=== PATIENT | male | born 1955 | race Two or more races ===

== ENCOUNTER 2021-12-26 14:09 | Outpatient (REF) | payer OTHER, SELFPAY ==
--- NOTE | ~2021-12-26 | MM_ITS ---
EXAMINATION: MM DIAGNOSTIC DIGITAL BREAST TOMOSYNTHESIS, BILATERAL US DIAGNOSTIC ULTRASOUND BREAST, RIGHT CLINICAL INFORMATION: 66-year-old male with fullness right breast. No pain, erythema, or nipple discharge. Prior history outside mammography March 2021. No known family history breast cancer. Patient notes symptoms improved from past. COMPARISON: None. Radiology department will attempt to retrieve prior outside breast imaging to allow for comparison in an addendum report. TECHNIQUE: Digital breast tomosynthesis is performed in both the craniocaudal and mediolateral oblique views along with computer-aided detection (CAD). Synthesized 2D images are generated from the tomosynthesis. Additional spot and rolled CC x2 views of the right breast are obtained. Ultrasound right breast is targeted to the retroareolar, periareolar, and outer breast. Grayscale imaging and color Doppler are performed without and with harmonics. FINDINGS: There are scattered areas of fibroglandular density (ACR BI-RADS breast composition Category b). There is an asymmetric gynecomastia type parenchymal pattern, slightly greater on the right. There is no mass or architectural abnormality. No skin thickening or coarsening of the stromal markings. There are some scattered benign round and dermal calcifications. The axilla are unremarkable. Ultrasound demonstrates no cystic or solid mass, focal duct ectasia, or architectural abnormality. No skin thickening or edema tracking in soft tissue planes. Results are discussed with the patient and son at time of visit. Patient notes reduced symptoms from past. No discharge. Patient should be managed based on the clinical impression. If clinically indicated, further evaluation may be considered with surgical consult. Decision to proceed with biopsy should be based on clinical grounds and degree of clinical concern. MM/MM tomosynthesis diagnostic BI IMPRESSION: -Moderate gynecomastia, slightly greater on right. -Unremarkable right breast ultrasound. ASSESSMENT: BI-RADS 2: Benign RECOMMENDATION: 1. Patient should be managed based on the clinical impression. If clinically indicated, further evaluation may be considered with surgical consult. Decision to proceed with biopsy should be based on clinical grounds and degree of clinical concern. 2. Radiology department staff will attempt to retrieve prior outside breast imaging to allow for comparison in an addendum report. This patient's information was entered into a reminder system with a target due date for their next mammogram.
== END 2021-12-26 14:10 | disposition home or self-care (01) ==
LOC: HO.MAMMO 14:09
PROVIDERS: PCP Internal Medicine; Visit Provider Internal Medicine
DX: N62 Hypertrophy of breast (principal)
CPT/HCPCS: 76642; 77062; 77066

== ENCOUNTER 2023-08-15 08:13 | Outpatient (REF) | payer MEDICAID, SELFPAY ==
[2023-08-15 14:06] LABS: Hematocrit 33.8 % (42.0-52.0); Hemoglobin 10.7 g/dl (14.0-18.0); Mean Corpuscular HGB Conc 31.7 g/dl (31.0-36.0); Mean Corpuscular Hemoglobin 29.2 pg (27.0-33.0); Mean Corpuscular Volume 92.1 fL (80.0-98.0); Mean Platelet Volume 10.5 fL (9.4-12.4); Platelet Count 212 X10*3/uL (160-400); Red Blood Count 3.67 X10*6/uL (4.60-5.80); Red Cell Distribution Width 14.8 % (11.0-16.0); White Blood Count 7.3 X10*3/uL (4.8-10.8)
[2023-08-15 14:26] LABS: Alanine Aminotransferase 16 U/L (0-40); Albumin Level 3.9 g/dL (3.5-5.0); Alkaline Phosphatase 57 U/L (39-117); Anion Gap 12 (12-20); Aspartate Amino Transferase 17 U/L (5-37); Bilirubin Total 0.2 mg/dL (0.0-1.0); Blood Urea Nitrogen 31 mg/dL (9-16); Calcium 9.1 mg/dL (8.4-10.2); Carbon Dioxide 25 mmol/L (22-29); Chloride 110 mmol/L (96-108); Cholesterol 129 mg/dL (<200); Estimated Glomerular Filt Rate 33; Glucose Fasting 119 mg/dL (60-99); HDL Cholesterol 49 mg/dL (>40); LDL Cholesterol Calculated 67 mg/dL (<100); Sodium 142 mmol/L (135-145); Total Protein 6.7 g/dL (6.5-8.0); Triglycerides 65 mg/dL (<150)
[2023-08-15 14:45] LABS: TSH reflex Free T4 1.51 uIU/mL (0.32-4.0)
== END 2023-08-15 08:14 | disposition home or self-care (01) ==
LOC: HO.CHCLDS 08:13
PROVIDERS: Visit Provider Internal Medicine
DX: E11.22 Type 2 diabetes mellitus with diabetic chronic kidney disease (principal); N18.31 Chronic kidney disease, stage 3a
CPT/HCPCS: 36415; 80053; 80061; 84443; 85027

== ENCOUNTER 2023-09-07 17:59 | Outpatient (REF) | payer MEDICAID, SELFPAY ==
[2023-09-08 03:52] LABS: CT PCR NOT DETECTED (Not Detect.); NG PCR NOT DETECTED (Not Detect.)
== END 2023-09-07 18:00 | disposition home or self-care (01) ==
LOC: HO.HHCLNP 17:59
PROVIDERS: Visit Provider Student in an Organized Health Care Education/Training Program
DX: R30.9 Painful micturition, unspecified (principal)
CPT/HCPCS: 0353U; 87086

== ENCOUNTER 2023-10-16 09:54 | Outpatient (REF) | payer MEDICARE, MEDICAID, SELFPAY ==
[2023-10-16 15:12] LABS: Appearance Urine Clear; Color Urine Yellow; Glucose Urine UA Negative (Negative); Leukocyte Esterase Urine Negative (Negative); Nitrite Urine Negative (Negative); Specific Gravity - Urine 1.015 (1.005-1.025); UMIC TRIGGER UA YES; Urine Blood Negative (Negative); Urine Ketones Negative (Negative); Urine Protein 100 (2+) mg/dL (Neg-Trace)
[2023-10-16 15:17] LABS: Bacteria Urine None Seen (None Seen); Hyaline Casts Urine 0-2 /LPF (0-2); RBC Urine 0-2 /HPF (0-2); Squamous Epithelial Cell Urine 0-2 /HPF (0-2); WBC Urine 0-5 /HPF (0-5)
[2023-10-16 15:38] LABS: Creatinine Urine 117.31 mg/dL; Total Protein Urine Random 82 mg/dL (<12)
== END 2023-10-16 09:55 | disposition home or self-care (01) ==
LOC: HO.CHCLDS 09:54
PROVIDERS: Visit Provider Internal Medicine Nephrology
DX: N18.32 Chronic kidney disease, stage 3b (principal); R80.1 Persistent proteinuria, unspecified; I10 Essential (primary) hypertension; E11.22 Type 2 diabetes mellitus with diabetic chronic kidney disease
CPT/HCPCS: 81001; 82570; 84156

== ENCOUNTER 2024-03-25 09:54 | Outpatient (REF) | payer OTHER, SELFPAY ==
[2024-03-25 16:04] LABS: Appearance Urine Clear; Color Urine Yellow; Glucose Urine UA Negative (Negative); Leukocyte Esterase Urine Negative (Negative); Nitrite Urine Negative (Negative); PH 6.5 (5.0-9.0); Specific Gravity - Urine 1.015 (1.005-1.025); UMIC TRIGGER UA YES; Urine Blood Negative (Negative); Urine Ketones Negative (Negative); Urine Protein 100 (2+) mg/dL (Neg-Trace)
[2024-03-25 16:10] LABS: Bacteria Urine None Seen (None Seen); Hyaline Casts Urine 0-2 /LPF (0-2); RBC Urine 0-2 /HPF (0-2); Squamous Epithelial Cell Urine 0-2 /HPF (0-2); WBC Urine 0-5 /HPF (0-5)
[2024-03-25 16:31] LABS: Hematocrit 34.3 % (42.0-52.0); Mean Corpuscular HGB Conc 32.1 g/dl (31.0-36.0); Mean Corpuscular Volume 93.5 fL (80.0-98.0); Mean Platelet Volume 10.5 fL (9.4-12.4); Platelet Count 221 X10*3/uL (160-400); Red Blood Count 3.67 X10*6/uL (4.60-5.80); Red Cell Distribution Width 14.7 % (11.0-16.0); White Blood Count 8.1 X10*3/uL (4.8-10.8)
[2024-03-25 17:00] LABS: Alanine Aminotransferase 16 U/L (0-40); Alkaline Phosphatase 62 U/L (39-117); Anion Gap 12 (12-20); Aspartate Amino Transferase 18 U/L (5-37); Bilirubin Total 0.2 mg/dL (0.0-1.0); Blood Urea Nitrogen 32 mg/dL (9-16); Calcium 9.1 mg/dL (8.4-10.2); Carbon Dioxide 25 mmol/L (22-29); Chloride 108 mmol/L (96-108); Cholesterol 145 mg/dL (<200); Estimated Glomerular Filt Rate 34; Glucose Random 127 mg/dL (60-115); HDL Cholesterol 43 mg/dL (>40); LDL Cholesterol Calculated 78 mg/dL (<100); Potassium 5.3 mmol/L (3.3-5.1); Sodium 140 mmol/L (135-145); Total Protein 6.9 g/dL (6.5-8.0); Triglycerides 120 mg/dL (<150)
[2024-03-26 04:33] LABS: ~HepC Num1 0.11 S/CO (0.00-0.79); ~Hepatitis C Antibody Nonreactive (Nonreactive)
== END 2024-03-25 09:55 | disposition home or self-care (01) ==
LOC: HO.CHCLDS 09:54
PROVIDERS: Visit Provider Internal Medicine
DX: E11.22 Type 2 diabetes mellitus with diabetic chronic kidney disease (principal); N18.31 Chronic kidney disease, stage 3a; N40.1 Benign prostatic hyperplasia with lower urinary tract symptoms; R35.1 Nocturia
CPT/HCPCS: 36415; 80053; 80061; 81001; 84443; 85027; 86803

== ENCOUNTER 2024-04-07 09:36 | Outpatient (REF) | payer OTHER, SELFPAY ==
[2024-04-07 14:13] LABS: Anion Gap 13 (12-20); Blood Urea Nitrogen 40 mg/dL (9-16); Calcium 9.3 mg/dL (8.4-10.2); Carbon Dioxide 25 mmol/L (22-29); Chloride 106 mmol/L (96-108); Estimated Glomerular Filt Rate 31; Glucose Random 170 mg/dL (60-115); Potassium 4.8 mmol/L (3.3-5.1); Sodium 139 mmol/L (135-145)
== END 2024-04-07 09:37 | disposition home or self-care (01) ==
LOC: HO.CHCLDS 09:36
PROVIDERS: Visit Provider Internal Medicine
DX: E87.5 Hyperkalemia (principal)
CPT/HCPCS: 36415; 80048

== ENCOUNTER 2024-09-22 14:15 | Outpatient (REF) | payer OTHER, SELFPAY ==
[2024-09-22 18:07] LABS: Anion Gap 11 (12-20); Blood Urea Nitrogen 36 mg/dL (9-16); Calcium 8.9 mg/dL (8.4-10.2); Carbon Dioxide 24 mmol/L (22-29); Chloride 103 mmol/L (96-108); Estimated Glomerular Filt Rate 32; Glucose Random 100 mg/dL (60-115); Potassium 4.4 mmol/L (3.3-5.1); Sodium 134 mmol/L (135-145)
--- OUTSIDE RECORDS SUMMARY | 2024-09-22 18:45 | XMS_ITS | Encounter Summary ---
Author Organization [employer] Address [address] [place] [address] [address] [place] [address] Care Team Providers Care Staffing Program Manager Name Role Phone Ezequiel Curtis MD Primary Care Provider [phone] Encounter Details Date Type Department Care Team ([facility] st Contact Info) Description 03/26/2024 Orders Only [facility] [address], [place] [phone] Ezequiel Curtis MD [address] [place] [address] Hyperkalemia (Primary Dx) Social History Tobacco Use Types Packs/Day Years Used Date Smoking Tobacco: Former Cigarettes Q uit: 08/27/1991 Passive Smoke Exposure: Never Smokeless Tobacco: Never Alcohol Use Standard Drinks/Week Comments Yes 1 (1 standard drink = 0.6 oz pur e alcohol) Depression Answer Date Recorded Patient Health Questionnaire-9 Score 5 09/18/2022 Housing Stability Answer Date Recorded What is your housing situation today? I have melanie mary 12/18/[address] you li ve. Do you have problems with any of the following? Oven or stove not working 12/18/2023 Food Insecurity Answer Date Recorded Within the past 12 months, y ou worried that your food would run out before you got money to buy more: Never True 12/18/2023 Within the past 12 months,th e food you bought just didn't last and you didn't have enough money to get more: Never True Transportation Answer Date Recorded In the past 12 months, has l ack of transportation kept you from medical appts, meetings, work or from getting things needed for daily living? No 12/18/2023 Utilities Answer Date Recorded In the past 12 months, has t he electric, gas, oil or water company threatened to shut off services in your home? No 12/18/2023 Depression Answer Date Recorded Patient Health Questionnaire-2 Score 2 09/18/2022 Sex and Gender Information Value Date Recorded Sex Assigned at Male 06/26/2022 10:39 AM EDT Legal Sex Male 10:39 AM EDT Gender Identity Male 06/26/2022 10:39 AM EDT Sexual Orientation Choose not to disclose 2021 10:39 AM EDT documented as of this encounter Plan of Treatment Upcoming Encounters Date Type Department Care Team (Late st Contact Info) Description 10/09/2024 9:00 AM EST Office Visit [facility] [address] [place] [address] Dayne Hernandez [address] [place] [address] 10/29/2024 9:00 AM EST Office Visit [facility] MED & PEDS [address] [place] [address] Ezequiel Curtis MD [address] [place], [place] [phone] documented as of this encounter Procedures Procedure Name Priority Date/Time Associated Diagnosis Comments BASIC METABOLIC PANEL Routine 04/07/2024 9:40 AM EDT Hyperkalemia documented in this encounter Results * (ABNORMAL) Basic Metabolic Panel (04/07/2024 9:40 AM EDT) Sodium 139 135 - 145 mmol/L [facility] Potassium 4.8 3.3 - 5.1 mmol/L [facility] Chloride 106 96 - 108 mmol/L [facility] Carbon Dioxide 25 22 - 29 mmol/L [facility] Anion Gap 13 12 - 20 [facility] Urea Nitrogen (BUN) 40(H) 9 - 16 mg/dL [facility] Creatinine, Serum 2.13(H) 0.5 - 1.4 mg/dL [facility] Estimated Glomerular Filt Rate 31 [facility] Comment:NOTE: For -Am erican individuals, multiply the result by 1.210.Chronic Kidney Disease: Estimated GFR < 60 mL/min/[id number] Kidney Disease: Estimated GFR < 15 mL/min/1.73m2 Glucose 170(H) 60 - 115 mg/dL [facility] Calcium 9.3 8.4 - 10.2 mg/dL [facility] Blood Venous blood specimen / Unknown 04/07/2024 9:40 AM EDT 04/07/2024 1:54 PM EDT Ezequiel Curtis MD LAB BLOOD ORDERABLES Final Result [facility] [address] [place] [address] [phone] documented in this encounter Visit Diagnoses Diagnosis Hyperkalemia- Primary Hyperpotassemia documented in this encounter Additional Health Concerns Assessment Noted Time PHQ-9 Depression Total Score: 5 09/18/19 23 2:31 PM EST documented as of this encounter Care Teams Staffing Program Manager Relationship Specialty Start Date End Date Ezequiel Curtis MD [address] [place] [id number] PCP - General Internal Medicine 09/05/21 documented as of this encounter
--- OUTSIDE RECORDS SUMMARY | 2024-09-22 18:45 | XMS_ITS | Clinical Summary ---
Author Organization [facility] Address [address] [place] [address] Care Team Providers Care De Icer Element Winder Name Role Phone Shalom Lobato MD Primary Care Provider [phone] Allergies No known active allergies Medications losartan (COZAAR) 50 mg tablet Take 50 mg by mouth daily. Active OMEGA 3,6,9 COMBINATION NO.7 (OMEGA DHA ORAL) Act erin multivitamin (MULTIPLE VITAMINS) tablet Adult; Act erin atorvastatin (LIPITOR) 40 mg tablet TAKE ONE (1) TABLET(S) BY MOUTH ONE (1) TIME PER DAY EVERY EVENING 5 08/23/20 17 Active Freestyle Lite test strips USE TO CHECK BLOOD SUGAR THREE (3) TIMES PER DAY 11 08/21/20 17 Active FREESTYLE FREEDOM LITE meter USE DIRECTED TO TEST BLOOD GLUCOSE 0 08/23/20 17 Active blood glucose diagnostic (FREESTYLE FREEDOM LITE) meter FreeStyle Pacolet Lite w/Device Kit USE DAILY NEEDED TO CHECK BLOOD SUGAR Quantity: 1; Refills: 0 Started 03-Jan-2016 Active 01/03/20 16 Active glipiZIDE (GLUCOTROL) 10 mg tablet Take 5 mg by mouth every morning. 5 08/02/20 17 Active TRUEPLUS LANCETS USE TO CHECK BLOOD SUGAR THREE (3) TIMES PER DAY 11 08/21/20 17 Active loratadine (CLARITIN) 10 mg tablet TAKE ONE (1) TABLET(S) BY MOUTH ONE (1) TIME PER DAY (FOR ITCHY FEET AND HANDS) 5 08/21/20 17 Active CEROVITE SENIOR tablet TAKE ONE (1) TABLET(S) BY MOUTH ONE (1) TIME PER DAY 11 08/23/20 17 Active lancets (TRUEPLUS LANCETS) TRUEplus Lancets 30G Miscellaneous USE TO CHECK BLOOD SUGAR THREE (3) TIMES DAILY Quantity: 100; Refills: 0 Started 12-Apr-2015 Active 04/12/20 15 Active pioglitazone (ACTOS) 45 mg tablet Take 1 tablet by mouth daily. 4 03/27/20 18 Active NATURAL BALANCE TEARS 0.1-0.3 % ophthalmic drops INSTILL ONE (1) DROP INTO AFFECTED EYES FOUR (4) TIMES EVERY DAY 11 02/19/20 19 Active acyclovir (ZOVIRAX) 200 mg capsule Take 2 capsules (400 mg total) by mouth 5 times a day. 25 capsule 10/02/19 20 Active amLODIPine (NORVASC) 5 mg tablet Take 5 mg by mouth daily. 12/27/19 20 Active cimetidine (TAGAMET) 400 mg tablet TAKE 1 TABLET BY ORAL ROUTE 2 TIMES EVERY DAY IN THE MORNING AND AT BEDTIME NEEDED FOR HEARTBURN 10/22/19 20 Active TRADJENTA 5 mg tablet Take 5 mg by mouth daily. 12/29/19 20 Active clotrimazole-bet amethasone (LOTRISONE) cream Apply topically to the affected area 2 times a day. 45 g 1 03/08/20 20 Active cholecalciferol 25 mcg (1,000 unit) tablet Take 1,000 Units by mouth daily. 05/24/20 20 Active ASCORBIC ACID, VITAMIN C, ORAL Take by mouth. Active omega 2-yfl-whn-fish oil (Fish Oil) 100-160-1,000 mg capsule Fish Oil Active lidocaine (LIDODERM) 5% patch APPLY 1 PATCH EVERY DAY MAY WEAR UP TO 12 HOURS 10/13/19 21 Active glucosamine-marcial droitin 500-400 mg capsule Take 1 capsule by mouth 3 times daily. Active albuterol (ProAir HFA) 90 mcg inhaler ProAir HFA 90 mcg/actuation aerosol inhaler Active amoxicillin (MOXATAG ORAL) amoxicillin PRN dental Active ofloxacin (OCUFLOX) 0.3 % ophthalmic solution ofloxacin 0.3 % eye drops Active aspirin 81 mg EC tablet 10/30/19 21 Active clotrimazole (LOTRIMIN) 1% cream APPLY TO AFFECTED AREA TWICE A DAY IN THE MORNING AND IN THE EVENING 05/20/20 20 Active ergocalciferol (VITAMIN D2) 1,250 mcg (50,000 unit) capsule Take 50,000 Units by mouth once a week. 05/20/20 Active therapeutic multivitamin liquid Take 5 mL by mouth daily. Active Artificial Tears,pg-hypm-gl yc, 1-0.2-0.2 % drops INSTILL 1 DROP BY OPHTHALMIC ROUTE 4 TIMES EVERY DAY 11/04/19 Active betamethasone, augmented, (DIPROLENE) 0.05% creamIndications :Psoriasis APPLY TO AFFECTED AREA OF KNEE TWICE DAILY FOR UP TO 2 WEEKS TAKE 1 WEEK OFF & MAY REPEAT NEEDED 50 g 01/05/20 Active finasteride (PROSCAR) 5 mg tablet Take 1 tablet (5 mg total) by mouth daily. 90 tablet 3 03/14/20 Active terazosin (HYTRIN) 10 mg capsule Take 1 capsule (10 mg total) by mouth nightly. 90 capsule 3 03/14/20 Active Active Problems Problem Noted Date Diagnosed Date Anemia 01/15/2020 Assessment & Plan (12/31/2020 2:50 PM EDT): Hemoglobin level is sufficiently high to not warrant EVELIA treatment, though it has trended down over the past several years. I will continue to monitor this with iron studies at his next visit. Assessment & Plan (07/02/2020 2:42 PM EST): Hemoglobin is sufficiently high to not warrant EVELIA treatment. Assessment & Plan (01/23/2020 11:18 AM EDT): I will repeat his CBC with his upcoming lab draw. Bilateral leg edema 04/02/2019 Assessment & Plan (04/02/2019 10:53 AM EDT): Will defer diuretic therapy at this time. Advised patient to decrease his intake of dietary sodium. If he continues to rent retain fluid, consideration may need to be given to use of a thiazide diuretic and/or cardiac testing. Incomplete emptying of bladder 03/20/2016 CKD stage G3a/A3, GFR 45-59 and albumin creatinine ratio >300 mg/g 01/12/2016 Overview (06/18/2020): Reaplcing Diagnoses that were inactivated after 05/27/2020 regulatory diagnosis import. Assessment & Plan (12/31/2020 2:49 PM EDT): Renal function remains consistent with stage IIIb chronic kidney disease. Based on his urine albumin excretion he is at a higher risk of progression to ESRD. Ongoing efforts to optimize his blood pressure and glycemic control are crucial for preserving his GFR going forward. He is on evidence-based treatment with losartan. I will speak to him about starting an SGLT2 inhibitor, which may confer additional kidney protection as well as cardiac protection and blood sugar lowering. This may need to be coordinated with a down titration of one of his other antihyperglycemic medications such as glipizide, to avoid precipitating hypoglycemic episode. Assessment & Plan (07/02/2020 2:42 PM EST): Renal function is stable based on most recent labs obtained through his primary care clinic. Ongoing optimization of glycemic and blood pressure control are crucial preserving his GFR. He is on evidence-based therapy with an ARB. Consideration could be given to SGLT2 inhibitor therapy, which are being increasingly recognized to preserve kidney function in patients with proteinuric kidney disease and type 2 diabetes. Assessment & Plan (01/23/2020 11:14 AM EDT): Renal function was stable at most recent lab check. He gets his lab tests done at the [facility]. I will submit an order for labs and have them sent to the [facility] in [place]. Once those results return, I will call him to discuss whether or not his renal function has remained stable. In the meantime, optimal glycemic and blood pressure control are critical for preserving his current GFR. He has not had any indications for renal replacement therapy thus far. Assessment & Plan (04/02/2019 10:53 AM EDT): Renal function appears to be stable based on the most recent labs obtained through [facility]. Unfortunately do not have access to these labs. If additional blood work is obtained through the [facility] system, I would request that the results be faxed to my office at [phone]. Ongoing optimization of glycemic and blood pressure control are critical for preserving Mr. Galindo's GFR. Avoidance of nephrotoxic exposures such as iodinated contrast, volume depletion, and NSAID therapy are also critical. The patient preferred not to have blood work obtained today due to cost concerns, following a change in his insurance coverage. I provided him a lab slip and a handwritten list of labs that I would like to have completed at his next PCP visit, and faxed to my attention, to screen for other complications of chronic kidney disease including elevated parathyroid hormone, anemia, or other letter light disturbances. Assessment & Plan (10/09/2018 9:19 AM EST): Mr. Galindo's renal function remains very stable over the past several years. Ongoing optimization of glycemic and blood pressure control, as well as avoidance of nephrotoxic exposures such as iodinated contrast and NSAID therapy, are critical for preserving his GFR. There is no indication for additional diagnostic testing at this time. Assessment & Plan (04/03/2018 8:50 AM EDT): His renal function remains generally stable within the range of stage III CKD. Ongoing optimization of his glycemic and blood pressure control are critical for preserving his GFR. There is no indication for renal placement therapy at this time, however he is at high risk for progression ESRD by virtue of his persistent proteinuria. Assessment & Plan (09/19/2017 10:42 AM EST): Mr. Galindo has stable stage III chronic kidney disease with elevated protein excretion. His GFR was remained fairly stable over the past several years. Ongoing optimization of his glycemic and blood pressure control are critical for preserving his GFR. He does have a relatively increased risk of progression to ESRD given his elevated protein excretion, however his stable GFR over the past several years provides a favorable prognosis. Nadege 07/12/2015 Type 2 diabetes mellitus 07/22/2014 Assessment & Plan (12/31/2020 2:50 PM EDT): By his report, hemoglobin A1c is under good control. He is on pioglitazone, glipizide, and Tradjenta. Given the emerging evidence of kidney protective effect of SGLT2 inhibitors, would suggest that he start 1 of these, possibly in place of one of his alternate oral diabetes medications. Assessment & Plan (01/23/2020 11:18 AM EDT): He is taking glipizide and pioglitazone under the care of his PCP. Depending on his lab tests and eGFR, consideration could be given to SGLT2 inhibitor therapy. I will discuss this further with him when his labs return. Proteinuria 07/22/2014 Assessment & Plan (04/02/2019 10:51 AM EDT): He is on a maximally tolerated dose of an angiotensin receptor renate, based on his blood pressure and prior episodes of hyperkalemia. If he has recurrent episodes of hyperkalemia, consideration could be given to use of Veltassa. He will continue taking losartan, and minimize his dietary sodium intake. Assessment & Plan (10/09/2018 9:21 AM EST): As with his reduced GFR, his increased urinary protein excretion is likely due to diabetic and hypertensive changes in the kidney. Maximizing his dose of losartan, as well as continuing efforts to optimize glycemic control, are recommended for minimizing his protein excretion. Dietary sodium restriction should also be employed. He does not have hypoalbuminemia or significant lower extremity swelling as a result of the proteinuria. Assessment & Plan (04/03/2018 8:51 AM EDT): Urinary protein excretion has decreased considerably since July 2017. Ongoing use of ARB at maximally tolerated doses as well as ischemic control and minimizing dietary sodium intake are recommended to reduce his urine protein levels. Assessment & Plan (09/19/2017 10:44 AM EST): Protein excretion remains elevated, though sub-nephrotic range. Given his intermittent microscopic hematuria, a inflammatory glomerular process is possible, though-given his stable GFR and sub-nephrotic proteinuria-it is unlikely that biopsy would yield any findings that would change his current management. His overall picture is not likely to be benefited significantly by immunosuppressive treatment, were a biopsy to demonstrate glomerulonephritis. Essential hypertension 07/22/2014 Assessment & Plan (12/31/2020 2:49 PM EDT): Blood pressures controlled on his current doses of amlodipine and losartan. He also takes Terazosin at night. I did not make any changes. As above, I may initiate SGLT2 inhibitor therapy after speak with him further. Assessment & Plan (07/02/2020 2:42 PM EST): Blood pressures controlled on his current regimen consisting of losartan, amlodipine, and Terazosin. I did not make any changes today. Assessment & Plan (01/23/2020 11:17 AM EDT): He will continue his current dose of losartan for now. Ongoing dietary sodium reduction and healthy living habits are recommended. Assessment & Plan (04/02/2019 10:51 AM EDT): Blood pressure is controlled on today's measurement. I did not make any changes to his current doses of losartan or terazosin. He states that his potassium level was normal on most recent labs. Assessment & Plan (10/09/2018 9:20 AM EST): Blood pressure per my measurement is target. Under adequate control. He will continue with losartan 50 mg daily. He may also be receiving some antihypertensive benefit from his terazosin as well. I did not make any changes today. Assessment & Plan (04/03/2018 8:50 AM EDT): Blood pressure is controlled on his current regimen of losartan and terazosin. I did not make any changes today. Assessment & Plan (09/19/2017 10:42 AM EST): His blood pressures under control on the manual reading today. He will continue with his current doses of losartan and terazosin. Further increases in his ARB does have been limited by intermittent hyperkalemia. 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 I will await his repeat chemistry panel which he is likely to have obtained through his primary care physician's office. As above, use of Veltassa can be considered if recurrent hyperkalemia limits the use of angiotensin receptor blockade. Assessment & Plan (10/09/2018 9:21 AM EST): Potassium level is acceptable at this time, on his current dose of losartan. Avoidance of excessive dietary potassium intake is prudent. Assessment & Plan (04/03/2018 8:51 AM EDT): He has modest ongoing hyperkalemia likely due to his CKD, use of an ARB. Judicious reduction of dietary potassium intake is reasonable. He will remain on the same dose of losartan for now. Assessment & Plan (09/19/2017 10:43 AM EST): His potassium level is acceptable based on his most recent labs. Ongoing avoidance of potassium rich foods is recommended. He will continue on the same dose of losartan at this time. Urinary tract infection 02/26/201702/24 Post-void dribbling 03/13/2016 03/08/20 20 Urinary stream slowing 09/06/201503/08 Urinary urgency 02/25/2014 03/08/2020 Social History Tobacco Use Types Packs/Day Years Used Date Smoking Tobacco: Former Smokeless Tobacco: Never Comments:: Sex and Gender Information Value Date Recorded Sex Assigned at Not on file Legal Sex Male 6:18 PM EDT Gender Identity Not on file Sexual Orientation Not on file Last Filed Vital Signs Vital Sign Reading Time Taken Comments Blood Pressure 130/71 03/14/2021 8:01 AM EDT Pulse 93 03/14/2021 8:01 AM EDT Temperature 36.1 ??C (97 ??F) 09/03/2017 8:42 AM EST Respiratory Rate - - Oxygen Saturation - - Inhaled Oxygen Concentration - - Weight 96.2 kg (212 lb) 12/31/2020 10:59 AM EDT Height 163 cm (5' 4.17 ) 12/31/2020 10:59 AM EDT Body Mass Index 36.2 12/31/2020 10:59 AM EDT Plan of Treatment Health Maintenance Due Date Last Done Comments Ziyad 1955 Colon Cancer Screening 1955 Colonoscopy 1955 FOBT / Fit Test 1954 Hepatitis C Screening 1954 Sigmoidoscopy 1954 DTaP,Tdap,and Td Vaccines (1 - Tdap) 1976 CT Lung Cancer Screening (Baseline) 2004 Pneumococcal Vaccine: 65+ Years (2 of 2 - PCV) 05/20/2021 05/20/2020 Basic Metabolic Panel 12/31/2021 12/31/2020 , 03/08/2020, 03/21/2017, Additional history exists Urine Microalbumin 12/31/2021 12/31/2020, 0 03/21/2017, 01/21/2016, Additional history exists Ophthalmology Exam 01/31/2022 01/31/2021, 02/23/2020 Hemoglobin A1C 03/18/2023 09/18/2022, 02/08/2021 COVID-19 Vaccine ( season) 2024 11/11/2020, 10/14/2020 Influenza Vaccine (#1) 2024 09/02/2019 Alcohol/Substance Use Screening 08/27/2024 Depression Screening and Follow-Up 08/27/2024 Health Care Proxy Review 08/27/2024 Social Drivers of Health Annual Screening 08/27/2024 RSV Vaccine (60+ years old and patients) (1 - 1-dose 75+ series) 2029 Zoster Vaccines Completed 02/12/2020, 09/02/2019 Hepatitis B Vaccines Aged Out No long er eligible based on patient's age to complete this topic Procedures * Due to [place] law, this organization might not be sharing negative HIV tests. Procedure Name Priority Date/Time Associated Diagnosis Comments MICROALBUMIN, RANDOM URINE WITH CREATININE Routine 12/31/2020 11:40 AM EDT Stage 3b chronic kidney disease RENAL FUNCTION PANEL Routine 12/31/2020 11:40 AM EDT Stage 3b chronic kidney disease from Last 3 Months or Most Recently Relevant to Health Maintenance Results * Due to [place] law, this organization might not be sharing negative HIV tests. * (ABNORMAL) Microalbumin, Random Urine with Creatinine (12/31/2020 11:40 AM EDT) Microalbumin, Urine 68.5 mg/dL 12/31/2020 12:34 PM EDT [facility] Creatinine, Urine 64 22 - 328 mg/dL 12/31/2020 12:34 PM EDT [facility] Microalb/Creat Ratio, Random Urine 1,070.3(H ) <30.0 mcg/mgCr 12/31/2020 12:34 PM EDT [facility] Comment: Microalbumin Reference Range: Normal ? <30 mcg/mg Creatinine Microalbuminuria ? 30-300 mcg/mg Creatinine Clinical Albuminuria >300 mcg/mg Creatinine Reference: ADA Guideline. Diabetes Care. 2004;27 (suppl 1) Urine Voided urine specimen / Unknown Non-Blood Collection / Unknown 12/31/2020 11:40 AM EDT 12/31/2020 11:52 AM EDT us Karsten Moe MD LAB URINE ORDERABLES Final R [facility]ult [facility] [address] [place] [id number], * (ABNORMAL) Renal Function Panel (12/31/2020 11:40 AM EDT) NA 141 135 - 145 mmol/L 12/31/2020 12:27 PM EDT [facility] K 4.9 3.5 - 5.3 mmol/L 12/31/2020 12:27 PM EDT [facility] Cl 108 97 - 110 mmol/L 12/31/2020 12:27 PM EDT [facility] CO2 27 24 - 32 mmol/L 12/31/2020 12:27 PM EDT [facility] Anion Gap 6 5 - 15 12/31/2020 12:27 PM EDT [facility] Glucose 182(H) 70 - 99 mg/dL 12/31/2020 12:27 PM EDT [facility] BUN 35(H) 7 - 23 mg/dL 12/31/2020 12:27 PM [employer] [facility] Creatinine 2.01(H) 0.60 - 1.30 mg/dL 12/31/2020 12:27 PM [employer] eGFR Non- 34(L) >=90 mL/min/BS A 12/31/2020 12:27 PM [employer] eGFR 39(L) >=90 mL/min/BS A 12/31/2020 12:27 PM [employer] Comment: Units = mL/min/1.73 m2 Glomerular Filtration Rate (GFR) is estimated based on the CKD-EPI Creatinine Equation (2009). Stage ?Description ? GFR 1 ? Normal ? >=90 mL/min/BSA 2 ? Mildly decreased GFR ? 60-89 mL/min/BSA 3 ? Moderately decreased GFR ? 30-59 mL/min/BSA 4 ? Severely decreased GFR ? 15-29 mL/min/BSA 5 ? Kidney Failure ? <15 mL/min/BSA Calcium 8.9 8.7 - 10.7 mg/dL 12/31/2020 12:27 PM [employer] [facility] Phosphorus 2.9 2.5 - 4.5 mg/dL 12/31/2020 12:27 PM [employer] Albumin 3.9 3.5 - 4.8 g/dL 12/31/2020 12:27 PM EDT [facility] Blood Structure of peripheral vein / Unknown Venipuncture / Unknown 12/31/2020 11:40 AM EDT 12/31/2020 11:58 AM EDT us Karsten Moe MD LAB BLOOD ORDERABLES Final R esult [facility] [address] [place] [address], from Last 3 Months or Most Recently Relevant to Health Maintenance Insurance Care Teams De Icer Element Winder Relationship Specialty Start Date End Date Shalom Lobato MD [address] [place] [address] PCP - General Family Medicine 03/01/20
--- OUTSIDE RECORDS SUMMARY | 2024-09-22 18:45 | XMS_ITS | Encounter Summary ---
Author Organization [employer] Address [address] [facility] [address] [place] [address] Care Team Providers Care Zig Zag Stitcher Name Role Phone Ezequiel Curtis MD Primary Care Provider [phone] Reason for Visit * Reason Comments Med Refill Encounter Details Date Type Department Care Team (Late st Contact Info) Description 09/25/2023 Refill [facility] [address] [place] [address] Errol Reich, BRUCE [address] [place] [address] Social History Tobacco Use Types Packs/Day Years [...] housing situation today? I have melanie mary 06/16/[address] you li ve. Do you have problems with any of the following? None of the above 06/16/2023 Food Insecurity Answer Date Recorded Within the past 12 months, y ou worried that your food would run out before you got money to buy more: Never True 06/16/2023 Within the past 12 months,th e food you bought just didn't last and you didn't have enough money to get more: Never True Transportation Answer Date Recorded In the past 12 months, has l ack of transportation kept you from medical appts, meetings, work or from getting things needed for daily living? No 06/16/2023 Utilities Answer Date Recorded In the past 12 months, has t he electric, gas, oil or water company threatened to shut off services in your home? No 06/16/2023 Depression Answer Date Recorded Patient Health Questionnaire-2 Score 2 09/18/2022 Sex and Gender Information Value Date Recorded Sex Assigned at Male 06/26/2022 10:39 AM EDT Legal Sex Male 10:39 AM EDT Gender Identity Male 06/26/2022 10:39 AM EDT Sexual Orientation Choose not to disclose 2021 10:39 AM EDT documented as of this encounter Miscellaneous Notes * Telephone Encounter - Errol Reich DDS - 09/26/2023 4:16 PM EST Approving, but needs appt for additional refills. documented in this encounter Plan of Treatment Upcoming Encounters Date Type Department Care Team (Late st Contact Info) Description 10/09/2024 9:00 AM EST Office Visit [facility] AD[facility] [address] [place] [address] Dayne Hernandez [address] [place] [address] 10/29/2024 9:00 AM EST Office Visit [facility] PED[facility] [address] [place] [address] Ezeuqiel Curtis MD [address] [place] [address] documented as of this encounter Visit Diagnoses Not on filedocumented in this encounter Additional Health Concerns Assessment Noted Time PHQ-9 Depression Total Score: 5 09/18/19 23 2:31 PM EST documented as of this encounter Care Teams Zig Zag Stitcher Relationship Specialty Start Date End Date Ezequiel Curtis MD [address] [place] [address] PCP - General Internal Medicine 09/05/21 documented as of this encounter
--- OUTSIDE RECORDS SUMMARY | 2024-09-22 18:45 | XMS_ITS | Referral Summary ---
Author Organization [facility] Address [address] [place] [address] Care Team Providers Care Alteration Specialist Name Role Phone Shalom Lobato MD Primary Care Provider [phone] Allergies No known active allergies Medications losartan [...] glucose diagnostic (FREESTYLE FREEDOM LITE) meter FreeStyle [place] Lite w/Device Kit USE DAILY NEEDED TO [...] C, ORAL Take by mouth. Active omega 8-sew-oxj-fish oil (Fish Oil) 100-160-1,000 mg capsule Fish [...] gets his lab tests done at the [facility]. I will submit an order for labs and have them sent to the [facility] in [place]. Once those results return, I will call [...] on the most recent labs obtained through [facility]. Unfortunately do not have access to these labs. If additional blood work is obtained through the [facility] system, I would request that the results be faxed to my office at [phone]. Ongoing optimization of glycemic and blood pressure [...] 12/31/2020 10:59 AM EDT Plan of Treatment Not on file Procedures * Due to [place] state law, this organization might not be sharing negative HIV tests. Procedure Name Priority Date/Time Associated Diagnosis Comments MICROALBUMIN, RANDOM URINE WITH CREATININE Routine 12/31/2020 11:40 AM EDT Stage 3b chronic kidney disease RENAL FUNCTION PANEL Routine 12/31/2020 11:40 AM EDT Stage 3b chronic kidney disease from Last 3 Months or Most Recently Relevant to Health Maintenance Results * Due to [place] state law, this organization might not be sharing negative HIV tests. * (ABNORMAL) Microalbumin, Random Urine with Creatinine (12/31/2020 11:40 AM EDT) Microalbumin, Urine 68.5 mg/dL 12/31/2020 12:34 PM EDT [facility] Creatinine, Urine 64 22 - 328 mg/dL 12/31/2020 12:34 PM EDT [facility] Microalb/Creat Ratio, Random Urine 1,070.3(H ) <30.0 mcg/mgCr 12/31/2020 12:34 PM EDT [facility] Comment: Microalbumin Reference Range: Normal ? <30 mcg/mg Creatinine Microalbuminuria ? 30-300 mcg/mg Creatinine Clinical Albuminuria >300 mcg/mg Creatinine Reference: ADA Guideline. Diabetes Care. 2004;27 (suppl 1) Urine Voided urine specimen / Unknown Non-Blood Collection / Unknown 12/31/2020 11:40 AM EDT 12/31/2020 11:52 AM EDT us Karsten Moe MD LAB URINE ORDERABLES Final R esult [facility] [address] [place] [address], * (ABNORMAL) Renal Function Panel (12/31/2020 11:40 AM EDT) NA 141 135 - 145 mmol/L 12/31/2020 12:27 PM EDT [facility] K 4.9 3.5 - 5.3 mmol/L 12/31/2020 12:27 PM EDT [facility] Cl 108 97 - 110 mmol/L 12/31/2020 12:27 PM EDT [facility] CO2 27 24 - 32 mmol/L 12/31/2020 12:27 PM EDT [facility] Anion Gap 6 5 - 15 12/31/2020 12:27 PM EDT [facility] Glucose 182(H) 70 - 99 mg/dL 12/31/2020 12:27 PM EDT [facility] BUN 35(H) 7 - 23 mg/dL 12/31/2020 12:27 PM EDT [facility] Creatinine 2.01(H) 0.60 - 1.30 mg/dL 12/31/2020 12:27 PM EDT [facility] eGFR Non- 34(L) >=90 mL/min/BS A 12/31/2020 12:27 PM EDT [facility] eGFR 39(L) >=90 mL/min/BS A 12/31/2020 12:27 PM EDT [facility] Comment: Units = mL/min/1.73 [...] 8.7 - 10.7 mg/dL 12/31/2020 12:27 PM EDT [facility] Phosphorus 2.9 2.5 - 4.5 mg/dL 12/31/2020 12:27 PM EDT [facility] Albumin 3.9 3.5 - 4.8 g/dL 12/31/2020 12:27 PM EDT [facility] Blood Structure of peripheral vein / Unknown Venipuncture / Unknown 12/31/2020 11:40 AM EDT 12/31/2020 11:58 AM EDT us Karsten Moe MD LAB BLOOD ORDERABLES Final R esult [facility] [address] [id number], from Last 3 Months or Most Recently Relevant to Health Maintenance Insurance Care Teams Alteration Specialist Relationship Specialty Start Date End Date Shalom Lobato MD [address] [place] [address] PCP - General Family Medicine 03/01/20
--- OUTSIDE RECORDS SUMMARY | 2024-09-22 18:46 | XMS_ITS | Encounter Summary ---
Author Organization [facility] Address [address] [address] Phone Care Team Providers Care Hedge Fund Trader Name Role Phone Ezequiel Curtis MD Primary Care Provider [phone] Encounter Details Date Type Department Care Team (Late st Contact Info) Description 10/18/2023 Documentation Only [facility] [address] [place] [phone] [place], [place] [address] [place] [address] Social History Tobacco Use Types Packs/Day Years Used Date Smoking Tobacco: Never Assessed Sex and Gender Information Value Date Recorded Sex Assigned at Not on file Legal Sex Male 1:29 PM EST Gender Identity Not on file Sexual Orientation Not on file documented as of this encounter Plan of Treatment Upcoming Encounters Date Type Department Care Team (Late st Contact Info) Description 11/24/2024 1:30 PM EDT Office Visit [facility] [address] [place] [phone] David Barclay MD [address] [place] [address] [place] [address] documented as of this encounter Visit Diagnoses Not on filedocumented in this encounter Care Teams Hedge Fund Trader Relationship Specialty Start Date End Date Ezequiel Curtis MD PCP - General Internal Medicine 09/29/21 documented as of this encounter
--- OUTSIDE RECORDS SUMMARY | 2024-09-22 18:46 | XMS_ITS | Encounter Summary ---
Author Organization [facility] Address [address] [place] [address] Care Team Providers Care Account Specialist Name Role Phone Ezequiel Curtis MD Primary Care Provider [phone] Reason for Visit * Reason Comments Med Refill Encounter Details Date Type Department Care Team ([facility] Contact Info) Description 03/25/2023 Refill [facility] [address] [place] [address] Ezequiel Curtis MD [address] [place] [address] Essential (primary) hypertension Social History Tobacco Use Types Packs/Day Years Used Date Smoking Tobacco: Former Cigarettes Q uit: 08/27/1991 Passive Smoke Exposure: Never Smokeless Tobacco: Never Alcohol Use Standard Drinks/Week Comments Yes 1 (1 standard drink = 0.6 oz pur e alcohol) Depression Answer Date Recorded Patient Health Questionnaire-9 Score 5 09/18/2022 Depression Answer Date Recorded Patient Health Questionnaire-2 Score 2 09/18/2022 Sex and Gender Information Value Date Recorded Sex Assigned at Male 06/26/2022 10:39 AM EDT Legal Sex Male 10:39 AM EDT Gender Identity Male 06/26/2022 10:39 AM EDT Sexual Orientation Choose not to disclose 2021 10:39 AM EDT documented as of this encounter Plan of Treatment Upcoming Encounters Date Type Department Care Team ([facility] Contact Info) Description 10/09/2024 9:00 AM EST Office Visit [facility] [address] [place] [address] Dayne Hernandez [address] [place] [address] 10/29/2024 9:00 AM EST Office Visit [facility] [address] [place] [address] Ezequiel Curtis MD [address] [place] [address] documented as of this encounter Visit Diagnoses Diagnosis Essential (primary) hypertension Unspecified essential hypertension documented in this encounter Additional Health Concerns Assessment Noted Time PHQ-9 Depression Total Score: 5 09/18/19 23 2:31 PM EST documented as of this encounter Care Teams Account Specialist Relationship Specialty Start Date End Date Ezequiel Curtis MD [address] [place] [address] PCP - General Internal Medicine 09/05/21 documented as of this encounter
--- OUTSIDE RECORDS SUMMARY | 2024-09-22 18:46 | XMS_ITS | Clinical Summary ---
Author Organization [facility] Address [address] [place] [address] [place] [address] Phone Care Team Providers Care Director Of Family Service Center Name Role Phone Ezequiel Curtis MD Primary Care Provider [phone] Allergies No known active allergies Medications amLODIPine (NORVASC) 5 MG tablet Take 5 mg by mouth 1 (one) time each day Active acyclovir (ZOVIRAX) 200 MG capsule Take 200 mg by mouth Active glipiZIDE (GLUCOTROL) 5 MG tablet Take 5 mg by mouth in the morning and 5 mg in the evening. Take before meals. Active pioglitazone (ACTOS) 45 MG tablet Take 45 mg by mouth 1 (one) time each day Active terazosin (HYTRIN) 10 MG capsule Take 10 mg by mouth every night Active albuterol HFA (PROVENTIL HFA;VENTOLIN HFA) 108 (90 Base) MCG/ACT inhaler Inhale every 6 (six) hours if needed for wheezing Active aspirin (ST IBIS) 81 MG EC tablet Take 81 mg by mouth 1 (one) time each day Active glucose blood test strip 1 each by Other route if needed Use as instructed Active sodium polystyrene (KAYEXALATE) 15 GM/60ML suspension Take 15 g by mouth 1 (one) time Active atorvastatin (LIPITOR) 40 MG tablet Take 40 mg by mouth 1 (one) time each day 2 Active cholecalciferol (VITAMIN D-3) 25 MCG (1000 UT) tablet Take 1,000 Units by mouth 1 (one) time each day 2 Active losartan (COZAAR) 50 MG tablet Take 50 mg by mouth 1 (one) time each day 2 Active metoprolol succinate XL (TOPROL XL) 25 MG 24 hr tablet Take 25 mg by mouth 1 (one) time each day 2 Active finasteride (PROSCAR) 5 MG tablet Take 5 mg by mouth 1 (one) time each day Do not crush, chew, or split. Active loratadine (CLARITIN) 10 MG tablet Take 10 mg by mouth 1 (one) time each day Active cimetidine (TAGAMET) 400 MG tablet Take 400 mg by mouth in the morning and 400 mg in the evening. Active linaGLIPtin (Tradjenta) 5 MG tablet Take 5 mg by mouth 1 (one) time each day 0 Active benzonatate (TESSALON) 100 MG capsule TAKE 1 CAPSULE BY MOUTH THREE TIMES DAILY NEEDED FOR COUGH FOR UP TO 7 DAYS. DO NOT BREAK, CRUSH, DISSOLVE OR CHEW 4 Active DULCOLAX 5 MG EC tablet TAKE ONE TABLET DAILY NEEDED Active Diclofenac Sodium 1 % gel APPLY 2 GRAM'S TO AFFECTED AREA(s) THREE TIMES DAILY NEEDED Active famotidine (PEPCID) 20 MG tablet 20 mg every night Active fluconazole (DIFLUCAN) 150 MG tablet TAKE ONE TABLET ONCE 3 Active Sodium Fluoride 5000 PPM 1.1 % cream Apply a smear to the brush and brush thoroughly twice daily. Spit, do not rinse. 4 Active Januvia 100 MG tablet Take 100 mg by mouth every morning 4 Active Easy Touch Lancets 33G/Twist misc TEST BLOOD SUGAR TWICE DAILY 4 Active Active Problems Problem Noted Date Diagnosed Date Type 2 diabetes mellitus without complication Stage 3b chronic kidney disease 11/22/2021 Proteinuria 11/22/2021 Hypertriglyceridemia 11/22/2021 Hyperkalemia 11/22/2021 Hypertension 11/22/2021 Anemia 11/22/2021 Immunizations Name Administration Dates Next Due Hep B, Unspecified 05/20/2019,01/07/2019 Hepatitis A 05/20/2019 Hepatitis B 09/02/2019 Influenza Vaccine, Quadrivalent, Adjuvanted 05/28 Influenza, Unspecified 06/12/2022 Moderna SARS-COV-2 11/11/2020,10/14/2020 Pneumococcal Conjugate 02/05/2013 Pneumococcal Conjugate 13-Valent 05/20/2019 Pneumococcal Polysaccharide 05/20/2020 Tdap 02/05/2013 Zoster 02/12/2020,09/02/2019,10/20/2016 Social History Tobacco Use Types Packs/Day Years Used Date Smoking Tobacco: Never Assessed Sex and Gender Information Value Date Recorded Sex Assigned at Not on file Legal Sex Male 1:29 PM EST Gender Identity Not on file Sexual Orientation Not on file Last Filed Vital Signs Vital Sign Reading Time Taken Comments Blood Pressure 110/60 05/07/2024 2:00 PM EDT Pulse - - Temperature - - Respiratory Rate - - Oxygen Saturation - - Inhaled Oxygen Concentration - - Weight - - Height - - Body Mass Index - - Plan of Treatment Upcoming Encounters Date Type Department Care Team (Late st Contact Info) Description 11/24/2024 1:30 PM EDT Office Visit [facility] [address] [place] [phone] David Barclay MD [address] [place] [address] [place] [phone] Health Maintenance Due Date Last Done Comments Colorectal Cancer Screening: Annual FOBT 2003 Colorectal Cancer Screening: Colonoscopy 2003 Colorectal Cancer Screening: Sigmoidoscopy 2003 Diabetes: Pedal Pulse Checked 11/23/2021 Diabetes: Sensory Foot Exam 11/23/2021 Diabetes: Visual Foot Exam 11/23/2021 Influenza Vaccine (#1) 2024 06/12/2022, 2020 Diabetes: Hemoglobin A1C 06/25/2024 03/25/2024 Diabetes: Ophthalmology Exam 08/06/202406/2023, 08/04/2022, 01/31/2021, Additional history exists Hepatitis B Vaccine Aged Out 09/02/2019, 05/20/2019, 01/07/2019 No longer eligible based on patient's age to complete this topic Pneumococcal Vaccine: 65+ Years Completed 05/20/2020, 05/20/2019, 02/05/2013 Insurance [place]ID [place] [facility] DUAL SNP ([id number]) Care Teams Director Of Family Service Center Relationship Specialty Start Date End Date Ezequiel Curtis MD PCP - General Internal Medicine 09/29/21
--- OUTSIDE RECORDS SUMMARY | 2024-09-22 18:46 | XMS_ITS | Encounter Summary ---
Author Organization [facility] Address [address] [place] [address] [place] [address] Care Team Providers Care Vault Keeper Name Role Phone Ezequiel Curtis MD Primary Care Provider [phone] Reason for Visit * Reason Comments Med Refill Encounter Details Date Type Department Care Team ([facility] st Contact Info) Description 12/25/2023 Refill [facility] [address] [place], [place] [phone] Ezequiel Curtis MD [address] [place] [address] Type 2 diabetes mellitus with stage 3a chronic kidney disease, without long-term current use of insulin ([facility]) Social History Tobacco Use Types Packs/Day Years Used Date Smoking Tobacco: Former Cigarettes Q uit: 08/27/1991 Passive Smoke Exposure: Never Smokeless Tobacco: Never Alcohol Use Standard Drinks/Week Comments Yes 1 (1 standard drink = 0.6 oz pur e alcohol) Depression Answer Date Recorded Patient Health Questionnaire-9 Score 5 09/18/2022 Housing Stability Answer Date Recorded What is your housing situation today? I have melanie sing 12/18/[address] you li [...] AM EST Office Visit [facility] [address] [place] [address] Dayne Hernandez [address] [place] [address] 10/29/2024 9:00 AM EST Office Visit [facility] [address] [place] [address] Ezequiel Curtis MD [address] [place] [address] documented as of this encounter Visit Diagnoses Diagnosis Type 2 diabetes mellitus with stage 3a chronic kidney disease, without long-term current use of insulin ([facility]) documented in this encounter Additional Health Concerns Assessment Noted Time PHQ-9 Depression Total Score: 5 09/18/19 23 2:31 PM EST documented as of this encounter Care Teams Vault Keeper Relationship Specialty Start Date End Date Ezequiel Curtis MD [address] [place] [address] PCP - General Internal Medicine 09/05/21 documented as of this encounter
--- OUTSIDE RECORDS SUMMARY | 2024-09-22 18:46 | XMS_ITS | Encounter Summary ---
Author Organization [employer] Address [address] [facility] [address] [place] [address] Care Team Providers Care Commissary Steward Name Role Phone Ezequiel Curtis MD Primary Care Provider [phone] Encounter Details Date Type Department Care Team ([facility] st Contact Info) Description 12/25/2023 Orders Only [facility] P[facility]S [address] [place], [place] [phone] ProviderPamela MD Social History Tobacco Use Types Packs/Day Years [...] Description 10/09/2024 9:00 AM EST Office Visit [facility] [address] [place] [address] Dayne Hernandez [address] [place] [address] 10/29/2024 9:00 AM EST Office Visit [facility] PED[facility] [address] [place], [place] [phone] Ezequiel Curtis MD [address] [place] [address] documented as of this encounter Procedures Procedure Name Priority Date/Time Associated Diagnosis Comments PSA, TOTAL Routine 11/20/2023 4:15 PM EDT documented in this encounter Results * PSA,Total (11/20/2023 4:15 PM EDT) Blood Venous blood specimen / Unknown us Historical Provider LAB BLOOD ORDERABLES Clari l Result documented in this encounter Visit Diagnoses Not on filedocumented in this encounter Additional Health Concerns Assessment Noted Time PHQ-9 Depression Total Score: 5 09/18/19 23 2:31 PM EST documented as of this encounter Care Teams Commissary Steward Relationship Specialty Start Date End Date Ezequiel Curtis MD [address] [place] [address] PCP - General Internal Medicine 09/05/21 documented as of this encounter
--- OUTSIDE RECORDS SUMMARY | 2024-09-22 18:46 | XMS_ITS | Encounter Summary ---
Author Organization [facility] Address [address] [place] [address] [address] [place] [address] Care Team Providers Care Film Developing Machine Operator Name Role Phone Ezequiel Curtis MD Primary Care Provider [phone] Reason for Visit * Reason Comments Med Refill Encounter Details Date Type Department Care Team ([facility] st Contact Info) Description 02/14/2023 Refill [facility] PED[facility] [address] [place] [address] Natalie Urena MD [address] [place] [address] Social History Tobacco Use Types Packs/Day Years [...] not to disclose 2021 10:39 AM EDT COVID-19 Exposure Response Date Recorded In the last 10 days, have yo u been in contact with someone who was confirmed or suspected to have Coronavirus/COVID-19? No / Unsure 02/13/2023 1:38 PM EDT documented as of this encounter Plan of Treatment Upcoming Encounters Date Type Department Care Team (Late st Contact Info) Description 10/09/2024 9:00 AM EST Office Visit [facility] [address] [place] [address] Dayne Hernandez [address] [place] [address] 10/29/2024 9:00 AM EST Office Visit [facility] [address] [place] [address] Ezequiel Curtis MD [address] [place] [address] documented as of this encounter Visit Diagnoses Not on filedocumented in this encounter Additional Health Concerns Assessment Noted Time PHQ-9 Depression Total Score: 5 09/18/19 23 2:31 PM EST documented as of this encounter Care Teams Film Developing Machine Operator Relationship Specialty Start Date End Date Ezequiel Curtis MD [address] [place] [address] PCP - General Internal Medicine 09/05/21 documented as of this encounter
--- OUTSIDE RECORDS SUMMARY | 2024-09-22 18:46 | XMS_ITS | Encounter Summary ---
Author Organization [employer] Address [address] [place] [address] Care Team Providers Care Assembler Cards And Announcements Name Role Phone Ezequiel Curtis MD Primary Care Provider [phone]- [phone] Reason for Visit * Reason Comments Med Refill Encounter Details Date Type Department Care Team ([facility] st Contact Info) Description 11/15/2022 Refill [facility] PEDS [address] [place], [place] [phone] Ezequiel Curtis MD [address] [place] [address] Social History Tobacco Use Types Packs/Day Years [...] suspected to have Coronavirus/COVID-19? No / Unsure 10/23/2022 7:55 AM EST documented as of this encounter Plan of Treatment Upcoming Encounters Date Type Department Care Team (Late st Contact Info) Description 10/09/2024 9:00 AM EST Office Visit [facility] [address] [place] [address] Dayne Hernandez [address] [place] [address] 10/29/2024 9:00 AM EST Office Visit [facility] [address] [place] [address] Ezequiel Curtis MD [address] [place] [address] documented as of this encounter Visit Diagnoses Not on filedocumented in this encounter Additional Health Concerns Assessment Noted Time PHQ-9 Depression Total Score: 5 09/18/19 23 2:31 PM EST documented as of this encounter Care Teams Assembler Cards And Announcements Relationship Specialty Start Date End Date Ezequiel Curtis MD [address] [place] [address] PCP - General Internal Medicine 09/05/21 documented as of this encounter
--- OUTSIDE RECORDS SUMMARY | 2024-09-22 18:46 | XMS_ITS | Continuity of Care Document ---
Author Organization Dylan Pan [facility] Address [address] [place] [address] Phone Care Team Providers Care Extension Service Specialist In Charge Name Role Phone Yana Mukherjee MD Unavailable Unavailable Allergies, Adverse Reactions, Alerts Substance Reaction Status Criticality No Known Allergies Active No Inform ation No Known Allergies Active No Inform ation Medications Medication Instructions Dosage Effective Dates (start - stop) Status Comments Proventil HFA 90 mcg/actuation aerosol inhaler inhale 2 puff by inhalation route every 4 - 6 hours as needed - Active may substitute f or any other brand of albuterol MDI aspirin 81 mg tablet,delayed release take 1 tablet by oral route every day 81 MG - Active pt says Cardiolo gy asked him to restart baby ASA atorvastatin 40 mg tablet take 1 tablet by oral route every day at night, high intensity statin to optimize ASCVD risk - Active cimetidine 400 mg tablet take 1 tablet by oral route 2 times every day in the morning and at bedtime as needed for heartburn - Active to replace Famotidine and Ranitidine which were recalled clotrimazole 1 % topical cream apply by topical route 2 times every day to the affected and surrounding areas of skin in the morning and evening 0.00 - Active to the feet loratadine 10 mg tablet take 1 tablet by oral route every day 10 MG - Active for itchy feet a nd hands pioglitazone 45 mg tablet take 1 tablet by oral route every day 45 MG - Active Tradjenta 5 mg tablet TAKE 1 TABLET BY MOUTH EVERY DAY - Active Multivitamin 50 Plus tablet 1 MV daily - Active losartan 50 mg tablet take 1 tablet by oral route every day 50 MG - Active glipizide 5 mg tablet Take 1 tablet by oral route 1 time every day before breakfast - Active finasteride 5 mg tablet take 1 tablet by oral route every day 5 MG - Active acyclovir 200 mg capsule take 2 capsules by oral route every 8 hrs for 5 days as needed for recurrent herpes - Active as RX by Urolog y at [facility] for recurrent herpes amlodipine 5 mg tablet take 1 tablet by oral route every day 5 MG - Active Artificial Tears (dextran 70-hypromellose) 0.1 %-0.3 % eye drops instill 1 drop by ophthalmic route 4 times every day 1 drop - Active Natural Tears (PF) 0.1 %-0.3 % drops in a dropperette instill 1 drop by ophthalmic route 4 times every day 1 drop - Active recommended by Ophthalmology for dry eyes Vitamin D3 25 mcg (1,000 unit) tablet take 1 Tablet by Oral route every day 1 Tablet - Active for vit D maintenance OneTouch Delica Lancets 30 gauge to check BG per insurance coverage once/day - Active OneTouch Ultra Test strips Use to check blood sugar twice daily as needed - Active One Touch covere d by pt's insurance OneTouch Ultra2 Meter Use two times daily as needed to check blood sugar - Active per insurance coverage Aerochamber Plus Flow-Vu use as directed with inhaler - Active terazosin 10 mg capsule take 1 capsule by oral route every day at bedtime 10 MG - Active from Urology Procedures Procedure Date Clinical Pharmacy OFFICE/OUTPATIENT VISIT, EST CLINICAL INFORMATICS STRATEGIST Clinical Pharmacy GLYCATED HEMOGLOBIN TEST OFFICE/OUTPATIENT VISIT, EST Clinical Pharmacy Moderna Covid-19 Vaccine Admin Second Do se Moderna Covid-19 Vaccine 100MCG/0.5ML IM Immunization Only No E/M Required OFFICE/OUTPATIENT VISIT, EST Moderna Covid-19 Vaccine 100MCG/0.5ML IM Immunization Only No E/M Required Moderna Covid-19 Vaccine Admin First Dos e COVID-19 Swab Procedure Only No E/M AUDIT/DAST, 15-30 MIN OFFICE/OUTPATIENT VISIT, EST Clinical Pharmacy PULSE OX COVID-19 Swab Procedure Only No E/M OFFICE/OUTPATIENT VISIT, EST PULSE OX Antigen Detect By Immunoassay Tech COVID -19 COVID-19 Swab Procedure Only No E/M Clinical Pharmacy OFFICE/OUTPATIENT VISIT, EST IMMUNIZATION ADMIN, EACH ADD Influenza Vac Quad Presr Free 3 Yrs Or > IMMUNIZATION ADMIN PNEUMOCOCCAL VACCINE OFFICE/OUTPATIENT VISIT, EST Clinical Pharmacy OFFICE/OUTPATIENT VISIT, EST IMMUNIZATION ADMIN OFFICE/OUTPATIENT VISIT, EST Clinical Pharmacy Clinical Pharmacy Clinical Pharmacy OFFICE/OUTPATIENT VISIT, EST Paper Documentation Missing OFFICE/OUTPATIENT VISIT, EST OFFICE/OUTPATIENT VISIT, EST GLYCATED HEMOGLOBIN TEST IMMUNIZATION ADMIN HEP B VACCINE, ADULT, IM FluLaval Quad MDV 19 Yrs > Shingrix vaccine PREV VISIT, EST, 65 & OVER OFFICE/OUTPATIENT VISIT, EST IMMUNIZATION ADMIN, EACH ADD CLINICAL INFORMATICS STRATEGIST IMMUNIZATION ADMIN, EACH ADD HEP B VACCINE, ADULT, IM IMMUNIZATION ADMIN PNEUMOCOCCAL VACC, 13 REBECCA IM IMMUNIZATION ADMIN, EACH ADD HEP A VACCINE, ADULT IM OFFICE/OUTPATIENT VISIT, EST IMMUNIZATION ADMIN, EACH ADD Non Billabe Error Clinical Pharmacy IMMUNIZATION ADMIN HEP B VACCINE, ADULT, IM OFFICE/OUTPATIENT VISIT, EST Clinical Pharmacy IMMUNIZATION ADMIN HEP A VACCINE, ADULT IM BLOOD OCCULT PEROXIDASE OFFICE/OUTPATIENT VISIT, EST Optometry OFFICE/OUTPATIENT VISIT, EST J an--2018 Optometry OFFICE/OUTPATIENT VISIT, EST J Clinical Pharmacy STREP A ASSAY W/OPTIC OFFICE/OUTPATIENT VISIT, EST IMMUNIZATION ADMIN FluLaval Quad MDV 19 Yrs > OFFICE/OUTPATIENT VISIT, EST Vision sv frames purchases Lens spher bifoc plano 4.00d Lens sphcyl bifocal 4.00d/.1 FITTING OF SPECTACLES REFRACTION EYE EXAM & TREATMENT Clinical Pharmacy OFFICE/OUTPATIENT VISIT, EST Clinical Pharmacy OFFICE/OUTPATIENT VISIT, EST Clinical Pharmacy OFFICE/OUTPATIENT VISIT, EST Clinical Pharmacy IMMUNIZATION ADMIN Influenza Vaccine, Quad, 3 Yrs Or > OFFICE/OUTPATIENT VISIT, EST Clinical Pharmacy Vision svcs frames purchases Lens spher bifoc plano 4.00d Lens sphcyl bifocal 4.00d/.1 FITTING OF SPECTACLES REFRACTION EYE EXAM & TREATMENT GLYCATED HEMOGLOBIN TEST OFFICE/OUTPATIENT VISIT, EST OFFICE/OUTPATIENT VISIT, EST IMMUNIZATION ADMIN ZOSTER VACC, SC Immunization Only No E/M Required OFFICE/OUTPATIENT VISIT, EST GLYCATED HEMOGLOBIN TEST IMMUNIZATION ADMIN Influenza Vaccine, Quad, 3 Yrs Or > OFFICE/OUTPATIENT VISIT, EST REFRACTION EYE EXAM & TREATMENT OFFICE/OUTPATIENT VISIT, EST OFFICE/OUTPATIENT VISIT, EST Clinical Pharmacy OFFICE/OUTPATIENT VISIT, EST CLINICAL INFORMATICS STRATEGIST OFFICE/OUTPATIENT VISIT, EST ELECTROCARDIOGRAM, COMPLETE OFFICE/OUTPATIENT VISIT, EST Clinical Pharmacy IMMUNIZATION ADMIN Influenza Vaccine, Quad, 3 Yrs Or > OFFICE/OUTPATIENT VISIT, EST Clinical Pharmacy Clinical Pharmacy OFFICE/OUTPATIENT VISIT, EST Vision svcs frames purchases FITTING OF SPECTACLES Lens spher single plano 4.00 SPECIAL EYE EVALUATION REFRACTION EYE EXAM, NEW PATIENT OFFICE/OUTPATIENT VISIT, EST OFFICE/OUTPATIENT VISIT, EST BLOOD OCCULT PEROXIDASE OFFICE/OUTPATIENT VISIT, EST GLUCOSE BLOOD TEST OFFICE/OUTPATIENT VISIT, EST OFFICE/OUTPATIENT VISIT, EST OFFICE/OUTPATIENT VISIT, EST IMMUNIZATION ADMIN FLU VACCINE NO PRESERV 3 & > OFFICE/OUTPATIENT VISIT, EST OFFICE/OUTPATIENT VISIT, EST OFFICE/OUTPATIENT VISIT, EST OFFICE/OUTPATIENT VISIT, EST OFFICE/OUTPATIENT VISIT, NEW Advance Directives Directive Yes / No Effective Date File Name No Information Encounters Encounter Description Practice Location Reason(s) For Visit Diagnoses Date Provider Providers Copied on Encounter [facility], [address], [place], [place], [id number], [place] tel:[phone] [facility] No Information 2 Lonny Millan. [address] [place] [address], [id number], [place]. tel:[phone] [facility], [address], [place], [place], [id number], tel:[phone] [facility] No Information 1 Raisa Urrutia. [address] [place] [address], [id number], [place]. tel:[phone] [facility], [address], [place], [place], [id number], [place] tel:[phone] [facility] No Information 1 No Information [facility], [address], [place], [place], [id number], [place] tel:[phone] [facility] No Information 1 No Information [facility], [address], [place], [place], [id number], [place] tel:[phone] [facility] diabetes (follow up) (chief complaint) Type 2 diabetes mellitus without complication , without long-term current use of insulin May- 1 Pharmacy Clinical. . Consulting Provider: Ericka Guido, [address] [place] [address], [address]. tel:[phone] OFFICE/OUTPA TIENT VISIT, EST [facility], [address], [place], [place], [id number], [place] tel:[phone] [facility] MEDS REFILL (chief complaint)NI PPLE SHARP SENSATION (chief complaint) Medication refillBreast pain, right Apr- 1 No Information kayla [facility], [address] [facility] [address], [place], [place], [id number], [place] tel:[phone] [facility] No Information 1 Ems Director. . [facility], [address] [address], [place], [place], [address], [place] tel:[phone] [facility] Breast pain in male 1 No Information [facility], [address] [address], [place], [place], [id number], [place] tel:[phone] [facility] diabetes (follow up) (chief complaint)ch ronic conditions (chief complaint) Type 2 diabetes mellitus without complication , without long-term current use of insulin 1 Pharmacy Clinical. . Consulting Provider: Ericka Guido, [address] [place] [address], [address]. tel:[phone] OFFICE/OUTPA TIENT VISIT, EST kayla [facility], [address] [facility] [address], [place], [place], [address], [place] tel:[phone] [facility] diabetes (chief complaint)R breast pain: (chief complaint) Type 2 diabetes mellitus without complication , without long-term current use of insulinDecre ased hearing of both earsBreast pain, rightH/O edemaObesity , unspecifiedB kathleen mass index (BMI) 35.0-35.9, adultElevate d uric acid in blood 1 No Information kayla [facility], [address] [address], [place], [place], [address], [place] tel:[phone] [facility] diabetes (follow up) (chief complaint)di abetes (follow up) (chief complaint) Type 2 diabetes mellitus without complication s 1 Pharmacy Clinical. . Consulting Provider: Ericka Guido, [address] [facility], [place], [address]. tel:[phone] [facility], [address], [place], [place], [address], [place] tel:[phone] [facility] COVID VACCINE 2 (chief complaint) Encounter for immunization 1 No Information OFFICE/OUTPA TIENT VISIT, EST [facility], [address], [place], [place], [id number], [place] tel:[phone] [facility] Labs f/u (chief complaint) Type 2 diabetes mellitus without complication , without long-term current use of insulinANA positiveMild chronic anemiaHypert riglyceridem iaMicroalbum inuria 1 No Information [facility], [address], [place], [place], [address], [place] tel:[phone] [facility] COVID vaccine (chief complaint) Encounter for immunization 1 No Information [facility], [address], [place], [place], [id number], [place] tel:[phone] [facility] COVID Testing (chief complaint) Encounter for laboratory testing for COVID-19 virus 1 No Information OFFICE/OUTPA TIENT VISIT, EST [facility], [address], [place], [place], [id number], [place] tel:[phone] [facility] Follow Up of Cold symptoms (chief complaint) Body aches 1 Allen Quinteros. [address], [place], [place], [id number], [place]. tel:[phone] [facility], [address], [place], [place], [id number], [place] tel:[phone] [facility] diabetes (follow up) (chief complaint)ch ronic conditions (chief complaint) Type 2 diabetes mellitus without complication s 1 Pharmacy Clinical. . Consulting Provider: Ericka Guido, [address] [place] [address], [address]. tel:[phone] [facility], [address], [place], [place], [id number], [place] tel:[phone] [facility] COVID test (chief complaint) Contact w and exposure to oth viral communicable diseases 1 No Information OFFICE/OUTPA TIENT VISIT, [facility], [address], [place], [place], [address], [place] tel:[phone] [facility] body aches (chief complaint) Viral illness 1 No Information [facility], [address], [place], [place], [address], [place] tel:[phone] [facility] COVID testing (chief complaint) Contact w and exposure to oth bact communicable diseases 1 No Information [facility], [address], [place], [place], [address], [place] tel:[phone] [facility] diabetes (follow up) (chief complaint)di abetes (follow up) (chief complaint) Type 2 diabetes mellitus without complication s 0 Pharmacy Clinical. . OFFICE/OUTPA TIENT VISIT, [facility], [address], [place], [place], [address], [place] tel:[phone] [facility] Follow Up of XRAY: (chief complaint) Osteoarthrit is of both hips, unspecified osteoarthrit is typeObesity (BMI 30-39.9)Obes ity, unspecifiedB kathleen mass index (BMI) 35.0-35.9, adult 0 No Information OFFICE/OUTPA TIENT VISIT, EST [facility], [address], [place], [place], [address], [place] tel:[phone] [facility] 3 Month Follow Up (chief complaint) Left hip painType 2 diabetes mellitus without complication sEssential (primary) hypertension Microalbumin uriaMild chronic anemiaChroni c kidney disease, unspecifiedO besity (BMI 30-39.9)Phys ical deconditioni ngDry mouthDyshidr otic eczemaHyperp igmentationV iral warts, unspecified typeNeck muscle spasmObesity , unspecifiedB kathleen mass index (BMI) 35.0-35.9, adult Apr-2 4-202 0 No Information [facility], [address], [place], [place], [address], [place] tel:[phone] [facility] diabetes (follow up) (chief complaint) Type 2 diabetes mellitus without complication s 0 Pharmacy Clinical. . Consulting Provider: Ericka Guido, [address] [place] [address], [address]. tel:[phone] OFFICE/OUTPA TIENT VISIT, [facility], [address], [place], [place], [id number], [place] tel:[phone] [facility] Follow up (chief complaint) Type 2 diabetes mellitus without complication sEssential (primary) hypertension Chronic kidney disease, unspecifiedM icroalbuminu riaMild chronic anemiaObesit y (BMI 30-39.9)Inso mnia, unspecified typeStressAn xietyObesity , unspecifiedB kathleen mass index (BMI) 36.0-36.9, adult Feb-3 0-202 0 No Information OFFICE/OUTPA TIENT VISIT, [facility], [address], [place], [place], [address], [place] tel:[phone] [facility] FORMS (chief complaint)F/ U LABS (chief complaint) Encounter for immunization Type 2 diabetes mellitus without complication sLow vitamin D levelEssenti al (primary) hypertension Chronic kidney disease, unspecifiedM ild chronic anemiaMicroa lbuminuria 0 No Information [facility], [address], [place], [place], [address], [place] tel:[phone] [facility] diabetes (follow up) (chief complaint) Type 2 diabetes mellitus without complication s 0 Pharmacy Clinical. . Consulting Provider: Ericka Guido, [address] [place] [address], [address]. tel:[phone] [facility], [address], [place], [place], [address], [place] tel:[phone] [facility] diabetes (follow up) (chief complaint) Type 2 diabetes mellitus without complication s 0 Pharmacy Clinical. . OFFICE/OUTPA TIENT VISIT, [facility], [address], [place], [place], [address], [place] tel:[phone] [facility] letter request and meds refills: (chief complaint) Type 2 diabetes mellitus without complication sEssential (primary) hypertension Chronic kidney disease, unspecifiedG enital herpes in men 0 No Information OFFICE/OUTPA TIENT VISIT, [facility], [address], [place], [place], [address], [place] tel:[phone] [facility] COUGH (chief complaint) Cough 0 No Information OFFICE/OUTPA TIENT VISIT, [facility], [address], [place], [place], [address], [place] tel:[phone] [facility] cold symptoms (chief complaint) Cough 0 No Information PREV VISIT, EST, 65 & OVER [facility], [address], [place], [place], [address], [place] tel:[phone] [facility] preventive exam (chief complaint)AP E: (chief complaint) Encntr for general adult medical exam w/o abnormal findingsScre ening for colon cancerScreen ing for abdominal aortic aneurysmIndi gestionEssen tial hypertension Microalbumin uriaElevated serum creatinineMi ld chronic anemiaEosino philiaObesit y (BMI 30-39.9)Type 2 diabetes mellitus without complication , without long-term current use of insulin 0 No Information [facility], [address], [place], [place], [address], [place] tel:[phone] [facility] No Information 9 Ems Director. . Consulting Provider: Yenni Lam, [address] [place] [address], [address]. tel:[phone] OFFICE/OUTPA TIENT VISIT, [facility], [address], [place], [place], [address], [place] tel:[phone] [facility] Follow up on lab test(s) (chief complaint)Fo llow Up of diabetes (chief complaint) Essential hypertension Microalbumin uriaElevated serum creatinineSe rum potassium elevatedMild chronic anemiaEosino philiaMixed hyperlipidem iaObesity (BMI 30-39.9)Type 2 diabetes mellitus without complication , without long-term current use of insulinBody mass index (BMI) 35.0-35.9, adult Apr- 9 No Information [facility], [address], [place], [place], [address], [place] tel:[phone] [facility] diabetes (follow up) (chief complaint)di abetes (follow up) (chief complaint) Type 2 diabetes mellitus without complication , without long-term current use of insulin Pharmacy Clinical. . OFFICE/OUTPA TIENT VISIT, [facility], [address], [place], [place], [address], [place] tel:[phone] [facility] Diabetes (follow up) (chief complaint)Fo llow up on lab test(s) (chief complaint)Co ld symptoms (chief complaint) Type 2 diabetes mellitus without complication , without long-term current use of insulinEssen tial hypertension Microalbumin uriaElevated serum creatinineSe rum potassium elevatedMild chronic anemiaEosino philiaMixed hyperlipidem iaViral URIObesity (BMI 30-39.9)Body mass index (BMI) 34.0-34.9, adult 9 No Information [facility], [address] [facility] [facility] [address], [place], [place], [address], [place] tel:[phone] [facility] diabetes (follow up) (chief complaint)ch ronic conditions (chief complaint)di abetes (follow up) (chief complaint) Type 2 diabetes mellitus without complication , without long-term current use of insulin Pharmacy Clinical. . OFFICE/OUTPA TIENT VISIT, [facility], [address] [facility] [address], [place], [place], [address], [place] tel:[phone] [facility] Diabetes (follow up) (chief complaint)Fo llow up on lab test(s) (chief complaint)Hy pertension (follow up) (chief complaint) Anal itchingType 2 diabetes mellitus without complication , without long-term current use of insulinObesi ty (BMI 30-39.9)Esse ntial hypertension Microalbumin uriaMixed hyperlipidem iaElevated serum creatinineSe rum potassium elevatedEosi nophiliaMild chronic anemiaUrinar y frequencyBod y mass index (BMI) 34.0-34.9, adult 9 No Information Optometry OFFICE/OUTPA TIENT VISIT, [facility], [address], [place], [place], [address], [place] tel:[phone] [facility] corneal abrasion (chief complaint) Abrasion of right cornea, subsequent encounterMei bomian gland dysfunction (MGD) of both eyesMeibomia n gland dysfunction of left eye, unspecified eyelid 9 No Information Optometry OFFICE/OUTPA TIENT VISIT, [facility], [address] [facility] [address], [place], [place], [address], [place] tel:[phone] [facility] injury (chief complaint) Abrasion of right cornea, initial encounter 9 No Information [facility], [address], [place], [place], [id number], [place] tel:[phone] [facility] diabetes (follow up) (chief complaint) Type 2 diabetes mellitus without complication , without long-term current use of insulin Dec-0 8 Pharmacy Clinical. . OFFICE/OUTPA TIENT VISIT, EST [facility], [address], [place], [place], [address], [place] tel:[phone] [facility] Sore throat (chief complaint) Viral URI 8 No Information OFFICE/OUTPA TIENT VISIT, EST [facility], [address], [place], [place], [address], [place] tel:[phone] [facility] Diabetes (follow up) (chief complaint)Hy pertension (follow up) (chief complaint) Type 2 diabetes mellitus without complication , without long-term current use of insulinEssen tial hypertension Mixed hyperlipidem iaObesity (BMI 30-39.9)Eosi nophiliaMild chronic anemiaHyperk alemiaElevat ed serum creatinineMi croalbuminur iaBody mass index (BMI) 34.0-34.9, adult Jun- 8 No Information [facility], [address], [place], [place], [address], [place] tel:[phone] [facility] No Information Oct-2 8 No Information [facility], [address], [place], [place], [address], [place] tel:[phone] [facility] blurry vision (chief complaint) Presbyopia of both eyesDiabetes type 2, no ocular involvement Oct-0 8 Orlando Joseph. [address] [place], [place], [id number]. tel:[phone] [facility], [address], [place], [place], [address], [place] tel:[phone] [facility] diabetes (follow up) (chief complaint)ch ronic conditions (chief complaint) Type 2 diabetes mellitus without complication , without long-term current use of insulin 8 Pharmacy Clinical. . OFFICE/OUTPA TIENT VISIT, EST [facility], [address] [address], [place], [place], [address], [place] tel:[phone] [facility] Diabetes (follow up) (chief complaint)Hy pertension (follow up) (chief complaint)Fo llow up on lab test(s) (chief complaint)Co nstipation (chief complaint)f/ u labs: (chief complaint)pa in R foot (chief complaint) Chronic anemiaConsti pation in maleType 2 diabetes mellitus without complication , without long-term current use of insulinMixed hyperlipidem iaEssential hypertension Microalbumin uriaPlantar fasciitis of right footEosinoph iliaStage 3 chronic kidney diseaseObesi ty (BMI 30-39.9) 8 No Information [facility], [address] [address], [place], [place], [address], [place] tel:[phone] [facility] diabetes (follow up) (chief complaint) Type 2 diabetes mellitus without complication , without long-term current use of insulin 8 Pharmacy Clinical. . Consulting Provider: Ericka Guido, [address] [place] [address], [place], [address]. tel:[phone] [facility], [address] [facility], [place], [place], [id number], [place] tel:[phone] [facility] Hyperkalemia 8 No Information OFFICE/OUTPA TIENT VISIT, EST [facility], [address] [facility] [address], [place], [place], [id number], [place] tel:[phone] [facility] Follow Up of diabetes (chief complaint)Fo llow up on lab test(s) (chief complaint) Essential hypertension Mixed hyperlipidem iaSerum potassium elevatedEosi nophiliaChro alexandria anemiaMicroa lbuminuriaOb esity (BMI 30-39.9)Type 2 diabetes mellitus without complication , without long-term current use of insulin 8 No Information kayla [facility], [address] [facility], [place], [place], [address], [place] tel:[phone] [facility] diabetes (follow up) (chief complaint)di abetes (follow up) (chief complaint) Type 2 diabetes mellitus without complication , without long-term current use of insulin 8 Pharmacy Clinical. . [facility], [address] [facility],[address], [place], [place], [id number], [place] tel:[phone] [facility] Type 2 diabetes mellitus without complication sType 2 diabetes mellitus without complication s 7 Ems Director. . OFFICE/OUTPA TIENT VISIT, EST [facility], [address] [facility], [place], [place], [address], [place] tel:[phone] [facility] Diabetes (follow up) (chief complaint)Hy pertension (follow up) (chief complaint)Fo llow up on lab test(s) (chief complaint) Type 2 diabetes mellitus without complication , without long-term current use of insulinObesi ty (BMI 30-39.9)Esse ntial hypertension Mild chronic anemiaEosino philiaMixed hyperlipidem iaHyperkalem iaMicroalbum inuria 7 No Information [facility], [address] [facility] [address] [facility],[address], [place], [place], [address], [place] tel:[phone] [facility] diabetes (chief complaint)di abetes (follow up) (chief complaint) Type 2 diabetes mellitus without complication , without long-term current use of insulin 7 Pharmacy Clinical. . OFFICE/OUTPA TIENT VISIT, EST [facility], [address] [facility] [address], [place], [place], [id number], [place] tel:[phone] [facility] Diabetes (follow up) (chief complaint)Fo llow up on lab test(s) (chief complaint) Type 2 diabetes mellitus without complication , without long-term current use of insulinEssen tial hypertension Mixed hyperlipidem iaObesity (BMI 30-39.9)Micr oalbuminuria Mild chronic anemiaEosino philiaRenal function impairment Sep- 7 No Information [facility], [address] [facility] [address], [place], [place], [address], [place] tel:[phone] [facility] diabetes (follow up) (chief complaint) Diabetes type 2, no ocular involvement Pharmacy Clinical. . Consulting Provider: Ericka Guido, [address] [place] [address], [address]. tel:[phone] [facility], [address] [facility] [address], [place], [place], [id number], [place] tel:[phone] [facility] No Information No Information [facility], [address] [facility] [address], [place], [place], [address], [place] tel:[phone] [facility] routine exam (chief complaint) Diabetes type 2, no ocular involvementH yperopia of both eyes with astigmatism and presbyopiaUn specified astigmatism, bilateralPre sbyopia No Information OFFICE/OUTPA TIENT VISIT, EST [facility], [address] [facility] [address], [place], [place], [address], [place] tel:[phone] [facility] Diabetes (follow up) (chief complaint)DM : (chief complaint) Type 2 diabetes mellitus with hyperglycemi a, without long-term current use of insulinObesi ty (BMI 30-39.9)Blur ry visionChroni c kidney disease, unspecifiedH eartburnHype rlipidemia, unspecifiedE ssential (primary) hypertension 7 No Information OFFICE/OUTPA TIENT VISIT, EST [facility], [address] [facility] [address], [place], [place], [address], [place] tel:[phone] [facility] Diabetes (follow up) (chief complaint)BP check (chief complaint)Fo llow up on lab test(s) (chief complaint) HeartburnUri nary frequencySor e throatObesit y (BMI 30-39.9)Mixe d hyperlipidem iaMild chronic anemiaEosino philiaChroni c kidney disease, unspecifiedT ype 2 diabetes mellitus without complication , without long-term current use of insulin No Information [facility], [address] [facility] [address], [place], [place], [address], [place] tel:[phone] [facility] Zoster vaccine (chief complaint) Encounter for immunization No Information [facility], [address] [facility] [address], [place], [place], [address], [place] tel:[phone] [facility] Essential (primary) hypertension Essential (primary) hypertension Ems Director. . OFFICE/OUTPA TIENT VISIT, EST [facility], [address] [facility] [address], [place], [place], [address], [place] tel:[phone] [facility] Follow up on lab test(s) (chief complaint) Urinary problemType 2 diabetes mellitus without complication , without long-term current use of insulinMixed hyperlipidem iaHeartburnL ow hemoglobinEs sential hypertension Chronic kidney disease, unspecifiedO besity (BMI 30-39.9)Eosi nophilia 7 No Information OFFICE/OUTPA TIENT VISIT, EST [facility], [address] [facility] [address], [place], [place], [address], [place] tel:[phone] [facility] NPP (chief complaint)Di abetes (follow up) (chief complaint) Type 2 diabetes mellitus without complication , without long-term current use of insulinMixed hyperlipidem iaEssential hypertension Hyperkalemia HeartburnItc hy skinObesity (BMI 30-39.9) 6 No Information [facility], [address] [address],[address], [place], [place], [address], [place] tel:[phone] [facility] blurry vision (chief complaint) Hyperopia of both eyes with astigmatismD iabetes type 2, no ocular involvementD ry eyesPresbyop iaAnatomical narrow angle 6 [facility]. [address] [place], [place], [address]. tel:[phone] OFFICE/OUTPA TIENT VISIT, EST [facility], [address] [address],[address], [place], [place], [address], [place] tel:[phone] [facility] Follow up on lab test(s) (chief complaint) ProteinuriaE ssential hypertension Gastroesopha geal reflux disease, esophagitis presence not specified No Information OFFICE/OUTPA TIENT VISIT, EST [facility], [address] [address],[address], [place], [place], [address], [place] tel:[phone] [facility] Follow Up of diabetes (chief complaint)ch lelo on need for refills (chief complaint)jt pain (chief complaint) Hyperlipidem ia, unspecifiedT ype 2 diabetes mellitus with stage 3 chronic kidney diseaseRight elbow painChronic left shoulder painOther chronic painChronic pain of both kneesPain in left knee 6 No Information [facility], [address] [facility] [address], [place], [place], [address], [place] tel:[phone] [facility] diabetes (follow up) (chief complaint) Type 2 diabetes mellitus without complication s Pharmacy Clinical. . Consulting Provider: Ericka Guido, [address] [place], [address]. tel:[phone] OFFICE/OUTPA TIENT VISIT, [facility], [address] [facility] [address], [place], [place], [address], [place] tel:[phone] [facility] Follow Up of diabetes (chief complaint)te raozsin refill (chief complaint) Type 2 diabetes mellitus with stage 3 chronic kidney disease 6 No Information [facility], [address] [facility],[address], [place], [place], [address], [place] tel:[phone] [facility] No Information Ems Director. . OFFICE/OUTPA TIENT VISIT, [facility], [address] [facility],[address], [place], [place], [address], [place] tel:[phone] [facility] Follow Up of diabetes (chief complaint)Fo llow up on lab test(s) (chief complaint)ch ronic conditions (chief complaint) Type 2 diabetes mellitus without complication sChronic kidney disease, unspecifiedH yperlipidemi a, unspecifiedE nlarged prostate with lower urinary tract symptomsEsse ntial (primary) hypertension 6 No Information OFFICE/OUTPA TIENT VISIT, [facility], [address] [facility] [address], [place], [place], [address], [place] tel:[phone] [facility] BP check (chief complaint) Palpitations Premature ventricular complexType 2 diabetes mellitus with stage 3 chronic kidney diseaseChron ic kidney disease, stage 3 (moderate)Es sential hypertension Malaise 5 No Information [facility], [address] [facility] [address], [place], [place], [address], [place] tel:[phone] [facility] diabetes (follow up) (chief complaint) Type 2 diabetes mellitus without complication s 5 Pharmacy Clinical. . OFFICE/OUTPA TIENT VISIT, [facility], [address] [facility] [address], [place], [place], [address], [place] tel:[phone] [facility] Diabetes (follow up) (chief complaint) Type 2 diabetes mellitus with diabetic chronic kidney diseaseChron ic kidney disease, unspecifiedI nsomnia, unspecified insomnia 5 No Information [facility], [address] [facility] [address], [place], [place], [address], [place] tel:[phone] [facility] diabetes (follow up) (chief complaint) Type 2 diabetes mellitus without complication s 5 Pharmacy Clinical. . [facility], [address] [facility] [address], [place], [place], [address], [place] tel:[phone] [facility] diabetes (follow up) (chief complaint)di abetes (follow up) (chief complaint) Diabetes mellitus without mention of complication , type II or unspecified type, not stated as uncontrolled 5 Pharmacy Clinical. . OFFICE/OUTPA TIENT VISIT, EST [facility], [address] [facility] [address], [place], [place], [address], [place] tel:[phone] [facility] Follow Up of diabetes (chief complaint)Fo llow Up of hypertension (chief complaint) Diabetes mellitus without mention of complication , type II or unspecified type, not stated as uncontrolled Chronic kidney disease, unspecifiedH ypertension, Unspecified 5 No Information [facility], [address] [facility] [address], [place], [place], [address], [place] tel:[phone] [facility] No Information 5 No Information [facility], [address] [facility] [address], [place], [place], [address], [place] tel:[phone] [facility] Type II DM (chief complaint)bl urry vision (chief complaint) Diabetes mellitus without mention of complication , type II or unspecified type, not stated as uncontrolled Hyperopia with presbyopiaAn atomical narrow angle 5 No Information OFFICE/OUTPA TIENT VISIT, EST [facility], [address] [facility] [address], [place], [place], [address], [place] tel:[phone] [facility] Follow up on lab test(s) (chief complaint) Diabetes mellitus without mention of complication , type II or unspecified type, not stated as uncontrolled Other and unspecified hyperlipidem iaCKD (chronic kidney disease)Diab etic nephropathyH ypertension, Unspecified 5 No Information OFFICE/OUTPA TIENT VISIT, [facility], [address] [facility] [address], [place], [place], [address], [place] tel:[phone] [facility] Follow up on lab test(s) (chief complaint) Diabetes mellitus without mention of complication , type II or unspecified type, not stated as uncontrolled CKD (chronic kidney disease)Posi tive ALKA (antinuclear antibody)Hyp erlipidemia 5 No Information OFFICE/OUTPA TIENT VISIT, [facility], [address] [facility] [address], [place], [place], [address], tel:[phone] [facility] Diabetes (follow up) (chief complaint)Hy pertension (chief complaint)po sitive fecal antigen test (chief complaint)jermaine int stiffness (chief complaint) Diabetes mellitus without mention of complication , type II or unspecified type, not stated as uncontrolled CKD (chronic kidney disease)Bloo d in stoolStiff joint 4 No Information OFFICE/OUTPA TIENT VISIT, [facility], [address] [facility] [address], [place], [place], [address], [place] tel:[phone] [facility] F/U DM (chief complaint) Diabetes mellitus without mention of complication , type II or unspecified type, not stated as uncontrolled 4 No Information OFFICE/OUTPA TIENT VISIT, [facility], [address] [facility] [address], [place], [place], [address], [place] tel:[phone] [facility] Diabetes (follow up) (chief complaint) Diabetes Mellitus Type 2, Uncomplicate d 4 Julian Pickett. [address] [place] [address], [id number]. tel:[phone] OFFICE/OUTPA TIENT VISIT, [facility], [address] [facility] [address], [place], [place], [address], [place] tel:[phone] [facility] F/U Labs (chief complaint)c/ o being too sleepy (chief complaint) Diabetes Mellitus Type 2, Uncomplicate dCKD (chronic kidney disease)Hype rtension, UnspecifiedB PH (benign prostatic hyperplasia) 4 No Information OFFICE/OUTPA TIENT VISIT, [facility], [address] [facility] [address], [place], [place], [address], [place] tel:[phone] [facility] high sugar (chief complaint) Diabetes Mellitus Type 2, Uncomplicate dBPH (benign prostatic hyperplasia) CKD (chronic kidney disease) 4 No Information OFFICE/OUTPA TIENT VISIT, [facility], [address] [facility] [address], [place], [place], [address], [place] tel:[phone] [facility] hypertension (chief complaint) Hypertension , UnspecifiedC ontact dermatitis 4 No Information OFFICE/OUTPA TIENT VISIT, [facility], [address], [place], [place], [address], [place] tel:[phone] [facility] Medication F/U (chief complaint) Diabetes Mellitus Type 2, Uncomplicate d 4 No Information OFFICE/OUTPA TIENT VISIT, [facility], [address] [facility] [address], [place], [place], [address], [place] tel:[phone] [facility] follow up on lab/diagnost ic test (chief complaint) Diabetes mellitusBPH (benign prostatic hyperplasia) CKD (chronic kidney disease) 4 No Information OFFICE/OUTPA TIENT VISIT, [facility], [address] [facility], [place], [place], [address], [place] tel:[phone] [facility] Herpes (chief complaint) Herpes genitalis in menObesity 4 No Information Family History Family Member Type Diagnosis Age At Onset Maternal aunt Problem (finding) unknown type Problem (finding) No family history of Re tinal disease Father Problem (finding) Diabetes mellitus Problem (finding) No family history of Gl aucoma Mother Problem (finding) back and urinary proble ms? Immunizations Vaccine Date Status Comments Flu-aIIV4 administered Source: Other R egistry Moderna COVID-19 Vaccine (18 yrs +) administered Source: New Immuniza tion Record Moderna COVID-19 Vaccine (18 yrs +) administered Source: New Immuniza tion Record Flu Quad PF [id number] administered Source : New Immunization Record Pneumococcal polysaccharide PPV23 administered Source: New Immuniza tion Record Zoster recombinant subunit, preservative free administered Source: New Immuniza tion Record Zoster recombinant subunit, preservative free administered Source: New Immuniza tion Record Flu Quad MDV (>/= 6 mo) [id number] 0.5ml administered Source: New Immuniza tion Record Hep B, adult, 3 dose administered Source: New Immunization Record Hep A (adult) administered Source: New Im munization Record Hep B, adult, 3 dose administered Source: New Immunization Record Pneumococcal conjugate PCV 13 administere d Source: New Immunization Record Hep B, adult, 3 dose administered Source: New Immunization Record Hep A (adult) administered Source: New Im munization Record Influenza Quad MDV 0.5ml administered Source: New Immuniza tion Record Influenza, injectable, quadrivalent, split virus, 3 years or older Flulaval Quad administered Source: New Immuniza tion Record Zoster administered Source: New Imm unization Record Influenza, injectable, quadrivalent, split virus, 3 years or older Flulaval Quad administered Source: New Immuniza tion Record Influenza, injectable, quadrivalent, 3 years or older Fluzone Quad administered Source: New Immun ization Record Influenza, seasonal, injectable, preservative free, 3 yrs or older administered Source: New Immuniza tion Record pneumo (under 5) (PCV7) administered Sour ce: Parents Recall Tdap administered Source: Parents Recall Payers Payer name Insurance type Covered democrat ID Authoriza tion(s) [facility] [id number] [employer] Partial [id number] [facility] [id number] [facility] [id number] [employer] Partial [id number] [facility] [id number] [employer] Partial [id number] [facility] [id number] [facility] [id number] [facility] [id number] [facility] [id number] [facility] [id number] [facility] [id number] [facility] [id number] [facility] [id number] 8301 [facility] [id number] [facility] [id number] 8301 [facility] [id number] 8301 [facility] [id number] 8301 [facility] [id number] 8301 [facility] [phone] Social History Type Description Quantity Date Captured Comments Alcohol Use Details Unknown Caffeine Use Details Unknown Tobacco Use Status No Information Smoking Status No Information Sex Male Chief Complaint And Reason For Visit No Information Reason For Referral Reason For Referral No Information Plan Of Treatment Date Type Action Status Goal Abdominal ultras ound. Due on due Goal Zoster vaccine (2nd) due Goal Foot exam. Due on due Goal FIT-DNA. Due on due Goal Document SOGI In formation. Due on due Goal Urine microalbumin. Due on O due Goal CT-Colonography. Due on due Goal Influenza vaccine. Due on Se due Goal Hemoglobin A1C. Due on due Goal Monofilament Exam. Due on Se due Goal Diabetes Screening. Due on O due Goal Urinalysis. Due on due Goal Dental exam. Due on 022 due Goal ASCVD 10 year risk. Due on S due Goal Colonoscopy. Due on 020 due Goal Zoster vaccine (1st) due Goal Dilated eye exam. Due on Apr due Goal Hepatitis C Scre ening. Due on due Goal Unhealthy drug u se screening. Due on due Goal Monofilament Exam. Due on No due Goal Hemoglobin A1C. Due on due Goal Diabetes Screening. Due on O due Goal Lipid panel. Due on due Goal Urine microalbumin. Due on O due Goal LDL Cholesterol (Direct). Due on due Goal Hepatitis C Scre ening. Due on due Goal Urinalysis. Due on 21 due Goal GFR. Due on due Goal Document SOGI In formation. Due on due Goal Dilated eye exam. Due on Jun due Goal Influenza vaccine. Due on due Goal Abdominal ultras ound. Due on due Goal Dental exam. Due on due Goal Colonoscopy. Due on due Goal Foot exam. Due on due Goal Influenza vaccine. Due on Se due Goal Monofilament Exam. Due on due Goal Urine microalbumin. Due on O due Goal Colonoscopy. Due on due Goal LDL Cholesterol (Direct). Due on due Goal GFR. Due on due Goal Document SOGI In formation. Due on due Goal Hemoglobin A1C. Due on due Goal Dental exam. Due on due Goal Lipid panel. Due on due Goal Dilated eye exam. Due on Jun due Goal Urinalysis. Due on due Goal Abdominal ultras ound. Due on due Goal Hepatitis C Scre ening. Due on due Goal Foot exam. Due on due Goal Diabetes Screening. Due on O due Goal Monofilament Exam. Due on Oc due Goal Dental exam. Due on due Goal Foot exam. Due on due Goal Dilated eye exam. Due on May due Goal Colonoscopy. Due on due Goal Abdominal ultras ound. Due on due Goal Diabetes Screening. Due on due Goal Urinalysis. Due on due Goal Influenza vaccine. Due on due Goal Hepatitis C Scre ening. Due on due Goal Document SOGI In formation. Due on due Goal Urine microalbumin. Due on due Goal Influenza vaccine. Due on due Goal Dental exam. Due on due Goal Monofilament Exam. Due on due Goal Foot exam. Due on due Goal Document SOGI In formation. Due on due Goal Dilated eye exam. Due on Apr due Goal Abdominal ultras ound. Due on due Goal Hepatitis C Scre ening. Due on due Goal Urine microalbumin. Due on due Goal Urinalysis. Due on due Goal Diabetes Screening. Due on due Goal Colonoscopy. Due on due Goal Urinalysis. Due on due Goal Monofilament Exam. Due on due Goal Pneumococcal vaccine due Goal Diabetes Screening. Due on due Goal Influenza vaccine. Due on due Goal Zoster vaccine due Goal Document SOGI In formation. Due on due Goal Foot exam. Due on due Goal Dental exam. Due on due Goal Hepatitis C Scre ening. Due on due Goal ECG due Goal Abdominal ultras ound. Due on due Goal Hemoglobin A1C. Due on due Goal Dilated eye exam. Due on Feb due Goal Lipid panel. Due on due Goal Colonoscopy. Due on due Goal Monofilament Exam. Due on due Goal Dental exam. Due on due Goal Abdominal ultras ound. Due on due Goal Diabetes Screening. Due on due Goal Zoster vaccine due Goal Pneumococcal vaccine due Goal Hepatitis C Scre ening. Due on due Goal Urinalysis. Due on due Goal Dilated eye exam. Due on Feb due Goal Lipid panel. Due on due Goal ECG due Goal Colonoscopy. Due on due Goal Hemoglobin A1C. Due on due Goal Foot exam. Due on due Goal Influenza vaccine. Due on due Goal Document SOGI In formation. Due on due Goal Urinalysis. Due on due Goal Zoster vaccine due Goal Hemoglobin A1C. Due on due Goal Dental exam. Due on due Goal Hepatitis C Scre ening. Due on due Goal ECG due Goal Pneumococcal vaccine due Goal Monofilament Exam. Due on due Goal Diabetes Screening. Due on due Goal Document SOGI In formation. Due on due Goal Lipid panel. Due on due Goal Abdominal ultras ound. Due on due Goal Dilated eye exam. Due on Jan due Goal Foot exam. Due on due Goal Influenza vaccine. Due on due Goal Colonoscopy. Due on due Goal Dietary manageme nt education, guidance, and counseling completed Goal Foot exam. Due on due Goal Document SOGI In formation. Due on due Goal Abdominal ultras ound. Due on due Goal Hepatitis C Scre ening. Due on due Goal Lipid panel. Due on due Goal Monofilament Exam. Due on due Goal ECG due Goal Dental exam. Due on due Goal Diabetes Screening. Due on due Goal Influenza vaccine. Due on due Goal Hemoglobin A1C. Due on due Goal Colonoscopy. Due on due Goal Pneumococcal vaccine due Goal Zoster vaccine due Goal Urinalysis. Due on due Goal Dilated eye exam. Due on Nov due Goal Urinalysis. Due on due Goal Influenza vaccine. Due on due Goal Diabetes Screening. Due on due Goal Dilated eye exam. Due on Oct due Goal Abdominal ultras ound. Due on due Goal Zoster vaccine due Goal Dental exam. Due on due Goal Lipid panel. Due on due Goal Hepatitis C Scre ening. Due on due Goal Pneumococcal vaccine due Goal Colonoscopy. Due on due Goal Foot exam. Due on due Goal Hemoglobin A1C. Due on due Goal Document SOGI In formation. Due on due Goal ECG due Goal Monofilament Exam. Due on Or due Goal Influenza vaccine. Due on due Goal Zoster vaccine due Goal Document SOGI In formation. Due on due Goal Hemoglobin A1C. Due on due Goal Abdominal ultras ound. Due on due Goal Lipid panel. Due on due Goal Hepatitis C Scre ening. Due on due Goal Colonoscopy. Due on due Goal Dental exam. Due on due Goal Monofilament Exam. Due on Or due Goal Pneumococcal vaccine due Goal Diabetes Screening. Due on due Goal Foot exam. Due on due Goal ECG due Goal Dilated eye exam. Due on Oct due Goal Urinalysis. Due on due Goal Lipid panel. Due on due Goal Urinalysis. Due on due Goal Pneumococcal vaccine due Goal Monofilament Exam. Due on due Goal Influenza vaccine. Due on due Goal Document SOGI In formation. Due on due Goal ECG due Goal Colonoscopy. Due on due Goal Hepatitis C Scre ening. Due on due Goal Dilated eye exam. Due on Sep due Goal Abdominal ultras ound. Due on due Goal Diabetes Screening. Due on due Goal Dental exam. Due on due Goal Foot exam. Due on due Goal Zoster vaccine due Goal Hemoglobin A1C. Due on due Goal Hepatitis C Scre ening. Due on due Goal Diabetes Screening. Due on due Goal Influenza vaccine. Due on due Goal Zoster vaccine. Due on due Goal Lipid panel. Due on due Goal Pneumococcal vac cine. Due on due Goal Colonoscopy. Due on due Goal Document SOGI In formation. Due on due Goal Td vaccine. Due on due Goal FOBT. Due on due Goal Diabetes Screening. Due on due Goal Dental exam. Due on due Goal Zoster vaccine due Goal Dilated eye exam. Due on Sep due Goal Lipid panel. Due on due Goal Colonoscopy. Due on due Goal Influenza vaccine. Due on due Goal ECG due Goal Abdominal ultras ound. Due on due Goal Pneumococcal vaccine due Goal Foot exam. Due on due Goal Document SOGI In formation. Due on due Goal Urinalysis. Due on due Goal Hepatitis C Scre ening. Due on due Goal Monofilament Exam. Due on due Goal Diabetes Screening. Due on due Goal Abdominal ultras ound. Due on due Goal Foot exam. Due on due Goal Urinalysis. Due on due Goal Hepatitis C Scre ening. Due on due Goal Colonoscopy. Due on due Goal Monofilament Exam. Due on due Goal Dental exam. Due on due Goal Document SOGI In formation. Due on due Goal Influenza vaccine. Due on due Goal Dilated eye exam. Due on Aug due Goal Document SOGI In formation. Due on due Goal Dilated eye exam. Due on Aug due Goal Foot exam. Due on due Goal Monofilament Exam. Due on due Goal Hepatitis C Scre ening. Due on due Goal Urinalysis. Due on due Goal Abdominal ultras ound. Due on due Goal Influenza vaccine. Due on due Goal Diabetes Screening. Due on due Goal Colonoscopy. Due on due Goal Dental exam. Due on due Goal Hepatitis C Scre ening. Due on due Goal Abdominal ultras ound. Due on due Goal Diabetes Screening. Due on due Goal Colonoscopy. Due on due Goal Influenza vaccine. Due on due Goal Monofilament Exam. Due on due Goal Urinalysis. Due on due Goal Document SOGI In formation. Due on due Goal Dilated eye exam. Due on Aug due Goal Foot exam. Due on due Goal Dental exam. Due on due Goal Hepatitis C Scre ening. Due on due Goal Colonoscopy. Due on due Goal Urinalysis. Due on 20 due Goal Dilated eye exam. Due on Jun due Goal Monofilament Exam. Due on due Goal Diabetes Screening. Due on due Goal Influenza vaccine. Due on due Goal Lipid panel. Due on due Goal Document SOGI In formation. Due on due Goal Hemoglobin A1C. Due on due Goal Foot exam. Due on due Goal Abdominal ultras ound. Due on due Goal ECG due Goal Pneumococcal vaccine due Goal Zoster vaccine due Goal Dental exam. Due on due Goal ECG due Goal Hepatitis C Scre ening. Due on due Goal Diabetes Screening. Due on due Goal Foot exam. Due on 1 due Goal Hemoglobin A1C. Due on due Goal Document SOGI In formation. Due on due Goal Urinalysis. Due on 20 due Goal Influenza vaccine. Due on due Goal Colonoscopy. Due on due Goal Dental exam. Due on due Goal Lipid panel. Due on 025 due Goal Monofilament Exam. Due on due Goal Pneumococcal vaccine due Goal Zoster vaccine due Goal Dilated eye exam. Due on Jun due Goal Abdominal ultras ound. Due on due Goal Dietary manageme nt education, guidance, and counseling completed Goal Colonoscopy. Due on due Goal Dental exam. Due on due Goal Pneumococcal vaccine due Goal Diabetes Screening. Due on due Goal Urinalysis. Due on 20 due Goal Foot exam. Due on 1 due Goal Abdominal ultras ound. Due on due Goal Zoster vaccine due Goal Document SOGI In formation. Due on due Goal Dilated eye exam. Due on Apr due Goal Hepatitis C Scre ening. Due on due Goal Hemoglobin A1C. Due on due Goal ECG due Goal Lipid panel. Due on 025 due Goal Monofilament Exam. Due on due Goal Influenza vaccine. Due on due Goal Dietary manageme nt education, guidance, and counseling completed Goal Dental exam. Due on due Goal Dilated eye exam. Due on Mar due Goal Lipid panel. Due on due Goal Colonoscopy. Due on due Goal Abdominal ultras ound. Due on due Goal Hepatitis C Scre ening. Due on due Goal Diabetes Screening. Due on due Goal Urinalysis. Due on due Goal Pneumococcal vaccine due Goal Hemoglobin A1C. Due on due Goal Monofilament Exam. Due on due Goal Document SOGI In formation. Due on due Goal ECG due Goal Zoster vaccine due Goal Influenza vaccine. Due on due Goal Foot exam. Due on 0 due Goal Foot exam. Due on 0 due Goal Dilated eye exam. Due on Feb due Goal Monofilament Exam. Due on due Goal Colonoscopy. Due on due Goal Pneumococcal vaccine due Goal Hemoglobin A1C. Due on due Goal Influenza vaccine. Due on due Goal Document SOGI In formation. Due on due Goal Hepatitis C Scre ening. Due on due Goal ECG due Goal Urinalysis. Due on due Goal Lipid panel. Due on due Goal Diabetes Screening. Due on due Goal Abdominal ultras ound. Due on due Goal Dental exam. Due on due Goal Zoster vaccine due Goal Dietary manageme nt education, guidance, and counseling completed Goal Influenza vaccine. Due on due Goal Dental exam. Due on due Goal Colonoscopy. Due on due Goal Hemoglobin A1C. Due on due Goal Diabetes Screening. Due on due Goal Monofilament Exam. Due on due Goal Hepatitis C Scre ening. Due on due Goal Document SOGI In formation. Due on due Goal Abdominal ultras ound. Due on due Goal Pneumococcal vaccine due Goal Foot exam. Due on 0 due Goal ECG due Goal Dilated eye exam. Due on Jan due Goal Zoster vaccine due Goal Lipid panel. Due on due Goal Urinalysis. Due on due Goal Urinalysis. Due on due Goal Dilated eye exam. Due on Jan due Goal Zoster vaccine due Goal ECG due Goal Influenza vaccine. Due on due Goal Lipid panel. Due on due Goal Pneumococcal vaccine due Goal Dental exam. Due on due Goal Monofilament Exam. Due on due Goal Abdominal ultras ound. Due on due Goal Diabetes Screening. Due on due Goal Document SOGI In formation. Due on due Goal Colonoscopy. Due on due Goal Foot exam. Due on 0 due Goal Hepatitis C Scre ening. Due on due Goal Urinalysis. Due on 20 due Goal Document SOGI In formation. Due on due Goal Abdominal ultras ound. Due on due Goal Foot exam. Due on 0 due Goal Dental exam. Due on due Goal Lipid panel. Due on due Goal Influenza vaccine. Due on due Goal Diabetes Screening. Due on due Goal Zoster vaccine due Goal Colonoscopy. Due on due Goal Hepatitis C Scre ening. Due on due Goal Pneumococcal vaccine due Goal Dilated eye exam. Due on December due Goal ECG due Goal Monofilament Exam. Due on due Goal Document SOGI In formation. Due on due Goal Hepatitis C Scre ening. Due on due Goal Monofilament Exam. Due on due Goal Diabetes Screening. Due on due Goal Abdominal ultras ound. Due on due Goal Colonoscopy. Due on due Goal Dental exam. Due on due Goal ECG due Goal Dilated eye exam. Due on Nov due Goal Foot exam. Due on 0 due Goal Urinalysis. Due on due Goal Zoster vaccine due Goal Lipid panel. Due on due Goal Pneumococcal vaccine due Goal Influenza vaccine. Due on due Goal ECG due Goal Document SOGI In formation. Due on due Goal Foot exam. Due on 0 due Goal Influenza vaccine. Due on due Goal Pneumococcal vaccine due Goal Dental exam. Due on due Goal Urinalysis. Due on due Goal Abdominal ultras ound. Due on due Goal Diabetes Screening. Due on due Goal Zoster vaccine due Goal FOBT. Due on due Goal Hemoglobin A1C. Due on due Goal Monofilament Exam. Due on due Goal Hepatitis C Scre ening. Due on due Goal Lipid panel. Due on due Goal Dilated eye exam. Due on Sep due Goal Monofilament Exam. Due on due Goal Document SOGI In formation. Due on due Goal Abdominal ultras ound. Due on due Goal Hemoglobin A1C. Due on due Goal Hepatitis C Scre ening. Due on due Goal Influenza vaccine. Due on due Goal FOBT. Due on due Goal Lipid panel. Due on due Goal Foot exam. Due on 0 due Goal Dilated eye exam. Due on Sep due Goal Dental exam. Due on due Goal Zoster vaccine due Goal Urinalysis. Due on due Goal Pneumococcal vaccine due Goal ECG due Goal Diabetes Screening. Due on due Goal Lipid panel. Due on due Goal ECG due Goal Influenza vaccine. Due on due Goal Zoster vaccine due Goal Urinalysis. Due on due Goal Document SOGI In formation. Due on due Goal Diabetes Screening. Due on due Goal Foot exam. Due on 0 due Goal Hepatitis C Scre ening. Due on due Goal Abdominal ultras ound. Due on due Goal Dental exam. Due on due Goal FOBT. Due on due Goal Monofilament Exam. Due on due Goal Pneumococcal vaccine due Goal Hemoglobin A1C. Due on due Goal Dilated eye exam. Due on Aug due Goal FOBT. Due on due Goal Foot exam. Due on 9 due Goal Dental exam. Due on due Goal Zoster vaccine due Goal Abdominal ultras ound. Due on due Goal Hepatitis C Scre ening. Due on due Goal Diabetes Screening. Due on A due Goal Pneumococcal vaccine due Goal Lipid panel. Due on due Goal Document SOGI In formation. Due on due Goal Urinalysis. Due on due Goal Monofilament Exam. Due on due Goal Dilated eye exam. Due on Apr due Goal Influenza vaccine. Due on due Goal ECG due Goal Dietary manageme nt education, guidance, and counseling completed Goal Diabetes Screening. Due on A due Goal Monofilament Exam. Due on due Goal Dilated eye exam. Due on Mar due Goal Zoster vaccine due Goal Lipid panel. Due on due Goal Document SOGI In formation. Due on due Goal Foot exam. Due on 9 due Goal Influenza vaccine. Due on due Goal Pneumococcal vaccine due Goal Tdap due Goal APE. Due on due Goal Dental exam. Due on due Goal Colonoscopy. Due on due Goal Urinalysis. Due on due Goal ECG due Goal Hepatitis C Scre ening. Due on due Goal Pneumococcal vaccine due Goal ECG due Goal Influenza vaccine. Due on due Goal Pneumococcal vaccine due Goal Zoster vaccine due Goal Dental exam. Due on due Goal Lipid panel. Due on due Goal Hepatitis C Scre ening. Due on due Goal Dilated eye exam. Due on December due Goal Diabetes Screening. Due on A due Goal Document SOGI In formation. Due on due Goal GFR. Due on due Goal Monofilament Exam. Due on due Goal Tdap. Due on due Goal APE. Due on due Goal Foot exam. Due on due Goal Urinalysis. Due on due Goal Dietary manageme nt education, guidance, and counseling completed Goal Hepatitis C Scre ening. Due on due Goal Diabetes Screening. Due on A due Goal Monofilament Exam. Due on due Goal FOBT. Due on due Goal Document SOGI In formation. Due on due Goal Lipid panel. Due on due Goal GFR. Due on due Goal Urinalysis. Due on due Goal Dental exam. Due on due Goal Tdap. Due on due Goal Dilated eye exam. Due on Nov due Goal APE. Due on due Goal Foot exam. Due on 9 due Goal LDL Cholesterol (Direct). Due on due Goal Hemoglobin A1C. Due on due Goal Dental exam. Due on due Goal Lipid panel. Due on 021 due Goal Dilated eye exam. Due on Sep due Goal Foot exam. Due on 9 due Goal Diabetes Screening. Due on due Goal Monofilament Exam. Due on due Goal GFR. Due on due Goal Urinalysis. Due on 19 due Goal FOBT. Due on due Goal Tdap. Due on due Goal APE. Due on due Goal Dietary manageme nt education, guidance, and counseling completed Goal Urine microalbumin. Due on due Goal GFR. Due on due Goal Foot exam. Due on 9 due Goal APE. Due on due Goal LDL Cholesterol (Direct). Due on due Goal Dental exam. Due on 019 due Goal Colonoscopy. Due on 015 due Goal FOBT. Due on due Goal Lipid panel. Due on 017 due Goal Tdap. Due on due Goal Urinalysis. Due on 19 due Goal Hemoglobin A1C. Due on due Goal Diabetes Screening. Due on A due Goal Monofilament Exam. Due on due Goal Dilated eye exam. Due on Aug due Goal FOBT. Due on due Goal APE. Due on due Goal Tdap. Due on due Goal Hemoglobin A1C. Due on due Goal Dilated eye exam. Due on Aug due Goal Foot exam. Due on 9 due Goal GFR. Due on due Goal Diabetes Screening. Due on due Goal Colonoscopy. Due on 015 due Goal LDL Cholesterol (Direct). Due on due Goal Lipid panel. Due on 017 due Goal Dental exam. Due on 019 due Goal Monofilament Exam. Due on due Goal Urine microalbumin. Due on due Goal Urinalysis. Due on 19 due Goal Lipid panel. Due on 018 due Goal Diabetes Screening. Due on due Goal Tdap. Due on due Goal Dilated eye exam. Due on Jul due Goal APE. Due on due Goal Urinalysis. Due on 18 due Goal Foot exam. Due on 9 due Goal FOBT. Due on due Goal Monofilament Exam. Due on due Goal LDL Cholesterol (Direct). Due on due Goal GFR. Due on due Goal Dental exam. Due on due Goal Hemoglobin A1C. Due on due Goal Colonoscopy. Due on due Goal Urine microalbumin. Due on due Goal Monofilament Exam. Due on due Goal Tdap. Due on due Goal Colonoscopy. Due on due Goal FOBT. Due on due Goal APE. Due on due Goal Dilated eye exam. Due on Jun due Goal Diabetes Screening. Due on A due Goal Lipid panel. Due on due Goal GFR. Due on due Goal Foot exam. Due on 9 due Goal ECG due Goal Urine microalbumin. Due on due Goal Dental exam. Due on due Goal Hemoglobin A1C. Due on due Goal LDL Cholesterol (Direct). Due on due Goal Urinalysis. Due on 18 due Goal Zoster vaccine due Goal Urine microalbumin. Due on due Goal GFR. Due on due Goal Tdap. Due on due Goal Dilated eye exam. Due on Jun due Goal Zoster vaccine due Goal Dental exam. Due on due Goal APE. Due on due Goal Lipid panel. Due on due Goal ECG due Goal Urinalysis. Due on due Goal Colonoscopy. Due on due Goal Monofilament Exam. Due on due Goal FOBT. Due on due Goal Foot exam. Due on due Goal LDL Cholesterol (Direct). Due on due Goal Hemoglobin A1C. Due on due Goal Diabetes Screening. Due on A due Goal Dietary manageme nt education, guidance, and counseling completed Goal Tdap. Due on due Goal Lipid panel. Due on due Goal LDL Cholesterol (Direct). Due on due Goal Urine microalbumin. Due on O due Goal Zoster vaccine due Goal APE. Due on due Goal FOBT. Due on due Goal Dilated eye exam. Due on May due Goal GFR. Due on due Goal Colonoscopy. Due on due Goal Foot exam. Due on due Goal ECG due Goal Urinalysis. Due on 18 due Goal Monofilament Exam. Due on due Goal Dental exam. Due on due Goal Diabetes Screening. Due on A due Goal Hemoglobin A1C. Due on due Goal FOBT. Due on due Goal GFR. Due on due Goal Foot exam. Due on 9 due Goal Zoster vaccine due Goal Diabetes Screening. Due on A due Goal Urine microalbumin. Due on S due Goal Hemoglobin A1C. Due on due Goal Dental exam. Due on 018 due Goal Tdap. Due on due Goal APE. Due on due Goal Lipid panel. Due on 017 due Goal Dilated eye exam. Due on Apr due Goal LDL Cholesterol (Direct). Due on due Goal Urinalysis. Due on 18 due Goal Monofilament Exam. Due on due Goal ECG due Goal Colonoscopy. Due on 015 due Goal Dilated eye exam. Due on Mar due Goal Urine microalbumin. Due on A due Goal Tdap. Due on due Goal Monofilament Exam. Due on due Goal GFR. Due on due Goal Foot exam. Due on 9 due Goal Urinalysis. Due on 18 due Goal Lipid panel. Due on 017 due Goal Zoster vaccine due Goal Diabetes Screening. Due on A due Goal APE. Due on due Goal FOBT. Due on due Goal LDL Cholesterol (Direct). Due on due Goal Hemoglobin A1C. Due on due Goal Colonoscopy. Due on due Goal Dental exam. Due on due Goal ECG due Goal Dilated eye exam. Due on Jan due Goal FOBT. Due on due Goal APE. Due on due Goal Hemoglobin A1C. Due on due Goal Urinalysis. Due on 18 due Goal Dental exam. Due on due Goal Diabetes Screening. Due on due Goal Tdap. Due on due Goal Lipid panel. Due on due Goal Foot exam. Due on 8 due Goal Colonoscopy. Due on due Goal LDL Cholesterol (Direct). Due on due Goal Zoster vaccine due Goal GFR. Due on due Goal ECG due Goal Urine microalbumin. Due on due Goal Monofilament Exam. Due on due Goal Monofilament Exam. Due on due Goal LDL Cholesterol (Direct). Due on due Goal APE. Due on due Goal Hemoglobin A1C. Due on due Goal FOBT. Due on due Goal Foot exam. Due on 8 due Goal Tdap. Due on due Goal Zoster vaccine due Goal Dental exam. Due on due Goal Urine microalbumin. Due on due Goal ECG due Goal Colonoscopy. Due on due Goal GFR. Due on due Goal Urinalysis. Due on 18 due Goal Lipid panel. Due on due Goal Diabetes Screening. Due on A due Goal Dilated eye exam. Due on December due Goal FOBT. Due on due Goal Tdap. Due on due Goal Dilated eye exam. Due on December due Goal Monofilament Exam. Due on due Goal Hemoglobin A1C. Due on due Goal LDL Cholesterol (Direct). Due on due Goal Foot exam. Due on due Goal Colonoscopy. Due on due Goal Urinalysis. Due on due Goal GFR. Due on due Goal Zoster vaccine due Goal Lipid panel. Due on due Goal ECG due Goal Urine microalbumin. Due on due Goal APE. Due on due Goal Dental exam. Due on due Goal Diabetes Screening. Due on A due Goal Monofilament Exam. Due on due Goal APE. Due on due Goal Dilated eye exam. Due on Sep due Goal Hemoglobin A1C. Due on due Goal Colonoscopy. Due on due Goal Lipid panel. Due on due Goal Hemoglobin A1C. Due on due Goal Monofilament Exam. Due on due Goal APE. Due on due Goal Colonoscopy. Due on due Goal Dilated eye exam. Due on Jul due Goal Colonoscopy. Due on due Goal Hemoglobin A1C. Due on due Goal Monofilament Exam. Due on due Goal APE. Due on due Goal Dilated eye exam. Due on Jun due Goal Dilated eye exam. Due on Apr due Goal Colonoscopy. Due on due Goal APE. Due on due Goal Monofilament Exam. Due on due Goal Foot exam. Due on due Goal Monofilament Exam. Due on due Goal Colonoscopy. Due on due Goal APE. Due on due Goal Dilated eye exam. Due on Apr due Goal Colonoscopy. Due on due Goal Monofilament Exam. Due on due Goal Dilated eye exam. Due on Mar due Goal Foot exam. Due on due Goal APE. Due on due Goal Foot exam. Due on due Goal Dilated eye exam. Due on Mar due Goal Colonoscopy. Due on due Goal APE. Due on due Goal Monofilament Exam. Due on due Goal APE. Due on due Goal Hemoglobin A1C. Due on due Goal Foot exam. Due on due Goal Colonoscopy. Due on 017 due Goal Monofilament Exam. Due on due Goal Dilated eye exam. Due on Nov due Goal Monofilament Exam. Due on due Goal Hemoglobin A1C. Due on due Goal Foot exam. Due on due Goal Colonoscopy. Due on due Goal APE. Due on due Goal Dilated eye exam. Due on Sep due Goal Pneumococcal vaccine due Goal Colonoscopy. Due on due Goal APE. Due on due Goal Foot exam. Due on due Goal Dilated eye exam. Due on Aug due Goal Monofilament Exam. Due on due Referral Ordered: MAMMOGRAM DIAGNOSTIC, BILATERAL Appointment date/timeframe: Urgent <3 Weeks ordered Referral Ordered: Referrals: Audiology. Evaluate and treat Appointment date/timeframe: 06/01/2021 ordered Referral Ordered: US EXAM, BREAST, UNILATERAL OR BILATERAL Appointment date/timeframe: 03/18/2021 ordered Referral Ordered: X-RAY EXAM OF PELVIS, 1 OR 2 VIEWS Appointment date/timeframe: Routine <3 Months ordered Referral Ordered: Referrals: Dermatology. Evaluate and treat Appointment date/timeframe: 11/16/2020 ordered Referral Ordered: Referrals: Podiatry. Evaluate and treat Appointment date/timeframe: 07/15/2018 ordered Referral Ordered: Referrals: Endocrinology. Location: [place]. Evaluate and treat Appointment date/timeframe: 08/30/2018 ordered Referral Ordered: Optometry (related to Blurry vision) ordered Referral Ordered: Referrals: Optometry. Location: [place]. Evaluate and treat ordered Referral Ordered: Referrals: Public Health and General Preventive Medicine. Location: [facility] ordered Referral Ordered: Referrals: Cardiology. Evaluate and treat Appointment date/timeframe: 09/10/2015 ordered Referral Ordered: Referral: Urology. Appointment date/timeframe: 02/25/2014 ordered Patient Education Plantar Fasciitis: Exer cises completed Patient Education Constipation: After You r Visit completed Patient Education Heel Pain: After Your V isit completed Patient Education Potassium-Restricted Di et: After Your completed Future Order: Lab Order FIT ([id number]), Sen t on: Sent Future Order: Lab Order CHOLESTE ROL, TOTAL ([id number]), Sent on: Sent Future Order: Lab Order DIRECT LDL ([id number]) , Sent on: Sent Future Order: Lab Order HDL CHOL ESTEROL ([id number]), Sent on: Sent Future Order: Lab Order COMPREHE NSIVE METABOLIC PANEL ([id number]), Sent on: Sent Future Order: Lab Order GLYCOHEM OGLOBIN A1C ([id number]), Sent on: Sent Future Order: Lab Order MICROALB UMIN, URINE ([id number]), Sent on: Sent Future Order: Lab Order C-REACTI VE PROTEIN INFLAMATION ([id number]), Sent on: Sent Future Order: Lab Order GLYCOHEM OGLOBIN A1C ([id number]), Sent on: Sent Future Order: Lab Order LIPID PA ELOY/CFR ([id number]), Sent on: Sent Future Order: Lab Order MICROALB UMIN, URINE ([id number]), Sent on: Sent Future Order: Lab Order MICROALB UMIN, 24 HOUR URINE (W/CREATININE) ([id number]), Sent on: Sent Future Order: Lab Order HERPES S IMPLEX VIRUS 1&2 IGG ([id number]), Sent on: Sent Future Order: Lab Order HIV GIL A SCREENING (), Sent on: Sent Future Order: Lab Order HEPATITI S PANEL, ACUTE W/REFLEX ([id number]), Sent on: Sent History Of Present Illness Encounter Date Complaint History Of Prese nt Illness diabetes (follow up) 1) Type 2 d iabetes mellitus without complication, without long-term current use of insulin (onset 03/17/2014.DM regimen: linagliptin 5 mg daily, glipizide 5 mg daily, pioglitazone 45 mg daily. Pt states that he has moved to [facility] and is seeking care closer to home. He has an appointment with a new primary care provider and has enough medication to last him until this new appointment.) Home blood pressure range is 119 systolic and 72 diastolic. MEDS REFILL Pt presents for refill meds only as his PCP is no longer here and he could not get refills without an OV. NIPPLE SHARP SENSATION Pt report s this happened after COVID vaccine in right arm, he had 2 months of severe pain in nipple, he has man immaging and no cause found, pain has resolved and he is just alerting us that it is gone now. chronic conditions Inflammation of nipple on right breast. It has improved a bit, but he is still worried about cancer. Mammogram has not been scheduled yet per patient. Order entered 03/02/21 per chart. Also order for audiology evaluation. Sometimes can't hear all of what individuals are saying when at work. diabetes (follow up) 1) Type 2 d iabetes mellitus without complication, without long-term current use of insulin (onset 03/17/2014.[facility]. DM regimen: glipizide 5 mg daily, linagliptin 5 mg daily, pioglitazone 45 mg daily. Pt's last A1c 02/14 7.3%. Pt reports FBS 110-140. FBS higher when he has some juice or sugar instead of Splenda. On atorva 40 mg daily, aspirin 81 mg daily (aspirin per Cardiology despite pt's diminished renal fxn). Exercising through work still and walking once a week outside of work.) Home blood pressure range is 119 systolic and 72 diastolic. R breast pain: Went to [facility] less than1 month ago and saw MD, was told not too bad , tired due to low Hgb. Had fluid retention in the legs just after the flight and uric acid was elevated, was RX Allopurinol 300 mg to take 1/2 tab and Torasemida 5 mg to take 1/day. Lost the paper with the labs done there. 12/31 saw [facility] before the trip. Cardio saw in November, stress test was done, told fine? and he needs to remain on baby ASA.Has decreased hearing n/l. In November he felt some inflammation around the R nipple along with slight pain, no discharge, no bleeding. No FH of breast cancer. Wants some testing done.No more leg swelling. A1c 7.3 today. diabetes diabetes (follow up) Walks a lot for work - 1.5 to 4 miles daily.Per patient, saw tie man Dr. Mccauley - 11/11/20 had a catheterization which showed good cardiac artery blood flowFor BP is taking amlodipine 5 mg daily, losartan 50 mg daily (also on terazosin 10 mg daily for BPH)home bps = 115-123/56-67 diabetes (follow up) 1) Type 2 d iabetes mellitus without complications (onset 03/17/2014.Telehealth. DM regimen: glipzide 5 mg q am, linagliptin 5 mg daily, pioglitazone 45 mg daily. FBS 100-155 in last 5 days. 10/29 144-155. Had sweet bread and juice days before the FBS was higher. Has being eating special bars instead of sweet bread that have 90 calories and his sugar doesn't go as high. Has also been trying to avoid juice; likes water. Really likes apple juice so it is tempting. Sometimes will have cranberry juice. It is a treat for him sometimes in the evening.) Home blood pressure range is 119 systolic and 72 diastolic. COVID VACCINE 2 Patient presents in NAD for COVID vaccine. Patient meets criteria of cohort currently sanctioned by [facility]. Contraindications and risk factors assessed. Patient's questions answered. Labs f/u Visit conducted in Azeri using Kennedy /Ashlyn Dykes telephonic gas engine operator generators ID# The patient consented to participate in telehealth visit. This patient was identified as meeting criteria for a primary care televisit rather than an in person visit due to public health concerns around COVID-19. A complete assessment and plan is detailed in the note, all of which were conducted remotely using virtual visit technology. Patient identity was verbally confirmed with 2 identifiers at the start of the visit. Patient was located at home during the visit. Provider was located in an ambulatory exam room/outside the office at a secure location during the visit.COVID19 precautions discussed also COVID vaccine Patient presents in NAD for COVID vaccine. Patient meets criteria of cohort currently sanctioned by [facility]. Contraindications and risk factors assessed. Patient's questions answered. COVID Testing Pt presents for COVID testing via mid-turbinate nasal swab collection per provider POC.Pt reports exposure to person(s) with possible/confirmed COVID-19. Denies symptoms consistent with COVID-19. Two identifiers verified w/pt. Follow Up of Cold symptoms Onset : 10 days ago. The problem has improved. Associated symptoms include chills, fatigue, post-nasal drainage and body pain. Pertinent negatives include cough, dyspnea and fever. Additional information: taking tylenol with good effect. Follow Up of Cold sy mptoms (comments) COVID test on 09/20/20was NEG, this was his 2nd test. 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 diabetes (follow up) 1) Type 2 d iabetes mellitus without complications (onset 03/17/2014.Telehealth. DM regimen: glipizide 5 mg q am, linagliptin 5 mg daily, pioglitazone 45 mg daily.) Home blood pressure range is 119 systolic and 72 diastolic. chronic conditions URI: About 15 days ago he came to the health center b/c of symptoms - chills & muscle aches. Was negative for COVID-19 infection. However, feels that swab may not have been deep enough. Went back to work. Was taking Tylenol bid (b/c of low eGFR). A few days later, was told she was COVID 19 positive. Now isolating x 10 days. Today he was tested again with deeper nasal swab; results not back yet. He was in transit during the phone call back to his home in [place] from the clinic. has mild symptoms.BS 100-140 max throughout. Now taking Tylenol qid. He has mild cough. COVID test Pt presents to [facility] testing tent for Mid-Turbinate Nasal Swab Collection per POC. body aches (comments) 65 yo male c/o chills, body aches - started 09/04. very little cough, little rhinorrheano sore throatno headache no nausea, vomiting, diarrheano chest pain, sobno change in taste or smellno sick contactsno known COVID contactsPMH, medications, allergies reviewedROS as aboveThis patient consented to participate in a telehealth visit. This patient was identified as meeting criteria for a televisit rather than an in person visit due to public health concerns around COVID-19. A complete assessment and plan is detailed in the note, all of which were conducted remotely using virtual visit technology. Patient identity was verbally confirmed with 2 identifiers at the start of the visit. Patient was located at home during the visit. Provider was located in an ambulatory exam room/outside the office at a secure location during the visit. body aches COVID testing Patient presents to COVID testing trailer for mid-turbinate nasal swab collection per provider POC.Patient reports exposure to person(s) with possible/confirmed COVID-19. Patient reports possible symptoms consistent with COVID-19. diabetes (follow up) 1) Type 2 d iabetes mellitus without complications (onset 03/17/2014.Telehealth. DM regimen: glipizide 10 mg qam (prescribed bid), linagliptin 5 mg daily, pioglitazone 45 mg daily. BP regimen: amlodipine 5 mg says he is taking bid (in chart and per nephrology note 07/16 daily - pt had renal appt about a week ago, bp was checked), losartan 50 mg daily, terazosin 10 mg daily (for BPH as well). FBS per pt: 96 - 147, avg 120s. Reports home BPs 108-117/58-63) Home blood pressure range is 119 systolic and 72 diastolic. diabetes (follow up) Had low BS in the middle of the night. Did not check BS but felt off (vision changes & tremor). Had 1 tbsp of honey and felt better. Did not check BS in morning those days after eating honey. This happened 6 times over the past 2 weeks. Happens also sometimes if he eats meal late. No change in diet. Current wt - 202 lbs (so lost some wt). His job has more walking than in the past. Walks between 1 and 3 miles per day. Mondays are his days off. Goes to work at 6 am. Breakfast at 8 - 8:30 am. 1-2 hrs later, he feels low BS. Is taking vitamin D3 50,000 units once a week, plus vitamin D daily. Worried about interaction with vitamin D and DM meds causing low BS. Follow Up of XRAY: See prior ov for details.Pt says his hips are feeling better, less painful, also his stamina, overall energy is much better. Feels that vit D is helping him. Pain is now 3-4/10 and not daily, lumbar pain is maybe 1/10 and not daily either. Overall he does not have discomfort as before. Prefers to wait on PT and Orthopedics referrals for now until the pandemic settles. Occasionally he gets cramps in the legs at night, also when he feels that BG is maybe low (but did not check during these episodes) he sees like a white cloud but takes 1 teaspoon of honey in water and improves. Stopped taking baby ASA. On 07/02 has appt with Nephrology. Has seen Urology in February. Wants to come for next fasting labs in 4 months.Pelvis x-ray done on 05/24/20 was read with : Mild narrowing and degenerative changes both hips, left greater than right. No fracture is detected. Degenerative changes are present in the visualized lower lumbar spine. 3 Month Follow Up Patient has mu ltiple questions, concerns today. Says he was 5 months at home amid the pandemic and has returned to work, but feels easily tired there, has no energy to work and he agrees that his physical conditioning is decreased compared to the pre-pandemic time. Not sleeping well, has pain in the neck for 3 days, used Lidoderm patch from and he asks me to RX this for him as it was helpful.Noticed different color of the legs, no tingling and no numbness. He constantly walks at work, using insoles and good shoes per pt. Has 2 bumps on left knee present for long time. Feet are swollen sometimes. Brings BP readings 105-115-120/80. Denies any HEBERT, dizziness, CP, palpitations, SOB, legs swelling. Has upcoming appt with Nephrology in June, August he sees Cardiology. Eye appt is in July. FBG are [id number]. Says he is eating less rice, less tortillas, lesser portions. He is walking at work, did 5 Km yesterday. Sometimes he feels pain in tongue, on and off, dry mouth, has not seen dentist recently.Takes meds as RX, other supplements glucosamine/chondroitin 1/day (max 2/day written on the bottle), triple omega 3-6-9 he takes 2/day. Has left lower back and some left hip pain when walking for 3-4 months, no weakness, no tingling or numbness, no trauma. Wants to have x-ray but declines referral to PT or Orthopedics yet. Feet get dry and skin gets some water bubbles there. Recent labs reviewed: persistent microalbuminuria, mild chronic anemia at baseline, elevated creatinine and FBG, A1c decreased to 7, improved lipids, corrected vit D. Copy given to pt per his request. diabetes (follow up) 1) Type 2 d iabetes mellitus without complications (onset 03/17/2014.Telehealth. DM regimen: pioglitazone 45 daily, glipizide 10 mg bid, linagliptin 5 mg daily. FBS per patient: 112-142. Pt denies hypoglycemia. Reports home bps - sys < 120, < 68. Per nephrology: consider SGLT 2 inhibitor for CKD. He saw them in December. Next appt in Jun.) Home blood pressure range is 119 systolic and 72 diastolic. Follow up See prior ov+ ad d for details. Pt is seen here today with ALICIA Vargas who helps with Macedonian interpretation and clarification. He is unaccompanied. Pt reports being anxious about his health and return to work, is afraid of getting the coronavirus. He makes contradictory statements all throughout the encounter, says he wants to return to work, is a a responsible person, likes his job, but he is also afraid of manuel the virus, then he says he does not care if he gets his job back, will go and find something else to do. Is afraid that he will be asked to return the payments he received amid the pandemic as his FMLA was denied and he does not have a disability, just chronic stable conditions. He says I did not complete all the sections in the papers, Alicia is explaining that I completed only what was pertaining to his case. He is thinking to work part-time. Wants to return to work on 03/31, says he needs to mentally prepare for this , then he says he would want to stay home longer, then he says that he needs to return to some sort of normality including resuming working? Says he was under a lot of pressure from his , daughter and whole family as to not return to work, but at the same time they can not help him financially so he has no choice but to work. Says he misses 20 credits to retire and get social security. He asked Alicia earlier for yet another letter for his job, this listing his medical conditions but to me he says he does not need any letter?- again contradictory statements and requests! Pt is vague and rather guarded in the conversation today. Vehemently refuses counselling. Denies any SI or HI. Says he has been taking on and off 1/2 tab of Benadryl 25 mg to be able to sleep at night as he was stressed, denies being groggy with this. Brings a log of his most recent FBG readings starting from 03/15, 03/16, 03/18- 03/25: 119, 139, 160, 141, 168, 151, 155, 134, 121, 108. FORMS F/U LABS diabetes (follow up) 1) Type 2 d iabetes mellitus without complications (onset 03/17/2014.Telehealth. DM regimen: pioglitazone 45 mg daily, glipzide 10 mg bid, linagliptin 5 mg daily. Pt reports BS range from 91- 159, with most BS < 130. He is not eating rice and has decreased the number of corn tortillas he eats. He has been exercising 1 to 2 hrs 5 days per week. He is even eating some vegetables - radishes, green beans and cucumbers. Denies SE from linagliptin.) Home blood pressure range is 119 systolic and 72 diastolic. diabetes (follow up) 1) Type 2 d iabetes mellitus without complications (onset 03/17/2014.Telehealth. DM regimen: pioglitazone 45 mg daily, glipizide 10 mg bid. Pt states he is currently receiving unemployment and is at home. Not eating well - more sweet bread and potatoes b/c he is bored. He does not feel anxious. Walking 4 to 5 times per week, but not every day like he used to. FBS range from 101 - 183. He is willing to buy healthier snacks.) Home blood pressure range is 119 systolic and 72 diastolic. letter request and meds refills: The patient consented to participate in telehealth visit. This patient was identified as meeting criteria for a primary care televisit rather than an in person visit due to public health concerns around COVID-19. A complete assessment and plan is detailed in the note, all of which were conducted remotely using virtual visit technology. Patient identity was verbally confirmed with 2 identifiers at the start of the visit. Patient was located at home during the visit. Provider was located in an ambulatory exam room/outside the office at a secure location during the visit.Pt called in end of October and spoke with CHW requesting a letter for his employer about his comorbidities amid the COVID-19 pandemic and potential risks for his health, he wanted unemployment. I asked my supportive employment case manager's guidance to draft such a letter. 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 His employer told him to return when he is able to, and he does want to return there when the level of risk for getting the virus decreases. I explained that the letter requested was drafted many times and ultimately completed as per my supportive employment case manager's guidance, reviewed content with pt. He wants 2 copies sent to his house. He tells me that he had bronchitis back in September, was seen at the ER and twice at [facility], it took a long time to recover from it. He was SOB when taking the stairs, had muscle aches, now he has recovered completely, for 10 days he feels 100% better, and wondering if he maybe had the COVID-19? Says he can walk where he lives, plans to gradually increase up to 2 hrs. Discussed COVID-19 precautions when going outside also, says he wears a cloth mask.He wants refills on all his meds for 3 months at a time as insurance covers this, has not updated labs. He did not check BP and BG when he was sick, will resume monitoring. Denies any HEBERT, dizziness, cough, wheezing, CP, palpitations, SOB, legs swelling. At the end of the appt he asks for refill on oral Acyclovir to have in hand, this as RX by his Urologist for occasional genital herpes outbreak, however there is some confusion about the RX dosing and amount dispensed (2 caps of 200 mg to take 5 times/day for 5 days but was given just # 25? ). Reviewed Urology consult note. COUGH Additional infor mation: 10/05 [facility] treated w/ azithromax for bronchitis10/13 [facility] visit, no improvememnt, treated with doxycycline x 5 days. continues to take this BID symptoms improving, would like to return to work without restriction. cold symptoms cold symptoms (comments) 64 yo m gay presents c/o cough and phlegm.At night and lying down has a lot of phlegm - can't sleep. feels can't work tomorrowStates symptoms started about 10 days ago. Few days later went to ED - given work note until 10/08. Saw PCP and she gave him another note for work - to be excused until today. Seen at [facility] on 10/05/19. Dx acute bronchitis Patient states had clear chest x-ray. no report available to meTreated with toradol and IV fluids. Prescribed zithromax. Saw pcp 10/08/19 in follow up - no note available yet.States after the antibiotic felt much better - but only took zithromax for 3 daysC/o cough, phlegm. occasional shortness of breathinhaler helps temporarilydenies chest painno feverno hemoptysisno rhinorrheano sore throatno vomiting or diarrheano leg swellingno rash, itchingPMH: htn, hyperlipidemia, dmMeds: ran out of proair. has been using up to 3 times per day. all: nkdaSH: quit smoking 29 years ago Vital signs, PMH, current medications, allergies reviewedROS as above APE: APE. Feeling wel l overall. H/o tonsillectomy at age 34 and prostate hypertrophy surgery, takes Terazosin. H/o left LE surgery after fracture and right LE surgery after he broke it, has metal in place.F- DM at 54, M- back problem and urine problem pain, M-aunt - cancer ? of unknown typeShingrix was not covered, as he had some insurance problem. can not work due to illness and he will have lesser copay, feels happy about this. Wants a note for work to excuse him for 3 days, feels tired and he needs to rest, stomach hurts since yesterday, because he ate buttery seafood yesterday at a restaurant. 2 months ago he had 2 glasses of Coke, FBG was 290 thereafter and avoiding this now. Has not returned to Endocrinology Dr. Bobby, will come with Ericka next, had high bills. Next Sun he is seeing Urology and at end of the month Cardiology appt, wants copy of the labs, 2 copies to show to the specialists. Also seeing Nephrology in September. Needs to update eye exam due to insurance not accepted before. Colonoscopy he never had it, he does not like it, but will do FIT. No smoking now, no alcohol and no drugs. H/o smoking and stopped 27 years ago, smoked for 25 years, 15 cig/day. Never had drugs, alcohol once/month 3 beers maybe. Maintenance job. Mood has improved, his boss does not stress him out now. with of 42 years, have 5 sons and 5 grandchildren. Normal sexual appetite.Recent labs reviewed: persistent decreasing microalbuminuria, mild eosinophilia, mild chronic anemia, elevated but decreasing creatinine, A1c increased to 7.8, other labs wnl. preventive exam Follow up on lab test(s) 64 yo s ays he has seen Endocrinology, Urology and Nephrology, has appt with Urology in 1 year, Nephrology in 6 months. He also has appt with Endocrinology next month, but he does not want to go back there anymore given recent high medical bills which he is very stressed about. He would rather just come here for PCP only and not return to any specialists. I strongly recommended to continue visits with the specialists for health monitoring and discuss with them ways to minimize the cost of services provided there. Nephrology asked for renal function, CBC, intact PTH, 25 HO vit D, random urine alb/creat which were ordered with the recent labs. Consult note reviewed.Testosterone level result was found to be normal in . [facility] system, this was ordered by Urology. Consult note reviewed, he has BPH controlled on meds. Says he is more worried about his bills than his health at this point. He took some occasional Ibuprofen once at night, as he has been having occasional shoulders pain due to his work in maintenance at [employer], also using Bengay topically. Says he walks 4000- 5000 miles/day in his work. Recent labs reviewed: decreasing but still elevated eosinophils, mildly worsening anemia, stable elevated creatinine and BUN, mildly elevated potassium, decreasing A1c to 7.2, mildly elevated LDL and decreased TG, ASCVD risk is 24.8%, decreasing microalbuminuria, normal PTH. Follow Up of diabetes diabetes (follow up) Pt's h as just started working and due to the increase in income, he has been paying higher copays for labs and doctor's visits. He is trying to get all of his labs checked through primary care (instead of at specialty clinics) so it will be one bill instead of many. His accounts payable technician requested a PTH and vitamin D 25-OH be drawn in addition to the other labs already ordered by PCP prior to next primary care appt. diabetes (follow up) 1) Type 2 d iabetes mellitus without complication, without long-term current use of insulin (onset 03/17/2014.DM regimen: pioglitazone 45 mg daily, glipizide 10 mg q am, 5 mg q pm (addition of 5 mg q pm 1 month ago per [facility] MD). Pt reports FBS 122-152. Pt denies hypoglycemia. He remarked that he is feeling fine and does not understand why he has to see so many specialists. Is also resistant to adding more meds. Feels like he is taking enough.) Home blood pressure range is 119 systolic and 72 diastolic. Follow up on lab test(s) 63 yo s ays he feels sick since Sunday with throat congestion, no pain, at night nose is congested and stuffy, little watery discharge, no fever and no chills, no sick contacts, sx started after he went outside in the rain, drank water and otc pill from [employer],. Today he called in sick at work, needs letter for excuse from work. He took severe Tussin CH APAP-DM- Guaifenesin- Phenylephrine, Brings the logs, FBG was less than 140s, and this month less than 130. privacy specialist found his K elevated at 5.8 and hence advised to stop Losartan and changed to Amlodipine. He had some side effects with this new medication, felt breathing shallow, short at night and he got afraid and he stopped it and went back on Losartan. He was informed that repeat K level was down to 5.2. Says that his K went up because he was out of control with his diet. Has upcoming Nephrology visit in March, is seen there every 6 months. BP is less than 120/70s. No NSAIDS use. Has overall less foods for dinner, works in maintenance at [employer], walking [phone] miles/day, has a podometer. He takes Slimfast with 1 tortilla with cheese at night.Is seeing in February Urology and also Endocrinology. Not having any anal itching anymore, he figured out that if stool was more dry and if some was remaining there was causing irritation, if he wipes well this does not happen.Recent labs reviewed: eosinophilia at baseline, improving Hgb/Hct, mildly elevated BUN, creatinine and potassium at baseline, increased A1c to 7.8, mild increase in LDL and TG, ASCVD risk is 20.2%, increasing microalbuminuria, stool testing all negative. Diabetes (follow up) Cold symptoms diabetes (follow up) 1) Type 2 d iabetes mellitus without complication, without long-term current use of insulin (onset 03/17/2014.DM regimen: glipizide 10 mg once daily, pioglitazone 45 mg daily. Pt's metformin DC'd due to elevated Cr of 1.61 although eGFR 46. Pt has proteinuria (ACR > 300). Pt states that he was told by [facility] Super[employer] at [facility] that metformin was harming his kidneys. Last A1c = 7.6% per labse from [facility]. Additionally, pt had a elevated potassium level of 5.8. Initially the [employer] prescribed amlodipine 5 or 10 mg daily instead of losartan 50 mg daily, but the pt took it x 3 days and he did not feel well - experienced SOB (pt has no h/o HF - last ECHO 2015 LVEF was 55%). He switched back to taking losartan 50 mg daily and reduced his banana and potato laden soup intake. Potassium decreased to 5.2 4 days later and then was 4.8 one week later (from his [facility] chart).) Home blood pressure range is 119 systolic and 72 diastolic. chronic conditions Pt followed b y urology for BPH. Now taking finasteride and terazosin. No SE from either. Finasteride has not helped but it has only been 6 weeks. diabetes (follow up) No low BS i n the last month. FBS in November 96-135. Follow up on lab test(s) Hypertension (follow up) 63 yo s ays he has seen Endocrinology, told to continue Glipizide and Pioglitazone and stopped Metformin since beginning of August, was asked to have labs and specialist may change to different DM medication in November when he goes for f/u. He will have more tests on 12/04- A1c, CMP and thyroid testing, has appt on 11/[address] Bobby. FBG had been less than 140s, just 2 readings in the 160-173, tries to avoid some things, doing some walking. Has seen Cardiology and will f/u in 1 year, with Dr. Jaime, had EKG. Has also seen Urology this year, has a new medication- Finasteride 5 mg once/day, RX by Regina Escalante. Every 2 hrs he goes to bathroom to urinate.Has appt tomorrow with Nephrology and wants a copy of the labs to discuss with specialist.No blood in urine, drinking liquids, eating same amount of red meats- beef, fish, seafood.Awaiting consult notes from specialists. BP has been 128-130/? Denies any HEBERT, dizziness, CP, palpitations, SOB, legs swelling. Today he feels tired, maybe he did not sleep well. Has itching in the anus , he is washing well and felt some stool leakage, discomfort, better with cleaning the area, this is going on for 3 months, noticed also some blood in stool and itching, Never had colonoscopy. In March last year he went to [facility], had the same anal itching at some point. He has some skin tag in the anus. Did not want to do colonoscopy so far. Has seen some blood on and off on the toilet paper, little only, no fecal incontinence.No FH or personal h/o intestinal parasites.Recent labs reviewed: chronic elevated eosinophils, mild chronic anemia, mildly elevated creatinine and potassium, mild increase in A1c up to 7.5, low HDL, mild increase in lipids, ASCVD risk is 23.5%, worsening microalbuminuria, other labs wnl. Diabetes (follow up) corneal abrasion 63 yo M here fo r two day follow up on corneal abrasion OD. Patient has been using Ofloxacin and artificial tears as prescribed. He has no symptoms other than feeling that the vision in the right eye is a little blurrier than the left. injury 63 y/o male presents today with injury OD. States he was hit in the right eye with the corner of a cardboard box at work 2 days ago. Describes pain today as 6/10, however this is significantly less than at the time of the injury (pt states it is 40% better today). Began using PFAT's for relief. BCVA cc 20/20 OD and OS. Pt also complains of injection, photophobia and headache. Pt denies diplopia, itching or burning.No other visual or ocular complaints OU. diabetes (follow up) 1) Type 2 d iabetes mellitus without complication, without long-term current use of insulin (onset 03/17/2014.DM regimen: glipizide 10 mg daily (prescribed bid), metformin 850 mg bid (pt stated that he has only been taking this bid x 3 months, pioglitazone 45 mg daily. Last A1c 7.1%) Home blood pressure range is 119 systolic and 72 diastolic. Sore throat Sore throat (comments) 63 yo mal e presents c/o cough, sore throat, body aches, little headache - started yesterdaycan't sleep at night secondary to cough. no feverno ear painno chest painno shortness of breathno vomiting or diarrheano sick contactsno recent travelPMH: HTN, dmMeds: in past used inhaler - this helps some. did not take bp meds today. took yesterday morningAll: nkda Vital signs, PMH, current medications, allergies reviewedROS as above Diabetes (follow up) Hypertension (follow up) 63 yo h ere for f/u. R plantar foot pain resolved after changing some new shoes he was wearing. Has appt with Endocrinology in Aug, got a letter that DM supply coverage will change from Aug. Reports Daily BM and sometimes 2-3 times/day, does not want to do colonoscopy. FBG 132- 140-148 has been increased lately, but says he feels fine. Daily steps 4,000 -10,000. Denies any dizziness, HEBERT, CP, palpitations, SOB, legs swelling.Ate some $ 1 soup cups with high K and Na lately.Sleeping better overall. Goes to urinate at night every 2-3 hrs , has appt with Urology, also appt with Cardiology and Nephrology. Eats spicy, no soda, no citrus, drinks water, drinks 2-4 coffee cups/morning as he loves the smell and taste of it.Has seen eye doctor and little change in the RX glasses. Sometimes he feels tired and wants to take some time off from work to recharge, but he loves to work, on and off he would like to take off for just 3 days. Works in maintenance at [employer]. Does not feel that he needs to be off right now.Recent labs reviewed: chronic eosinophilia, mild chronic anemia, elevated BUN and creatinine, elevated potassium at 5.5, decreased A1c to 7.1, mildly elevated TG, ASCVD risk is 21.6%, decreased microalbuminuria, FOBT negative. blurry vision 63 y/o male here for diabetic eye exam. Pt states he sees blurry at near cc OU that started a few months ago. Pts blood sugar this morning was 111. Pts last A1c was 7.6 on 03/27/18. Pt states his sugar is controlled with metformin. No allergies to be noted. Pt denies flashes, floaters, and HEBERT's. chronic conditions Constipation: Usually has BM in the morning, but BMs have been irregular. No diarrhea. Burning sensation in anus due to hard stool 3 to 4 times in the last 3 months. Most recent 20 days ago. Tried a trial of senna/docusate but it did not help. Has not tried Miralax, but is concerned that when he returns to work in 2 days that he will have diarrhea. Is afraid to walk b/c he is afraid that he will need to have a BM and there will be no bathroom nearby. B/c he feels backed up, he does not feel that he can wait when he needs to go - increased urgency. Also has felt the need to go, but then only releases gas. Acute URI: Likely viral. Pt had body aches . Lost voice Sunday. Has not been sleeping well due to shortness of breath and cough. Has some yellow phlegm. Has used albuterol MDI in the past for similar symptoms which was helpful. diabetes (follow up) 1) Type 2 d iabetes mellitus without complication, without long-term current use of insulin (onset 03/17/2014.DM regimen: pioglitazone 45 mg daily, metformin 850 mg bid, glipizide 10 mg bid. Pt reports not checking bs x 1 month b/c he was on vacation. Recent BS 126, 142. Last A1c 7.6%. Gained 2 lbs.) Home blood pressure range is 119 systolic and 72 diastolic. f/u labs: 62 yo here with several complaints, will travel to [facility] from 04/22 to 05/10 to visit son and changed appt with Ericka, clinical pharmacist. Feels better with his DM control, has more energy overall now. Needs to have eye exam in April. No more blurry vision. Needs refills on meds. Has meds for 2 months to go on trip. No tingling and no numbness in the feet. Had acid reflux yesterday while walking, had a larger lunch and just little dinner and at 2 AM, saw white clouds and took some honey with water and little sweet bread, hence this AM the BG is 170 due to this. Little cramp in the legs for few days. Brings in the FBG log and less than 160s. Watched the diet and exercised. Has 2 problems, for 12 days he is constipated, does a little stool and hard, and feels the sensation of need to go again as the day passes, is not able to go for walks. Drinks a lot of water. Passes flatus, but feels abdomen is swollen, gained weight as bowel movement is not normal. Never had colonoscopy, wants to do FIT. Denies seeing any blood in stool. Has seen Cardiology and told he had possible plantar fasciitis when he mentioned the right plantar foot pain, was advised to use ice by specialist . Never has been to Podiatry. Right foot pain behind the plantar arch on the heel area is present for 2 months and 3/10, feels a pulsating pain after walking. Walking 4-5 miles/week. Has new shoes for 1-2 months. Used ice but not a lot. For 1 month he is not walking as much.Cardiology said he was fine with his heart. Tomorrow will consult with Nephrology Dr. Moe.Recent labs reviewed: mild chronic anemia, eosinophilia, mild increase in creatinine and mildly elevated potassium at baseline, improved A1c to 7.6, improved lipids, ASCVD risk is 16.8%, improved microalbuminuria. Diabetes (follow up) Hypertension (follow up) Follow up on lab test(s) Constipation pain R foot diabetes (follow up) 1) Type 2 d iabetes mellitus without complication, without long-term current use of insulin (onset 03/17/2014.DM regimen: glipizide 10 mg bid, metformin 850 mg bid (eGFR 49), pioglitazone 30 mg daily. Pt has dramatically changed his diet and has been walking 2 to 3 hrs 2x per week. FBS 98-135. He is not longer eating rice, eating very little sweet bread. He is not drinking juice nor soda. He is eating more vegetables and vegetable soup. If he wants a snack, instead of reaching for dozier goldy, he has a green apple w/ lemon. He is drinking more water. He is feeling better - has more energy.) Home blood pressure range is 119 systolic and 72 diastolic. Follow Up of diabetes Follow up on lab test(s) 62 yo d id not buy any tests to check glucose as these are expensive, and this prevents him from monitoring BGs. Working and studying Russian. Eating sweet bread, using sugar, on and off drinking soda. Not eating fruits and many vegetables since he was little, is cooking, says he does not like to eat many things. Knows he is his own enemy when it comes to food choices and DM control. Eats bananas, potatoes. Working in [employer] and no exercise.Says he takes his meds as advised and seeing the specialists and Ericka, clinical pharmacist. Denies any blurry vision, any tingling or numbness in extremities. Recent labs reviewed: mild chronic anemia, worsening, eosinophilia, mildly elevated creatinine and potassium, increasing A1c to 9.2, elevated TG, ASCVD risk is 23.7%, mild decrease in microalbuminuria. diabetes (follow up) 1) Type 2 d iabetes mellitus without complication, without long-term current use of insulin (onset 03/17/2014.DM regimen: glipizide 10 mg bid, pioglitazone 30 mg daily, metformin 850 mg bid. Pt recently initiated on atorva 40 mg daily. No SE from new meds. Has been taking pioglitazone 30 mg daily x 1 month. BS from meter: 94-160, avg 142. Denies hypoglycemia. States that his test strips are now costing $40 a fill, which is expensive. BS goes up when he has sweet bread or soda. Doesn't feel that he can adjust his diet. Difficult b/c of his long work hours. 1/2 makes food at home, 1/2 buys food. Taking ESL classes Sundays.) Home blood pressure range is 119 systolic and 72 diastolic. diabetes (follow up) Diet yester day: 9 am 1 tamale, 1 cup coffee w/ Splenda, small piece of sweet bread2 pm: meat, 1 c rice, 1 beer8:30 pm 2 cups grape juiceUsually drinks water, but sometimes gets tired of it and drinks juice. States that he is already over 60 and DM is too much to manage. Takes medications regularly. Understands that medications are being adjusted to protect his kidneys. Hypertension (follow up) 62 yo h ere for f/u labs and chronic conditions. Will have appt with Urology on 09/03 and Nephrology in December 2017 Dr. 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 Has new boss and work is better, more pay and a more calm work environment. Denies any current depression. Feels fine, has met with Ericka and a DM medicine was increased but insurance is not covering the higher dose per pt as the pharmacy did not give it to him? Needs a new glucometer as the current one broke. Brings in the log with FBG with wide ranges between low 100s and up to 190-202. Trying to control diet, does not like a lot of things and is not a good cook. Ericka is teaching him what kind of foods to avoid in general . Says high BGs are due to lack of control and will power on his part. Has urine with foam at baseline. No visual changes. His hands itch sometimes, but has no tingling and no numbness in the legs or arms. Recently he has been eating more fried foods- beans, potatoes, plantains, hamburgers and cheeseburgers.Labs reviewed: persistent baseline eosinophilia (has occasional itching of his palms), also mild chronic anemia, mildly elevated but stable BUN, creatinine, potassium, decrease in A1c now at 8.2, increased TG, TC, LDL, but also HDL has increased slightly, ASCVD risk is 22.9%, increase in microalbuminuria, iron studies are wnl. Diabetes (follow up) Follow up on lab test(s) diabetes diabetes (follow up) 1) Type 2 d iabetes mellitus without complication, without long-term current use of insulin (onset 03/17/2014.Visit conducted with telephonic gas engine operator generators [id number] in [place]. DM regimen: glipizide 10 mg bid, metformin 850 mg bid, pioglitazone 15 mg daily. Pt reports BS have been improving. BS per log 88-183 over the last 2 weeks. Avg 140. Pt exercises ~ 1 to 2 hrs 2 times per week. His day off is Sunday and then he exercises another random day. His job is active, so he generally doesn't exercise daily. He may have missed a few doses of his simvastatin prior to his last lipid profile, b/c it is a pain to poultry picker refills continuously at the pharmacy since they are filled on different days and he can't pick them up too early. wrote rx for 90 day fill, which will help. He has been eating less dozier goldy, icecream and sweets. Feeling well. DC'd gingko.) Home blood pressure range is 119 systolic and 72 diastolic. Follow up on lab test(s) 62 yo h ere for f/u, will meet with Cardiology in July, Urology in August and Nephrology- has seen recently and goes there every 6 months and he understood that his kidney function is stable for now, no records here. Says his mood is better now, his new boss is more understanding and job is overall less stressful. Has been taking new medicine-Pioglitazone- started by Clinical Pharmacist Ericka, brings in FBG log and recently with improved readings in the low 100s. Feels more energy and sometimes sleepy. Walking 1.5 hrs once/week and sometimes 3 hrs/week. Labs reviewed: eosinophilia (has occasional itching of his palms), mild chronic anemia, mildly elevated BUN, creatinine, potassium, decrease in A1c now at 9.4, improved TG, LDL has increased slightly, ASCVD risk is 18.2%, decrease in microalbuminuria. Diabetes (follow up) diabetes (follow up) 1) Diabetes type 2, no ocular involvement (onset 03/17/2014.DM regimen: metformin 850 mg bid (dose modified from 1000 mg in the past due to elevated Cr. However CrCl 60 ml/min now (cr - 1.5)). Pt believes that dose was adjusted b/c metformin hurts the kidneys (tried to correct this misunderstanding, he has stated similar things in the past re: metformin) Pt also believes that A1c 04/12 of 9.8% is not accurate. Pt has made some changes in diet since Mar (less jacoby winslow). Pt's vision has improved since making the changes. FBS 120-242 per patient, avg 160. He is exercising 3 times a week - walking 1.5 hrs x 3 days per week. Wakes up 3 times per night to urinate (has BPH, on terazosin.)Pt taking mvi, omega 3 and gingko biloba.) Home blood pressure range is 119 systolic and 72 diastolic. routine exam diabetes control led with metformin, blurred vision at distance and near without glasses Diabetes (follow up) DM: 61 yo says he we nt to Nephrology and told kidney function is stable, just that the potassium was little high and that he will always have proteinuria. Also has seen Urology in [place] and had cystoscopy and told wnl prostate. Has seen Cardiology who ordered renal artery u/s and wnl, no stenosis found. Needs eye exam, for 1 year the vision for the distance has been decreased and eyes are painful. No tingling and no numbness in arms, legs, feet. FIT test was negative and also the HNormpy, Has some heartburn and taking Ranitidine daily BID. Works and studies Russian in the morning, says can not find much time to come for appt with our Clinical Pharmacist. Never has been to Endocrinology and says he does not have time to consult the specialist, he is asking me for 3 more months of trial to decreased his sugars. Does not check BG in the morning nor during the day. Eats white rice and white pasta and white bread 4-5 times/day, also beans. Cymro food. 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 Buys foods from store and not cooking much at home. Takes Metformin 850 mg BID and other meds as RX. He does not want to start injecting insulin. Pt says he just had labs done at [facility] but no results are found with the lab? Diabetes (follow up) BP check Follow up on lab test(s) 61 yo h ere for f/u repeat labs. Once/week he has pain in the head and sometimes eye and sometimes spasm of the eyelids and cheeks. Has hard time getting out of the bed and feeling fresh. These symptoms are going on for 4-5 months. Snoring at night a lot and is not sleeping well, has to go to bathroom a lot at night. 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 Does not feel depressed. Often he feels sleepy. Has consulted eye doctor for lenses, insurance is not covering.Last seen Nephrology Dr. Abhi Salmeron few months ago and has f/u appt on 01/04. Cardiology on 03/[address] Mccauley, Urology on 02/[address] Strong.Has been taking Ranitidine for 1 month, here to check H.py test. Stopped Omeprazole and has been taking Ranitidine and Maalox for 1 month, but continued to have heartburn. Mailed the FIT test, awaiting result. He never had colonoscopy. He eats fried plantain, beans, some fatty meats, sweet bread. Thinks he should try harder to control his diet. Sometimes feels as if the ground is shaking. 3 months with no exercise, needs to start studying Russian and working.Urine makes bubbles, has some frequency and pt is asking if he may still have UTI. Denies any urinary burning, any pains, any fever or chills. Has sore throat since yesterday, scratchy, no sick contacts. No fever and no chills. Labs reviewed, pt wants a copy of these: eosinophilia (pt says he gets recurrent itching of the palms), mildly low Hgb-improving and iron studies are wnl, worsening BUN and creatinine is up to 1.5, mildly elevated K, decreasing A1c to 8, improving but still elevated TG, ASCVD risk is 21.4%, worsening proteinuria. Zoster vaccine Patient to [facility] in [facility] for Zoster vaccine. Patient denies current illness and denies ill effects from previous vaccines. Follow up on lab test(s) 61 yo h ere for f/u labs. Was seen at the ED 2 wks ago, had sensation of not being able to urinate and then burning at the tip of the penis, went to the ED and also had fever, had labs and urine test and u/s at the ED. Was d/c home on antibiotic, for 5 days and thereafter he was passing small blood clots and has seen urology at [facility] and told urine cleared up. 09/18 has another appt with urology. 12/2016 will meet again with Nephrology. Feels fine now with the urine, no more burning. He occasionally has genital herpes outbreaks, rarely and mostly when he is stressed. Ate bad during Holidays, ate a lot of bread, sweets. Tried Losartan 100 mg but he did not feel well with it, felt dizzy and decreased it to 50 mg daily. Has consulted with his eye doctor. Also had a cold recently and did not check BG much.Labs reviewed- eosinophilia, pt says he occasionally has itchy feet and hands and takes Loratadine. Noted mild anemia, pt says he declined colonoscopy. He has occasionaly heartburn and taking Omeprazole, has never been checked for H.pylori. Creatinine and K are mildly elevated at baseline. Worsening A1c increased to 8.7!, also worsening proteinuria. ASCVD risk is high at 18.9%. Diabetes (follow up) NPP First visit with provider. 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 Pt brought in the imaging and labs in [place]. 05/23 U/s showed cortical hypertrophy vs medular tumor for R kidney, cortical hypertrophy L kidney and also moderate fatty liver. Labs on 05/24: A1c 7.3, CRP mildly elevated at 7.4, TG 239, TC 174, HDL 36, LDL 90. Has seen cardiology 06/19 and told to increase Losartan to 100 mg. Pt's K was high due to drinking a lot of cranberry and tomatoe juices . K was improved with recent labs. Started exercising. Eating less sugars, less bread and less pasta. Did not check BG for 1 month, FBG 100-140. 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 Yesterday he did something that he was not supposed to do and got in trouble at work, feels very stressed out and had a meeting with his boss who was very understanding and told him not to repeat that mistake again. Denies any SI or HI. BP at home is wnl, less than 140. Losartan was dropped to 50 mg by PCP when the K increased, but pt feels that maybe the juices he was drinking elevated the number. Was on Losartan 100 mg as recommended by nephrology and cardiology also suggested this same dosage.Occasionally he has heartburn and wants RX for Lansoprazole. Also has occasional itchy feet and nose and wants RX for Loratadine. blurry vision 60 yo m gay here with c/o blurry vision x 6 months. C/O pain in the eyes when waking up in the morning. Pt has DM Type 2 and his avg BS runs between 120-140. Denies flashes, floaters, redness or Diplopia Follow up on lab test(s) Pt aske d to see me to discuss his recent rise in potassium levelPt used to be on 100mg LosartanThis was decreased to 50mg by someone at [facility]?Pt recently saw accounts payable technician at [facility] who felt he needs higher dose of losartan to control his proteinuriaOn 01/09 when he was on 50mg losartan K+ was 5.0Losartan increased to 75mg and K+ repeated 01/20 was 4.9 ( per pt he directly increased losartan to 100mg)Schedule Checker asked him to increase losartan to 100mg and return for labs 1 week later ( no results for January 2016 labs noted in [facility] )K+ done by me 03/13 was 5.8 and pt was taking losartan 100mg at the timeI was not aware of all the dose changes made by neprhology as I never rcvd the consult noteI then asked pt to decrease his losartan dose and he decreased to 50mg and repeated the K+ and it came back at 5.5Of note pt took Etoricoxib 90mg ( from [place]) for jt pain; he took the medicine in january 2016 for 14 days which helped his jt painhe also mentioned that he has been buying PTC lansoprazole for 1.5 years; recently he read on facebook that this medicine can affect/damage kidneysHe takes medicine for heartburn; no h/o blood in stool nor GI ulcershe takes medicine dailyHe has also been drinking a juice for good health daily; he cannot remember brand of juice; desn't think it has orange juice in ithe would like to know where he can get eye check upHe is feeling sad that eventually he may need dialysis check on need for refills Follow Up of diabetes (comments) unsure why he has appt today; Ericka reviewed labs with him at 01/03/16 appthe has nephro appt later today and would like copy of results jt pain jt pain (comments) 1. B/l Knee p ain; he has some pain when kneels at [facility]; bothersome for 7-10 yrs2. rt elbow pain: x 2.5 yrs [facility]. left shoulder pain: duration same as elbow Follow Up of diabetes diabetes (follow up) 1) Type 2 d iabetes mellitus without complications (onset 03/17/2014.DM regimen: glipizide 10 mg bid, metformin 850 mg bid. Last A1c 7.6%, eGFR 50. 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 Hates most vegetables (makes him vomit) Only likes limited fruit - pineapple, tangerines. Did not try sertraline for mood. States that his mood improved without it. No SE from meds.) Home blood pressure range is 119 systolic and 72 diastolic. diabetes (comments) FBS at home 80-130, occ 149,159,143, 164, 142,153,189he is tolerating increased dose of glipizide, denies hypoglycemiaHe has not been taking the Januvia( please see clin.pharmacist phone call from 11/08/15)He has been taking metformin 1000mg BID teraozsin refill he is due for r efill on 12.11 and misplaced rx bottle; he needs rx to bridge gap until Rx is due Follow Up of diabetes Follow up on lab test(s) The fol lowing test includeCreatinine 1.4, LDL at deggY1T 8.1%Microalbuminuria + chronic conditions 1) Type 2 joy betes mellitus without complications (onset 03/17/2014; Uncontrolled. He is on Januvia, Glipizide. He used to be on metformin but was stopped due to elevated creatinine. Last 8 days he stopped Januvia as his BS were running high ( FBS 163,156,96,220,182,179,195). he then started metformin 1000mg BID and noted improvementin FBS ( 130s, occ 162,145,151). He wants to know whether he can continue with metformin? He agrees he has not been following diet nor exercising.) 2) Chronic kidney disease, unspecified (onset 03/09/2015; Stable. Under care of Schedule Checker. He has microalbuminuria and is on Losartan ( he states he was never on an BRYON I).) 3) Hyperlipidemia, unspecified (onset 12/15/2014; Well Controlled. on statin) 4) Enlarged prostate with lower urinary tract symptoms (onset 03/17/2014; Well Controlled. Under care of Urologist. Is on Terazosin. Urologist suggested oxybutynin but he is not taking and feels urinary sx adequately controlled on terazosin) 5) Essential (primary) hypertension (onset 03/09/2015; Well Controlled. On losartan 50 mg once daily ( he takes half tab)) Home blood pressure range is 119 systolic and 72 diastolic. Follow Up of diabetes chronic conditions (comments) 6. premature atrial beats: saw tie man recently and no signif.problem identified7/ h/o anxiety: was on sertraline for only 8 days and then stopped; has not been feeling anxious BP check Pt came here wit h concern of BP fluctuations, he thinks BP is lower side. takes losartan 100 mg. today BP is 104/69 systolic. GA 91. states he feels palpitations , fast beats, happens any time. not related to exertion. denies chest pain, SOB. but feels fatigue, depressed. he was started on sertraline recently, awaiting psychotherapy consult soon. pt diabetic on glipizide , metformin, due to chronic kidney disease , tried to swtich to januvia. there was confusion re: approval from insurance. still taking metformin 1000 mg BID. Brought recent lab results dated 06/28 at renal office creatinine 1.57 . went up from 1.30 in may. he takes losartan 100 mg { increased from 50 mg in february}. HB is 13.0 . diabetes (follow up) 1) Type 2 d iabetes mellitus without complications (onset 03/17/2014.DM regimen: metformin 1000 mg bid, glipizide 10 mg bid. Pt's last A1c 7.2%, cr - 1.3 - much improved. 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 Pt has not started Januvia yet. Given the improvement in his A1c and Cr, it seems reasonable to continue metformin for now. Pt states that he has been feeling low energy and sad for several months. Not sleeping well. Does not feel comfortable talking to his family b/c he does not want to worry them. Is interested in trying a medication.) Home blood pressure range is 119 systolic and 72 diastolic. Diabetes (follow up) Diabetes (follow up) (comments) pt labs reviewed hba1c improved from last time,. creatinine improved. LDL at goal. takes all his meds as directed except that he did not start januvia yet, it was submitted for prior authorization, he still taking metformin. asking for refill as he ran out of it. has appoint with renal soon. c/o insomnia, goes to sleep at 11am, wakes up at 1 or 2 am, then he would not go to sleep again. diabetes (follow up) 1) Type 2 d iabetes mellitus without complications (onset 03/17/2014.DM regimen: metformin 1000 mg bid, glipizide 5 mg bid. Pt states that he was unable to p/u sitagliptin despite a letter from his insurance that states that the sitaglipitin was approved. FBS 78-137, avg 102. Diet: B: 8am- eggs, beans, or bread with cheese, L:12- 2 pm - depends on when he gets break at work- chicken, salad or frozen meal Dinner: same as lunch but a liitle more, sometimes tortillas and cheese, tamales. No bedtime snack. Sometimes has 4 calorie diet cranberry juice. Only drinks coffee with a little milk + Splenda or water. Never drinks coffee after 2:30 pm. If he introduces new foods or drinks into his diet, he always evaluates his FBS the next am to check the effects.) Home blood pressure range is 119 systolic and 72 diastolic. diabetes (follow up) States that due to this education he is able to avoid BS that are too high and too low unlike other people w/ DM. Is concerned about his difficulty maintaining sleep. Is able to fall asleep, but wakes up 2xs a night to urinate and is having difficulty falling back asleep. When he finally falls back asleep it is time for him to wake up and go to work. Then he feels tired at work. Has been taking Zzzquil (diphenhydramine 50 mg) at bedtime intermittantly and feels more rested when he does. Also, his LBP affects his sleep from time to time. States that the back pain comes and goes. Seems OK at this time. diabetes (follow up) 1) Diabetes mellitus without mention of complication, type II or unspecified type, not stated as uncontrolled (onset 03/17/2014; Fair Control. 1st visit for DM ed. DM x 15-20 yrs. Dad had DM. Not checking BS regularly. Checked this am and it was 84. BP this am was 111/72. 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 Estimates he is moving ~5 hrs/day. Lives w/ and 2 kids (ages 27 & 30). makes meals. Does not feel like he can ask her to modify meal plans b/c she is busy and works also. Did not bring glucose meter. Believes his primary problem is his diet. States he did not grow up eating fruits and vegetables and doesn't like them. Nor does he feel well eating them. He states he should avoid sweets and sugar, but has coffee with sweet bread for snacks. Wakes up early - 4:30 am. Was followed closely by a child therapist in [place] x 8 yrs and feels well educated on DM.) Home blood pressure range is 119 systolic and 72 diastolic. Follow Up of diabetes Follow Up of hypertension Follow Up of hyperte nsion (comments) seeing renal recently early march 2015, requested for labs from clinic. BP stable, his losartan was increased to 100 mg and he is tolerating well. Follow Up of diabetes (comments) sees [facility] clinical pharmacy, has appoint soon. request new glucometer, he lost it. asking for refills for lancets and strips. takes metformin and glipizide. his hba1c in february is 8.5, may be we need to go up on glipiizde 10 mg BID, blurry vision Patient complain s of tired eyes that get blurry and dry while watching TV at night. Pt also has blurred vision at near, but uses OTC readers and has no complaints with them. Pt denies burning, itching, tearing, pain, diplopia, flashing lights, or floaters OU. Type II DM DMII x 15 years controlled with metformin and glipizide and monitored by PCP. Last BS 192 mg/dL yesterday, last A1C 8.5% 02/24/15. Follow up on lab test(s) Reviewe d fasting labs done on february 24. hba1c 8.5 went up from 7.3 last jul 2014. Last time creatinine was 1.49 , positive ALKA, but low titre. seen once renal doctor at [facility]. for DM , takes metformin 1000 mg BID, he did not start simvastatin 20 mg , [place], [place] he saw some specialist ? diabetic, he was given ciprofibrate 100 mg daily. he was told to take lifelong. but he did not bring any refills. Follow up on lab test(s) Pt stat es he cancelled his last appoint as his insurance was inactive, [place] and did blood work, brought lab copy. Reviewed hba1c 7.8, cholesterol LDL 102, TG 447. creatinine 1.35, normal ALTAST. Reviewed labs done last month in clinic here creatinine 1.49. pt was given 2 new meds by [place] one for DM, glybenclamide, not sure of doses, also takes metformin 1000 mg BID. another one for TG cipofibrate. Diabetes (follow up) Home blood pressure range is 119 systolic and 72 diastolic. Hypertension positive fecal antigen test joint stiffness Hypertension (comments) BP mild elevation, at home BP 110/80. Renal increased losartan to 50 mg , advised him to check potassium in 1 week of time. fax results to renal office. positive fecal antig en test (comments) never had colonoscopy , stool test positive for blood, today guaiac test negative. pt not ready for colonoscopy. joint stiffness (comments) c/o s tiff joint left middle finger, not able to flex. worse in mornings. Diabetes (follow up) (comments) brought BS log fasting 120 to 140, 2 hrs post BF 160 to 200, but overall hba1c improved to 7.3 from 8.7 . also started taking metformin 1000 mg BID without problems. worsened microalbumin , seen renal at [facility], increased losartan to 50 mg. F/U DM Brought BS log , fasting 73 to 110, 2 hours after breakfast elevated to 160 to 230. seen CDRN last month. That time he told he had low bs in 50 and pt felt shakiness, he cut down metformin to 500 mg bedtime. usually he should take 1000 mg BID. BP at goal Diabetes (follow up) 59 y/o male pt in NAD, here to f/u with CDRN as requested by PCP Dr PACKER on worsening A1C level 8.7% on 06/01/14 from 7.4% on 01/2014. Pt checked FSBS here at 8:03am, per pt 2 hours postprandial, result was 293 (pt had breakfast at [facility] this AM). Pt reports taking metformin 1000mg in AM and 500mg in the evening because he thinks is causing him to have hypoglycemic episodes, pt had one results of 57 and 1 of 70 within the past 10 days, average is 105. Pt does not exercise and does not follow any diet, but eats with moderation. Pt needs refills on strips and lancets. Home blood pressure range is 119 systolic and 72 diastolic. c/o being too sleepy sleeps usua lly 6 hours, lately for last 15 days, feels sleepy during day time, snores sometimes. asking if any lab result correlate to his sleep issues. F/U Labs Reviewed fasting labs hba1c went up to 8.7 from 7.4 from january , now takes metformin 500 mg ER BID. also lipids improved, LDL at goal. takes simvastatin 20 mg. BP at goal, takes losartan 25mg.terazocin helped him, has urology appoint on 06/24.creatinine 1.55 improved from 1.67 in january at urology office, he has lab copy with him. high sugar Brought BS log f asting elevated 140 to 150, post prandial 200, one time 350, noticed if ate more , BS high, lately eating good food, takes metformin 500 mg BID. also requesting terazocin refill for BPH. seen urology at [facility] and has appoint end of this month, but he was given flomax and oxybutynin. Functional Status Date Functional Assessmen t No Information Instructions Date Instruction Additional Infor jyoti Follow low sugar and low carbohydrate diet Related to Type 2 diabetes mellitus without complication, without long-term current use of insulin Check blood sugars as directed R elated to Type 2 diabetes mellitus without complication, without long-term current use of insulin Increase physical ac tivity and lose weight Related to Type 2 diabetes mellitus without complication, without long-term current use of insulin Follow prescribed diet plan. Rel ated to Type 2 diabetes mellitus without complication, without long-term current use of insulin Perform monthly breast self exam s. Related to Breast pain, right Increase physical activity. Rela yesica to Breast pain, right Dietary management e ducation, guidance, and counseling Related to Body mass index (BMI) 35.0-35.9, adult Dietary management e ducation, guidance, and counseling Related to Body mass index (BMI) 35.0-35.9, adult Follow prescribed diet plan. Rel ated to Type 2 diabetes mellitus without complications Follow a low sodium diet Related to Essential (primary) hypertension Take medications gary ry day as prescribed Related to Essential (primary) hypertension Increase exercise and lose weigh t Related to Essential (primary) hypertension Increase fluid intake Related to Microalbuminuria Avoid bladder irrita nts such as caffeine and alcohol Related to Microalbuminuria proper sleep hygeine reviewed, importance of regular routine Related to Physical deconditioning no excercise less th an 4 hours before bed, q sleep routine Related to Physical deconditioning reviewed sleep norms , and effect of stressors Related to Physical deconditioning Dietary management e ducation, guidance, and counseling Related to Body mass index (BMI) 35.0-35.9, adult Follow low sugar and low carbohydrate diet Related to Type 2 diabetes mellitus without complications Check blood sugars as directed R elated to Type 2 diabetes mellitus without complications Increase physical ac tivity and lose weight Related to Type 2 diabetes mellitus without complications Check blood sugars as directed R elated to Type 2 diabetes mellitus without complications Increase physical ac tivity and lose weight Related to Type 2 diabetes mellitus without complications Follow prescribed diet plan. Rel ated to Type 2 diabetes mellitus without complications Follow a low sodium diet Related to Essential (primary) hypertension Take medications gary ry day as prescribed Related to Essential (primary) hypertension Increase exercise and lose weigh t Related to Essential (primary) hypertension Increase fluid intake Related to Microalbuminuria Avoid bladder irrita nts such as caffeine and alcohol Related to Microalbuminuria Dietary management e ducation, guidance, and counseling Related to Body mass index (BMI) 36.0-36.9, adult proper sleep hygeine reviewed, importance of regular routine Related to Insomnia, unspecified type no excercise less th an 4 hours before bed, qhs sleep routine Related to Insomnia, unspecified type reviewed sleep norms , and effect of stressors Related to Insomnia, unspecified type Follow low sugar and low carbohydrate diet Related to Type 2 diabetes mellitus without complications Follow low sugar and low carbohydrate diet Related to Type 2 diabetes mellitus without complications Check blood sugars as directed R elated to Type 2 diabetes mellitus without complications Increase physical ac tivity and lose weight Related to Type 2 diabetes mellitus without complications Follow prescribed diet plan. Rel ated to Type 2 diabetes mellitus without complications Follow a low sodium diet Related to Essential (primary) hypertension Take medications gary ry day as prescribed Related to Essential (primary) hypertension Increase exercise and lose weigh t Related to Essential (primary) hypertension The USPSTF recommend s one-time screening for abdominal aortic aneurysm (AAA) with ultrasonography in men ages 65 to 75 years who have ever smoked. Related to Screening for abdominal aortic aneurysm Increase activity. Related to En cntr for general adult medical exam w/o abnormal findings Check blood sugars as directed R elated to Type 2 diabetes mellitus without complication, without long-term current use of insulin Increase physical ac tivity and lose weight Related to Type 2 diabetes mellitus without complication, without long-term current use of insulin Avoid provocative fo ods: citrus, alcohol, coffee, chocolate, mints. Related to Indigestion Eat smaller meals, n o eating three hours prior to bedtime. Related to Indigestion Elevate head of bed prior to sle ep. Related to Indigestion Follow low sugar and low carbohydrate diet Related to Type 2 diabetes mellitus without complication, without long-term current use of insulin Follow prescribed diet plan. Rel ated to Type 2 diabetes mellitus without complication, without long-term current use of insulin Follow a low sodium diet Related to Essential hypertension Take medications gary ry day as prescribed Related to Essential hypertension Increase exercise and lose weigh t Related to Essential hypertension Avoid bladder irrita nts such as caffeine and alcohol Related to Microalbuminuria On the basis of your age, your calculated risk for heart disease or stroke over 7.5%, and diabetes, the ACC/AHA guidelines suggest you should be on a high intensity statin.On the basis of your age and calculated risk for heart disease or stroke over 10%, the USPSTF guidelines suggest you discuss starting aspirin with your doctor. Related to Mixed hyperlipidemia Follow low sugar and low carbohydrate diet Related to Type 2 diabetes mellitus without complication, without long-term current use of insulin Check blood sugars as directed R elated to Type 2 diabetes mellitus without complication, without long-term current use of insulin Increase physical ac tivity and lose weight Related to Type 2 diabetes mellitus without complication, without long-term current use of insulin Follow prescribed diet plan. Rel ated to Type 2 diabetes mellitus without complication, without long-term current use of insulin Follow a low saturated fat diet Related to Mixed hyperlipidemia Increase physical ac tivity and lose weight Related to Mixed hyperlipidemia Continue using medic ation every day as prescribed Related to Mixed hyperlipidemia Follow a low sodium diet Related to Essential hypertension Take medications gary ry day as prescribed Related to Essential hypertension Increase exercise and lose weigh t Related to Essential hypertension Increase fluid intake Related to Microalbuminuria Avoid bladder irrita nts such as caffeine and alcohol Related to Microalbuminuria Dietary management e ducation, guidance, and counseling Related to Body mass index (BMI) 35.0-35.9, adult On the basis of your age, your calculated risk for heart disease or stroke over 7.5%, and diabetes, the ACC/AHA guidelines suggest you should be on a high intensity statin.On the basis of your age and calculated risk for heart disease or stroke over 10%, the USPSTF guidelines suggest you discuss starting aspirin with your doctor. Related to Mixed hyperlipidemia Follow low sugar and low carbohydrate diet Related to Type 2 diabetes mellitus without complication, without long-term current use of insulin Check blood sugars as directed R elated to Type 2 diabetes mellitus without complication, without long-term current use of insulin Increase physical ac tivity and lose weight Related to Type 2 diabetes mellitus without complication, without long-term current use of insulin Follow prescribed diet plan. Rel ated to Type 2 diabetes mellitus without complication, without long-term current use of insulin Follow a low sodium diet Related to Essential hypertension Take medications gary ry day as prescribed Related to Essential hypertension Increase exercise and lose weigh t Related to Essential hypertension Increase fluid intake Related to Microalbuminuria Avoid bladder irrita nts such as caffeine and alcohol Related to Microalbuminuria Follow a low saturated fat diet Related to Mixed hyperlipidemia Increase physical ac tivity and lose weight Related to Mixed hyperlipidemia Continue using medic ation every day as prescribed Related to Mixed hyperlipidemia Educated that antibi otics are not prescribed for viral infections. Related to Viral URI Dietary management e ducation, guidance, and counseling Related to Body mass index (BMI) 34.0-34.9, adult Follow prescribed diet plan. Rel ated to Type 2 diabetes mellitus without complication, without long-term current use of insulin Follow a low sodium diet Related to Essential hypertension Take medications gary ry day as prescribed Related to Essential hypertension Increase exercise and lose weigh t Related to Essential hypertension Increase fluid intake Related to Microalbuminuria Avoid bladder irrita nts such as caffeine and alcohol Related to Microalbuminuria Avoid bladder irrita nts such as caffeine and alcohol Related to Urinary frequency Follow a low saturated fat diet Related to Mixed hyperlipidemia Increase physical ac tivity and lose weight Related to Mixed hyperlipidemia Continue using medic ation every day as prescribed Related to Mixed hyperlipidemia Dietary management e ducation, guidance, and counseling Related to Body mass index (BMI) 34.0-34.9, adult Follow low sugar and low carbohydrate diet Related to Type 2 diabetes mellitus without complication, without long-term current use of insulin Check blood sugars as directed R elated to Type 2 diabetes mellitus without complication, without long-term current use of insulin Increase physical ac tivity and lose weight Related to Type 2 diabetes mellitus without complication, without long-term current use of insulin Impression/Plan Related to Abras ion of right cornea, subsequent encounter Impression/Plan Related to 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 Rel ated to Type 2 diabetes mellitus without complication, without long-term current use of insulin Follow a low sodium diet Related to Essential hypertension Take medications gary ry day as prescribed Related to Essential hypertension Increase exercise and lose weigh t Related to Essential hypertension Follow a low saturated fat diet Related to Mixed hyperlipidemia Increase physical ac tivity and lose weight Related to Mixed hyperlipidemia Continue using medic ation every day as prescribed Related to Mixed hyperlipidemia Increase fluid intake Related to Microalbuminuria Avoid bladder irrita nts such as caffeine and alcohol Related to Microalbuminuria Dietary management e ducation, guidance, and counseling Related to Body mass index (BMI) 34.0-34.9, adult Impression/Plan Related to Diabe kashif type 2, no ocular involvement Impression/Plan Related to Presb yopia of both eyes Take medications gary ry day as prescribed Related to Essential hypertension Increase exercise and lose weigh t Related to Essential hypertension Follow low sugar and low carbohydrate diet Related to Type 2 diabetes mellitus without complication, without long-term current use of insulin Check blood sugars as directed R elated to Type 2 diabetes mellitus without complication, without long-term current use of insulin Increase physical ac tivity and lose weight Related to Type 2 diabetes mellitus without complication, without long-term current use of insulin Follow prescribed diet plan. Rel ated to Type 2 diabetes mellitus without complication, without long-term current use of insulin Follow a low sodium diet Related to Essential hypertension Follow a low saturated fat diet Related to Mixed hyperlipidemia Increase physical ac tivity and lose weight Related to Mixed hyperlipidemia Continue using medic ation every day as prescribed Related to Mixed hyperlipidemia Increase fluid intake Related to Microalbuminuria Avoid bladder irrita nts such as caffeine and alcohol Related to Microalbuminuria Complete entire cour se of antibiotics Related to Microalbuminuria Follow low sugar and low carbohydrate diet Related to Type 2 diabetes mellitus without complication, with long-term current use of insulin Check blood sugars as directed R elated to Type 2 diabetes mellitus without complication, with long-term current use of insulin Increase physical ac tivity and lose weight Related to Type 2 diabetes mellitus without complication, with long-term current use of insulin Follow prescribed diet plan. Rel ated to Type 2 diabetes mellitus without complication, with long-term current use of insulin Follow a low sodium diet Related to Essential hypertension Take medications gary ry day as prescribed Related to Essential hypertension Increase exercise and lose weigh t Related to Essential hypertension Increase fluid intake Related to Microalbuminuria Avoid bladder irrita nts such as caffeine and alcohol Related to Microalbuminuria Follow a low saturated fat diet Related to Mixed hyperlipidemia Increase physical ac tivity and lose weight Related to Mixed hyperlipidemia Continue using medic ation every day as prescribed Related to Mixed hyperlipidemia Follow low sugar and low carbohydrate diet Related to Type 2 diabetes mellitus without complication, without long-term current use of insulin Check blood sugars as directed R elated to Type 2 diabetes mellitus without complication, without long-term current use of insulin Increase physical ac tivity and lose weight Related to Type 2 diabetes mellitus without complication, without long-term current use of insulin Follow prescribed diet plan. Rel ated to Type 2 diabetes mellitus without complication, without long-term current use of insulin Follow low sugar and low carbohydrate diet Related to Type 2 diabetes mellitus without complication, without long-term current use of insulin Check blood sugars as directed R elated to Type 2 diabetes mellitus without complication, without long-term current use of insulin Increase physical ac tivity and lose weight Related to Type 2 diabetes mellitus without complication, without long-term current use of insulin Follow prescribed diet plan. Rel ated to Type 2 diabetes mellitus without complication, without long-term current use of insulin Follow a low sodium diet Related to Essential hypertension Take medications gary ry day as prescribed Related to Essential hypertension Increase exercise and lose weigh t Related to Essential hypertension Follow a low saturated fat diet Related to Mixed hyperlipidemia Increase physical ac tivity and lose weight Related to Mixed hyperlipidemia Continue using medic ation every day as prescribed Related to Mixed hyperlipidemia Increase fluid intake Related to Microalbuminuria Avoid bladder irrita nts such as caffeine and alcohol Related to Microalbuminuria Follow low sugar and low carbohydrate diet Related to Type 2 diabetes mellitus without complication, without long-term current use of insulin Check blood sugars as directed R elated to Type 2 diabetes mellitus without complication, without long-term current use of insulin Increase physical ac tivity and lose weight Related to Type 2 diabetes mellitus without complication, without long-term current use of insulin Follow prescribed diet plan. Rel ated to Type 2 diabetes mellitus without complication, without long-term current use of insulin Follow a low sodium diet Related to Essential hypertension Take medications gary ry day as prescribed Related to Essential hypertension Increase exercise and lose weigh t Related to Essential hypertension Increase fluid intake Related to Microalbuminuria Avoid bladder irrita nts such as caffeine and alcohol Related to Microalbuminuria Complete entire cour se of antibiotics Related to Microalbuminuria Follow a low saturated fat diet Related to Mixed hyperlipidemia Increase physical ac tivity and lose weight Related to Mixed hyperlipidemia Continue using medic ation every day as prescribed Related to Mixed hyperlipidemia Return in 1 year Related to Hype ropia of both eyes with astigmatism and presbyopia Impression/Plan - Co ntrol blood sugar, pt. educated that changes in blood sugar can change vision acutely Related to Diabetes type 2, no ocular involvement Impression/Plan - Rx bifocals Re lated to Hyperopia of both eyes with astigmatism and presbyopia Follow up - Return in 1 year Rel ated to Hyperopia of both eyes with astigmatism and presbyopia Follow low sugar and low carbohydrate diet Related to Type 2 diabetes mellitus with hyperglycemia, without long-term current use of insulin Check blood sugars as directed R elated to Type 2 diabetes mellitus with hyperglycemia, without long-term current use of insulin Increase physical ac tivity and lose weight Related to Type 2 diabetes mellitus with hyperglycemia, without long-term current use of insulin Follow prescribed diet plan. Rel ated to Type 2 diabetes mellitus with hyperglycemia, without long-term current use of insulin Follow a low saturated fat diet Related to Hyperlipidemia, unspecified Increase physical ac tivity and lose weight Related to Hyperlipidemia, unspecified Continue using medic ation every day as prescribed Related to Hyperlipidemia, unspecified Follow a low sodium diet Related to Essential (primary) hypertension Take medications gary ry day as prescribed Related to Essential (primary) hypertension Increase exercise and lose weigh t Related to Essential (primary) hypertension Warm salt water gargles as neede d Related to Sore throat Increase fluids Related to Sore throat Increase fluid intake Related to Urinary frequency Avoid bladder irrita nts such as caffeine and alcohol Related to Urinary frequency Follow low sugar and low carbohydrate diet Related to Type 2 diabetes mellitus without complication, with long-term current use of insulin Check blood sugars as directed R elated to Type 2 diabetes mellitus without complication, with long-term current use of insulin Increase physical ac tivity and lose weight Related to Type 2 diabetes mellitus without complication, with long-term current use of insulin Follow prescribed diet plan. Rel ated to Type 2 diabetes mellitus without complication, with long-term current use of insulin Follow a low saturated fat diet Related to Mixed hyperlipidemia Increase physical ac tivity and lose weight Related to Mixed hyperlipidemia Continue using medic ation every day as prescribed Related to Mixed hyperlipidemia Follow low sugar and low carbohydrate diet Related to Type 2 diabetes mellitus without complication, without long-term current use of insulin Check blood sugars as directed R elated to Type 2 diabetes mellitus without complication, without long-term current use of insulin Increase physical ac tivity and lose weight Related to Type 2 diabetes mellitus without complication, without long-term current use of insulin Follow prescribed diet plan. Rel ated to Type 2 diabetes mellitus without complication, without long-term current use of insulin Increase exercise and lose weigh t Related to Essential hypertension Follow low sugar and low carbohydrate diet Related to Type 2 diabetes mellitus without complication, without long-term current use of insulin Check blood sugars as directed R elated to Type 2 diabetes mellitus without complication, without long-term current use of insulin Increase physical ac tivity and lose weight Related to Type 2 diabetes mellitus without complication, without long-term current use of insulin Follow prescribed diet plan. Rel ated to Type 2 diabetes mellitus without complication, without long-term current use of insulin Follow a low saturated fat diet Related to Mixed hyperlipidemia Increase physical ac tivity and lose weight Related to Mixed hyperlipidemia Continue using medic ation every day as prescribed Related to Mixed hyperlipidemia Follow a low sodium diet Related to Essential hypertension Take medications gary ry day as prescribed Related to Essential hypertension Follow low sugar and low carbohydrate diet Related to Type 2 diabetes mellitus without complication, without long-term current use of insulin Check blood sugars as directed R elated to Type 2 diabetes mellitus without complication, without long-term current use of insulin Increase physical ac tivity and lose weight Related to Type 2 diabetes mellitus without complication, without long-term current use of insulin Follow a low saturated fat diet Related to Mixed hyperlipidemia Increase physical ac tivity and lose weight Related to Mixed hyperlipidemia Continue using medic ation every day as prescribed Related to Mixed hyperlipidemia Follow a low sodium diet Related to Essential hypertension Take medications gary ry day as prescribed Related to Essential hypertension Increase exercise and lose weigh t Related to Essential hypertension Impression/Plan - Pt ed, RTC if has si/sx of angle closure 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 RTC if worsens Related to Dry eyes Impression/Plan - See 1 Related to Presbyopia Follow low sugar and low carbohydrate diet Related to Diabetes mellitus without mention of complication, type II or unspecified type, not stated as uncontrolled Check blood sugars as directed R elated to Diabetes mellitus without mention of complication, type II or unspecified type, not stated as uncontrolled Increase physical ac tivity and lose weight Related to Diabetes mellitus without mention of complication, type II or unspecified type, not stated as uncontrolled - pt ed on importanc e of healthy BSL and yearly EE. Related to Diabetes mellitus without mention of complication, type II or unspecified type, not stated as uncontrolled - Monitor. 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 Follow low sugar and low carbohydrate diet Related to Diabetes mellitus without mention of complication, type II or unspecified type, not stated as uncontrolled Check blood sugars as directed R elated to Diabetes mellitus without mention of complication, type II or unspecified type, not stated as uncontrolled Increase physical ac tivity and lose weight Related to Diabetes mellitus without mention of complication, type II or unspecified type, not stated as uncontrolled Follow low sugar and low carbohydrate diet Related to Diabetes mellitus without mention of complication, type II or unspecified type, not stated as uncontrolled Check blood sugars as directed R elated to Diabetes mellitus without mention of complication, type II or unspecified type, not stated as uncontrolled Increase physical ac tivity and lose weight Related to Diabetes mellitus without mention of complication, type II or unspecified type, not stated as uncontrolled Pt will follow low c arb, low fat, balanced diet;Pt will start exercising for half an hour at least five days a week;Pt will f/u with PCP on 07/08/14;Pt to call clinic with any questions or concerns. Related to Diabetes Mellitus Type 2, Uncomplicated Check blood sugar twice a day. R elated to Diabetes Mellitus Type 2, Uncomplicated Increase physical activity. Rela yseica to Diabetes Mellitus Type 2, Uncomplicated Check blood sugar twice a day. R elated to Diabetes Mellitus Type 2, Uncomplicated Increase physical activity. Rela yesica to Diabetes Mellitus Type 2, Uncomplicated Assessments Type Assessment Date No Information Patient Care Teams Name Effective Dates (start - stop) Status Members No Information
--- OUTSIDE RECORDS SUMMARY | 2024-09-22 18:46 | XMS_ITS | Encounter Summary ---
Author Organization [employer] Address [address] [place] [address] Care Team Providers Care Reimbursement Manager Name Role Phone Ezequiel Curtis MD Primary Care Provider [phone]- [phone] Reason for Visit * Reason Onset Date Comments Appointment Request 03/05/2023 Encounter Details Date Type Department Care Team ([facility] st Contact Info) Description 03/05/2023 Telephone [facility] CH[facility] MED & PEDS [address] [place], [place] [phone] Ezequiel Curtis MD [address] [place] [address] Appointment Request Social History Tobacco Use Types Packs/Day Years [...] PM EDT documented as of this encounter Miscellaneous Notes * Telephone Encounter - Bertha Calvin - 03/05/2023 10:32 AM EDT Tc from pt requesting a follow-up appointment for diabetes check up. Please contact pt at [phone] (Kazakh speaker) documented in this encounter Plan of Treatment Upcoming Encounters Date Type Department Care Team (Late st Contact Info) Description 10/09/2024 9:00 AM EST Office Visit [facility] ADULT DENTAL [address] [place] [address] Dayne Hernandez [address] [place] [address] 10/29/2024 9:00 AM EST Office Visit [facility] MED & PEDS [address] [place] [address] Ezequiel Curtis MD [address] [place] [address] documented as of this encounter Visit Diagnoses Not on filedocumented in this encounter Additional Health Concerns Assessment Noted Time PHQ-9 Depression Total Score: 5 09/18/19 23 2:31 PM EST documented as of this encounter Care Teams Reimbursement Manager Relationship Specialty Start Date End Date Ezequiel Curtis MD [address] [place] [address] PCP - General Internal Medicine 09/05/21 documented as of this encounter
--- OUTSIDE RECORDS SUMMARY | 2024-09-22 18:46 | XMS_ITS | Encounter Summary ---
Author Organization [facility] Address [address] [address] Phone Care Team Providers Care Flume Tender Name Role Phone Ezequiel Curtis MD Primary Care Provider [phone]- [phone] Encounter Details Date Type Department Care Team (Late st Contact Info) Description 09/29/2021 Documentation Only [facility] [address] [place] [phone] Ezequiel Curtis MD [address] [place] [address] [phone] Social History Tobacco Use Types Packs/Day Years [...] Visit [facility] [address] [place] [phone] David Barclay MD [address] [place] [address] [place] [phone] documented as of this encounter Visit Diagnoses Not on filedocumented in this encounter Care Teams Flume Tender Relationship Specialty Start Date End Date Ezequiel Curtis MD PCP - General Internal Medicine 09/29/21 documented as of this encounter
--- OUTSIDE RECORDS SUMMARY | 2024-09-22 18:46 | XMS_ITS | Encounter Summary ---
Author Organization [employer] Address [address] [place] [address] Care Team Providers Care Market Analyst Name Role Phone Ezequiel Curtis MD Primary Care Provider [phone]- [phone] Reason for Visit * Reason Comments Med Refill Encounter Details Date Type Department Care Team ([facility] Contact Info) Description 05/10/2023 Refill [facility] MED & PEDS [address] [place] [address] Natalie Urena MD [address] [place] [address] Social History Tobacco Use Types Packs/Day Years [...] Upcoming Encounters Date Type Department Care Team ([facility] Contact Info) Description 10/09/2024 9:00 AM EST Office Visit [facility] ADULT DENTAL [address] [place] [address] Dayne Hernandez [address] [place] [address] 10/29/2024 9:00 AM EST Office Visit [facility] CH[facility] MED & PEDS [address] [place] [address] Ezequiel Curtis MD [address] [place] [address] documented as of this encounter Visit Diagnoses Not on filedocumented in this encounter Additional Health Concerns Assessment Noted Time PHQ-9 Depression Total Score: 5 09/18/19 23 2:31 PM EST documented as of this encounter Care Teams Market Analyst Relationship Specialty Start Date End Date Ezequiel Curtis MD [address] [place] [address] PCP - General Internal Medicine 09/05/21 documented as of this encounter
--- OUTSIDE RECORDS SUMMARY | 2024-09-22 18:46 | XMS_ITS | Encounter Summary ---
Author Organization [employer] Address [address] [place] [address] [address] [place] [address] Care Team Providers Care Acid Filler Name Role Phone Ezequiel Curtis MD Primary Care Provider +1- [phone] Reason for Visit * Reason Onset Date Comments Prior Authorization 11/21/2022 Encounter Details Date Type Department Care Team ([facility] st Contact Info) Description 11/21/2022 Telephone [facility] ADULT DENTAL [address] [place] [address] Errol Reich, DDS [address] [place] [address] Prior Authorization Social History Tobacco Use Types Packs/Day Years [...] AM EST documented as of this encounter Miscellaneous Notes * Telephone Encounter - Mireille Negro - 11/21/2022 10:07 AM EDT Patient calling in to check in on status of PA for RCT. I do not see RCT treatment documented unless I'm missing something so unsure if PA has been submitted DR documented in this encounter Plan of Treatment Upcoming Encounters Date Type Department Care Team (Late st Contact Info) Description 10/09/2024 9:00 AM EST Office Visit [facility] ADULT DENTAL [address] [place] [address] Dayne Hernandez [address] [place] [address] 10/29/2024 9:00 AM EST Office Visit [facility] MED & PEDS [address] [place] [address] Ezequiel Curtis MD [address] [place] [address] documented as of this encounter Visit Diagnoses Not on filedocumented in this encounter Additional Health Concerns Assessment Noted Time PHQ-9 Depression Total Score: 5 09/18/19 23 2:31 PM EST documented as of this encounter Care Teams Acid Filler Relationship Specialty Start Date End Date Ezequiel Curtis MD [address] [place] [address] PCP - General Internal Medicine 09/05/21 documented as of this encounter
--- OUTSIDE RECORDS SUMMARY | 2024-09-22 18:46 | XMS_ITS | Encounter Summary ---
Author Organization [employer] Address [address] [place] [address] [facility] [place] [address] Care Team Providers Care Dry Talc Racker Name Role Phone Ezequiel Curtis MD Primary Care Provider [phone]- [phone] Reason for Visit * Reason Comments Med Refill Encounter Details Date Type Department Care Team ([facility] st Contact Info) Description 06/16/2023 Refill [facility] CHC MED & PEDS [address] [place], [place] [phone] Ezequiel Curtis MD [address] [place] [address] Essential (primary) hypertension Social History Tobacco Use [...] Description 10/09/2024 9:00 AM EST Office Visit [facility] ADULT DENTAL [address] [place] [address] Dayne Hernandez [address] [place] [address] 10/29/2024 9:00 AM EST Office Visit [facility] MED & PEDS [address] [place] [address] Ezequiel Curtis MD [address] [place] [address] documented as of this encounter Visit Diagnoses Diagnosis Essential (primary) hypertension Unspecified essential hypertension documented in this encounter Additional Health Concerns Assessment Noted Time PHQ-9 Depression Total Score: 5 09/18/19 23 2:31 PM EST documented as of this encounter Care Teams Dry Talc Racker Relationship Specialty Start Date End Date Ezequiel Curtis MD [address] [place] [address] PCP - General Internal Medicine 09/05/21 documented as of this encounter
--- OUTSIDE RECORDS SUMMARY | 2024-09-22 18:46 | XMS_ITS | Encounter Summary ---
Author Organization [employer] [facility] Address [address] [place] [address] Care Team Providers Care Trust Administrator Name Role Phone Ezequiel Curtis MD Primary Care Provider +1- [phone] Reason for Visit * Reason Comments Med Refill Encounter Details Date Type Department Care Team (Late Contact Info) Description 09/14/2022 Refill [facility] MEDICINE [address] [place] [address] Ezequiel Curtis MD [address] [place] [address] Benign prostatic hyperplasia with weak urinary stream Social History Tobacco Use Types Packs/Day Years Used Date Smoking Tobacco: Never Assessed Depression Answer Date Recorded Patient Health Questionnaire-9 [...] Description 10/09/2024 9:00 AM EST Office Visit [facility] CHC ADULT DENTAL [address] [place], [place] [phone] Dayne Hernandez [address] [place] [address] 10/29/2024 9:00 AM EST Office Visit [facility] CHC MED & PEDS [address] [place] [address] Ezequiel Curtis MD [address] [place] [address] documented as of this encounter Visit Diagnoses Diagnosis Benign prostatic hyperplasia with weak urinary stream documented in this encounter Care Teams Trust Administrator Relationship Specialty Start Date End Date Ezequiel Curtis MD [address] [place] [address] PCP - General Internal Medicine 09/05/21 documented as of this encounter
--- OUTSIDE RECORDS SUMMARY | 2024-09-22 18:46 | XMS_ITS | Encounter Summary ---
Author Organization [employer] [facility] Address [address] [place] [address] Care Team Providers Care Operating Manager Name Role Phone Ezequiel Curtis MD Primary Care Provider +1- [phone] Reason for Visit * Reason Comments Med Refill Encounter Details Date Type Department Care Team ([facility] Contact Info) Description 02/04/2023 Refill [facility] MED & PEDS [address] [place] [address] Ezequiel Curtis MD [address] [place] [address] H/O skin pruritus Social History Tobacco Use Types Packs/Day Years [...] Upcoming Encounters Date Type Department Care Team ([facility] Contact Info) Description 10/09/2024 9:00 AM EST Office Visit [facility] ADULT DENTAL [address] [place] [address] Dayne Hernandez [address] [place] [address] 10/29/2024 9:00 AM EST Office Visit [facility] MED & PEDS [address] [place] [address] Ezequiel Curtis MD [address] [place] [address] documented as of this encounter Visit Diagnoses Diagnosis H/O skin pruritus documented in this encounter Additional Health Concerns Assessment Noted Time PHQ-9 Depression Total Score: 5 09/18/19 23 2:31 PM EST documented as of this encounter Care Teams Operating Manager Relationship Specialty Start Date End Date Ezequiel Curtis MD [address] [place] [address] PCP - General Internal Medicine 09/05/21 documented as of this encounter
--- OUTSIDE RECORDS SUMMARY | 2024-09-22 18:46 | XMS_ITS | Encounter Summary ---
Author Organization [employer] [facility] Address [address] [place] [address] [address] [address] Care Team Providers Care Admissions Representative Name Role Phone Ezequiel Curtis MD Primary Care Provider +1- [phone] Encounter Details Date Type Department Care Team (Late st Contact Info) Description 08/24/2022 Telephone [facility] MED & PEDS [address] [place] [address] Ezequiel Curtis MD [address] [place] [address] Social History Tobacco Use Types Packs/Day Years [...] Description 10/09/2024 9:00 AM EST Office Visit [facility] ADULT DENTAL [address] [place] [address] Dayne Hernandez [address] [place] [address] 10/29/2024 9:00 AM EST Office Visit [facility] MED & PEDS [address] [place] [address] Ezequiel Curtis MD [address] [place] [address] documented as of this encounter Visit Diagnoses Not on filedocumented in this encounter Care Teams Admissions Representative Relationship Specialty Start Date End Date Ezequiel Curtis MD 505 [facility] [place] [address] PCP - General Internal Medicine 09/05/21 documented as of this encounter
--- OUTSIDE RECORDS SUMMARY | 2024-09-22 18:47 | XMS_ITS | Encounter Summary ---
Author Organization [employer] Address [address] [place] [address] [place] [address] Care Team Providers Care Welder Fitter Apprentice Name Role Phone Ezequiel Curtis MD Primary Care Provider +1- [phone] Reason for Visit * Reason Comments Med Refill Encounter Details Date Type Department Care Team ([facility] st Contact Info) Description 08/29/2024 Refill [facility] CHC MED & PEDS [address] [place], [place] [phone] Ezequiel Curtis MD [address] [place] [address] Essential hypertension; Benign prostatic hyperplasia with weak urinary stream [...] is your housing situation today? I have melanieshakeel mary 12/18/[address] you [...] 9:00 AM EST Office Visit [facility] ADULT DENTAL [address] [place] [address] Dayne Hernandez [address] [place] [address] 10/29/2024 9:00 AM EST Office Visit [facility] MED & PEDS [address] [place] [address] Ezequiel Curtis MD [address] [place] [address] documented as of this encounter Visit Diagnoses Diagnosis Essential hypertension Unspecified essential hypertension Benign prostatic hyperplasia with weak urinary stream documented in this encounter Additional Health Concerns Assessment Noted Time PHQ-9 Depression Total Score: 5 09/18/19 23 2:31 PM EST documented as of this encounter Care Teams Welder Fitter Apprentice Relationship Specialty Start Date End Date Ezequiel Curtis MD [address] [place] [address] PCP - General Internal Medicine 09/05/21 documented as of this encounter
--- OUTSIDE RECORDS SUMMARY | 2024-09-22 18:47 | XMS_ITS | Encounter Summary ---
Author Organization [employer] Address [address] [place] [id number] Care Team Providers Care Vegetable Tier Name Role Phone Ezequiel Curtis MD Primary Care Provider [phone] Reason for Visit * Reason Onset Date Comments Nurse Triage 09/22/2024 Encounter Details Date Type Department Care Team ([facility] st Contact Info) Description 09/22/[address] [facility] MED & PEDS [address] [place] [address] Ezequiel Curtis MD [address] [place] [address] Nurse Triage Social History Tobacco Use Types Packs/Day Years [...] encounter Miscellaneous Notes * Telephone Encounter - Yadi Merida RN - 09/22/2024 9:38 AM EST Call returned to Stoney Alston to triage below. No aerial photograph interpreter needed as this brief writer speaks Divehi. Reports having cough, body aches and subjective fever x 5 days. Pt has been using OTC robitussin. No homekit for COVID-19 done. Pt having mild ST. Pt having wheezing. No SOB. Pt advised of disposition, agrees to [facility] appt today. Insurance verified as active per [employer] [facility]. Protocol Used: COVID-19 - Diagnosed or Suspected (Adult) Protocol-Based Disposition: Discuss with PCP and Callback by Nurse within 1 Hour Future Appointments Date Time Provider Department Center 09/22/2024 1:[address] [facility] 10/09/2024 9:00 AM Dayne Hernandez [facility] 10/29/2024 9:00 AM Ezequiel Curtis MD [facility] Video visit offer not recorded Positive Triage Question: * HIGH RISK patient (e.g., weak immune system, age > 64 years, obesity with BMI of 30 or higher,, chronic lung disease) and COVID symptoms (e.g., cough, fever) (Exceptions: Already seen by doctor or [employer] and no new or worsening symptoms.) * All higher-acuity triage questions were negative Care Advice Discussed: * Reassurance and Education - Suspected COVID-19 and Testing Needed * Cough Medicines * Humidifier * Coughing Spells * Pain and Fever Medicines * Reasons To Call Back - Fever over 103 F (39.4 C) - Fever lasts over 3 days - Chest pain or difficulty breathing occurs - You become worse * Telephone Encounter - Nora Vo - 09/22/2024 9:34 AM EST Symptom: Cough, body ache, fever Outcome: Schedule an appointment to be seen within 24 hours Reason: Caller denied all higher acuity questions The caller accepted this outcome. documented in this encounter Plan of Treatment Upcoming Encounters Date Type Department Care Team (Late st Contact Info) Description 10/09/2024 9:00 AM EST Office Visit [facility] ADULT DENTAL [address] [place] [address] Dayne Hernandez [address] [place] [address] 10/29/2024 9:00 AM EST Office Visit [facility] MED & PEDS [address] [place] [address] Ezequiel Curtis MD [address] [place] [address] documented as of this encounter Visit Diagnoses Not on filedocumented in this encounter Additional Health Concerns Assessment Noted Time PHQ-9 Depression Total Score: 5 09/18/19 23 2:31 PM EST documented as of this encounter Care Teams Vegetable Tier Relationship Specialty Start Date End Date Ezequiel Curtis MD [address] [place] [address] PCP - General Internal Medicine 09/05/21 documented as of this encounter
--- OUTSIDE RECORDS SUMMARY | 2024-09-22 18:47 | XMS_ITS | Encounter Summary ---
Author Organization [employer] Address [address] [place] [address] [address] [place] [address] Care Team Providers Care Television Installer Name Role Phone Ezequiel Curtis MD Primary Care Provider [phone] Reason for Visit * Reason Comments Dental Pain Encounter Details Date Type Department Care Team ([facility] st Contact Info) Description 09/18/2024 9:30 AM EST Office Visit [facility] ADULT DENTAL [address] [place], [place] [phone] Morgan Rush [address] [place] [address] Social History Tobacco Use Types Packs/Day Years [...] AM EDT documented as of this encounter Progress Notes * Morgan Rush - 09/18/2024 9:30 AM EST Images from the original note were not included. Dental procedures in this visit D9110 - ADJUNCTIVE GENERAL SERVICES - UNCLASSIFIED TREATMENT - PALLIATIVE TREATMENT OF DENTAL PAIN - PER VISIT (Completed) Service provider: Morgan Rush Billing provider: Morgan Rush [id number] - BITEWING - SINGLE RADIOGRAPHIC IMAGE (Completed) Service provider: Morgan Rush Billing provider: Morgan Rush [id number] - BITEWING - SINGLE RADIOGRAPHIC IMAGE (Completed) Service provider: Morgan Rush Billing provider: Morgan Rush [id number] - ADJUNCTIVE GENERAL SERVICES - PROFESSIONAL VISITS - CASE PRESENTATION, SUBSEQUENT TO DETAILED AND EXTENSIVE TREATMENT PLANNING (Completed) Service provider: Morgan Rush Billraf provider: Morgan Rush Patient ID: Stoney Alston is a 69 y.o. male. Time Out: Timeout Date: 09/18/24, Timeout Time: 919 Location: [facility] Tooth: #5 and #20 Procedure: Exam and X-rays Verified the above with patient, state tested nursing assistant, and provider. Confirmed via patient's chart, intraorally and by radiographs. Tar Heater: Yes. Language: Turkmen. Tar Heater's Name: Bette Chief Complaint Patient presents with Dental Pain Medical Hx: Vitals: There were no vitals taken for this visit. Past Medical History: Diagnosis Date Diabetes mellitus ([facility]) History of kidney problems Hypertension Medications: Outpatient Encounter Medications as of 09/18/2024 Medication Sig Dispense Refill Acetaminophen Extra Strength 500 MG tablet TAKE ONE TABLET EVERY 6 HOURS NEEDED FOR PAIN 90 tablet 3 albuterol 108 (90 Base) MCG/ACT inhaler Inhale 2 puffs every 4 (four) hours if needed for wheezing.18 g 0 amLODIPine (Norvasc) 5 MG tablet TAKE ONE TABLET EVERY MORNING 90 tablet 1 aspirin (Aspirin Adult Low Strength) 81 MG EC tablet TAKE ONE TABLET DAILY 90 tablet 3 atorvastatin (Lipitor) 40 MG tablet TAKE ONE TABLET EVERY MORNING 90 tablet 1 betamethasone, augmented, (Diprolene AF) 0.05 % cream APPLY TO AFFECTED AREA OF KNEE TWICE DAILY FOR UP TO 2 WEEKS TAKE 1 WEEK OFF & MAY REPEAT NEEDED Bisacodyl EC 5 MG EC tablet TAKE ONE TABLET EVERY DAY NEEDED 30 tablet 3 Blood Glucose Monitoring Suppl (Addus HealthCareStyle glucose monitoring) kit To use 2 times daily 1 each 0 cholecalciferol (Vitamin D-3) 25 MCG tablet TAKE ONE TABLET DAILY 30 tablet 11 dextran 70-hypromellose (artificial tears) 0.1-0.3 % ophthalmic solution Administer 1 drop into affected eye(s) every 6 (six) hours. 15 mL 3 Diclofenac Sodium 1 % gel APPLY TWO GRAM TO THE AFFECTED AREA(s) THREE TIMES DAILY NEEDED 100 g 3 econazole nitrate 1 % cream Apply topically 2 times daily. 30 g 0 finasteride (Proscar) 5 MG tablet TAKE 1 TABLET (5 MG) BY MOUTH IN THE MORNING . DO NOT CRUSH, CHEW, OR SPLIT 90 tablet 3 glipiZIDE (Glucotrol) 5 MG tablet TAKE ONE TABLET EVERY DAY BEFORE A MEAL 90 tablet 1 glucose blood (FreeStyle InsuLinx Test) test strip 1 each by Other route 1 (one) time per week. 100each 11 glucose blood (FREESTYLE LITE) test strip 100 each by Other route 2 times daily. 100 each 11 loratadine (Claritin) 10 MG tablet TAKE ONE TABLET EVERY MORNING 90 tablet 0 losartan (Cozaar) 50 MG tablet TOME LUIS CARLOS TABLETA TODOS LOS FORD 90 tablet 3 metoprolol succinate XL (Toprol-XL) 25 MG 24 hr tablet TAKE ONE TABLET DAILY 90 tablet 3 mupirocin (Bactroban) 2 % ointment APPLY TO THE AFFECTED AREA(S) THREE TIMES DAILY FOR 10 DAYS 22 g3 pantoprazole (ProtoNix) 40 MG EC tablet PLEASE SEE ATTACHED FOR DETAILED DIRECTIONS pioglitazone (Actos) 45 MG tablet TAKE ONE TABLET EVERY DAY 90 tablet 1 polyvinyl alcohol (Liquifilm Tears) 1.4 % ophthalmic solution PLACE ONE DROP IN EACH EYE EVERY 6 HOURS 15 mL 3 SITagliptin (Januvia) 100 MG tablet TAKE ONE TABLET EVERY MORNING 90 tablet 3 Sodium Fluoride (Sodium Fluoride 5000 PPM) 1.1 % cream Apply a smear to the brush and brush thoroughly twice daily. Spit, do not rinse. 102 g 0 terazosin (Hytrin) 10 MG capsule Take 2 capsules (20 mg) by mouth at bedtime. 60 capsule 11 TRUEplus Lancets [facility]G [facility] BLOOD SUGAR TWICE DAILY 100 each 11 No facility-administered encounter medications on file as of 09/18/2024. Chief complaint: A small piece of my tooth chipped off while eating but I'm not sure which tooth exactly in the mouth . Discussion: -Pt stated that he has no pain. -Upon exam, #20 temporary crown was missing - pt was not aware, so pt was informed about it. [place] prep completed on 09/10/[address] Hernandez. Also, core build - up of #5 was fractured distally that was causing discomfort to patient. Pt made aware. -#5 is RCT treated with post and asymptomatic as evident clinically and radiographically. Pt was advised to get a crown on #5 along with core build-up. -Cavit was placed in #5 since it was causing discomfort to pt and pt was informed that it was temporary latter day. -New temporary crown #20 was made today as well and cemented using TempBond. -POI given to patient with instructions for homecare, to avoid sticky or crunchy foods, and to callif temp crown becomes dislodged. Patient tolerated procedure well, and was discharged alert, oriented, and in stable condition. -OHI reviewed. -Pt understood, was satisfied with our conversation and agreed with tx plan. -All questions answered. OCS- negative Head and neck exam: Lymph Nodes, Lips, Palate, Buccal Mucosa, Floor of Mouth, Tongue, Tonsils, Alveolar Ridges, Oropharynx, Salivary Ducts, Vestibules - no abnormal findings. TMJ/Occlusal - TMJ is within normal limits. Oral Cancer Risk - low Perio Risk - high Oral Hygiene- poor Oral Hygiene Instruction Provided - Yes Oral Hygiene Instructions: Troy two times daily, modified buckner technique, Floss daily, Electric toothbrush, Soft bristle toothbrush, Troy Tongue. Referrals - None All questions answered and expressed understanding. Dismissed in good condition. NV: crown delivery #20 - Dr. Hernandez Crisis Therapist: Bette Hoffmann Dentist: Dr. Morgan Rush, DMD documented in this encounter Plan of Treatment Upcoming Encounters Date Type Department Care Team (Late st Contact Info) Description 10/09/2024 9:00 AM EST Office Visit [facility] ADULT DENTAL [address] [place] [address] Dayne Hernandez [address] [place] [address] 10/29/2024 9:00 AM EST Office Visit [facility] MED & PEDS [address] [place] [address] Ezequiel Curtis MD [address] [place] [address] Scheduled Orders Name Type Priority Associated Diagnoses Orde r Schedule 5 5 CROWN - PORCELAIN/CERAMIC Dental Routine 1 Occurrences starting 09/18/2024 5 5 CROWN PREP Dental Routine 1 Occurren cindy starting 09/18/2024 5 5 RESTORATIVE - OTHER RESTORATIVE SERVICES - CORE BUILDUP, INCLUDING ANY PINS WHEN REQUIRED Dental Routine 1 Occurr ences starting 09/18/2024 documented as of this encounter Procedures Procedure Name Priority Date/Time Associated Diagnosis Comments ADJUNCTIVE GENERAL SERVICES - UNCLASSIFIED TREATMENT - PALLIATIVE TREATMENT OF DENTAL PAIN - PER VISIT Routine 09/18/2024 9:30 AM EST ADJUNCTIVE GENERAL SERVICES - PROFESSIONAL VISITS - CASE PRESENTATION, SUBSEQUENT TO DETAILED AND EXTENSIVE TREATMENT PLANNING Routine 09/18/2024 9:30 AM EST BITEWING - SINGLE RADIOGRAPHIC IMAGE Routine 09/18/2024 9:30 AM EST BITEWING - SINGLE RADIOGRAPHIC IMAGE Routine 09/18/2024 9:30 AM EST 5 PREFABRICATED POST AND CORE IN ADDITION TO CROWN Routine 09/18/2024 12:00 AM EST documented in this encounter Visit Diagnoses Not on filedocumented in this encounter Additional Health Concerns Assessment Noted Time PHQ-9 Depression Total Score: 5 01/23/20 23 2:31 PM EST documented as of this encounter Care Teams Television Installer Relationship Specialty Start Date End Date Ezequiel Curtis MD [address] [place] [id number] PCP - General Internal Medicine 09/05/21 documented as of this encounter
--- OUTSIDE RECORDS SUMMARY | 2024-09-22 18:47 | XMS_ITS | Clinical Summary ---
Author Organization [employer] Address [address] [place] [address] [address] [place] [address] Care Team Providers Care Aircraft Communicator Name Role Phone Ezequiel Curtis MD Primary Care Provider [phone] Allergies No known active allergies Medications betamethasone, augmented, (Diprolene AF) 0.05 % cream APPLY TO AFFECTED AREA OF KNEE TWICE DAILY FOR UP TO 2 WEEKS TAKE 1 WEEK OFF & MAY REPEAT NEEDED 021 Active Blood Glucose Monitoring Suppl (FreeStyle glucose monitoring) kitIndications:Ty pe 2 diabetes mellitus with stage 3a chronic kidney disease, without long-term current use of insulin ([facility]) To use 2 times daily 1 each 023 Active dextran 70-hypromellose (artificial tears) 0.1-0.3 % ophthalmic solution Administer 1 drop into affected eye(s) every 6 (six) hours. 15 mL 3 023 Active glucose blood (FreeStyle InsuLinx Test) test strip 1 each by Other route 1 (one) time per week. 100 each 023 Active glucose blood (FREESTYLE LITE) test stripIndications: Type 2 diabetes mellitus with stage 3a chronic kidney disease, without long-term current use of insulin ([facility]) 100 each by Other route 2 times daily. 100 each 023 Active TRUEplus Lancets 33G misc TEST BLOOD SUGAR TWICE DAILY 100 each 11 023 Active pantoprazole (ProtoNix) 40 MG EC tablet PLEASE SEE ATTACHED FOR DETAILED DIRECTIONS 023 Active Bisacodyl EC 5 MG EC tablet TAKE ONE TABLET EVERY DAY NEEDED 30 tablet 3 024 Active Sodium Fluoride (Sodium Fluoride 5000 PPM) 1.1 % cream Apply a smear to the brush and brush thoroughly twice daily. Spit, do not rinse. 102 g 024 Active econazole nitrate 1 % creamIndications: Perianal candidiasis Apply topically 2 times daily. 30 g 024 Active SITagliptin (Januvia) 100 MG tabletIndications :Type 2 diabetes mellitus with other diabetic kidney complication, without long-term current use of insulin ([facility]) TAKE ONE TABLET EVERY MORNING 90 tablet 3 024 Active cholecalciferol (Vitamin D-3) 25 MCG tablet TAKE ONE TABLET DAILY 30 tablet 11 024 Active metoprolol succinate XL (Toprol-XL) 25 MG 24 hr tabletIndications :Essential hypertension TAKE ONE TABLET DAILY 90 tablet 3 024 Active aspirin (Aspirin Adult Low Strength) 81 MG EC tablet TAKE ONE TABLET DAILY 90 tablet 3 024 Active mupirocin (Bactroban) 2 % ointmentIndicatio ns:Wound of left foot APPLY TO THE AFFECTED AREA(S) THREE TIMES DAILY FOR 10 DAYS 22 g 3 024 Active amLODIPine (Norvasc) 5 MG tabletIndications :Essential (primary) hypertension TAKE ONE TABLET EVERY MORNING 90 tablet 1 024 Active atorvastatin (Lipitor) 40 MG tabletIndications :Mixed hyperlipidemia TAKE ONE TABLET EVERY MORNING 90 tablet 1 024 Active pioglitazone (Actos) 45 MG tablet TAKE ONE TABLET EVERY DAY 90 tablet 1 024 Active glipiZIDE (Glucotrol) 5 MG tabletIndications :Type 2 diabetes mellitus with stage 3a chronic kidney disease, without long-term current use of insulin ([facility]) TAKE ONE TABLET EVERY DAY BEFORE A MEAL 90 tablet 1 024 Active terazosin (Hytrin) 10 MG capsuleIndication s:Nocturia Take 2 capsules (20 mg) by mouth at bedtime. 60 capsule 11 024 2024 Active Diclofenac Sodium 1 % gelIndications:Ch ronic left shoulder pain APPLY TWO GRAM TO THE AFFECTED AREA(s) THREE TIMES DAILY NEEDED 100 g 3 024 Active loratadine (Claritin) 10 MG tabletIndications :H/O skin pruritus TAKE ONE TABLET EVERY MORNING 90 tablet Active Acetaminophen Extra Strength 500 MG tabletIndications :Chronic low back pain without sciatica, unspecified back pain laterality,Chroni c left shoulder pain TAKE ONE TABLET EVERY 6 HOURS NEEDED FOR PAIN 90 tablet 3 024 Active polyvinyl alcohol (Liquifilm Tears) 1.4 % ophthalmic solution PLACE ONE DROP IN EACH EYE EVERY 6 HOURS 15 mL 3 024 Active losartan (Cozaar) 50 MG tabletIndications :Essential hypertension TOME LUIS CARLOS TABLETA TODOS LOS FORD 90 tablet 3 025 Active finasteride (Proscar) 5 MG tabletIndications :Benign prostatic hyperplasia with weak urinary stream TAKE 1 TABLET (5 MG) BY MOUTH IN THE MORNING . DO NOT CRUSH, CHEW, OR SPLIT 90 tablet 3 025 Active albuterol (Ventolin HFA) 108 (90 Base) MCG/ACT inhaler Inhale 2 puffs every 6 (six) hours if needed for wheezing. 54 g 025 2025 Active oseltamivir (Tamiflu) 75 MG capsuleIndication s:Influenza B Take 1 capsule (75 mg) by mouth 1 (one) time for 1 dose. 1 capsule 025 2024 Active oseltamivir (Tamiflu) 30 MG capsuleIndication s:Influenza B Take 1 capsule (30 mg) by mouth 2 times daily for 4 days. Start this medication on 09/23/24. 8 capsule 025 2024 Active albuterol 108 (90 Base) MCG/ACT inhalerIndication s:Acute cough,COVID Inhale 2 puffs every 4 (four) hours if needed for wheezing. 18 g 023 2024 Discontinued(R eorder (will not trigger notification to Pharmacy)) losartan (Cozaar) 50 MG tabletIndications :Essential hypertension Take 1 tablet (50 mg) by mouth Once per day. 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 He does have a Hx of genital herpes and even though low suspicion at this time for herpes, will treat for 3 d w Valacyclovir. --Last Cr 2.04, GFR 33 -cr cl 47 -Valacyclovir 500 mg twice daily for 3 days -sent UA w reflex cx and gn/Gn will call pt w results -alarm signs and symptoms Acute cough 08/22/2022 Assessment & Plan (08/22/2022 11:21 AM EST): Patient started with cough, sore throat, body aches and post nasal drip since 4 days ago, he tested positive for covid yesterday, denied shortness of breath. Will start on paxlovid, risk vs benefits were discussed, in case of worsening symptoms told to visit er. COVID 08/22/2022 Hyperkalemia 09/21/2021 Anxiety 09/07/2021 Chronic kidney disease 09/07/2021 Anemia 01/15/2020 Overview (08/30/2022): Last Assessment & Plan: Hemoglobin level is sufficiently high to not warrant EVELIA treatment, though it has trended down over the past several years. I will continue to monitor this with iron studies at his next visit. Bilateral leg edema 04/02/2019 Overview (08/30/2022): Last Assessment & Plan: Will defer diuretic therapy at this time. Advised patient to decrease his intake of dietary sodium. If he continues to rent retain fluid, consideration may need to be given to use of a thiazide diuretic and/or cardiac testing. Incomplete emptying of bladder 03/20/2016 Hyperlipidemia 12/15/2014 Essential hypertension 07/22/2014 Overview (08/30/2022): Last Assessment & Plan: Blood pressures controlled on his current doses of amlodipine and losartan. He also takes Terazosin at night. I did not make any changes. As above, I may initiate SGLT2 inhibitor therapy after speak with him further. Proteinuria 07/22/2014 Overview (08/30/2022): Last Assessment & Plan: He is on a maximally tolerated dose of an angiotensin receptor renate, based on his blood pressure and prior episodes of hyperkalemia. If he has recurrent episodes of hyperkalemia, consideration could be given to use of Veltassa. He will continue taking losartan, and minimize his dietary sodium intake. Herpes simplex type 2 infection 06/25/2014 Hypogonadism male 05/18/2014 Benign prostatic hyperplasia 03/17/2014 Diabetes mellitus 03/17/2014 Obesity 03/17/2014 Nocturia 02/25/2014 Encounters Date Type Department Care Team Description 09/22/2024 1:20 PM EST Office Visit [facility] [address] [place] [address] Barbara Robertson MD Influenza B (Primary Dx); Acute cough 09/22/2024 Travel 09/22/2024 Telephone [facility] [address] [place] [address] Ezequiel Curtis MD Nurse Triage 09/18/2024 9:30 AM EST Office Visit [facility] [address] [place] [address] Morgan Rush 09/10/2024 8:00 AM EST Office Visit [facility] [address] [place] [address] Dayne Hernandez 08/29/2024 Refill [facility] [address] [place] [address] Ezequiel Curtis MD Essential hypertension; Benign prostatic hyperplasia with weak urinary stream 08/06/2024 Refill [facility] [address] [place] [address] Ezequiel Curtis MD Benign prostatic hyperplasia with weak urinary stream 08/04/2024 Refill [facility] [address] [place] [address] Ezequiel Curtis MD 07/21/2024 Refill [facility] [address] [place] [address] Ezequiel Curtis MD Chronic low back pain without sciatica, unspecified back pain laterality; Chronic left shoulder pain 07/15/2024 8:00 AM EST Office Visit [facility] [address] [place] [address] Dayne Hernandez 07/14/2024 Travel 07/08/2024 Refill [facility] [address] [place] [address] Ezequiel Curtis MD Wound of left foot 07/03/2024 9:00 AM EST Office Visit [facility] [address] [place] [address] Bea Hernandezricio 07/03/2024 Refill [facility] [address] [place] [address] Ezequiel Curtis MD Chronic left shoulder pain; H/O skin pruritus 06/25/2024 9:00 AM EDT Office Visit [facility] [address] [place] [address] Ezequiel Curtis MD Type 2 diabetes mellitus with stage 3a chronic kidney disease, without long-term current use of insulin ([facility]) (Primary Dx); Essential hypertension; Mixed hyperlipidemia; Nocturia 06/25/2024 Travel from Last 3 Months Immunizations Name Administration Dates Next Due Hep A, Adult 05/20/2019 Hep B, Unspecified 05/20/2019,01/07/2019 Hep B, adult 09/02/2019 Influenza High-dose Quadriva lent Preservative Free 06/12/2022 Influenza Quadrivalent Adjuvanted 06/16/2021 Influenza, IIV3, injectable 05/22/2024, Moderna Covid-19 Vaccine 12+ 11/11/2020,10/14/19 21 Pfizer Covid-19 Vaccine 12+ 06/25/2024 Pneumococcal Conjugate PCV 13 05/20/2019 Pneumococcal Conjugate PCV 7 02/05/2013 Pneumococcal Polysaccharide PPSV23 05/20/2020 RSV-MAb 06/25/2024 Tdap 12/25/2023,02/05/2013 Zoster, live 02/12/2020,09/02/2019,10/20/2016 Social History Tobacco Use Types Packs/Day Years Used Date Smoking Tobacco: Former Cigarettes Q uit: 08/27/1991 Passive Smoke Exposure: Never Smokeless Tobacco: Never Tobacco Cessation:Counseling Given: Not Answered Alcohol Use Standard Drinks/Week Comments Yes 1 [...] not to disclose 2021 10:39 AM EDT Last Filed Vital Signs Vital Sign Reading Time Taken Comments Blood Pressure 119/68 09/22/2024 1:19 PM EST Pulse 82 09/22/2024 1:19 PM EST Temperature 36.6 ??C (97.8 ??F) 09/22/2024 1:19 PM ES T Respiratory Rate 18 09/22/2024 1:19 PM EST Oxygen Saturation 98% 09/22/2024 1:19 PM EST Inhaled Oxygen Concentration - - Weight 97.7 kg (215 lb 6.4 oz) 09/22/2024 1:19 P M EST Height 166 cm (5' 5.35 ) 09/22/2024 1:19 PM EST Body Mass Index 35.46 09/22/2024 1:19 PM EST Plan of Treatment Upcoming Encounters Date Type Department Care Team (Late st Contact Info) Description 10/09/2024 9:00 AM EST Office Visit [facility] [address] [place] [address] Mary, Dayne [address] [place] [address] 10/29/2024 9:00 AM EST Office Visit [facility] [address] [place] [address] Ezequiel Curtis MD [address] [place] [address] Health Maintenance Due Date Last Done Comments CT Colonography 1954 FIT DNA/Cologuard 1954 FIT 1954 FOBT 1954 Sigmoidoscopy 1954 Eye Exam 1964 Alcohol/Substance Use Screening 1966 RSV Patients and Patients Aged 60 years or older (1 - Risk 60-74 years 1-dose series) 2014 Zoster Vaccines (2 of 3) 04/08/2020 020, 09/02/2019, 10/20/2016 Depression Screening 09/18/2023 09/18/2022, 09/18/19 Dental Oral Exam 04/23/2024 10/23/2023, 12/2022, 09/18/2022 COVID-19 Vaccine ( season) 2024 06/25/2024, 11/11/2020, 10/14/2020 Diabetes: Hemoglobin A1C 09/25/2024 024, 12/25/2023, 09/18/2022, Additional history exists Dental Prophylaxis 11/18/2024 05/20/2024, 10/23/2023 SDOH Screening 12/17/2024 12/18/2023 Diabetes: Foot Exam 03/25/2025 03/25/2024, 03/25/2024, 03/25/2024, Additional history exists Lipid Panel 03/25/2025 03/25/2024, 07/28, 09/12/2022, Additional history exists Dental X-Ray: Bitewings 09/19/2025 09/18/19, 09/18/2024, 12/04/2023, Additional history exists Dental X-Ray: Full Mouth 09/19/2025 09/18/2022, 08/28 Tobacco Screening 09/22/2025 09/22/2024 Colonoscopy 09/27/2032 09/27/2022 Colorectal Cancer Screening 09/27/2032 DTaP/Tdap/Td Vaccines (3 - Td or Tdap) 12/24/2033 12/25/2023, 02/05/2013 Hepatitis A Vaccines Aged Out 05/20/2019 No long er eligible based on patient's age to complete this topic Hepatitis B Vaccines Completed 09/02/2019, 05/20/2019, 01/07/2019 Pneumococcal Vaccine: 65+ Years Completed 05/20/2020, 05/20/2019, 02/05/2013 Hepatitis C Screening Completed 03/25/2024 Influenza Vaccine Completed 05/22/2024, , 06/12/2022, Additional history exists HIB Vaccines Aged Out No longer eligi ble based on patient's age to complete this topic HPV Vaccines Aged Out No longer eligi ble based on patient's age to complete this topic IPV Vaccines Aged Out No longer eligi ble based on patient's age to complete this topic Meningococcal Vaccine Aged Out No diana aron eligible based on patient's age to complete this topic RSV under 20 months Aged Out No longe r eligible based on patient's age to complete this topic Rotavirus Vaccines Aged Out No longer eligible based on patient's age to complete this topic Procedures Procedure Name Priority Date/Time Associated Diagnosis Comments BASIC METABOLIC PANEL Routine 09/22/2024 2:18 PM EST Acute cough POCT RAPID STREP A Routine 09/22/2024 1: 54 PM EST Acute cough POCT INFLUENZA B Routine 09/22/2024 1:54 PM EST Acute cough POCT INFLUENZA A Routine 09/22/2024 1:52 PM EST Acute cough POCT RAPID COVID ANTIGEN Routine 09/22/2024 1:52 PM EST Acute cough ADJUNCTIVE GENERAL SERVICES - UNCLASSIFIED TREATMENT - [...] TO CROWN Routine 09/18/2024 12:00 AM EST 20 PERIODONTICS - SURGICAL SERVICES (INCLUDING USUAL POSTOPERATIVE CARE) - GINGIVECTOMY OR GINGIVOPLASTY TO ALLOW ACCESS FOR RESTORATIVE PROCEDURE, PER TOOTH Routine 09/10/2024 8:00 AM EST CROWN PREP Routine 09/10/2024 8:00 AM EST ORAL HYGIENE INSTRUCTIONS Routine 07/15/2024 8:00 AM EST 4,12,14,15 MAXILLARY PARTIAL DENTURE - RESIN BASE (INCLUDING, RETENTIVE/CLASPING MATERIALS, RESTS, AND TEETH) Routine 07/15/2024 8:00 AM EST WAX TRY IN Routine 07/03/2024 9:00 AM EST PROPHYLAXIS - ADULT Routine 05/20/2024 1 0:45 AM EDT HEPATITIS C AB W/REFL TO HCV RNA, QN, PCR Routine 03/25/2024 10:01 AM EDT Type 2 diabetes mellitus with stage 3a chronic kidney disease, without long-term current use of insulin (CMS/HCC) LIPID PANEL, STANDARD Routine 03/25/2024 10:01 AM EDT POCT GLYCATED HEMOGLOBIN, TOTAL Routine 03/25/2024 9:42 AM EDT Type 2 diabetes mellitus with stage 3a chronic kidney disease, without long-term current use of insulin ([facility]) PERIODIC ORAL EVALUATION - ESTABLISHED PATIENT Routine 10/23/2023 9:00 AM EST HP LINK DIABETIC FOOT EXAM Routine 04/05/2023 COLONOSCOPY Routine 09/27/2022 DIAGNOSTIC - DIAGNOSTIC IMAGING - INTRAORAL - COMPREHENSIVE SERIES OF RADIOGRAPHIC IMAGES Routine 09/18/2022 10:00 AM EST from Last 3 Months or Most Recently Relevant to Health Maintenance Results * (ABNORMAL) Basic Metabolic Panel (09/22/2024 2:18 PM EST) Sodium 134(L) 135 - 145 mmol/L [facility] Potassium 4.4 3.3 - 5.1 mmol/L [facility] Chloride 103 96 - 108 mmol/L [facility] Carbon Dioxide 24 22 - 29 mmol/L [facility] Anion Gap 11(L) 12 - 20 [facility] Urea Nitrogen (BUN) 36(H) 9 - 16 mg/dL [facility] Creatinine, Serum 2.08(H) 0.5 - 1.4 mg/dL [facility] Estimated Glomerular Filt Rate 32 [facility] Comment:Chronic Kidney Disea se: Estimated GFR < 60 mL/min/1.73t5Ubsrex Kidney Disease: Estimated GFR < 15 mL/min/1.73m2 Glucose 100 60 - 115 mg/dL [facility] Calcium 8.9 8.4 - 10.2 mg/dL [facility] Blood Venous blood specimen / Unknown 09/22/2024 2:18 PM EST 09/22/2024 5:46 PM EST Barbara Robertson MD LAB BLOOD ORDERABLES Final Re sult [facility] [address] [place] [address] [phone] * (ABNORMAL) POCT Rapid Influenza B OSOM (09/22/2024 1:54 PM EST) [facility] Rapid Influenza B Ag Positive( A) Negative, Indeterminate Comment:internal controls pa ssed QC Media Lot # [id number] Lot# Expiration Date ,925 Swab 09/22/2024 1:54 PM EST Barbara Robertson MD POINT OF CARE TEST ENTER/EDIT ORDERABLES Final Result * POCT Rapid Strep A OSOM (09/22/2024 1:54 PM EST) [facility] Rapid Strep A Screen Negative Negative, None Detected Comment:internal controls pa ssed QC Media Lot # [id number] Lot# Expiration Date 22,825 Swab 09/22/2024 1:54 PM EST Barbara Robertson MD POINT OF CARE TEST ENTER/EDIT ORDERABLES Final Result * POCT Rapid Covid-19 BinaxNOW (09/22/2024 1:52 PM EST) [facility] Rapid COVID Ag Negative Comment:internal controls pa ssed QC Media Lot # [id number] Lot# Expiration Date 51,126 Swab 09/22/2024 1:52 PM EST Result [facility] Barbara Robertson MD POINT OF CARE TEST ENTER/EDIT ORDERABLES Edited Result - Final * POCT Rapid Influenza A OSOM (09/22/2024 1:52 PM EST) [facility] Rapid Influenza A Ag Negative Negative, Indeterminate Comment:internal controls pa ssed QC Media Lot # [id number] Lot# Expiration Date Swab Nasopharyngeal structure / Unknown 09/22/2024 1:52 PM EST Barbara Robertson MD POINT OF CARE TEST ENTER/EDIT ORDERABLES Final Result * Hepatitis C Antibody with Reflex to HCV, RNA, Quantitative, Real-Time PCR (03/25/2024 10:01 AM EDT) Hepatitis C Antibody Nonreactive Nonreactive [facility] Comment:Antibodies to HCV no t detected; does not exclude early acuteHCV infection. Blood Venous blood specimen / Unknown 03/25/2024 10:01 AM EDT 03/25/2024 4:15 PM EDT Ezequiel Curtis MD LAB BLOOD ORDERABLES Final Result [facility] [address] [place] [phone] * Lipid Panel, Standard (03/25/2024 10:01 AM EDT) Triglycerides 120 <150 mg/dL [facility] Comment:Desirable Triglyceri de: less than 150 mg/dLBorderline High Triglyceride 150-199 mg/dLHigh Triglyceride: 200-499 mg/dLVery High Triglyceride: greater than or equal to 5OO mg/dL Cholesterol 145 <200 mg/dL [facility] Comment:Desirable Cholestero l: less than 200 mg/dLBorderline High Cholesterol: 200-239 mg/dLHigh Cholesterol: greater than 239 mg/dL LDL Cholesterol Calculated 78 <100 mg/dL [facility] Comment:Desirable LDL: less than 100 mg/dLNear Optimal/Above Optimal LDL: 110- 129 mg/dLBorderline High LDL: 130-159 mg/dLHigh LDL: 160-189 mg/dLVery High LDL: greater than or equal to 190 mg/dL HDL Cholesterol 43 >40 mg/dL [facility] Comment:Desirable HDL: great er than 40 mg/dL Note: This HDL assay may give artificially low results in patients with liver disease. 03/25/2024 10:0 1 AM EDT 03/25/2024 4:15 PM EDT us Ezequiel Curtis MD LAB BLOOD ORDERABLES Final Result [facility] [address] [place] [address] [phone] * (ABNORMAL) POCT HGB A1C (03/25/2024 9:42 AM EDT) Hemoglobin A1C 6.5(A) 4.0 - 6.0 % QC Media Lot # [id number] Lot# Expiration Date [id number] Blood 03/25/2024 9:42 AM EDT us Ezequiel Curtis MD POINT OF CARE TEST ENTER/ED IT ORDERABLES Final Result * HP Diabetic Foot Exam (04/05/2023) us Ezequiel Curtis MD HEALTH MAINTENANCE Final Re sult * (ABNORMAL) Colonoscopy (09/27/2022) Anatomical Region Laterality Modality Endoscopy Narrative 09/27/2022 Internal hemorrhoids. No specimen collected. Repeat colonoscopy in 10 years for screening purposes. Recommended to use fiber, for example Citrucel, Fibercon, Konsyl or metamucil. Colonoscopy done at [facility] by Dr Scooter Hood Historical Provider ENDOSCOPY PROCEDURE ORDER ELY Final Result from Last 3 Months or Most Recently Relevant to Health Maintenance Insurance [facility] Care Teams Aircraft Communicator Relationship Specialty Start Date End Date Ezequiel Curtis MD [address] [place] [phone] PCP - General Internal Medicine 09/05/21
--- OUTSIDE RECORDS SUMMARY | 2024-09-22 18:47 | XMS_ITS | Encounter Summary ---
Author Organization [employer] Address [address] [place] [address] 7t [place] [address] Care Team Providers Care Labor Conciliator Name Role Phone Ezequiel Curtis MD Primary Care Provider [phone] Encounter Details Date Type Department Care Team ([facility] st Contact Info) Description 09/22/2024 1:20 PM EST Office Visit [facility] CH[facility] MED & PEDS [address], [place] [phone] Barbara Robertson MD [address] [place], [place] [phone] Influenza B (Primary Dx); Acute cough Social History Tobacco Use Types Packs/Day Years [...] AM EDT documented as of this encounter Last Filed Vital Signs Vital Sign Reading [...] Mass Index 35.46 09/22/2024 1:19 PM EST documented in this encounter Progress Notes * Barbara Robertson MD - 09/22/2024 1:20 PM EST Subjective Patient ID: Stoney Alston is a 69 y.o. male who presents for cough and fever. BRINA Lua is a 69 yo man with hypertension, hyperlipidemia, type 2 diabetes, and CKD. He was well until about 5 days ago when he started having a runny nose, sore throat, and body aches. He developed a bad headache and felt very fatigued. The next day he started coughing. The cough is mostly dry but sometimes productive of clear sputum. The cough is not worse at night. No associated PND or orthopnea, denies lower extremity edema, no palpitation, nausea or vomiting or chest pain. Review of Systems Constitutional: Positive for chills, fatigue and fever. Negative for appetite change. HENT: Positive for congestion, rhinorrhea and sore throat. Respiratory: Positive for cough and wheezing. Negative for chest tightness and shortness of breath. Cardiovascular: Negative for chest pain, palpitations and leg swelling. Gastrointestinal: Positive for nausea. Negative for vomiting. Musculoskeletal: Positive for myalgias. Neurological: Positive for headaches. Objective BP 119/68 (BP Location: Right arm, Patient Position: Sitting, BP Cuff Size: Large adult) Pulse 82 Temp 97.8 ??F (36.6 ??C) (Oral) Resp 18 Ht 5' 5.35 (1.66 m) Wt 215 lb 6.4 oz (97.7 kg) SpO2 98% BMI 35.46 kg/m?? Physical Exam Constitutional: Appearance: He is not toxic-appearing. HENT: Head: Normocephalic and atraumatic. Right Ear: Tympanic membrane, ear canal and external ear normal. Left Ear: Tympanic membrane, ear canal and external ear normal. Nose: Congestion present. Mouth/Throat: Mouth: Mucous membranes are moist. Pharynx: Posterior oropharyngeal erythema present. No oropharyngeal exudate. Eyes: General: Right eye: No discharge. Left eye: No discharge. Extraocular Movements: Extraocular movements intact. Conjunctiva/sclera: Conjunctivae normal. Pupils: Pupils are equal, round, and reactive to light. Cardiovascular: Rate and Rhythm: Normal rate. Pulses: Normal pulses. Heart sounds: Normal heart sounds. Pulmonary: Effort: Pulmonary effort is normal. No respiratory distress. Breath sounds: No stridor. Wheezing and rhonchi present. No rales. Chest: Chest wall: No tenderness. Musculoskeletal: Right lower leg: Edema (1+) present. Left lower leg: Left lower leg edema: 1+. Lymphadenopathy: Cervical: No cervical adenopathy. Skin: General: Skin is warm. Capillary Refill: Capillary refill takes less than 2 seconds. Neurological: General: No focal deficit present. Mental Status: He is alert. Psychiatric: Mood and Affect: Mood normal. Behavior: Behavior normal. Assessment/Plan Diagnoses and all orders for this visit: Influenza B: Associated with wheezing which is likely reactive to viral infection but possibly due to acute renal insult. Gave him albuterol treatment and will Rx albuterol, Tamiflu renally dosed, and will check BMP today. Told him to RTC or go to ED if he develops SOB or lightheadedness. He agreed. - albuterol (2.5 MG/3ML) 0.083% nebulizer solution 2.5 mg - oseltamivir (Tamiflu) 75 MG capsule; Take 1 capsule (75 mg) by mouth 1 (one) time for 1 dose. - oseltamivir (Tamiflu) 30 MG capsule; Take 1 capsule (30 mg) by mouth 2 times daily for 4 days. Start this medication on 09/23/24. - albuterol (Ventolin HFA) 108 (90 Base) MCG/ACT inhaler; Inhale 2 puffs every 6 (six) hours if needed for wheezing. - POCT Rapid Covid-19 BinaxNOW - POCT Rapid Influenza A OSOM - POCT Rapid Influenza B OSOM - POCT Rapid Strep A OSOM - Basic Metabolic Panel; Future documented in this encounter Plan of Treatment Upcoming Encounters Date Type Department Care Team (Late st Contact Info) Description 10/09/2024 9:00 AM EST Office Visit [facility] ADULT DENTAL [address] [place] [address] Dayne Hernandez [address] [place] [address] 10/29/2024 9:00 AM EST Office Visit [facility] MED & PEDS [address] [place] [address] Ezequiel Curtis MD [address] [place] [address] documented as of this encounter Procedures Procedure Name Priority Date/Time Associated Diagnosis Comments BASIC METABOLIC PANEL Routine 09/22/2024 2:18 PM EST Acute cough POCT INFLUENZA B Routine 09/22/2024 1:54 PM EST Acute cough POCT RAPID STREP A Routine 09/22/2024 1: 54 PM EST Acute cough POCT RAPID COVID ANTIGEN Routine 09/22/2024 1:52 PM EST Acute cough POCT INFLUENZA A Routine 09/22/2024 1:52 PM EST Acute cough documented in this encounter Results * (ABNORMAL) Basic Metabolic Panel (09/22/2024 2:18 PM EST) Pathologist [facility] Sodium 134(L) 135 - 145 mmol/L [facility] Potassium 4.4 3.3 - 5.1 mmol/L [facility] Chloride 103 96 - 108 mmol/L [facility] Carbon Dioxide 24 22 - 29 mmol/L [facility] Anion Gap 11(L) 12 - 20 [facility] Urea Nitrogen (BUN) 36(H) 9 - 16 mg/dL [facility] Creatinine, Serum 2.08(H) 0.5 - 1.4 mg/dL [facility] Estimated Glomerular Filt Rate 32 [facility] Comment:Chronic Kidney Disea se: Estimated GFR < 60 mL/min/1.25k2Glraoj Kidney Disease: Estimated GFR < 15 mL/min/1.73m2 Glucose 100 60 - 115 mg/dL [facility] Calcium 8.9 8.4 - 10.2 mg/dL [facility] Blood Venous blood specimen / Unknown 09/22/2024 2:18 PM EST 09/22/2024 5:46 PM EST Barbara Robertson MD LAB BLOOD ORDERABLES Final Re sult [facility] [address] [place] [address] [phone] * POCT Rapid Strep A OSOM (09/22/2024 1:54 PM EST) Pathologist [facility] Rapid Strep A Screen Negative Negative, None Detected Comment:internal controls pa ssed QC Media Lot # [id number] Lot# Expiration Date Swab 09/22/2024 1:54 PM EST Barbara Robertson MD POINT OF CARE TEST ENTER/EDIT ORDERABLES Final Result * (ABNORMAL) POCT Rapid Influenza B OSOM (09/22/2024 1:54 PM EST) [facility] Rapid Influenza B Ag Positive( A) Negative, Indeterminate Comment:internal controls pa ssed QC Media Lot # [id number] Lot# Expiration Date Swab 09/22/2024 1:54 PM EST Barbara Robertson MD POINT OF CARE TEST ENTER/EDIT ORDERABLES Final Result * POCT Rapid Influenza A OSOM (09/22/2024 1:52 PM EST) [facility] Rapid Influenza A Ag Negative Negative, Indeterminate Comment:internal controls pa ssed QC Media Lot # [id number] Lot# Expiration Date Swab Nasopharyngeal structure / Unknown 09/22/2024 1:52 PM EST Barbara Robertson MD POINT OF CARE TEST ENTER/EDIT ORDERABLES Final Result * POCT Rapid Covid-19 BinaxNOW (09/22/2024 1:52 PM EST) [facility] Rapid COVID Ag Negative Comment:internal controls pa ssed QC Media Lot # [id number] Lot# Expiration Date [id number] Swab 09/22/2024 1:52 PM EST Barbara Robertson MD POINT OF CARE TEST ENTER/EDIT ORDERABLES Edited Result - Final documented in this encounter Visit Diagnoses Diagnosis Influenza B- Primary Influenza with other respiratory manifestations Acute cough documented in this encounter Administered Medications Inactive Administered Medications - up to 3 most recent administrations Medication Order MAR Action Action Date Dose Rate Site albuterol (2.5 MG/3ML) 0.083% nebulizer solution 2.5 mg 2.5 mg, Nebulization, Once, On 09/22/24 at 1345, For 1 doseIndications:Influenza B Given 09/22/2024 1:45 PM EST 2.5 mg documented in this encounter Additional Health Concerns Assessment Noted Time PHQ-9 Depression Total Score: 5 09/18/19 23 2:31 PM EST documented as of this encounter Care Teams Labor Conciliator Relationship Specialty Start Date End Date Ezequiel Curtis MD [address] [place] [address] PCP - General Internal Medicine 09/05/21 documented as of this encounter
--- OUTSIDE RECORDS SUMMARY | 2024-09-22 18:47 | XMS_ITS | Encounter Summary ---
Author Organization [employer] Address [address] [place] [address] 7 [place] [address] Care Team Providers Care Orthopaedic General Name Role Phone Ezequiel Curtis MD Primary Care Provider [phone] Reason for Visit * Reason Comments Med Refill Encounter Details Date Type Department Care Team ([facility] st Contact Info) Description 07/08/2024 Refill [facility] CHC MED & PEDS [address] [place], [place] [phone] Ezequiel Curtis MD [address] [place] [address] Wound of left foot Social History Tobacco Use Types Packs/Day Years [...] EST Office Visit [facility] ADULT DENTAL [address] [place] [address] Dayne Hernandez [address] [place] [address] 10/29/2024 9:00 AM EST Office Visit [facility] MED & PEDS [address] [place] [address] Ezequiel Curtis MD [address] [place] [address] documented as of this encounter Visit Diagnoses Diagnosis Wound of left foot documented in this encounter Additional Health Concerns Assessment Noted Time PHQ-9 Depression Total Score: 5 09/18/19 23 2:31 PM EST documented as of this encounter Care Teams Orthopaedic General Relationship Specialty Start Date End Date Ezequiel Curtis MD [address] [place] [address] PCP - General Internal Medicine 09/05/21 documented as of this encounter
--- OUTSIDE RECORDS SUMMARY | 2024-09-22 18:47 | XMS_ITS | Encounter Summary ---
Author Organization [employer] Address [address] [place] [address] Care Team Providers Care Cad Technician Name Role Phone Ezequiel Curtis MD Primary Care Provider [phone] Reason for Visit * Reason Comments Spr[place] Spr[place] prep Encounter Details Date Type Department Care Team ([facility] st Contact Info) Description 09/10/2024 8:00 AM EST Office Visit [facility] ADULT DENTAL [address] [place] [address] Dayne Hernandez [address] [place] [address] Social History Tobacco Use Types Packs/Day Years [...] as of this encounter Progress Notes * Dayne Hernandez - 09/10/2024 8:00 AM EST Dental procedures in this visit D2700.1 - CROWN PREP (Completed) Service provider: Dayne Hernandez Billing provider: Phyllis Brown DDS [id number] - PERIODONTICS - SURGICAL SERVICES (INCLUDING USUAL POSTOPERATIVE CARE) - GINGIVECTOMY OR GINGIVOPLASTY TO ALLOW ACCESS FOR RESTORATIVE PROCEDURE, PER TOOTH 20 (Completed) Service provider: Dayne Hernandez Billing provider: Phyllis Brown DDS Patient ID: Stoney Alston is a 69 y.o. male. Time Out: Date: 09/10/2024 Location: [facility] Tooth: #20 Procedure: [place] Verified the above with patient, email marketing assistant, and provider. Confirmed via patient's chart, intraorally and by radiographs. Buyer Intern: not applicable PFM crown preparation on # [address] Dayne Hernandez Risk, benefits, and alternatives discussed with the patient. CONSENT FORM INITIALED & SIGNED BY THE PATIENT AND COUNTERSIGNED BY Dr. Dayne Hernandez Medical history: Reviewed in EHR Vitals: There were no vitals taken for this visit. Allergies: Reviewed in EHR Medications: Reviewed in EHR - LA used: 20% topical benzocaine; Local infiltration with 1 carpule 4% septocaine/articaine 1:100,000 epinephrine - Pre-op PVS impression recorded for fabrication of provisional crown - [place] prep completed on # 20 - Electrosurgery performed on #20 - Area of gingivectomy rinsed with Chlorhexidine - Impression of crown prep recorded with light and heavy body PVS - Integrity placed in PVS impression and placed in mouth for fabrication of provisional - Impression and provisional removed from mouth - Provisional margins adjusted and checked on # 20 - Flowable composite used to approximate margins - Occlusion checked and adjusted as needed using articulating paper - [place] seated with Temp-Reece cement - Margin adaptation confirmed by clinical examination. - Proximal contact confirmed and cleaned with floss - Shade A3 selected Patient given post-op instructions Patient satisfied, left in stable condition NV: Seating of # 20 [place] Provider: Dr. Dayne Hernandez Stereo Plotter Operator: Kaci Martinez Supervising Dentist: Dr. Brown * Phyllis Brown DDS - 09/10/2024 8:00 AM EST I have reviewed the documentation and dental procedures completed by the rendering provider, Dayne Hernandez DDS, and approve their chart entries for this visit. BRUCE Houser DDS documented in this encounter Plan of Treatment Upcoming Encounters Date Type Department Care Team (Late st Contact Info) Description 10/09/2024 9:00 AM EST Office Visit [facility] ADULT D[facility] [address] [place] [address] Dayne Hernandez [address] [place] [address] 10/29/2024 9:00 AM EST Office Visit [facility] MED & PEDS [address] [place] [address] Ezequiel Curtis MD [address] [place] [address] Scheduled Orders Name Type Priority Associated Diagnoses Orde r Schedule DENTAL LAB FIXED Dental Routine Ordered: 09/10/2024 documented as of this encounter Procedures Procedure Name Priority Date/Time Associated Diagnosis Comments CROWN PREP Routine 09/10/2024 8:00 AM EST 20 PERIODONTICS - SURGICAL SERVICES (INCLUDING USUAL POSTOPERATIVE CARE) - GINGIVECTOMY OR GINGIVOPLASTY TO ALLOW ACCESS FOR RESTORATIVE PROCEDURE, PER TOOTH Routine 09/10/2024 8:00 AM EST documented in this encounter Visit Diagnoses Not on filedocumented in this encounter Additional Health Concerns Assessment Noted Time PHQ-9 Depression Total Score: 5 09/18/19 23 2:31 PM EST documented as of this encounter Care Teams Cad Technician Relationship Specialty Start Date End Date Ezequiel Curtis MD [address] [place] [address] PCP - General Internal Medicine 09/05/21 documented as of this encounter
--- OUTSIDE RECORDS SUMMARY | 2024-09-22 18:47 | XMS_ITS | Encounter Summary ---
Author Organization [employer] Address [address] [facility] 7t [place] [address] Care Team Providers Care Optometry Assistant Name Role Phone Ezequiel Curtis MD Primary Care Provider [phone] Encounter Details Date Type Department Care Team (Latest Contact Info) Description 09/22/2024 Travel Social History Tobacco Use Types Packs/Day Years [...] Description 10/09/2024 9:00 AM EST Office Visit [facility] ADULT DENTAL [address] [place] [address] Bea Hernandezricio [address] [place] [address] 10/29/2024 9:00 AM EST Office Visit [facility] MED & PEDS [address] [place] [address] Ezequiel Curtis MD [address] [place] [address] documented as of this encounter Visit Diagnoses Not on filedocumented in this encounter Additional Health Concerns Assessment Noted Time PHQ-9 Depression Total Score: 5 09/18/19 23 2:31 PM EST documented as of this encounter Care Teams Optometry Assistant Relationship Specialty Start Date End Date Ezequiel Curtis MD [address] [place] [address] PCP - General Internal Medicine 09/05/21 documented as of this encounter
== END 2024-09-22 14:16 | disposition home or self-care (01) ==
LOC: HO.CHCLDS 14:15
PROVIDERS: Visit Provider Internal Medicine
DX: R05.1 Acute cough (principal)
CPT/HCPCS: 36415; 80048

== ENCOUNTER 2024-12-01 10:57 | Outpatient (REF) | payer OTHER, SELFPAY ==
--- OUTSIDE RECORDS SUMMARY | 2024-12-01 13:07 | XMS_ITS | Referral Summary ---
Author Organization [facility] Address [address] [place] [address] Care Team Providers Care General Superintendent Name Role Phone Shalom Lobato MD Primary Care Provider [phone] Allergies No known active allergies Medications losartan [...] glucose diagnostic (FREESTYLE FREEDOM LITE) meter FreeStyle Godfrey Lite w/Device Kit USE DAILY NEEDED TO [...] C, ORAL Take by mouth. Active omega 4-udx-whl-fish oil (Fish Oil) 100-160-1,000 mg capsule Fish [...] gets his lab tests done at the [facility]. I will submit an order for labs and have them sent to the [facility] in [place]. Once those results return, I will call [...] on the most recent labs obtained through [facility]. Unfortunately do not have access to these labs. If additional blood work is obtained through the [facility] system, I would request that the results be faxed to my office at [phone]. Ongoing optimization of glycemic and blood pressure [...] Not on file Procedures * Due to [place] state law, this organization might not be sharing negative HIV tests. Procedure Name Priority Date/Time Associated Diagnosis Comments MICROALBUMIN, RANDOM URINE WITH CREATININE Routine 12/31/2020 11:40 AM EDT Stage 3b chronic kidney disease RENAL FUNCTION PANEL Routine 12/31/2020 11:40 AM EDT Stage 3b chronic kidney disease from Last 3 Months or Most Recently Relevant to Health Maintenance Results * Due to [place] state law, this organization might not be sharing negative HIV tests. * (ABNORMAL) Microalbumin, Random Urine with Creatinine (12/31/2020 11:40 AM EDT) Microalbumin, Urine 68.5 mg/dL 12/31/2020 12:34 PM EDT [facility] Creatinine, Urine 64 22 - 328 mg/dL 12/31/2020 12:34 PM EDT [facility] Microalb/Creat Ratio, Random Urine 1,070.3(H ) <30.0 mcg/mgCr 12/31/2020 12:34 PM EDT [facility] Comment: Microalbumin Reference Range: Normal ? <30 mcg/mg Creatinine Microalbuminuria ? 30-300 mcg/mg Creatinine Clinical Albuminuria >300 mcg/mg Creatinine Reference: ADA Guideline. Diabetes Care. 2004;27 (suppl 1) Urine Voided urine specimen / Unknown Non-Blood Collection / Unknown 12/31/2020 11:40 AM EDT 12/31/2020 11:52 AM EDT us Karsten Moe MD LAB URINE ORDERABLES Final R esult [facility] [address] [place] [address], * (ABNORMAL) Renal Function Panel (12/31/2020 11:40 AM EDT) NA 141 135 - 145 mmol/L 12/31/2020 12:27 PM EDT [facility] K 4.9 3.5 - 5.3 mmol/L 12/31/2020 12:27 PM EDT [facility] Cl 108 97 - 110 mmol/L 12/31/2020 12:27 PM EDT [facility] CO2 27 24 - 32 mmol/L 12/31/2020 12:27 PM EDT [facility] Anion Gap 6 5 - 15 12/31/2020 12:27 PM EDT [facility] Glucose 182(H) 70 - 99 mg/dL 12/31/2020 12:27 PM EDT [facility] BUN 35(H) 7 - 23 mg/dL 12/31/2020 12:27 PM EDT [facility] Creatinine 2.01(H) 0.60 - 1.30 mg/dL 12/31/2020 12:27 PM EDT [facility] eGFR Non- 34(L) >=90 mL/min/BS A 12/31/2020 12:27 PM EDT [facility] eGFR 39(L) >=90 mL/min/BS A 12/31/2020 12:27 PM EDT [facility] Comment: Units = mL/min/1.73 [...] - 10.7 mg/dL 12/31/2020 12:27 PM EDT [facility] Phosphorus 2.9 2.5 - 4.5 mg/dL 12/31/2020 12:27 PM EDT [facility] Albumin 3.9 3.5 - 4.8 g/dL 12/31/2020 12:27 PM EDT [facility] Blood Structure of peripheral vein / Unknown Venipuncture / Unknown 12/31/2020 11:40 AM EDT 12/31/2020 11:58 AM EDT us Karsten Moe MD LAB BLOOD ORDERABLES Final R esult [facility] [address] [place] [phone], from Last 3 Months or Most Recently Relevant to Health Maintenance Insurance Care Teams General Superintendent Relationship Specialty Start Date End Date Shalom Lobato MD [address] [place] [phone] PCP - General Family Medicine 03/01/20
--- OUTSIDE RECORDS SUMMARY | 2024-12-01 13:07 | XMS_ITS | Encounter Summary ---
Author Organization [employer] Address [address] [place] [address] 7 [place] [address] Care Team Providers Care Fruit Sorter Name Role Phone Ezequiel Curtis MD Primary Care Provider [phone] Encounter Details Date Type Department Care Team ([facility] st Contact Info) Description 03/26/2024 Orders Only [facility] MED & PEDS [address] [place], [place] [phone] Ezequiel Curtis MD [address] [place] [address] Hyperkalemia (Primary Dx) Social History Tobacco Use [...] Care Team (Late st Contact Info) Description 12/08/2024 8:15 AM EDT Office Visit [facility] AD[facility] D[facility] [address] [place] [address] documented as of this encounter Procedures Procedure Name Priority Date/Time Associated Diagnosis Comments BASIC METABOLIC PANEL Routine 04/07/2024 9:40 AM EDT Hyperkalemia documented in this encounter Results * (ABNORMAL) Basic Metabolic Panel (04/07/2024 9:40 AM EDT) Sodium 139 135 - 145 mmol/L [facility] Potassium 4.8 3.3 - 5.1 mmol/L [facility] Chloride 106 96 - 108 mmol/L [facility] Carbon Dioxide 25 22 - 29 mmol/L [facility] Anion Gap 13 12 - 20 [facility] Urea Nitrogen (BUN) 40(H) 9 - 16 mg/dL [facility] Creatinine, Serum 2.13(H) 0.5 - 1.4 mg/dL [facility] Estimated Glomerular Filt Rate 31 [facility] Comment:NOTE: For -Am erican individuals, multiply the result by 1.210.Chronic Kidney Disease: Estimated GFR < 60 mL/min/1.03z9Vvlacz Kidney Disease: Estimated GFR < 15 mL/min/1.73m2 Glucose 170(H) 60 - 115 mg/dL [facility] Calcium 9.3 8.4 - 10.2 mg/dL [facility] Blood Venous blood specimen / Unknown 04/07/2024 9:40 AM EDT 04/07/2024 1:54 PM EDT Ezequiel Curtis MD LAB BLOOD ORDERABLES Final Result [facility] [address] [place] [address] [phone] documented in this encounter Visit Diagnoses Diagnosis Hyperkalemia- Primary Hyperpotassemia documented in this encounter Additional Health Concerns Assessment Noted Time PHQ-9 Depression Total Score: 5 09/18/19 23 2:31 PM EST documented as of this encounter Care Teams Fruit Sorter Relationship Specialty Start Date End Date Ezequiel Curtis MD [address] [place] [address] PCP - General Internal Medicine 09/05/21 documented as of this encounter
--- OUTSIDE RECORDS SUMMARY | 2024-12-01 13:07 | XMS_ITS | Encounter Summary ---
Author Organization [facility], Address [address] [address] Phone Care Team Providers Care Technology Applications Teacher Name Role Phone Ezequiel Curtis MD Primary Care Provider [phone] Encounter Details Date Type Department Care Team (Late st Contact Info) Description 11/28/2024 1:45 PM EDT Office Visit [facility], [address] [place] [phone] David Barclay MD [address] [place] [address] [place]. [place] [phone] Stage 3b chronic kidney disease (HCC) (Primary Dx); Persistent proteinuria; Hypertension; Type 2 diabetes mellitus with diabetic chronic kidney disease (HCC); Other iron deficiency anemia; Hyperkalemia Social History Tobacco Use Types Packs/Day Years Used Date Smoking Tobacco: Never Assessed Sex and Gender Information Value Date Recorded Sex Assigned at Not on file Legal Sex Male 1:29 PM EST Gender Identity Not on file Sexual Orientation Not on file documented as of this encounter Last Filed Vital Signs Vital Sign Reading Time Taken Comments Blood Pressure 106/60 11/28/2024 1:46 PM EDT Pulse - - Temperature - - Respiratory Rate - - Oxygen Saturation - - Inhaled Oxygen Concentration - - Weight - - Height - - Body Mass Index - - documented in this encounter H&P Notes * David Barclay MD - 11/28/2024 1:45 PM EDT PATIENT: Stoney Alston : 1955 ENCOUNTER: 11/28/2024 PCP: Ezequiel Curtis MD Carlos Rorbertwaleska Alston is a 69 y.o. year old patient who I have followed for a history of: Longstanding ischemic nephropathy and stage IIIb chronic kidney disease In the interval since our last visit I have had the opportunity to review the following when available: -laboratory data, imaging studies, and cardiovascular data -current med list from the patient, the patient's pharmacy, [facility], and Care Everywhere During this visit I had the opportunity for a full review of systems and limited physical exam as outlined below, with the pertinent findings noted and others found to be negative or noncontributory to the current assessment of this patient. HPI: We first evaluated this patient back in October of 2021. Please refer to the initial consultation andmost recent follow up from February 2023 for details. In summary he has a history of longstanding hypertension and diabetes along with benign prostatic hypertrophy and is status post prostate removal. Ladonna has a history of coronary artery disease. His creatinine and proteinuria have been stable at around 2.0 mg/dl and less than 1 gm/d. His creatinine over the past couple of months has been between1.9 and 2.1 mg/dL. He was seen by urology and started on Sanctura. He was having significant nocturia. He is otherwise feeling well. He continues on the ARB. He is not on SGLT2 inhibitor. PAST MEDICAL HISTORY: Patient Active Problem List Diagnosis Date Noted ??? Type 2 diabetes mellitus without complication (HCC) 11/23/2021 ??? Stage 3b chronic kidney disease (HCC) 11/22/2021 ??? Proteinuria 11/22/2021 ??? Hypertriglyceridemia 11/22/2021 ??? Hyperkalemia 11/22/2021 ??? Hypertension 11/22/2021 ??? Anemia 11/22/2021 ROS: Constitutional: No fever. Respiratory: No shortness of breath. Cardiovascular: No chest pain. Gastrointestinal: No abdominal pain, nausea or vomiting, diarrhea, loss of appetite. Genitourinary: Nocturia. Started Sanctura. MEDICATIONS: Outpatient Encounter Medications as of 11/28/2024 Medication Sig Dispense Refill ??? acyclovir (ZOVIRAX) 200 MG capsule Take 200 mg by mouth ??? albuterol HFA (PROVENTIL HFA;VENTOLIN HFA) 108 (90 Base) MCG/ACT inhaler Inhale every 6 (six) hours if needed for wheezing ??? amLODIPine (NORVASC) 5 MG tablet Take 5 mg by mouth 1 (one) time each day ??? aspirin (ST IBIS) 81 MG EC tablet Take 81 mg by mouth 1 (one) time each day ??? atorvastatin (LIPITOR) 40 MG tablet Take 40 mg by mouth 1 (one) time each day ??? benzonatate (TESSALON) 100 MG capsule TAKE 1 CAPSULE BY MOUTH THREE TIMES DAILY NEEDED FOR COUGH FOR UP TO 7 DAYS. DO NOT BREAK, CRUSH, DISSOLVE OR CHEW ??? cholecalciferol (VITAMIN D-3) 25 MCG (1000 UT) tablet Take 1,000 Units by mouth 1 (one) time each day ??? cimetidine (TAGAMET) 400 MG tablet Take 400 mg by mouth in the morning and 400 mg in the evening. ??? Diclofenac Sodium 1 % gel APPLY 2 GRAM'S TO AFFECTED AREA(s) THREE TIMES DAILY NEEDED ??? DULCOLAX 5 MG EC tablet TAKE ONE TABLET DAILY NEEDED ??? Easy Touch Lancets 33G/Twist misc TEST BLOOD SUGAR TWICE DAILY ??? famotidine (PEPCID) 20 MG tablet 20 mg every night ??? finasteride (PROSCAR) 5 MG tablet Take 5 mg by mouth 1 (one) time each day Do not crush, chew, or split. ??? fluconazole (DIFLUCAN) 150 MG tablet TAKE ONE TABLET ONCE ??? glipiZIDE (GLUCOTROL) 5 MG tablet Take 5 mg by mouth in the morning and 5 mg in the evening. Take before meals. ??? glucose blood test strip 1 each by Other route if needed Use as instructed ??? Januvia 100 MG tablet Take 100 mg by mouth every morning ??? linaGLIPtin (Tradjenta) 5 MG tablet Take 5 mg by mouth 1 (one) time each day ??? loratadine (CLARITIN) 10 MG tablet Take 10 mg by mouth 1 (one) time each day ??? losartan (COZAAR) 50 MG tablet Take 50 mg by mouth 1 (one) time each day ??? metoprolol succinate XL (TOPROL XL) 25 MG 24 hr tablet Take 25 mg by mouth 1 (one) time each day ??? pioglitazone (ACTOS) 45 MG tablet Take 45 mg by mouth 1 (one) time each day ??? Sodium Fluoride 5000 PPM 1.1 % cream Apply a smear to the brush and brush thoroughly twice daily. Spit, do not rinse. ??? sodium polystyrene (KAYEXALATE) 15 GM/60ML suspension Take 15 g by mouth 1 (one) time ??? terazosin (HYTRIN) 10 MG capsule Take 10 mg by mouth every night ??? trospium (SANCTURA) 20 MG tablet Take 20 mg by mouth in the morning and 20 mg in the evening. No facility-administered encounter medications on file as of 11/28/2024. PHYSICAL EXAM: BP 106/60 Constitutional: No apparent distress Cardiovascular: No JVD elevation; no rub; regular Pulmonary/Chest: No rales; no wheeze Abdominal: Soft and non-tender. Extremities: Edema 1+ SUMMARY: Based on the above findings, my interpretation of the available data, and my best efforts to reconcile the active medications, the following problems/diagnoses with recommendations for any further testing, treatment options, and follow-up are provided for your review: Chronic and Active Issues: 1. Stage 3b chronic kidney disease (HCC) 2. Persistent proteinuria 3. Hypertension 4. Type 2 diabetes mellitus with diabetic chronic kidney disease (HCC) 5. Other iron deficiency anemia 6. Hyperkalemia CKD stage 3b - Baseline creatinine of 2.0-2.2 mg/dL with subnephrotic range proteinuria. He has a longstanding history of both HTN and DM type 2. Likely CKD is related to HTN and DM. He is on an ARB. This could be further optimized if his proteinuria goes up or his blood pressure can tolerate the increase. He would benefit from an SGLT2i, but has not been able to afford it. Hypertension: - BP stable. He is complaint on amlodipine 5 mg daily, losartan 50 mg daily, metoprolol 25 mg daily, and hytrin 10mg. No medication changes today. Again, given his lower extremity edema and excellentcontrol of his blood pressure, you could consider decreasing or discontinuing the amlodipine. Therewould be room to go up on the ARB. Diabetes mellitus type 2: - I will be checking his urine albumin to creatinine ratio and repeating his creatinine. We will calculate his renal failure risk score. Clearly, he is an excellent candidate for an SGLT2 inhibitor. His nocturia has been a significant problem for him. He will try the Sanctura. He will follow-up with urology. I will see him back in 3 months. Orders Placed This Encounter ??? Renal function panel ??? Urine Albumin / Creatinine Ratio documented in this encounter Plan of Treatment Upcoming Encounters Date Type Department Care Team (Late st Contact Info) Description 02/25/2025 2:30 PM EDT Office Visit [facility], [address] [place] [phone] David Barclay MD [address] [facility] [place] [phone] Scheduled Orders Name Type Priority Associated Diagnoses Orde r Schedule Renal function panel Lab Routine Stage 3b chronic kidney disease (HCC) Persistent proteinuria Hypertension Type 2 diabetes mellitus with diabetic chronic kidney disease (HCC) Other iron deficiency anemia Hyperkalemia Expected: 11/28/2024, Expires: 12/28/2025 Urine Albumin / Creatinine Ratio Lab Routine Stage 3b chronic kidney disease (HCC) Persistent proteinuria Hypertension Type 2 diabetes mellitus with diabetic chronic kidney disease (HCC) Other iron deficiency anemia Hyperkalemia Expected: 11/28/2024, Expires: 12/28/2025 documented as of this encounter Visit Diagnoses Diagnosis Stage 3b chronic kidney disease (HCC)- Primary Persistent proteinuria Hypertension Type 2 diabetes mellitus with diabetic chronic kidney disease (HCC) Other iron deficiency anemia Hyperkalemia documented in this encounter Care Teams Technology Applications Teacher Relationship Specialty Start Date End Date Ezequiel Curtis MD PCP - General Internal Medicine 09/29/21 documented as of this encounter
--- OUTSIDE RECORDS SUMMARY | 2024-12-01 13:08 | XMS_ITS | Encounter Summary ---
Author Organization [employer] Address [address] [place] [address] 7 [place] [address] Care Team Providers Care Room Server Name Role Phone Ezequiel Curtis MD Primary Care Provider [phone] Reason for Visit * Reason Comments Med Refill Encounter Details Date Type Department Care Team ([facility] st Contact Info) Description 06/16/2023 Refill [facility] CH[facility] MED & PEDS [address] [place], [place] [phone] Ezequiel Curtis MD [address] [place] [address] Essential (primary) hypertension Social History Tobacco Use [...] Description 12/08/2024 8:15 AM EDT Office Visit [facility] ADULT [facility] [address] [place] [address] documented as of this encounter Visit Diagnoses Diagnosis Essential (primary) hypertension Unspecified essential hypertension documented in this encounter Additional Health Concerns Assessment Noted Time PHQ-9 Depression Total Score: 5 09/18/19 23 2:31 PM EST documented as of this encounter Care Teams Room Server Relationship Specialty Start Date End Date Ezequiel Curtis MD [address] [place] [address] PCP - General Internal Medicine 09/05/21 documented as of this encounter
--- OUTSIDE RECORDS SUMMARY | 2024-12-01 13:08 | XMS_ITS | Encounter Summary ---
Author Organization [employer] Address [address] [place] [address] Care Team Providers Care Reception Clerk Name Role Phone Ezequiel Curtis MD Primary Care Provider [phone] Reason for Visit * Reason Onset Date Comments rs 11/24 appt 11/05/2024 Encounter Details Date Type Department Care Team ([facility] st Contact Info) Description 11/05/2024 Telephone [facility] ADULT DENTAL [address] [place] [address] Dayne Hernandez [address] [place] [address] rs 11/24 appt Social History Tobacco Use Types Packs/Day Years Used Date Smoking Tobacco: Former Cigarettes Q uit: 08/27/1991 Passive Smoke Exposure: Never Smokeless Tobacco: Never Alcohol Use Standard Drinks/Week Comments Yes 1 (1 standard drink = 0.6 oz pur e alcohol) Alcohol Answer Date Recorded How often do you have a drink containing alcohol ? 1 10/29/2024 How many drinks containing a lcohol do you have on a typical day when you are drinking? 1 10/29/2024 How often do you have six or more drinks on one occasion? 1 10/29/2024 Depression Answer Date Recorded Patient Health Questionnaire-9 Score 3 10/29/2024 Patient Health Questionnaire-9 Score 3 10/29/2024 Last PHQ-9: Questionnaire Data Not on file 0 10/29/2024 Housing Stability Answer Date Recorded What is your housing situation today? I do not have housing (Staying with others, in a hotel, in a intermediate, living outside on the street, on a beach, in a car, or in a park 10/22/[address] you li ve. Do you have problems with any of the following? None of the above 10/22/2024 Food Insecurity Answer Date Recorded Within the [...] Answer Date Recorded Patient Health Questionnaire-2 Score 1 10/29/2024 Internet Access Answer Date Recorded Internet Access Q1 Yes 10/22/2024 Internet Access Q2 Not on file 10/22/2024 Sex and Gender Information Value Date Recorded Sex Assigned at Male 06/26/2022 10:39 AM EDT Legal Sex Male 10:39 AM EDT Gender Identity Male 06/26/2022 10:39 AM EDT Sexual Orientation Choose not to disclose 2021 10:39 AM EDT documented as of this encounter Miscellaneous Notes * Telephone Encounter - Mireille Negro - 11/05/2024 10:58 AM EDT Patient came in today 11/05 and scheduled for consultation with Dr. Hook on 11/24. After leaving office he realized he has another appt that same day and he needs to rs appt. Please reach out to patient for rescheduling. Appt has not been cancelled as of yet. documented in this encounter Plan of Treatment Upcoming Encounters Date Type Department Care Team (Late st Contact Info) Description 12/08/2024 8:15 AM EDT Office Visit [facility] ADULT DENTAL [address] [place] [address] documented as of this encounter Visit Diagnoses Not on filedocumented in this encounter Additional Health Concerns Assessment Noted Time PHQ-9 Depression Total Score: 3 10/30/19 25 9:33 AM EST documented as of this encounter Care Teams Reception Clerk Relationship Specialty Start Date End Date Ezequiel Curtis MD [address] [place] [phone] PCP - General Internal Medicine 09/05/21 documented as of this encounter
--- OUTSIDE RECORDS SUMMARY | 2024-12-01 13:08 | XMS_ITS | Encounter Summary ---
Author Organization [employer] Address [address] [place] [address] [place] [address] Care Team Providers Care Salvage Engineering Technician Name Role Phone Ezequiel Curtis MD Primary Care Provider [phone] Reason for Visit * Reason Comments Med Refill Encounter Details Date Type Department Care Team ([facility] st Contact Info) Description 12/25/2023 Refill [facility] CHC MED & PEDS [address] [place], [place] [phone] Ezequiel Curtis MD [address] [place] [address] Type 2 diabetes mellitus with stage 3a chronic kidney disease, without long-term current use of insulin ([facility]) Social History Tobacco Use Types Packs/Day Years [...] Upcoming Encounters Date Type Department Care Team ([facility] st Contact Info) Description 12/08/2024 8:15 AM EDT Office Visit [facility] ADULT DENTAL [address] [place] [address] documented as of this encounter Visit Diagnoses Diagnosis Type 2 diabetes mellitus with stage 3a chronic kidney disease, without long-term current use of insulin ([facility]) documented in this encounter Additional Health Concerns Assessment Noted Time PHQ-9 Depression Total Score: 5 09/18/19 23 2:31 PM EST documented as of this encounter Care Teams Salvage Engineering Technician Relationship Specialty Start Date End Date Ezequiel Curtis MD [address] [place] [address] PCP - General Internal Medicine 09/05/21 documented as of this encounter
--- OUTSIDE RECORDS SUMMARY | 2024-12-01 13:08 | XMS_ITS | Encounter Summary ---
Author Organization [employer] Address [address] [place] [address] Care Team Providers Care Life Underwriter Name Role Phone Ezequiel Curtis MD Primary Care Provider [phone] Reason for Visit * Reason Comments Med Refill Encounter Details Date Type Department Care Team ([facility] st Contact Info) Description 11/28/2024 Refill [facility] CHC MED & PEDS [address] [place], [place] [phone] Ezequiel Curtis MD [address] [place] [address] Mixed hyperlipidemia Social History Tobacco Use Types Packs/Day Years [...] with others, in a hotel, in a custodial, living outside on the street, on a [...] Description 12/08/2024 8:15 AM EDT Office Visit [facility] CHC ADULT DENTAL [address] [place] [address] documented as of this encounter Visit Diagnoses Diagnosis Mixed hyperlipidemia documented in this encounter Additional Health Concerns Assessment Noted Time PHQ-9 Depression Total Score: 3 10/30/19 25 9:33 AM EST documented as of this encounter Care Teams Life Underwriter Relationship Specialty Start Date End Date Ezequiel Curtis MD [address] [place] [address] PCP - General Internal Medicine 09/05/21 documented as of this encounter
--- OUTSIDE RECORDS SUMMARY | 2024-12-01 13:08 | XMS_ITS | Encounter Summary ---
Author Organization [employer] Address [address] [place] [address] Care Team Providers Care Weighbridge Operator Name Role Phone Ezequiel Curtis MD Primary Care Provider [phone] Reason for Visit * Reason Onset Date Comments Appointment Request 03/05/2023 Encounter Details Date Type Department Care Team ([facility] st Contact Info) Description 03/05/2023 Telephone [facility] CHC MED & PEDS [address] [place], [place] [phone] Ezequeil Curtis MD [address] [place] [address] Appointment Request Social History Tobacco Use Types [...] diabetes check up. Please contact pt at [phone] (Faroese speaker) documented in this encounter Plan of Treatment Upcoming Encounters Date Type Department Care Team (Late st Contact Info) Description 12/08/2024 8:15 AM EDT Office Visit [facility] ADULT D[facility] [address] [place] [address] documented as of this encounter Visit Diagnoses Not on filedocumented in this encounter Additional Health Concerns Assessment Noted Time PHQ-9 Depression Total Score: 5 09/18/19 23 2:31 PM EST documented as of this encounter Care Teams Weighbridge Operator Relationship Specialty Start Date End Date Ezequiel Curtis MD [address] [place] [address] PCP - General Internal Medicine 09/05/21 documented as of this encounter
--- OUTSIDE RECORDS SUMMARY | 2024-12-01 13:08 | XMS_ITS | Clinical Summary ---
Author Organization [facility], Address [address] [place] [address] [place] [address] Phone Care Team Providers Care Container Repairer Name Role Phone Ezequiel Curtis MD Primary Care Provider [phone] Allergies No known active allergies Medications amLODIPine [...] TEST BLOOD SUGAR TWICE DAILY 4 Active trospium (SANCTURA) 20 MG tablet Take 20 mg by mouth in the morning and 20 mg in the evening. Active Active Problems Problem Noted Date Diagnosed Date Type 2 diabetes mellitus without complication Stage 3b chronic kidney disease 11/22/2021 Proteinuria 11/22/2021 Hypertriglyceridemia 11/22/2021 Hyperkalemia 11/22/2021 Hypertension 11/22/2021 Anemia 11/22/2021 Encounters Date Type Department Care Team Description 11/28/2024 1:45 PM EDT Office Visit [facility], [address] [place] [address] David Barclay MD Stage 3b chronic kidney disease (HCC) (Primary Dx); Persistent proteinuria; Hypertension; Type 2 diabetes mellitus with diabetic chronic kidney disease (HCC); Other iron deficiency anemia; Hyperkalemia from Last 3 Months Immunizations Name Administration [...] Visit [facility] [address] [place] [phone] David Barclay MD [address] [place] [address] [place] [phone] Health Maintenance Due Date Last Done Comments Colorectal Cancer Screening: Annual FOBT 2003 Colorectal Cancer Screening: Colonoscopy 2003 Colorectal Cancer Screening: Sigmoidoscopy 2003 Diabetes: Pedal Pulse Checked 11/23/2021 Diabetes: Sensory Foot Exam 11/23/2021 Diabetes: Visual Foot Exam 11/23/2021 Diabetes: Hemoglobin A1C 01/29/2025 10/29/2024, 02/26 Influenza Vaccine (Season Ended) 2025 06/12/2022, 06/16/2021 Diabetes: Ophthalmology Exam 09/16/2025, 08/06/2023, 08/04/2022, Additional history exists Hepatitis B Vaccine Aged Out 09/02/2019, 05/20/2019, 01/07/2019 No longer eligible based on patient's age to complete this topic Pneumococcal Vaccine: 65+ Years Completed 05/20/2020, 05/20/2019, 02/05/2013 Insurance MEDICAID [place] [facility] ONE CARE DUAL SNP ([id number]) Care Teams Container Repairer Relationship Specialty Start Date End Date Ezequiel Curtis MD PCP - General Internal Medicine 09/29/21
--- OUTSIDE RECORDS SUMMARY | 2024-12-01 13:08 | XMS_ITS | Encounter Summary ---
Author Organization [facility] Address [address] [place] [address] Care Team Providers Care Bioinformatics Assistant Name Role Phone Ezequiel Curtis MD Primary Care Provider [phone] Reason for Visit * Reason Comments Med Refill Encounter Details Date Type Department Care Team ([facility] Contact Info) Description 05/10/2023 Refill [facility] MED & PEDS [address] [place] [address] Natalie Urena MD [address] [place] [address] Social History Tobacco Use Types Packs/Day Years [...] Upcoming Encounters Date Type Department Care Team ([facility] Contact Info) Description 12/08/2024 8:15 AM EDT Office Visit [facility]ULT [facility] [address] [place] [address] documented as of this encounter Visit Diagnoses Not on filedocumented in this encounter Additional Health Concerns Assessment Noted Time PHQ-9 Depression Total Score: 5 09/18/19 23 2:31 PM EST documented as of this encounter Care Teams Bioinformatics Assistant Relationship Specialty Start Date End Date Ezequiel Curtis MD [address] [place] [address] PCP - General Internal Medicine 09/05/21 documented as of this encounter
--- OUTSIDE RECORDS SUMMARY | 2024-12-01 13:08 | XMS_ITS | Encounter Summary ---
Author Organization [employer] Address [address] [place] [address] [address] [place] [address] Care Team Providers Care Fibrous Plasterer Name Role Phone Ezequiel Curtis MD Primary Care Provider [phone] Reason for Visit * Reason Comments Med Refill Encounter Details Date Type Department Care Team (Late st Contact Info) Description 09/25/2023 Refill [facility] ADULT DENTAL [address] [place] [address] Errol Reich, ROLFS [address] [place] [address] Social History Tobacco Use Types Packs/Day Years [...] 12/08/2024 8:15 AM EDT Office Visit [facility] ADULT [facility] [address] [place] [address] documented as of this encounter Visit Diagnoses Not on filedocumented in this encounter Additional Health Concerns Assessment Noted Time PHQ-9 Depression Total Score: 5 09/18/19 23 2:31 PM EST documented as of this encounter Care Teams Fibrous Plasterer Relationship Specialty Start Date End Date Ezequiel Curtis MD [address] [place] [address] PCP - General Internal Medicine 09/05/21 documented as of this encounter
--- OUTSIDE RECORDS SUMMARY | 2024-12-01 13:08 | XMS_ITS | Encounter Summary ---
Author Organization [employer] Address [address] [place] [address] 7 [place] [address] Care Team Providers Care Team Assistant Name Role Phone Ezequiel Curtis MD Primary Care Provider [phone] Reason for Visit * Reason Onset Date Comments Prior Authorization 11/21/2022 Encounter Details Date Type Department Care Team (Late st Contact Info) Description 11/21/2022 Telephone [facility] CH[facility] ADULT DENTAL [address] [place] [address] Errol Reich, DDS [address] [place] [address] Prior Authorization Social History Tobacco Use Types [...] Description 12/08/2024 8:15 AM EDT Office Visit [facility] ADULT DENTAL [address] [place] [address] documented as of this encounter Visit Diagnoses Not on filedocumented in this encounter Additional Health Concerns Assessment Noted Time PHQ-9 Depression Total Score: 5 09/18/19 23 2:31 PM EST documented as of this encounter Care Teams Team Assistant Relationship Specialty Start Date End Date Ezequiel Curtis MD [address] [place] [address] PCP - General Internal Medicine 09/05/21 documented as of this encounter
--- OUTSIDE RECORDS SUMMARY | 2024-12-01 13:08 | XMS_ITS | Encounter Summary ---
Author Organization [employer] Address [address] [place] [address] 7 [place] [address] Care Team Providers Care Ditch Inspector Name Role Phone Ezequiel Curtis MD Primary Care Provider [phone]- [phone] Reason for Visit * Reason Comments Med Refill Encounter Details Date Type Department Care Team ([facility] st Contact Info) Description 02/14/2023 Refill [facility] CH[facility] MED & PEDS [address] [place] [address] Natalie Urena MD [address] [place] [address] Social History Tobacco Use Types Packs/Day Years [...] Upcoming Encounters Date Type Department Care Team ([facility] st Contact Info) Description 12/08/2024 8:15 AM EDT Office Visit [facility] ADULT D[facility]AL [address] [place] [address] documented as of this encounter Visit Diagnoses Not on filedocumented in this encounter Additional Health Concerns Assessment Noted Time PHQ-9 Depression Total Score: 5 09/18/19 23 2:31 PM EST documented as of this encounter Care Teams Ditch Inspector Relationship Specialty Start Date End Date Ezequiel Curtis MD [address] [place] [address] PCP - General Internal Medicine 09/05/21 documented as of this encounter
--- OUTSIDE RECORDS SUMMARY | 2024-12-01 13:08 | XMS_ITS | Encounter Summary ---
Author Organization [employer] [facility] Address [address] [place] [address] Care Team Providers Care Serging Machine Operator Name Role Phone Ezequiel Curtis MD Primary Care Provider [phone]- [phone] Reason for Visit * Reason Comments Med Refill Encounter Details Date Type Department Care Team ([facility] Contact Info) Description 02/04/2023 Refill [facility] MED & PEDS [address] [place] [address] Ezequiel Curtis MD [address] [place] [address] H/O skin pruritus Social History Tobacco Use [...] Upcoming Encounters Date Type Department Care Team ([facility] Contact Info) Description 12/08/2024 8:15 AM EDT Office Visit [facility] ADULT DENTAL [address] [place] [address] documented as of this encounter Visit Diagnoses Diagnosis H/O skin pruritus documented in this encounter Additional Health Concerns Assessment Noted Time PHQ-9 Depression Total Score: 5 09/18/19 23 2:31 PM EST documented as of this encounter Care Teams Serging Machine Operator Relationship Specialty Start Date End Date Ezequiel Curtis MD [address] [place] [address] PCP - General Internal Medicine 09/05/21 documented as of this encounter
--- OUTSIDE RECORDS SUMMARY | 2024-12-01 13:08 | XMS_ITS | Encounter Summary ---
Author Organization [facility] Address [address] [address] Phone Care Team Providers Care Sales And Marketing Manager Name Role Phone Ezequiel Curtis MD Primary Care Provider [phone] Encounter Details Date Type Department Care Team (Late st Contact Info) Description 10/18/2023 Documentation Only [facility] [address] [place] [phone] [place], [place] [address] [place] [address] Social History Tobacco Use Types [...] Visit [facility] [address] [place] [phone] David Barclay MD [address] [place] [address] [place] [address] documented as of this encounter Visit Diagnoses Not on filedocumented in this encounter Care Teams Sales And Marketing Manager Relationship Specialty Start Date End Date Ezequiel Curtis MD PCP - General Internal Medicine 09/29/21 documented as of this encounter
--- OUTSIDE RECORDS SUMMARY | 2024-12-01 13:08 | XMS_ITS | Encounter Summary ---
Author Organization [facility] Address [address] [address] Phone Care Team Providers Care Scrap Drop Crane Operator Name Role Phone Ezequiel Curtis MD Primary Care Provider [phone]- [phone] Encounter Details Date Type Department Care Team (Late st Contact Info) Description 09/29/2021 Documentation Only [facility] [address] [place] [phone] Ezequiel Curtis MD [address] [place] [address] [phone] Social History Tobacco Use Types Packs/Day Years [...] Visit [facility] [address] [place] [phone] David Barclay MD [address] [place] [address] [place] [phone] documented as of this encounter Visit Diagnoses Not on filedocumented in this encounter Care Teams Scrap Drop Crane Operator Relationship Specialty Start Date End Date Ezequiel Curtis MD PCP - General Internal Medicine 09/29/21 documented as of this encounter
--- OUTSIDE RECORDS SUMMARY | 2024-12-01 13:08 | XMS_ITS | Clinical Summary ---
Author Organization [facility] Address [address] [place] [address] Care Team Providers Care Sales Hunter Name Role Phone Shalom Lobato MD Primary Care Provider [phone] Allergies No known active allergies Medications losartan [...] glucose diagnostic (FREESTYLE FREEDOM LITE) meter FreeStyle [place] Lite w/Device Kit USE DAILY NEEDED TO [...] C, ORAL Take by mouth. Active omega 5-lcp-ier-fish oil (Fish Oil) 100-160-1,000 mg capsule Fish [...] gets his lab tests done at the [facility]. I will submit an order for labs and have them sent to the [facility] in [place]. Once those results return, I will call [...] on the most recent labs obtained through [facility]. Unfortunately do not have access to these labs. If additional blood work is obtained through the [facility] system, I would request that the results be faxed to my office at [phone]. Ongoing optimization of glycemic and blood pressure [...] Lung Cancer Screening (Baseline) 2004 Pneumococcal Vaccine: 50+ Years (2 of 2 - PCV) 05/20/2021 05/20/2020 Basic Metabolic Panel 12/31/2021 12/31/2020 , 03/08/2020, 03/21/2017, Additional history exists Urine Microalbumin 12/31/2021 12/31/2020, 0 03/21/2017, 01/21/2016, Additional history exists Ophthalmology Exam 01/31/2022 01/31/2021, 02/23/2020 Hemoglobin A1C 03/18/2023 09/18/2022, 02/08/2021 COVID-19 Vaccine ( season) 2024 11/11/2020, 10/14/2020 Alcohol/Substance Use Screening 08/27/2024 Depression Screening and Follow-Up 08/27/2024 Health Care Proxy Review 08/27/2024 Social Drivers of Health Annual Screening 08/27/2024 Influenza Vaccine (Season Ended) 2025 09/02/2019 RSV Vaccine (60+ years old and patients) (1 - 1-dose 75+ series) 2029 Zoster Vaccines Completed 02/12/2020, 09/02/2019 Hepatitis B Vaccines Aged Out No long er eligible based on patient's age to complete this topic Procedures * Due to [place] [employer] law, this organization might not be sharing negative HIV tests. Procedure Name Priority Date/Time Associated Diagnosis Comments MICROALBUMIN, RANDOM URINE WITH CREATININE Routine 12/31/2020 11:40 AM EDT Stage 3b chronic kidney disease RENAL FUNCTION PANEL Routine 12/31/2020 11:40 AM EDT Stage 3b chronic kidney disease from Last 3 Months or Most Recently Relevant to Health Maintenance Results * Due to [place] [employer] law, this organization might not be sharing negative HIV tests. * (ABNORMAL) Microalbumin, Random Urine with Creatinine (12/31/2020 11:40 AM EDT) Microalbumin, Urine 68.5 mg/dL 12/31/2020 12:34 PM EDT [facility] Creatinine, Urine 64 22 - 328 mg/dL 12/31/2020 12:34 PM EDT [facility] Microalb/Creat Ratio, Random Urine 1,070.3(H ) <30.0 mcg/mgCr 12/31/2020 12:34 PM EDT [facility] Comment: Microalbumin Reference Range: Normal ? <30 mcg/mg Creatinine Microalbuminuria ? 30-300 mcg/mg Creatinine Clinical Albuminuria >300 mcg/mg Creatinine Reference: ADA Guideline. Diabetes Care. 2004;27 (suppl 1) Urine Voided urine specimen / Unknown Non-Blood Collection / Unknown 12/31/2020 11:40 AM EDT 12/31/2020 11:52 AM EDT us Karsten Moe MD LAB URINE ORDERABLES Final R [facility] [address] [place] [address], * (ABNORMAL) Renal Function Panel (12/31/2020 11:40 AM EDT) NA 141 135 - 145 mmol/L 12/31/2020 12:27 PM EDT [facility] K 4.9 3.5 - 5.3 mmol/L 12/31/2020 12:27 PM EDT [facility] Cl 108 97 - 110 mmol/L 12/31/2020 12:27 PM EDT [facility] CO2 27 24 - 32 mmol/L 12/31/2020 12:27 PM EDT [facility] Anion Gap 6 5 - 15 12/31/2020 12:27 PM EDT [facility] Glucose 182(H) 70 - 99 mg/dL 12/31/2020 12:27 PM EDT [facility] BUN 35(H) 7 - 23 mg/dL 12/31/2020 12:27 PM MemolaneT [facility] Creatinine 2.01(H) 0.60 - 1.30 mg/dL 12/31/2020 12:27 PM MemolaneT [facility] eGFR Non- 34(L) >=90 mL/min/BS A 12/31/2020 12:27 PM [facility] eGFR 39(L) >=90 mL/min/BS A 12/31/2020 12:27 PM [facility]ol[facility]T [facility] Comment: Units = mL/min/1.73 [...] 8.7 - 10.7 mg/dL 12/31/2020 12:27 PM MemolaneT [facility] Phosphorus 2.9 2.5 - 4.5 mg/dL 12/31/2020 12:27 PM MemolaneT [facility] Albumin 3.9 3.5 - 4.8 g/dL 12/31/2020 12:27 PM EDT [facility] Blood Structure of peripheral vein / Unknown Venipuncture / Unknown 12/31/2020 11:40 AM EDT 12/31/2020 11:58 AM EDT us Karsten Moe MD LAB BLOOD ORDERABLES Final R esult [facility] [address] [place] [address], from Last 3 Months or Most Recently Relevant to Health Maintenance Insurance Care Teams Sales Hunter Relationship Specialty Start Date End Date Shalom Lobato MD [address] [place] [address] PCP - General Family Medicine 03/01/20
--- OUTSIDE RECORDS SUMMARY | 2024-12-01 13:08 | XMS_ITS | Encounter Summary ---
Author Organization [employer] Address [address] [place] [address] Care Team Providers Care District Branch Manager Name Role Phone Ezequiel Curtis MD Primary Care Provider [phone] Reason for Visit * Reason Comments Med Refill Encounter Details Date Type Department Care Team ([facility] st Contact Info) Description 11/15/2022 Refill [facility] CH[facility] MED & PEDS [address] [place], [place] [phone] Ezequiel Curtis MD [address] [place] [address] Social History Tobacco Use Types Packs/Day Years [...] Encounters Date Type Department Care Team ([facility] st Contact Info) Description 12/08/2024 8:15 AM EDT Office Visit [facility] ADULT D[facility] [address] [place] [address] documented as of this encounter Visit Diagnoses Not on filedocumented in this encounter Additional Health Concerns Assessment Noted Time PHQ-9 Depression Total Score: 5 09/18/19 23 2:31 PM EST documented as of this encounter Care Teams District Branch Manager Relationship Specialty Start Date End Date Ezequiel Curtis MD [address] [place] [address] PCP - General Internal Medicine 09/05/21 documented as of this encounter
--- OUTSIDE RECORDS SUMMARY | 2024-12-01 13:08 | XMS_ITS | Encounter Summary ---
Author Organization [facility] Address [address] [place] [address] Care Team Providers Care Medical Cost Consultant Name Role Phone Ezequiel Curtis MD Primary Care Provider [phone] Reason for Visit * Reason Comments Med Refill Encounter Details Date Type Department Care Team (Late st Contact Info) Description 09/14/2022 Refill [facility] MEDICINE [address] [place] [address] Ezequiel Curtis MD [address] [place], [place] [phone] Benign prostatic hyperplasia with weak urinary stream [...] Description 12/08/2024 8:15 AM EDT Office Visit [facility] ADULT DENTAL [address] [place] [address] documented as of this encounter Visit Diagnoses Diagnosis Benign prostatic hyperplasia with weak urinary stream documented in this encounter Care Teams Medical Cost Consultant Relationship Specialty Start Date End Date Ezequiel Curtis MD [address] [place] [address] PCP - General Internal Medicine 09/05/21 documented as of this encounter
--- OUTSIDE RECORDS SUMMARY | 2024-12-01 13:08 | XMS_ITS | Encounter Summary ---
Author Organization [employer] [facility] Address [address] [place] [address] Care Team Providers Care Animal Treatment Investigator Name Role Phone Ezequiel Curtis MD Primary Care Provider [phone]- [phone] Reason for Visit * Reason Comments Med Refill Encounter Details Date Type Department Care Team ([facility] Contact Info) Description 03/25/2023 Refill [facility] MED & PEDS [address] [place] [address] Ezequiel Curtis MD [address] [place] [address] Essential (primary) hypertension Social History Tobacco Use [...] Upcoming Encounters Date Type Department Care Team ([facility] Contact Info) Description 12/08/2024 8:15 AM EDT Office Visit [facility] ADULT DENTAL [address] [place] [address] documented as of this encounter Visit Diagnoses Diagnosis Essential (primary) hypertension Unspecified essential hypertension documented in this encounter Additional Health Concerns Assessment Noted Time PHQ-9 Depression Total Score: 5 09/18/19 23 2:31 PM EST documented as of this encounter Care Teams Animal Treatment Investigator Relationship Specialty Start Date End Date Ezequiel Curtis MD [address] [place] [address] PCP - General Internal Medicine 09/05/21 documented as of this encounter
--- OUTSIDE RECORDS SUMMARY | 2024-12-01 13:08 | XMS_ITS | Encounter Summary ---
Author Organization [employer] Address [address] [facility] [address] [place] [address] Care Team Providers Care Forest Aide Name Role Phone Ezequiel Curtis MD Primary Care Provider [phone] Encounter Details Date Type Department Care Team ([facility] st Contact Info) Description 12/25/2023 Orders Only [facility] CHC MED & PEDS [address] [place], [place] [phone] ProviderPamela MD Social History Tobacco Use Types [...] 12/08/2024 8:15 AM EDT Office Visit [facility] ADULT DENTAL [address] [place] [address] documented as of this encounter Procedures Procedure [...] documented as of this encounter Care Teams Forest Aide Relationship Specialty Start Date End Date Ezequiel Curtis MD [address] [place] [address] PCP - General Internal Medicine 09/05/21 documented as of this encounter
--- OUTSIDE RECORDS SUMMARY | 2024-12-01 13:09 | XMS_ITS | Continuity of Care Document ---
Author Organization Dylan [facility] Address [address] [facility] [address] [place] [address] Phone Care Team Providers Care [employer] Curator Name Role Phone Yana Mukherjee MD Unavailable [...] Active as RX by Urolog y at [facility] for recurrent herpes amlodipine 5 mg tablet [...] Procedure Date Clinical Pharmacy OFFICE/OUTPATIENT VISIT, EST [facility]IVETER Clinical Pharmacy GLYCATED HEMOGLOBIN TEST OFFICE/OUTPATIENT VISIT, [...] OFFICE/OUTPATIENT VISIT, EST IMMUNIZATION ADMIN, EACH ADD HAND RIVETER IMMUNIZATION ADMIN, EACH ADD HEP B VACCINE, [...] VISIT, EST Clinical Pharmacy OFFICE/OUTPATIENT VISIT, EST HAND RIVETER OFFICE/OUTPATIENT VISIT, EST ELECTROCARDIOGRAM, COMPLETE OFFICE/OUTPATIENT VISIT, [...] Diagnoses Date Provider Providers Copied on Encounter [facility], [address] [facility] [address], [place], [place], [id number], [place] tel:[phone] [facility] No Information 2 Lonny Millan. [address] [place] [address], [id number], [place]. tel:[phone] [facility], [address] [facility] [address], [place], [place], [id number], tel:[phone] [facility] No Information 1 Raisa Urrutia. [address] [place] [address], [id number], [place]. tel:[phone] [facility], [address] [facility] [address], [place], [place], [id number], [place] tel:[phone] [facility] No Information 1 No Information [facility], [address] [facility] [address], [place], [place], [id number], [place] tel:[phone] [facility] No Information 1 No Information [facility], [address] [facility] [address], [place], [place], [id number], [place] tel:[phone] [facility] diabetes (follow up) (chief complaint) Type 2 diabetes mellitus without complication , without long-term current use of insulin May- 1 Pharmacy Clinical. . Consulting Provider: Ericka Guido, [address] [place] [address], [address]. tel:[phone] OFFICE/OUTPA TIENT VISIT, EST [facility], [address] [facility] [address], [place], [place], [id number], [place] tel:[phone] [facility] MEDS REFILL (chief complaint)NI PPLE SHARP SENSATION (chief complaint) Medication refillBreast pain, right Apr- 1 No Information kayla [facility], [address] [facility], [place], [place], [id number], [place] tel:[phone] [facility] No Information 1 [facility]. . [facility], [address] [facility] [address], [place], [place], [id number], [place] tel:[phone] [facility] Breast pain in male 1 No Information [facility], [address] [facility] [address], [place], [place], [id number], [place] tel:[phone] [facility] diabetes (follow up) (chief complaint)ch ronic conditions (chief complaint) Type 2 diabetes mellitus without complication , without long-term current use of insulin 1 Pharmacy Clinical. . Consulting Provider: Ericka Guido, [address] [place] [address], [address]. tel:[phone] OFFICE/OUTPA TIENT VISIT, EST kayla [facility], [address] [facility] [address], [place], [place], [id number], [place] tel:[phone] [facility] diabetes (chief complaint)R breast pain: (chief complaint) Type 2 diabetes mellitus without complication , without long-term current use of insulinDecre ased hearing of both earsBreast pain, rightH/O edemaObesity , unspecifiedB kathleen mass index (BMI) 35.0-35.9, adultElevate d uric acid in blood 1 No Information kayla [facility], [address] [facility] [address], [place], [place], [id number], [place] tel:[phone] [facility] diabetes (follow up) (chief complaint)di abetes (follow up) (chief complaint) Type 2 diabetes mellitus without complication s 1 Pharmacy Clinical. . Consulting Provider: Ericka Guido, [address] [facility], [place], [address]. tel:[phone] [facility], [address], [place], [place], [id number], [place] tel:[phone] [facility] COVID VACCINE 2 (chief complaint) Encounter for immunization 1 No Information OFFICE/OUTPA TIENT VISIT, EST [facility], [address], [place], [place], [id number], [place] tel:[phone] [facility] Labs f/u (chief complaint) Type 2 diabetes mellitus without complication , without long-term current use of insulinANA positiveMild chronic anemiaHypert riglyceridem iaMicroalbum inuria 1 No Information [facility], [address] [facility] [address], [place], [place], [id number], [place] tel:[phone] [facility] COVID vaccine (chief complaint) Encounter for immunization 1 No Information [facility], [address] [facility] [address], [place], [place], [id number], [place] tel:[phone] [facility] COVID Testing (chief complaint) Encounter for laboratory testing for COVID-19 virus 1 No Information OFFICE/OUTPA TIENT VISIT, EST [facility], [address], [place], [place], [id number], [place] tel:[phone] [facility] Follow Up of Cold symptoms (chief complaint) Body aches 1 No Information [facility], [address], [place], [place], [id number], [place] tel:[phone] [facility] Pharm[facility] diabetes (follow up) (chief complaint)ch ronic conditions (chief complaint) Type 2 diabetes mellitus without complication s 1 Pharmacy Clinical. . Consulting Provider: Ericka Guido, [address] [facility], [place], [address]. tel:[phone] [facility], [address], [place], [place], [id number], [place] tel:[phone] [facility] COVID test (chief complaint) Contact w and exposure to oth viral communicable diseases 1 No Information OFFICE/OUTPA TIENT VISIT, [facility], [address], [place], [place], [id number], [place] tel:[phone] Tele [facility] body aches (chief complaint) Viral illness 1 No Information [facility], [address] [facility] [address], [place], [place], [address], [place] tel:[phone] [facility] COVID testing (chief complaint) Contact w and exposure to oth bact communicable diseases 1 No Information [facility], [address] [facility] [address], [place], [place], [address], [place] tel:[phone] [facility] diabetes (follow up) (chief complaint)di abetes (follow up) (chief complaint) Type 2 diabetes mellitus without complication s 0 Pharmacy Clinical. . OFFICE/OUTPA TIENT VISIT, [facility], [address] [facility] [address], [place], [place], [address], [place] tel:[phone] [facility] Follow Up of XRAY: (chief complaint) Osteoarthrit is of both hips, unspecified osteoarthrit is typeObesity (BMI 30-39.9)Obes ity, unspecifiedB kathleen mass index (BMI) 35.0-35.9, adult 0 No Information OFFICE/OUTPA TIENT VISIT, [facility], [address] [facility] [address], [place], [place], [id number], [place] tel:[phone] [facility] 3 Month Follow Up (chief complaint) Left hip painType 2 diabetes mellitus without complication sEssential (primary) hypertension Microalbumin uriaMild chronic anemiaChroni c kidney disease, unspecifiedO besity (BMI 30-39.9)Phys ical deconditioni ngDry mouthDyshidr otic eczemaHyperp igmentationV iral warts, unspecified typeNeck muscle spasmObesity , unspecifiedB kathleen mass index (BMI) 35.0-35.9, adult Sep-2 0 No Information [facility], [address] [facility] [address], [place], [place], [id number], [place] tel:[phone] [facility] diabetes (follow up) (chief complaint) Type 2 diabetes mellitus without complication s 0 Pharmacy Clinical. . Consulting Provider: Ericka Guido, [address] [place] [address], [address]. tel:[phone] OFFICE/OUTPA TIENT VISIT, [facility], [address] [facility] [address], [place], [place], [id number], [place] tel:[phone] [facility] Follow up (chief complaint) Type 2 diabetes mellitus without complication sEssential (primary) hypertension Chronic kidney disease, unspecifiedM icroalbuminu riaMild chronic anemiaObesit y (BMI 30-39.9)Inso mnia, unspecified typeStressAn xietyObesity , unspecifiedB kathleen mass index (BMI) 36.0-36.9, adult Feb-3 0- 0 No Information OFFICE/OUTPA TIENT VISIT, [facility], [address] [facility] [address], [place], [place], [id number], [place] tel:[phone] [facility] FORMS (chief complaint)F/ U LABS (chief complaint) Encounter for immunization Type 2 diabetes mellitus without complication sLow vitamin D levelEssenti al (primary) hypertension Chronic kidney disease, unspecifiedM ild chronic anemiaMicroa lbuminuria Jan- 0 No Information [facility], [address] [facility] [address], [place], [place], [id number], [place] tel:[phone] [facility] diabetes (follow up) (chief complaint) Type 2 diabetes mellitus without complication s 0 Pharmacy Clinical. . Consulting Provider: Ericka Guido, [address] [place] [address], [place], [address]. tel:[phone] [facility], [address] [facility] [address], [place], [place], [id number], [place] tel:[phone] [facility] diabetes (follow up) (chief complaint) Type 2 diabetes mellitus without complication s 0 Pharmacy Clinical. . OFFICE/OUTPA TIENT VISIT, [facility], [address] [facility] [address], [place], [place], [address], [place] tel:[phone] Tele [facility] letter request and meds refills: (chief complaint) Type 2 diabetes mellitus without complication sEssential (primary) hypertension Chronic kidney disease, unspecifiedG enital herpes in men 0 No Information OFFICE/OUTPA TIENT VISIT, [facility], [address] [facility] [address], [place], [place], [id number], [place] tel:[phone] [facility] COUGH (chief complaint) Cough 0 No Information OFFICE/OUTPA TIENT VISIT, [facility], [address] [facility] [address] [facility] [address], [place], [place], [id number], [place] tel:[phone] [facility] cold symptoms (chief complaint) Cough 0 No Information PREV VISIT, EST, 65 & OVER [facility], [address] [facility] [address], [place], [place], [address], [place] tel:[phone] [facility] preventive exam (chief complaint)AP E: (chief complaint) Encntr for general adult medical exam w/o abnormal findingsScre ening for colon cancerScreen ing for abdominal aortic aneurysmIndi gestionEssen tial hypertension Microalbumin uriaElevated serum creatinineMi ld chronic anemiaEosino philiaObesit y (BMI 30-39.9)Type 2 diabetes mellitus without complication , without long-term current use of insulin 0 No Information [facility], [address] [facility] [address], [place], [place], [id number], [place] tel:[phone] [facility] No Information [facility] [employer]. . Consulting Provider: Yenni Lam, [address] [place] [address], [address]. tel:[phone] OFFICE/OUTPA TIENT VISIT, EST [facility], [address] [facility] [address], [place], [place], [id number], [place] tel:[phone] [facility] Follow up on lab test(s) (chief complaint)Fo llow Up of diabetes (chief complaint) Essential hypertension Microalbumin uriaElevated serum creatinineSe rum potassium elevatedMild chronic anemiaEosino philiaMixed hyperlipidem iaObesity (BMI 30-39.9)Type 2 diabetes mellitus without complication , without long-term current use of insulinBody mass index (BMI) 35.0-35.9, adult Apr- 9 No Information [facility], [address] [facility] [address], [place], [place], [id number], [place] tel:[phone] [facility] diabetes (follow up) (chief complaint)di abetes (follow up) (chief complaint) Type 2 diabetes mellitus without complication , without long-term current use of insulin Pharmacy Clinical. . OFFICE/OUTPA TIENT VISIT, EST [facility], [address] [facility] [address], [place], [place], [address], [place] tel:[phone] [facility] Diabetes (follow up) (chief complaint)Fo llow up on lab test(s) (chief complaint)Co ld symptoms (chief complaint) Type 2 diabetes mellitus without complication , without long-term current use of insulinEssen tial hypertension Microalbumin uriaElevated serum creatinineSe rum potassium elevatedMild chronic anemiaEosino philiaMixed hyperlipidem iaViral URIObesity (BMI 30-39.9)Body mass index (BMI) 34.0-34.9, adult 9 No Information [facility], [address] [facility] [address], [place], [place], [id number], [place] tel:[phone] [facility] diabetes (follow up) (chief complaint)ch ronic conditions (chief complaint)di abetes (follow up) (chief complaint) Type 2 diabetes mellitus without complication , without long-term current use of insulin Pharmacy Clinical. . OFFICE/OUTPA TIENT VISIT, EST [facility], [address] [facility] [address], [place], [place], [id number], [place] tel:[phone] [facility] Diabetes (follow up) (chief complaint)Fo llow [...] 9 No Information Optometry OFFICE/OUTPA TIENT VISIT, EST [facility], [address] [facility] [address], [place], [place], [address], [place] tel:[phone] [facility] corneal abrasion (chief complaint) Abrasion of right cornea, subsequent encounterMei bomian gland dysfunction (MGD) of both eyesMeibomia n gland dysfunction of left eye, unspecified eyelid 9 No Information Optometry OFFICE/OUTPA TIENT VISIT, [facility], [address] [facility] [address], [place], [place], [address], [place] tel:[phone] [facility] injury (chief complaint) Abrasion of right cornea, initial encounter 9 No Information [facility], [address] [facility] [address], [place], [place], [address], [place] tel:[phone] [facility] diabetes (follow up) (chief complaint) Type 2 diabetes mellitus without complication , without long-term current use of insulin Dec- 8 Pharmacy Clinical. . OFFICE/OUTPA TIENT VISIT, EST [facility], [address] [facility] [address], [place], [place], [address], [place] tel:[phone] [facility] Sore throat (chief complaint) Viral URI 8 No Information OFFICE/OUTPA TIENT VISIT, EST [facility], [address] [facility] [address], [place], [place], [address], [place] tel:[phone] [facility] Diabetes (follow up) (chief complaint)Hy pertension (follow up) (chief complaint) Type 2 diabetes mellitus without complication , without long-term current use of insulinEssen tial hypertension Mixed hyperlipidem iaObesity (BMI 30-39.9)Eosi nophiliaMild chronic anemiaHyperk alemiaElevat ed serum creatinineMi croalbuminur iaBody mass index (BMI) 34.0-34.9, adult Jun- 8 No Information [facility], [address] [place] [address] 2,[address], [place], [place], [address], [place] tel:[phone] [facility] No Information Oct-2 8 No Information [facility], [address] [facility] [address], [place], [place], [id number], [place] tel:[phone] [facility] blurry vision (chief complaint) Presbyopia of both eyesDiabetes type 2, no ocular involvement Oct-0 8 Orlando Joseph. [address] [place] [address], [id number]. tel:[phone] [facility], [address] [facility] [address] [facility] [address], [place], [place], [address], [place] tel:[phone] [facility] diabetes (follow up) (chief complaint)ch ronic conditions (chief complaint) Type 2 diabetes mellitus without complication , without long-term current use of insulin 8 Pharmacy Clinical. . OFFICE/OUTPA TIENT VISIT, EST [facility], [address] [facility] [address], [place], [place], [address], [place] tel:[phone] [facility] Diabetes (follow up) (chief complaint)Hy pertension [...] diseaseObesi ty (BMI 30-39.9) 8 No Information [facility], [address] [facility] [address], [place], [place], [address], [place] tel:[phone] [facility] Pharmacy diabetes (follow up) (chief complaint) Type 2 diabetes mellitus without complication , without long-term current use of insulin 8 Pharmacy Clinical. . Consulting Provider: Ericka Guido, [address] [place] [address], [address]. tel:[phone] [facility], [address] [facility] [address], [place], [place], [id number], [place] tel:[phone] [facility] Hyperkalemia 8 No Information OFFICE/OUTPA TIENT VISIT, EST [facility], [address] [facility] [address] [facility] [address], [place], [place], [address], [place] tel:[phone] [facility] Follow Up of diabetes (chief complaint)Fo llow up on lab test(s) (chief complaint) Essential hypertension Mixed hyperlipidem iaSerum potassium elevatedEosi nophiliaChro alexandria anemiaMicroa lbuminuriaOb esity (BMI 30-39.9)Type 2 diabetes mellitus without complication , without long-term current use of insulin 8 No Information [facility], [address] [facility] [address], [place], [place], [address], [place] tel:[phone] [facility] diabetes (follow up) (chief complaint)di abetes (follow up) (chief complaint) Type 2 diabetes mellitus without complication , without long-term current use of insulin 8 Pharmacy Clinical. . [facility], [address] [facility] [address], [place], [place], [address], [place] tel:[phone] [facility] Type 2 diabetes mellitus without complication sType 2 diabetes mellitus without complication s 7 [facility]. . OFFICE/OUTPA TIENT VISIT, EST [facility], [address] [facility] [address], [place], [place], [address], [place] tel:[phone] [facility] Diabetes (follow up) (chief complaint)Hy pertension (follow up) (chief complaint)Fo llow up on lab test(s) (chief complaint) Type 2 diabetes mellitus without complication , without long-term current use of insulinObesi ty (BMI 30-39.9)Esse ntial hypertension Mild chronic anemiaEosino philiaMixed hyperlipidem iaHyperkalem iaMicroalbum inuria 7 No Information [facility], [address] [facility] [address], [place], [place], [address], [place] tel:[phone] [facility] diabetes (chief complaint)di abetes (follow up) (chief complaint) Type 2 diabetes mellitus without complication , without long-term current use of insulin 7 Pharmacy Clinical. . OFFICE/OUTPA TIENT VISIT, EST [facility], [address] [facility] [address], [place], [place], [id number], [place] tel:[phone] [facility] Diabetes (follow up) (chief complaint)Fo llow up on lab test(s) (chief complaint) Type 2 diabetes mellitus without complication , without long-term current use of insulinEssen tial hypertension Mixed hyperlipidem iaObesity (BMI 30-39.9)Micr oalbuminuria Mild chronic anemiaEosino philiaRenal function impairment No Information [facility], [address] [facility],[address], [place], [place], [address], [place] tel:[phone] [facility] diabetes (follow up) (chief complaint) Diabetes type 2, no ocular involvement Pharmacy Clinical. . Consulting Provider: Ericka Guido, [address] [place] [address], [address]. tel:[phone] [facility], [address] [facility] [address], [place], [place], [id number], [place] tel:[phone] [facility] No Information No Information [facility], [address] [facility] [address], [place], [place], [address], [place] tel:[phone] [facility] routine exam (chief complaint) Diabetes type 2, no ocular involvementH yperopia of both eyes with astigmatism and presbyopiaUn specified astigmatism, bilateralPre sbyopia No Information OFFICE/OUTPA TIENT VISIT, EST [facility], [address] [facility] [address], [place], [place], [address], [place] tel:[phone] [facility] Diabetes (follow up) (chief complaint)DM : (chief complaint) Type 2 diabetes mellitus with hyperglycemi a, without long-term current use of insulinObesi ty (BMI 30-39.9)Blur ry visionChroni c kidney disease, unspecifiedH eartburnHype rlipidemia, unspecifiedE ssential (primary) hypertension No Information OFFICE/OUTPA TIENT VISIT, EST Dylan Gonzalez [facility], [address] [facility] [address], [place], [place], [id number], [place] tel:[phone] [facility] Diabetes (follow up) (chief complaint)BP check (chief complaint)Fo llow up on lab test(s) (chief complaint) HeartburnUri nary frequencySor e throatObesit y (BMI 30-39.9)Mixe d hyperlipidem iaMild chronic anemiaEosino philiaChroni c kidney disease, unspecifiedT ype 2 diabetes mellitus without complication , without long-term current use of insulin 7 No Information kayla [facility], [address] [facility] [address], [place], [place], [address], [place] tel:[phone] [facility] Zoster vaccine (chief complaint) Encounter for immunization No Information kayla [facility], [address] [facility] [address], [place], [place], [id number], [place] tel:[phone] [facility] Essential (primary) hypertension Essential (primary) hypertension [facility] [employer] [facility]. . OFFICE/OUTPA TIENT VISIT, [facility] Dylan [facility], [address] [address], [place], [place], [id number], [place] tel:[phone] [facility] Follow up on lab test(s) (chief complaint) Urinary problemType 2 diabetes mellitus without complication , without long-term current use of insulinMixed hyperlipidem iaHeartburnL ow hemoglobinEs sential hypertension Chronic kidney disease, unspecifiedO besity (BMI 30-39.9)Eosi nophilia 7 No Information OFFICE/OUTPA TIENT VISIT, [facility], [address], [place], [place], [id number], [place] tel:[phone] [facility] NPP (chief complaint)Di abetes (follow up) (chief complaint) Type 2 diabetes mellitus without complication , without long-term current use of insulinMixed hyperlipidem iaEssential hypertension Hyperkalemia HeartburnItc hy skinObesity (BMI 30-39.9) No Information [facility], [address], [place], [place], [id number], [place] tel:[phone] [facility] blurry vision (chief complaint) Hyperopia of both eyes with astigmatismD iabetes type 2, no ocular involvementD ry eyesPresbyop iaAnatomical narrow angle 6 Orlando Jaagustingabriel. [address] [place], [place], [id number]. tel:[phone] OFFICE/OUTPA TIENT VISIT, EST [facility], [address] [address],[address], [place], [place], [id number], [place] tel:[phone] [facility] Follow up on lab test(s) (chief complaint) ProteinuriaE ssential hypertension Gastroesopha geal reflux disease, esophagitis presence not specified No Information OFFICE/OUTPA TIENT VISIT, EST [facility], [address] [address],[address], [place], [place], [id number], [place] tel:[phone] [facility] Follow Up of diabetes (chief complaint)ch lelo on need for refills (chief complaint)jt pain (chief complaint) Hyperlipidem ia, unspecifiedT ype 2 diabetes mellitus with stage 3 chronic kidney diseaseRight elbow painChronic left shoulder painOther chronic painChronic pain of both kneesPain in left knee 6 No Information [facility], [address], [place], [place], [id number], [place] tel:[phone] [facility] diabetes (follow up) (chief complaint) Type 2 diabetes mellitus without complication s Pharmacy Clinical. . Consulting Provider: Ericka Guido, [address] [place] [address], [id number]. tel:[phone] OFFICE/OUTPA TIENT VISIT, EST [facility], [address], [place], [place], [id number], [place] tel:[phone] [facility] Follow Up of diabetes (chief complaint)te raozsin refill (chief complaint) Type 2 diabetes mellitus with stage 3 chronic kidney disease 6 No Information [facility], [address] [facility] [address], [place], [place], [id number], [place] tel:[phone] [facility] No Information 6 [facility] [employer]. . OFFICE/OUTPA TIENT VISIT, [facility], [address], [place], [place], [id number], [place] tel:[phone] [facility] Follow Up of diabetes (chief complaint)Fo llow up on lab test(s) (chief complaint)ch ronic conditions (chief complaint) Type 2 diabetes mellitus without complication sChronic kidney disease, unspecifiedH yperlipidemi a, unspecifiedE nlarged prostate with lower urinary tract symptomsEsse ntial (primary) hypertension 6 No Information OFFICE/OUTPA TIENT VISIT, [facility], [address], [place], [place], [id number], [place] tel:[phone] [facility] BP check (chief complaint) Palpitations Premature ventricular complexType 2 diabetes mellitus with stage 3 chronic kidney diseaseChron ic kidney disease, stage 3 (moderate)Es sential hypertension Malaise 5 No Information [facility], [address], [place], [place], [id number], [place] tel:[phone] [facility] diabetes (follow up) (chief complaint) Type 2 diabetes mellitus without complication s 5 Pharmacy Clinical. . OFFICE/OUTPA TIENT VISIT, [facility], [address] [facility] [address], [place], [place], [id number], [place] tel:[phone] [facility] Diabetes (follow up) (chief complaint) Type 2 diabetes mellitus with diabetic chronic kidney diseaseChron ic kidney disease, unspecifiedI nsomnia, unspecified insomnia 5 No Information [facility], [address], [place], [place], [id number], [place] tel:[phone] [facility] diabetes (follow up) (chief complaint) Type 2 diabetes mellitus without complication s 5 Pharmacy Clinical. . [facility], [address], [place], [place], [id number], [place] tel:[phone] [facility] diabetes (follow up) (chief complaint)di abetes (follow up) (chief complaint) Diabetes mellitus without mention of complication , type II or unspecified type, not stated as uncontrolled 5 Pharmacy Clinical. . OFFICE/OUTPA TIENT VISIT, EST [facility], [address], [place], [place], [id number], [place] tel:[phone] [facility] Follow Up of diabetes (chief complaint)Fo llow Up of hypertension (chief complaint) Diabetes mellitus without mention of complication , type II or unspecified type, not stated as uncontrolled Chronic kidney disease, unspecifiedH ypertension, Unspecified 5 No Information [facility], [address], [place], [place], [id number], [place] tel:[phone] [facility] No Information 5 No Information [facility], [address], [place], [place], [id number], [place] tel:[phone] [facility] Type II DM (chief complaint)bl urry vision (chief complaint) Diabetes mellitus without mention of complication , type II or unspecified type, not stated as uncontrolled Hyperopia with presbyopiaAn atomical narrow angle 5 No Information OFFICE/OUTPA TIENT VISIT, EST [facility], [address], [place], [place], [id number], [place] tel:[phone] [facility] Follow up on lab test(s) (chief complaint) Diabetes mellitus without mention of complication , type II or unspecified type, not stated as uncontrolled Other and unspecified hyperlipidem iaCKD (chronic kidney disease)Diab etic nephropathyH ypertension, Unspecified 5 No Information OFFICE/OUTPA TIENT VISIT, [facility], [address], [place], [place], [id number], [place] tel:[phone] [facility] Follow up on lab test(s) (chief complaint) Diabetes mellitus without mention of complication , type II or unspecified type, not stated as uncontrolled CKD (chronic kidney disease)Posi tive ALKA (antinuclear antibody)Hyp erlipidemia 5 No Information OFFICE/OUTPA TIENT VISIT, [facility], [address], [place], [place], [id number], [place] tel:[phone] [facility] Diabetes (follow up) (chief complaint)Hy pertension (chief complaint)po sitive fecal antigen test (chief complaint)jermaine int stiffness (chief complaint) Diabetes mellitus without mention of complication , type II or unspecified type, not stated as uncontrolled CKD (chronic kidney disease)Bloo d in stoolStiff joint 4 No Information OFFICE/OUTPA TIENT VISIT, [facility], [address], [place], [place], [id number], [place] tel:[phone] [facility] F/U DM (chief complaint) Diabetes mellitus without mention of complication , type II or unspecified type, not stated as uncontrolled 4 No Information OFFICE/OUTPA TIENT VISIT, [facility], [address], [place], [place], [id number], [place] tel:[phone] [facility] Diabetes (follow up) (chief complaint) Diabetes Mellitus Type 2, Uncomplicate d 4 Julian Pickett. [address] [place] [address], [id number]. tel:[phone] OFFICE/OUTPA TIENT VISIT, [facility], [address] [facility] [address], [place], [place], [id number], [place] tel:[phone] [facility] F/U Labs (chief complaint)c/ o being too sleepy (chief complaint) Diabetes Mellitus Type 2, Uncomplicate dCKD (chronic kidney disease)Hype rtension, UnspecifiedB PH (benign prostatic hyperplasia) 4 No Information OFFICE/OUTPA TIENT VISIT, [facility], [address] [facility] [address], [place], [place], [id number], [place] tel:[phone] [facility] high sugar (chief complaint) Diabetes Mellitus Type 2, Uncomplicate dBPH (benign prostatic hyperplasia) CKD (chronic kidney disease) 4 No Information OFFICE/OUTPA TIENT VISIT, [facility], [address] [facility] [address], [place], [place], [id number], [place] tel:[phone] [facility] hypertension (chief complaint) Hypertension , UnspecifiedC ontact dermatitis 4 No Information OFFICE/OUTPA TIENT VISIT, [facility], [address] [facility] [address], [place], [place], [id number], [place] tel:[phone] [facility] Medication F/U (chief complaint) Diabetes Mellitus Type 2, Uncomplicate d 4 No Information OFFICE/OUTPA TIENT VISIT, [facility], [address] [facility] [address], [place], [place], [id number], [place] tel:[phone] [facility] follow up on lab/diagnost ic test (chief complaint) Diabetes mellitusBPH (benign prostatic hyperplasia) CKD (chronic kidney disease) 4 No Information OFFICE/OUTPA TIENT VISIT, [facility], [address] [facility] [address], [place], [place], [id number], [place] tel:[phone] [facility] Herpes (chief complaint) Herpes genitalis in menObesity May-1 3-201 4 No Information Family History Family Member [...] New Immuniza tion Record Flu Quad PF [id number] administered Source : New Immunization Record Pneumococcal polysaccharide PPV23 administered Source: New Immuniza tion Record Zoster recombinant subunit, preservative free administered Source: New Immuniza tion Record Zoster recombinant subunit, preservative free administered Source: New Immuniza tion Record Flu Quad MDV (>/= 6 mo) [id number] 0.5ml administered Source: New Immuniza tion Record [...] Recall Payers Payer name Insurance type Covered constitution party ID Authoriza tion(s) [facility] [employer] [id number] [employer] Partial [id number] [facility] [employer] [id number] [facility] [employer] [id number] [employer] Safety Net Partial [id number] [facility] [employer] [id number] [employer] Safety Net Partial [id number] [facility] [employer] [id number] [facility] [employer] [id number] [facility] [employer] [id number] [facility] [employer] [id number] [facility] [employer] [id number] [facility] [employer] [id number] [facility] [employer] [id number] [facility] [employer] [id number] [facility] [employer] [id number] [facility] [employer] [id number] [facility] [employer] [id number] [facility] [employer] [id number] [facility] [employer] [id number] [facility] [id number] Social History Type Description Quantity Date Captured [...] Goal Dental exam. Due on due Goal ASCVD 10 year risk. Due on S due Goal Colonoscopy. Due on due Goal Zoster vaccine (1st) due Goal [...] Jun due Goal Influenza vaccine. Due on Se due Goal Abdominal ultras ound. Due on due Goal Dental exam. Due on due Goal Colonoscopy. Due on due Goal Foot exam. Due on due Goal Influenza vaccine. Due on Se due Goal Monofilament Exam. Due on No due Goal Urine microalbumin. Due on O [...] on due Goal Monofilament Exam. Due on Tx due Goal Pneumococcal vaccine due Goal Diabetes [...] Goal Urinalysis. Due on 21 due Goal Document SOGI In formation. Due [...] due Goal Urinalysis. Due on due Goal Foot exam. Due on due Goal Abdominal ultras ound. Due on due Goal Zoster vaccine due Goal Document SOGI In formation. Due on due Goal Dilated eye exam. Due on Apr due Goal Hepatitis C Scre ening. Due on due Goal Hemoglobin A1C. Due on due Goal ECG due Goal Lipid panel. Due on due [...] on 0 due Goal Urinalysis. Due on 20 due Goal Zoster vaccine due Goal Lipid [...] Goal Urinalysis. Due on 19 due Goal Monofilament Exam. Due on due [...] 9 due Goal Influenza vaccine. Due on No due Goal Pneumococcal vaccine due Goal Tdap due Goal APE. Due on due Goal Dental exam. Due on due Goal Colonoscopy. Due on due Goal Urinalysis. Due on 19 due Goal ECG due Goal Hepatitis C [...] Goal Urinalysis. Due on 19 due Goal Dental exam. Due on due [...] 9 due Goal Diabetes Screening. Due on A [...] Diabetes Screening. Due on A due Goal Colonoscopy. Due on 015 due Goal LDL Cholesterol (Direct). Due on due Goal Lipid panel. Due on due Goal Dental exam. Due on 019 due Goal Monofilament Exam. Due on due Goal Urine microalbumin. Due on due Goal Urinalysis. Due on 19 due Goal Lipid panel. Due on due Goal Diabetes Screening. Due on A due Goal Tdap. Due [...] Jun due Goal Diabetes Screening. Due on due Goal Lipid panel. Due on due Goal GFR. Due on due Goal Foot exam. Due on due Goal ECG due Goal Urine microalbumin. Due on due Goal Dental exam. Due on due Goal Hemoglobin A1C. Due on due Goal LDL Cholesterol (Direct). Due on due Goal Urinalysis. Due on due Goal Zoster vaccine due Goal Urine microalbumin. Due on due Goal GFR. Due on due Goal Tdap. Due on due Goal Dilated eye exam. Due on Jun due Goal Zoster vaccine due Goal Dental exam. Due on due Goal APE. Due on due Goal Lipid panel. Due on due Goal ECG due Goal Urinalysis. Due on 18 due Goal Colonoscopy. Due on 015 due Goal Monofilament Exam. Due on due Goal FOBT. Due on due Goal Foot exam. Due on 9 due Goal LDL Cholesterol (Direct). Due on due Goal Hemoglobin A1C. Due on due Goal Diabetes Screening. Due on A due Goal Dietary manageme nt education, guidance, and counseling completed Goal Tdap. Due on due Goal Lipid panel. Due on 017 due Goal LDL Cholesterol (Direct). Due on due Goal Urine microalbumin. Due on O due Goal Zoster vaccine due Goal APE. Due on due Goal FOBT. Due on due Goal Dilated eye exam. Due on May due Goal GFR. Due on due Goal Colonoscopy. Due on 015 due Goal Foot exam. Due on 9 due Goal ECG due Goal Urinalysis. Due on 18 due Goal Monofilament Exam. Due on due Goal Dental exam. Due on 018 due Goal Diabetes Screening. Due on A [...] Goal Lipid panel. Due on due Goal Zoster vaccine due Goal Diabetes [...] Lipid panel. Due on 017 due Goal Diabetes Screening. Due on A [...] Goal Colonoscopy. Due on 015 due Goal Urinalysis. Due on 18 due Goal GFR. Due on due Goal Zoster vaccine due Goal Lipid panel. Due on 017 due Goal ECG due Goal Urine microalbumin. Due on due Goal APE. Due on due Goal Dental exam. Due on 018 due Goal Diabetes Screening. Due on A due Goal Monofilament Exam. Due on due Goal APE. Due on due Goal Dilated eye exam. Due on Sep due Goal Hemoglobin A1C. Due on due Goal Colonoscopy. Due on due Goal Lipid panel. Due on 018 due Goal Hemoglobin A1C. Due on due [...] Pneumococcal vaccine due Goal Colonoscopy. Due on 017 due Goal APE. Due on due Goal [...] 07/15/2018 ordered Referral Ordered: Referrals: Endocrinology. Location: [facility]. Evaluate and treat Appointment date/timeframe: 08/30/2018 ordered Referral Ordered: Optometry (related to Blurry vision) ordered Referral Ordered: Referrals: Optometry. Location: [facility]. Evaluate and treat ordered Referral Ordered: Referrals: Public Health and General Preventive Medicine. Location: [facility] ordered Referral Ordered: Referrals: Cardiology. Evaluate and treat Appointment date/timeframe: 09/10/2015 ordered Referral Ordered: Referral: Urology. Appointment date/timeframe: 02/25/2014 ordered Patient Education Plantar Fasciitis: Exer cises completed Patient Education Constipation: After You r Visit completed Patient Education Heel Pain: After Your V isit completed Patient Education Potassium-Restricted Di et: After Your completed Future Order: Lab Order FIT ([id number]), Sen t on: Sent Future Order: Lab Order CHOLESTE ROL, TOTAL ([id number]), Sent on: Sent Future Order: Lab Order DIRECT LDL ([id number]) , Sent on: Sent Future Order: Lab Order HDL CHOL ESTEROL ([id number]), Sent on: Sent Future Order: Lab Order COMPREHE NSIVE METABOLIC PANEL ([id number]), Sent on: Sent Future Order: Lab Order GLYCOHEM OGLOBIN A1C ([id number]), Sent on: Sent Future Order: Lab Order MICROALB UMIN, URINE ([id number]), Sent on: Sent Future Order: Lab Order C-REACTI VE PROTEIN INFLAMATION ([id number]), Sent on: Sent Future Order: Lab Order GLYCOHEM OGLOBIN A1C ([id number]), Sent on: Sent Future Order: Lab Order LIPID PA ELOY/CFR ([id number]), Sent on: Sent Future Order: Lab Order MICROALB UMIN, URINE ([id number]), Sent on: Sent Future Order: Lab Order MICROALB UMIN, 24 HOUR URINE (W/CREATININE) ([id number]), Sent on: Sent Future Order: Lab Order HERPES S IMPLEX VIRUS 1&2 IGG ([id number]), Sent on: Sent Future Order: Lab Order HIV GIL A SCREENING ([id number]), Sent on: Sent Future Order: Lab Order HEPATITI S PANEL, ACUTE W/REFLEX ([id number]), Sent on: Sent History Of Present Illness Encounter Date Complaint History Of Prese nt Illness diabetes (follow up) 1) Type 2 d iabetes mellitus without complication, without long-term current use of insulin (onset 03/17/2014.DM regimen: linagliptin 5 mg daily, glipizide 5 mg daily, pioglitazone 45 mg daily. Pt states that he has moved to [facility] and is seeking care closer to [...] 72 diastolic. R breast pain: Went to [facility] less than1 month ago and saw MD, [...] 1.5 to 4 miles daily.Per patient, saw repair clerk Dr. Mccauley - 11/11/20 had a catheterization [...] daily. FBS 100-155 in last 5 days. 3/5 144-155. Had sweet bread and juice days [...] criteria of cohort currently sanctioned by [facility]. Contraindications and risk factors assessed. Patient's questions answered. Labs f/u Visit conducted in Mexican using [place] /Ashlyn Dykes telephonic fishing boat mate ID# The patient consented to participate in [...] criteria of cohort currently sanctioned by [facility]. Contraindications and risk factors assessed. Patient's questions [...] phone call back to his home in [place] from the clinic. has mild symptoms.BS 100-140 max throughout. Now taking Tylenol qid. He has mild cough. COVID test Pt presents to [facility] testing tent for Mid-Turbinate Nasal Swab Collection [...] body aches COVID testing Patient presents to [facility] testing trailer for mid-turbinate nasal swab collection [...] 3 Month Follow Up Patient has mu law questions, concerns today. Says he was 5 [...] Has upcoming appt with Nephrology in June, he sees Cardiology. Eye appt is in July. FBG are [phone]. Says he is eating less rice, less [...] today with ALICIA Vargas who helps with German interpretation and clarification. He is unaccompanied. Pt [...] health, he wanted unemployment. I asked my practice professional's guidance to draft such a letter. 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 His employer told him to return when he is able to, and he does want to return there when the level of risk for getting the virus decreases. I explained that the letter requested was drafted many times and ultimately completed as per my practice professional's guidance, reviewed content with pt. He wants 2 copies sent to his house. He tells me that he had bronchitis back in September, was seen at the ER and twice at [facility], it took a long time to recover [...] Reviewed Urology consult note. COUGH Additional infor jyoti: 10/05 [facility] treated w/ azithromax for bronchitis10/13 [facility] visit, no improvememnt, treated with doxycycline x [...] to be excused until today. Seen at [facility] on 10/05/19. Dx acute bronchitis Patient states [...] result was found to be normal in Cap That system, this was ordered by Urology. Consult note reviewed, he has BPH controlled on meds. Says he is more worried about his bills than his health at this point. He took some occasional Ibuprofen once at night, as he has been having occasional shoulders pain due to his work in maintenance at [employer], also using Bengay topically. Says he walks [...] be one bill instead of many. His team supervisor requested a PTH and vitamin D 25-OH [...] mg q pm [address] [facility] MD). Pt reports FBS 122-152. Pt denies [...] rain, drank water and otc pill from [employer],. Today he called in sick at work, needs letter for excuse from work. He took severe Tussin CH APAP-DM- Guaifenesin- Phenylephrine, Brings the logs, FBG was less than 140s, and this month less than 130. safety compliance specialist found his K elevated at 5.8 [...] foods for dinner, works in maintenance at [employer], walking [phone] miles/day, has a podometer. He takes Slimfast [...] Pt states that he was told by Dye Machine Operator at [facility] that metformin was harming his kidneys. Last A1c = 7.6% per labse from [facility]. Additionally, pt had a elevated potassium level of 5.8. Initially the Dye Machine Operator prescribed amlodipine 5 or 10 mg daily [...] was 4.8 one week later (from his [facility] chart).) Home blood pressure range is 119 [...] In March last year he went to [facility], had the same anal itching at [...] just 3 days. Works in maintenance at [employer]. Does not feel that he needs to [...] here with several complaints, will travel to [facility] from 04/22 to 05/10 to visit [...] him from monitoring BGs. Working and studying Gambian. Eating sweet bread, using sugar, on and off drinking soda. Not eating fruits and many vegetables since he was little, is cooking, says he does not like to eat many things. Knows he is his own enemy when it comes to food choices and DM control. Eats bananas, potatoes. 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 Has new boss and work is better, [...] of insulin (onset 03/17/2014.Visit conducted with telephonic fishing boat mate [id number] in Mexican. DM regimen: glipizide 10 mg bid, metformin [...] profile, b/c it is a pain to slat pickler refills continuously at the pharmacy since they [...] made some changes in diet since Mar (bharati winslow). Pt's vision has improved since making [...] have proteinuria. Also has seen Urology in [place] and had cystoscopy and told wnl prostate. Has seen Cardiology who ordered renal artery u/s and wnl, no stenosis found. Needs eye exam, for 1 year the vision for the distance has been decreased and eyes are painful. No tingling and no numbness in arms, legs, feet. FIT test was negative and also the [facility], Has some heartburn and taking Ranitidine daily BID. Works and studies Gambian in the morning, says can not find [...] and white bread 4-5 times/day, also beans. Argentine food. Does not do exercise, just works maintenance in the [employer].Has a new boss and now he feels less stressed at work for 1 month. Buys foods from store and not cooking much at home. Takes Metformin 850 mg BID and other meds as RX. He does not want to start injecting insulin. Pt says he just had labs done at [facility] but no results are found with the [...] bathroom a lot at night. 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 Does not feel depressed. Often he feels sleepy. Has consulted eye doctor for lenses, insurance is not covering.Last seen Nephrology Dr. Abhi Salmeron few months ago and has f/u appt on 01/04. Cardiology on 03/[address] Mccauley, Urology on 02/26 with sriram Strong.Has been taking Ranitidine for 1 month, [...] with no exercise, needs to start studying [place]ian and working.Urine makes bubbles, has some frequency [...] worsening proteinuria. Zoster vaccine Patient to [facility] in [facility] for Zoster vaccine. Patient denies current illness [...] blood clots and has seen urology at [facility] and told urine cleared up. [...] First visit with provider. 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 Pt brought in the imaging and labs in German. 05/23 U/s showed cortical hypertrophy vs medular [...] was decreased to 50mg by someone at [facility]?Pt recently saw team supervisor at [facility] who felt he needs higher dose of losartan to control his proteinuriaOn 01/09 when he was on 50mg losartan K+ was 5.0Losartan increased to 75mg and K+ repeated 01/20 was 4.9 ( per pt he directly increased losartan to 100mg)Client Development Manager asked him to increase losartan to 100mg and return for labs 1 week later ( no results for January 2016 labs noted in [facility] )K+ done by me 03/13 was [...] note [facility]; he took the medicine [...] has some pain when kneels at [facility]; bothersome for 7-10 yrs2. rt elbow pain: x 2.5 yrs since coming to [facility]3. left shoulder pain: duration same as elbow Follow Up of diabetes diabetes (follow up) 1) Type 2 d iabetes mellitus without complications (onset 03/17/2014.DM regimen: glipizide 10 mg bid, metformin 850 mg bid. Last A1c 7.6%, eGFR 50. 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 Is tempted [...] Januvia( please see clin.pharmacist phone call from 3/14/16)He has been taking metformin 1000mg BID teraozsin refill he is due for r efill on 4.17 and misplaced rx bottle; he needs rx to bridge gap until Rx is due Follow Up of diabetes Follow up on lab test(s) The fol lowing test includeCreatinine 1.4, LDL at [id number] 8.1%Microalbuminuria + chronic conditions 1) Type 2 [...] unspecified (onset 03/09/2015; Stable. Under care of Client Development Manager. He has microalbuminuria and is on Losartan [...] conditions (comments) 6. premature atrial beats: saw repair clerk recently and no signif.problem identified7/ h/o anxiety: was on sertraline for only 8 days and then stopped; has not been feeling anxious BP check Pt came here wit h concern of BP fluctuations, he thinks BP is lower side. takes losartan 100 mg. today BP is 104/69 systolic. NC 91. 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 Estimates he is moving ~5 hrs/day. Lives [...] 4:30 am. Was followed closely by a rover tender in [place] x 8 yrs and feels well educated [...] well. Follow Up of diabetes (comments) sees [facility] clinical pharmacy, has appoint soon. request new [...] Last time creatinine was 1.49 , positive ALAK, but low titre. seen once renal doctor at [facility]. for DM , takes metformin 1000 [...] problems. worsened microalbumin , seen renal at [facility], increased losartan to 50 mg. F/U [...] result was 293 (pt had breakfast at [facility] this AM). Pt reports taking metformin [...] terazocin refill for BPH. seen urology at [facility] and has appoint end of this [...] before bed, qhs sleep routine Related to Physical deconditioning reviewed [...] to Essential (primary) hypertension Take medications gary day as prescribed Related to Essential (primary) [...] uncontrolled - Return in 1 year w alin Santiago, OD for Related to Anatomical narrow [...] yesica to Diabetes Mellitus Type 2, Uncomplicated Check blood sugar twice a day. R elated to Diabetes Mellitus Type 2, Uncomplicated Increase physical activity. Rela yesica to Diabetes Mellitus Type 2, Uncomplicated Assessments Type Assessment Date No Information Patient Care Teams Name Effective Dates (start - stop) Status Members No Information
--- OUTSIDE RECORDS SUMMARY | 2024-12-01 13:09 | XMS_ITS | Encounter Summary ---
Author Organization [employer] Address [address] [place] [id number] Care Team Providers Care [employer] Principal Name Role Phone Ezequiel Curtis MD Primary Care Provider [phone] Reason for Visit * Reason Comments Med Refill Encounter Details Date Type Department Care Team ([facility] st Contact Info) Description 07/08/2024 Refill [facility] [address] [place], [place] [phone] Ezequiel Curtis MD [address] [place] [address] Wound of left foot Social History Tobacco [...] 12/08/2024 8:15 AM EDT Office Visit [facility] [address] [place] [address] documented as of this encounter Visit Diagnoses Diagnosis Wound of left foot documented in this encounter Additional Health Concerns Assessment Noted Time PHQ-9 Depression Total Score: 5 09/18/19 23 2:31 PM EST documented as of this encounter Care Teams [employer] Principal Relationship Specialty Start Date End Date Ezequiel Curtis MD [address] [place] [address] PCP - General Internal Medicine 09/05/21 documented as of this encounter
--- OUTSIDE RECORDS SUMMARY | 2024-12-01 13:09 | XMS_ITS | Encounter Summary ---
Author Organization [facility] Address [address] [place] [address], [place] [address] Care Team Providers Care Family Support Worker Name Role Phone Ezequiel Curtis MD Primary Care Provider [phone]- [phone] Encounter Details Date Type Department Care Team (Late st Contact Info) Description 08/24/2022 Telephone [facility] MED [facility] PEDS [address] [place] [address] Ezequiel Curtis MD [address] [place] [address] Social History Tobacco Use Types Packs/Day Years [...] [facility] [address] [place] [address] documented as of this encounter Visit Diagnoses Not on filedocumented in this encounter Care Teams Family Support Worker Relationship Specialty Start Date End Date Ezequiel Curtis MD [address] [place] [address] PCP - General Internal Medicine 09/05/21 documented as of this encounter
--- OUTSIDE RECORDS SUMMARY | 2024-12-01 13:09 | XMS_ITS | Clinical Summary ---
Author Organization [employer] Address [address] [place] [address] 7[address] [place] [address] Care Team Providers Care Structural Iron Worker Name Role Phone Ezequiel Curtis MD Primary Care Provider [phone] Allergies No known active allergies Medications betamethasone, augmented, (Diprolene AF) 0.05 % cream APPLY TO AFFECTED AREA OF KNEE TWICE DAILY FOR UP TO 2 WEEKS TAKE 1 WEEK OFF & MAY REPEAT NEEDED 12/16/19 21 Active Blood Glucose Monitoring Suppl (FreeStyle glucose monitoring) kitIndications:Ty pe 2 diabetes mellitus with stage 3a chronic kidney disease, without long-term current use of insulin ([facility]) To use 2 times daily 1 each 11/28/19 23 Active dextran 70-hypromellose (artificial tears) 0.1-0.3 % ophthalmic solution Administer 1 drop into affected eye(s) every 6 (six) hours. 15 mL 3 04/05/20 23 Active glucose blood (FreeStyle InsuLinx Test) test strip 1 each by Other route 1 (one) time per week. 100 each 04/05/20 23 Active glucose blood (FREESTYLE LITE) test stripIndications: Type 2 diabetes mellitus with stage 3a chronic kidney disease, without long-term current use of insulin ([facility]) 100 each by Other route 2 times daily. 100 each 04/05/20 23 Active TRUEplus Lancets 33G misc TEST BLOOD SUGAR TWICE DAILY 100 each 04/05/20 23 Active pantoprazole (ProtoNix) 40 MG EC tablet PLEASE SEE ATTACHED FOR DETAILED DIRECTIONS 06/17/20 23 Active Sodium Fluoride (Sodium Fluoride 5000 PPM) 1.1 % cream Apply a smear to the brush and brush thoroughly twice daily. Spit, do not rinse. 102 g 09/26/19 24 Active econazole nitrate 1 % creamIndications: Perianal candidiasis Apply topically 2 times daily. 30 g 02/05/20 24 Active SITagliptin (Januvia) 100 MG tabletIndications :Type 2 diabetes mellitus with other diabetic kidney complication, without long-term current use of insulin ([facility]) TAKE ONE TABLET EVERY MORNING 90 tablet 3 02/05/20 24 Active cholecalciferol (Vitamin D-3) 25 MCG tablet TAKE ONE TABLET DAILY 30 tablet 11 03/12/20 24 Active metoprolol succinate XL (Toprol-XL) 25 MG 24 hr tabletIndications :Essential hypertension TAKE ONE TABLET DAILY 90 tablet 3 03/25/20 24 Active aspirin (Aspirin Adult Low Strength) 81 MG EC tablet TAKE ONE TABLET DAILY 90 tablet 3 03/25/20 24 Active mupirocin (Bactroban) 2 % ointmentIndicatio ns:Wound of left foot APPLY TO THE AFFECTED AREA(S) THREE TIMES DAILY FOR 10 DAYS 22 g 3 05/14/20 24 Active atorvastatin (Lipitor) 40 MG tabletIndications :Mixed hyperlipidemia TAKE ONE TABLET EVERY MORNING 90 tablet 1 06/02/20 24 Active pioglitazone (Actos) 45 MG tablet TAKE ONE TABLET EVERY DAY 90 tablet 1 06/02/20 24 Active glipiZIDE (Glucotrol) 5 MG tabletIndications :Type 2 diabetes mellitus with stage 3a chronic kidney disease, without long-term current use of insulin ([facility]) TAKE ONE TABLET EVERY DAY BEFORE A MEAL 90 tablet 1 06/17/20 24 Active terazosin (Hytrin) 10 MG capsuleIndication s:Nocturia Take 2 capsules (20 mg) by mouth at bedtime. 60 capsule 11 06/25/20 24 2024 Active loratadine (Claritin) 10 MG tabletIndications :H/O skin pruritus TAKE ONE TABLET EVERY MORNING 90 tablet 07/03/20 24 Active Acetaminophen Extra Strength 500 MG tabletIndications :Chronic low back pain without sciatica, unspecified back pain laterality,Chroni c left shoulder pain TAKE ONE TABLET EVERY 6 HOURS NEEDED FOR PAIN 90 tablet 3 07/22/20 24 Active polyvinyl alcohol (Liquifilm Tears) 1.4 % ophthalmic solution PLACE ONE DROP IN EACH EYE EVERY 6 HOURS 15 mL 3 08/05/20 24 Active losartan (Cozaar) 50 MG tabletIndications :Essential hypertension TOME LUIS CARLOS TABLETA TODOS LOS FORD 90 tablet 3 08/29/19 25 Active finasteride (Proscar) 5 MG tabletIndications :Benign prostatic hyperplasia with weak urinary stream TAKE 1 TABLET (5 MG) BY MOUTH IN THE MORNING . DO NOT CRUSH, CHEW, OR SPLIT 90 tablet 3 08/29/19 25 Active albuterol (Ventolin HFA) 108 (90 Base) MCG/ACT inhaler Inhale 2 puffs every 6 (six) hours if needed for wheezing. 54 g 09/22/19 25 2025 Active Diclofenac Sodium 1 % gelIndications:Ch ronic left shoulder pain APPLY 2 GRAM'S TO AFFECTED AREA(s) THREE TIMES DAILY NEEDED 100 g 3 11/15/19 25 Active amLODIPine (Norvasc) 5 MG tabletIndications :Essential (primary) hypertension TAKE ONE TABLET BY MOUTH EVERY MORNING 90 tablet 1 11/21/19 25 Active amLODIPine (Norvasc) 5 MG tabletIndications :Essential (primary) hypertension TAKE ONE TABLET EVERY MORNING 90 tablet 1 05/27/20 24 2024 Discontinued Diclofenac Sodium 1 % gelIndications:Ch ronic left shoulder pain APPLY TWO GRAM TO THE AFFECTED AREA(s) THREE TIMES DAILY NEEDED 100 g 3 07/03/20 24 2024 Discontinued Active Problems Problem Noted Date Diagnosed Date [...] Date Type Department Care Team Description 11/28/2024 Refill [facility] [address] [place] [address] Ezequiel Curtis MD Mixed hyperlipidemia 11/25/2024 8:00 AM EDT Office Visit [facility] [address] [place] [address] Mary, Dayne 11/18/2024 Refill [facility] [address] [place] [address] Ezequiel Curtis MD Essential (primary) hypertension 11/14/2024 Refill [facility] [address] [place] [address] Ezequiel Curtis MD Chronic left shoulder pain 11/05/2024 8:00 AM EDT Office Visit [facility] [address] [place] [address] Mary, Dayne 11/05/2024 Telephone [facility] [address] [place] [address] Dayne Hernandez rs 11/24 appt 10/29/2024 9:00 AM EST Office Visit [facility] [address] [place] [address] Ezequiel Curtis MD Essential hypertension (Primary Dx); Type 2 diabetes mellitus with stage 3a chronic kidney disease, without long-term current use of insulin ([facility]); Hyperkalemia; Mixed hyperlipidemia; Dietary counseling; Exercise counseling; Class 2 severe obesity due to excess calories with serious comorbidity and body mass index (BMI) of 35.0 to 35.9 in adult ([facility]) 10/29/2024 Travel 10/23/2024 Patient Outreach [facility] [address] [place] [address] Ezequiel Curtis MD Care Coordination (CHW outreach for SDOH housing search-referral completed ) 10/22/2024 Patient Outreach [facility] [address] [place] [address] Ezequiel Curtis MD Pre-visit Planning (SDOH positive. Tobacco screening negative. ) 10/09/2024 9:00 AM EST Office Visit [facility] [address] [place] [address] Dayne Hernandez 09/24/2024 Telephone [facility] [address] [place] [address] Ezequiel Curtis MD results 09/22/2024 1:20 PM EST Office Visit [facility] [address] [place] [address] Barbara Robertson MD Influenza B (Primary Dx); Acute cough 09/22/2024 Travel 09/22/2024 Telephone [facility] [address] [place] [address] Ezequiel Curtis MD Nurse Triage 09/18/2024 9:30 AM EST Office Visit [facility] [address] [place] [address] Deonte Rushelton 09/10/2024 8:00 AM EST Office Visit [facility] [address] [place] [address] Dayne Hernandez from Last 3 Months Immunizations Name Administration Dates Next Due Hep A, Adult 05/20/2019 Hep B, Unspecified 05/20/2019,01/07/2019 Hep B, adult 09/02/2019 Influenza High-dose Quadriva lent Preservative Free 06/12/2022 Influenza Quadrivalent Adjuvanted 06/16/2021 Influenza, IIV3, injectable 05/22/2024, Moderna Covid-19 Vaccine 12+ 11/11/2020,10/14/19 21 Pfizer Covid-19 Vaccine 12+ 06/25/2024 Pneumococcal Conjugate PCV 13 05/20/2019 Pneumococcal Conjugate PCV 7 02/05/2013 Pneumococcal Polysaccharide PPSV23 05/20/2020 RSV-MAB, Unspecified 06/25/2024 Tdap 12/25/2023,02/05/2013 Zoster, live 02/12/2020,09/02/2019,10/20/2016 Social [...] with others, in a hotel, in a retirement, living outside on the street, on a [...] Sign Reading Time Taken Comments Blood Pressure 125/87 11/25/2024 8:19 AM EDT Pulse 72 10/29/2024 9:15 AM EST Temperature 36.6 ??C (97.8 ??F) 10/29/2024 9:07 AM ES T Respiratory Rate 20 10/29/2024 9:07 AM EST Oxygen Saturation 98% 10/29/2024 9:07 AM EST Inhaled Oxygen Concentration - - Weight 96.6 kg (213 lb) 10/29/2024 9:07 AM EST Height 166 cm (5' 5.35 ) 10/29/2024 9:07 AM EST Body Mass Index 35.07 10/29/2024 9:07 AM EST Plan of Treatment Upcoming Encounters Date Type Department Care Team (Late st Contact Info) Description 12/08/2024 8:15 AM EDT Office Visit [facility] [address] [place] [address] Health Maintenance Due Date Last Done Comments CT Colonography 1954 FIT DNA/Cologuard 1954 FIT 1954 FOBT 1954 Sigmoidoscopy 1954 Eye Exam 1964 RSV Patients and Patients Aged 60 years or older (1 - Risk 60-74 years 1-dose series) 2014 Zoster Vaccines (2 of 3) 04/08/20202 020, 09/02/2019, 10/20/2016 Dental Oral Exam 04/23/2024 10/23/2023, 12/2022, 09/18/2022 COVID-19 Vaccine ( season) 2024 06/25/2024, 11/11/2020, 10/14/2020 Dental Prophylaxis 11/18/2024 05/20/2024, 10/23/2023 Diabetes: Foot Exam 03/25/2025 03/25/2024, 03/25/2024, 03/25/2024, Additional history exists Lipid Panel 03/25/2025 03/25/2024, 07/28, 09/12/2022, Additional history exists Diabetes: Hemoglobin A1C 05/01/2025 025, 03/25/2024, 12/25/2023, Additional history exists Dental X-Ray: Bitewings 09/19/2025 09/18/19 25, 12/04/2023, 10/23/2023, Additional history exists Dental X-Ray: Full Mouth 09/19/2025 09/18/2022, 08/28 SDOH Screening 10/22/2025 10/22/2024 Alcohol/Substance Use Screening 10/29/2025 10/29/2024 Depression Screening 10/29/2025 10/29/2024, 10/30/19 Tobacco Screening 11/25/2025 11/25/2024 Colonoscopy 09/27/2032 09/27/2022 Colorectal Cancer Screening 09/27/2032 DTaP/Tdap/Td Vaccines (3 - Td or Tdap) 12/24/2033 12/25/2023, 02/05/2013 Hepatitis A Vaccines Aged Out 05/20/2019 No long er eligible based on patient's age to complete this topic Hepatitis B Vaccines Completed 09/02/2019, 05/20/2019, 01/07/2019 Pneumococcal Vaccine: 50+ Years Completed 05/20/2020, 05/20/2019, 02/05/2013 Hepatitis C Screening Completed 03/25/2024 Influenza Vaccine Completed 05/22/2024, , 06/12/2022, Additional history exists RSV under 20 months Aged Out 06/25/2024 No longe r eligible based on patient's age to complete this topic HIB Vaccines Aged Out No longer eligi [...] Procedure Name Priority Date/Time Associated Diagnosis Comments 5 CROWN - PORCELAIN/CERAMIC Routine 11/25/2024 8:00 AM EDT CASE PRESENTATION, DETAILED AND EXTENSIVE TREATMENT PLANNING Routine 11/05/2024 8:00 AM EDT 5 CROWN PREP Routine 11/05/2024 8:00 AM EDT POCT GLYCATED HEMOGLOBIN, TOTAL Routine 10/29/2024 10:08 AM EST Type 2 diabetes mellitus with stage 3a chronic kidney disease, without long-term current use of insulin ([facility]) POCT GLUCOSE Routine 10/29/2024 10:08 AM EST Type 2 diabetes mellitus with stage 3a chronic kidney disease, without long-term current use of insulin (CMS/HCC) 20 CROWN - PORCELAIN/CERAMIC Routine 10/09/2024 9:00 AM EST BASIC METABOLIC PANEL Routine 09/22/2024 2:18 PM EST Acute cough POCT RAPID STREP A Routine 09/22/2024 1: 54 PM EST Acute cough POCT INFLUENZA B Routine 09/22/2024 1:54 PM EST Acute cough POCT INFLUENZA A Routine 09/22/2024 1:52 PM EST Acute cough POCT RAPID COVID ANTIGEN Routine 09/22/2024 1:52 PM EST Acute cough BITEWINGS - 2 RADIOGRAPHIC IMAGES Routine 09/18/2024 9:30 AM EST PALLIATIVE (EMERGENCY) TREATMENT OF DENTAL PAIN - MINOR PROCEDURE Routine 09/18/2024 9:30 AM EST CASE PRESENTATION, DETAILED AND EXTENSIVE TREATMENT PLANNING Routine 09/18/2024 9:30 AM EST 5 PREFABRICATED POST AND CORE IN ADDITION TO CROWN Routine 09/18/2024 12:00 AM EST 20 GINGIVECTOMY/GINGIVOPL ASTY TO ALLOW ACCESS FOR RESTORATIVE PROC, PER TOOTH Routine 09/10/2024 8:00 AM EST CROWN PREP Routine 09/10/2024 8:00 AM EST PROPHYLAXIS - ADULT Routine 05/20/2024 1 0:45 AM EDT HEPATITIS C AB W/REFL TO HCV RNA, QN, PCR Routine 03/25/2024 10:01 AM EDT Type 2 diabetes mellitus with stage 3a chronic kidney disease, without long-term current use of insulin ([facility]) LIPID PANEL, STANDARD Routine 03/25/2024 10:01 AM EDT PERIODIC ORAL EVALUATION - ESTABLISHED PATIENT Routine 10/23/2023 9:00 AM EST HP LINK DIABETIC FOOT EXAM Routine 04/05/2023 COLONOSCOPY Routine 09/27/2022 INTRAORAL - COMPLETE SERIES OF RADIOGRAPHIC IMAGES Routine 09/18/2022 10:00 AM EST from Last 3 Months or Most Recently Relevant to Health Maintenance Results * (ABNORMAL) POCT HGB A1C (10/29/2024 10:08 AM EST) Pathologist [facility] Hemoglobin A1C 6.9(A) 4.0 - 6.0 % QC Media Lot # [id number] Lot# Expiration Date Blood 10/29/2024 10:0 8 AM EST Ezequiel Curtis MD POINT OF CARE TEST ENTER/ED IT ORDERABLES Final Result * POCT Glucose (10/29/2024 10:08 AM EST) Pathologist [facility] Glucose Blood, POC 153 60 - 200 mg/dL QC Media Lot # [id number] Lot# Expiration Date [id number] Comment:random Blood Capillary blood specimen / Unknown 10/29/2024 10:08 AM EST Ezequiel Curtis MD POINT OF CARE TEST ENTER/ED IT ORDERABLES Final Result * (ABNORMAL) Basic Metabolic Panel (09/22/2024 2:18 PM EST) Pathologist [facility] Sodium 134(L) 135 - 145 mmol/L [facility] Potassium 4.4 3.3 - 5.1 mmol/L [facility] Chloride 103 96 - 108 mmol/L [facility] Carbon Dioxide 24 22 - 29 mmol/L [facility] Anion Gap 11(L) 12 - 20 [facility] Urea Nitrogen (BUN) 36(H) 9 - 16 mg/dL [facility] Creatinine, Serum 2.08(H) 0.5 - 1.4 mg/dL [facility] Estimated Glomerular Filt Rate 32 [facility] Comment:Chronic Kidney Disea se: Estimated GFR < 60 mL/min/[id number] Kidney Disease: Estimated GFR < 15 mL/min/1.73m2 Glucose 100 60 - 115 mg/dL [facility] Calcium 8.9 8.4 - 10.2 mg/dL [facility] Blood Venous blood specimen / Unknown 09/22/2024 2:18 PM EST 09/22/2024 5:46 PM EST Barbara Robertson MD LAB BLOOD ORDERABLES Final Re sult [facility] [address] [place] [phone] * (ABNORMAL) POCT Rapid Influenza B OSOM (09/22/2024 1:54 PM EST) Pathologist [facility] Rapid Influenza B Ag Positive( A) Negative, Indeterminate Comment:internal controls ken ssed QC Media Lot # [id number] Lot# Expiration Date Swab 09/22/2024 1:54 PM EST Barbara Robertson MD POINT OF CARE TEST ENTER/EDIT ORDERABLES Final Result * POCT Rapid Strep A OSOM (09/22/2024 1:54 PM EST) [facility] Rapid Strep A Screen Negative Negative, None Detected Comment:internal controls ken ssed QC Media Lot # [id number] Lot# Expiration Date 82 Swab 09/22/2024 1:54 PM EST Barbara Robertson MD POINT OF CARE TEST ENTER/EDIT ORDERABLES Final Result * POCT Rapid Covid-19 BinaxNOW (09/22/2024 1:52 PM EST) [facility] Rapid COVID Ag Negative Comment:internal controls ken ssed QC Media Lot # [id number] Lot# Expiration Date 51,126 Swab 09/22/2024 1:52 PM EST Barbara Robertson MD POINT OF CARE TEST ENTER/EDIT ORDERABLES Edited Result - Final * POCT Rapid Influenza A OSOM (09/22/2024 1:52 PM EST) [facility] Rapid Influenza A Ag Negative Negative, Indeterminate Comment:internal controls ken estrella QC Media Lot # [id number] Lot# Expiration Date 11925 Swab Nasopharyngeal structure / Unknown 09/22/2024 1:52 PM EST Barbara Robertson MD POINT OF CARE TEST ENTER/EDIT ORDERABLES Final Result * Hepatitis C Antibody with Reflex to HCV, RNA, Quantitative, Real-Time PCR (03/25/2024 10:01 AM EDT) [facility] Hepatitis C Antibody Nonreactive Nonreactive [facility] Comment:Antibodies to HCV no t detected; does not exclude early acuteHCV infection. Blood Venous blood specimen / Unknown 03/25/2024 10:01 AM EDT 03/25/2024 4:15 PM EDT Ezequiel Curtis MD LAB BLOOD ORDERABLES Final Result [facility] [address] [place] [address] [phone] * Lipid Panel, Standard (03/25/2024 10:01 AM EDT) [facility] Triglycerides 120 <150 mg/dL [facility] Comment:Desirable Triglyceri de: less than 150 mg/dLBorderline High Triglyceride 150-199 mg/dLHigh Triglyceride: 200-499 mg/dLVery High Triglyceride: greater than or equal to 5OO mg/dL Cholesterol 145 <200 mg/dL [facility] Comment:Desirable Cholestero l: less than 200 mg/dLBorderline High Cholesterol: 200-239 mg/dLHigh Cholesterol: greater than 239 mg/dL LDL Cholesterol Calculated 78 <100 mg/dL [facility] Comment:Desirable LDL: less than 100 mg/dLNear Optimal/Above Optimal LDL: 110- 129 mg/dLBorderline High LDL: 130-159 mg/dLHigh LDL: 160-189 mg/dLVery High LDL: greater than or equal to 190 mg/dL HDL Cholesterol 43 >40 mg/dL [facility] Comment:Desirable HDL: great er than 40 mg/dL Note: This HDL assay may give artificially low results in patients with liver disease. 03/25/2024 10:0 1 AM EDT 03/25/2024 4:15 PM EDT us Ezequiel Curtis MD LAB BLOOD ORDERABLES Final Result [facility] [address] [place] [phone] * HP Diabetic Foot Exam (04/05/2023) Ezequiel Curtis MD HEALTH MAINTENANCE Final Re sult * (ABNORMAL) Colonoscopy (09/27/2022) Anatomical Region Laterality Modality Endoscopy Narrative 09/27/2022 Internal hemorrhoids. No specimen collected. Repeat colonoscopy in 10 years for screening purposes. Recommended to use fiber, for example Citrucel, Fibercon, Konsyl or metamucil. Colonoscopy done at [facility] by Dr Scooter Hood Historical Provider ENDOSCOPY PROCEDURE ORDER ELY Final Result from Last 3 Months or Most Recently Relevant to Health Maintenance Insurance [facility] Care Teams Structural Iron Worker Relationship Specialty Start Date End Date Ezequiel Curtis MD [address] [place] [id number] PCP - General Internal Medicine 09/05/21
[2024-12-01 14:08] LABS: Appearance Urine Clear; Color Urine Yellow; Glucose Urine UA Negative (Negative); Leukocyte Esterase Urine Negative (Negative); Nitrite Urine Negative (Negative); PH 5.5 (5.0-9.0); UMIC TRIGGER UACC YES; Urine Blood Negative (Negative); Urine Ketones Negative (Negative); Urine Protein 30 (1+) mg/dL (Neg-Trace)
[2024-12-01 14:11] LABS: Bacteria Urine None Seen (None Seen); RBC Urine 0-2 /HPF (0-2); Squamous Epithelial Cell Urine 0-2 /HPF (0-2); WBC Urine 0-5 /HPF (0-5)
[2024-12-01 14:16] LABS: Anion Gap 14 (12-20); Blood Urea Nitrogen 46 mg/dL (9-16); Calcium 9.9 mg/dL (8.4-10.2); Carbon Dioxide 25 mmol/L (22-29); Chloride 104 mmol/L (96-108); Estimated Glomerular Filt Rate 31; Potassium 5.4 mmol/L (3.3-5.1); Sodium 138 mmol/L (135-145)
[2024-12-01 14:31] LABS: Creatinine Urine 117.31 mg/dL; Microalbum/Creatinine Ratio Ur 208.8 ug/mg cr (<30)
== END 2024-12-01 10:58 | disposition home or self-care (01) ==
LOC: HO.CHCLDS 10:57
PROVIDERS: Visit Provider Internal Medicine Nephrology
DX: N18.32 Chronic kidney disease, stage 3b (principal); R80.1 Persistent proteinuria, unspecified; I10 Essential (primary) hypertension; E11.22 Type 2 diabetes mellitus with diabetic chronic kidney disease; D50.8 Other iron deficiency anemias; E87.5 Hyperkalemia
CPT/HCPCS: 36415; 80051; 81001; 81003; 82043; 82310; 82565; 82570; 84520

== ENCOUNTER 2025-04-13 09:21 | Outpatient (REF) | payer OTHER, SELFPAY ==
--- OUTSIDE RECORDS SUMMARY | 2025-04-13 09:51 | XMS_ITS | Clinical Summary ---
Author Organization [facility] Address [address] [address] Care Team Providers Care Vp Account Director Name Role Phone Joyce Aguilar MD Primary Care Provider Medications metoprolol succinate XL (Toprol-XL) 25 mg 24 hr tabletIndication s:Hypertensive heart disease without heart failure TAKE 1 TABLET BY MOUTH EVERY DAY FOR 90 DAYS 90 tablet 06/05/2022 Active Social History Tobacco Use Types Packs/Day Years Used Date Smoking Tobacco: Never Assessed Sex and Gender Information Value Date Recorded Sex Assigned at Not on file Legal Sex Male 12:28 AM EST Gender Identity Not on file Sexual Orientation Not on file Last Filed Vital Signs Vital Sign Reading Time Taken Comments Blood Pressure 114/73 06/13/2021 10:40 AM EDT Pulse 92 06/13/2021 10:40 AM EDT Temperature 36.6 C (97.8 F) 10/25/2020 9:20 AM EST Respiratory Rate 16 09/29/2019 9:00 AM EST Oxygen Saturation 98% 06/13/2021 10:40 AM EDT Inhaled Oxygen Concentration - - Weight 95.3 kg (210 lb) 06/13/2021 10:40 AM EDT Height 165.1 cm (5' 5 ) 06/13/2021 10:40 AM EDT Body Mass Index 34.95 06/13/2021 10:40 AM EDT Plan of Treatment Not on file Care Teams Vp Account Director Relationship Specialty Start Date End Date Joyce Aguilar MD [address] [place] [id number] PCP - General 09/30/21
--- OUTSIDE RECORDS SUMMARY | 2025-04-13 09:51 | XMS_ITS | Encounter Summary ---
Author Organization [employer] Address [address] [place] [id number] Care Team Providers Care Model Artists' Name Role Phone Ezequiel Curtis MD Primary Care Provider [phone] Reason for Visit * Reason Onset Date Comments chart prep 04/10/2025 Encounter Details Date Type Department Care Team ([facility] st Contact Info) Description 04/10/2025 Telephone [facility] [address] [place], [place] [phone] Ezequiel Curtis MD [address] [place] [address] chart prep Social History Tobacco Use Types Packs/Day Years [...] with others, in a hotel, in a fci, living outside on the street, on a [...] encounter Miscellaneous Notes * Telephone Encounter - Katarzyna Troncoso [place] - 04/10/2025 10:34 AM EDT Chart Prep Labs: done Images: not done Referrals: complete Vaccines due: Covid, RSV, and Zoster Screenings: EYE Exam Overdue care gaps: Glucose documented in this encounter Plan of Treatment Upcoming Encounters Date Type Department Care Team ([facility] st Contact Info) Description 05/14/2025 10:45 AM EDT Office Visit [facility] [address] [facility] [place] [address] Ezequiel Curtis MD [address] [place] [address] documented as of this encounter Visit Diagnoses Not on filedocumented in this encounter Additional Health Concerns Assessment Noted Time PHQ-9 Depression Total Score: 3 10/30/19 25 9:33 AM EST documented as of this encounter Care Teams Model Artists' Relationship Specialty Start Date End Date Ezequiel Curtis MD [address] [place] [id number] PCP - General Internal Medicine 09/05/21 documented as of this encounter
--- OUTSIDE RECORDS SUMMARY | 2025-04-13 09:51 | XMS_ITS | Clinical Summary ---
Author Organization [facility] Address [address] [place] [address] Care Team Providers Care Foreign Exchange Dealer Name Role Phone Shalom Lobato MD Primary Care Provider [phone] Allergies No known active allergies Medications losartan [...] glucose diagnostic (FREESTYLE FREEDOM LITE) meter FreeStyle [place] Lite w/Device Kit USE DAILY NEEDED TO [...] C, ORAL Take by mouth. Active omega 4-exu-tbp-fish oil (Fish Oil) 100-160-1,000 mg capsule Fish [...] gets his lab tests done at the [facility]. I will submit an order for labs and have them sent to the [facility] in [place]. Once those results return, I will call [...] on the most recent labs obtained through [facility]. Unfortunately do not have access to these labs. If additional blood work is obtained through the [facility] system, I would request that the results be faxed to my office at [phone]. Ongoing optimization of glycemic and blood pressure [...] 93 03/14/2021 8:01 AM EDT Temperature 36.1 C (97 F) 09/03/2017 8:42 AM EST Respiratory Rate - - Oxygen Saturation - - Inhaled Oxygen Concentration - - Weight 96.2 kg (212 lb) 12/31/2020 10:59 AM EDT Height 163 cm (5' 4.17 ) 12/31/2020 10:59 AM EDT Body Mass Index 36.2 12/31/2020 10:59 AM EDT Plan of Treatment Health Maintenance Due Date Last Done Comments Cologdouglas 1955 Colon Cancer Screening 1955 Colonoscopy 1955 [...] of Health Annual Screening 08/27/2024 Influenza Vaccine (#1) 2025 09/02/2019 RSV Vaccine (60+ years old and patients) (1 - 1-dose 75+ series) 2029 Zoster Vaccines Completed 02/12/2020, 09/02/2019 Hepatitis B Vaccines Aged Out No long er eligible based on patient's age to complete this topic Procedures * Due to [place] law, this organization might not be sharing negative HIV tests. Procedure Name Priority Date/Time Associated Diagnosis Comments MICROALBUMIN, RANDOM URINE WITH CREATININE Routine 12/31/2020 11:40 AM EDT Stage 3b chronic kidney disease RENAL FUNCTION PANEL Routine 12/31/2020 11:40 AM EDT Stage 3b chronic kidney disease from Last 3 Months or Most Recently Relevant to Health Maintenance Results * Due to [place] law, this organization might not be sharing negative HIV tests. * (ABNORMAL) Microalbumin, Random Urine with Creatinine (12/31/2020 11:40 AM EDT) Microalbumin, Urine 68.5 mg/dL 12/31/2020 12:34 PM EDT [facility] Creatinine, Urine 64 22 - 328 mg/dL 12/31/2020 12:34 PM EDT [facility] Microalb/Creat Ratio, Random Urine 1,070.3(H ) <30.0 mcg/mgCr 12/31/2020 12:34 PM EDT [facility] Comment: Microalbumin Reference Range: Normal <30 mcg/mg Creatinine Microalbuminuria 30-300 mcg/mg Creatinine Clinical Albuminuria >300 mcg/mg Creatinine Reference: ADA Guideline. Diabetes Care. 2004;27 (suppl 1) Urine Voided urine specimen / Unknown Non-Blood Collection / Unknown 12/31/2020 11:40 AM EDT 12/31/2020 11:52 AM EDT us Karsten Moe MD LAB URINE ORDERABLES Final R esult [facility] [address] [place] [address], * (ABNORMAL) Renal Function Panel (12/31/2020 11:40 AM EDT) NA 141 135 - 145 mmol/L 12/31/2020 12:27 PM EDT [facility] K 4.9 3.5 - 5.3 mmol/L 12/31/2020 12:27 PM EDT [facility] Cl 108 97 - 110 mmol/L 12/31/2020 12:27 PM EDT [facility] CO2 27 24 - 32 mmol/L 12/31/2020 12:27 PM EDT [facility] Anion Gap 6 5 - 15 12/31/2020 12:27 PM EDT [facility] Glucose 182(H) 70 - 99 mg/dL 12/31/2020 12:27 PM EDT [facility] BUN 35(H) 7 - 23 mg/dL 12/31/2020 12:27 PM EDT [facility] Creatinine 2.01(H) 0.60 - 1.30 mg/dL 12/31/2020 12:27 PM EDT [facility] eGFR Non- 34(L) >=90 mL/min/BS A 12/31/2020 12:27 PM EDT [facility] eGFR 39(L) >=90 mL/min/BS A 12/31/2020 12:27 PM EDT [facility] Comment: Units = mL/min/1.73 m2 Glomerular Filtration Rate (GFR) is estimated based on the CKD-EPI Creatinine Equation (2009). Stage Description GFR 1 Normal >=90 mL/min/BSA 2 Mildly decreased GFR 60-89 mL/min/BSA 3 Moderately decreased GFR 30-59 mL/min/BSA 4 Severely decreased GFR 15-29 mL/min/BSA 5 Kidney Failure <15 mL/min/BSA Calcium 8.9 8.7 - 10.7 mg/dL 12/31/2020 12:27 PM EDT [facility] Phosphorus 2.9 2.5 - 4.5 mg/dL 12/31/2020 12:27 PM EDT [facility] Albumin 3.9 3.5 - 4.8 g/dL 12/31/2020 12:27 PM EDT [facility] Blood Structure of peripheral vein / Unknown Venipuncture / Unknown 12/31/2020 11:40 AM EDT 12/31/2020 11:58 AM EDT us Karsten Moe MD LAB BLOOD ORDERABLES Final [facility] [address] [place] [address], from Last 3 Months or Most Recently Relevant to Health Maintenance Insurance [facility] Care Teams Foreign Exchange Dealer Relationship Specialty Start Date End Date Shalom Lobato MD [address] [place] [phone] PCP - General Family Medicine 03/01/20
--- OUTSIDE RECORDS SUMMARY | 2025-04-13 09:51 | XMS_ITS | Clinical Summary ---
Author Organization [facility] Address [address] [place] [address] Phone Care Team Providers Care Director Of Catering Name Role Phone Ezequiel Curtis MD Primary Care Pr ovider Allergies No known active allergies Medications finasteride (PROSCAR) 5 mg tablet Take 5 mg by mouth daily. Active loratadine (CLARITIN) 10 mg tablet Take 10 mg by mouth daily. Active pioglitazone (ACTOS) 45 MG tablet Take 45 mg by mouth daily. Active aspirin 81 MG EC tablet Take 81 mg by mouth daily. Active amLODIPine (NORVASC) 5 MG tablet Take 5 mg by mouth daily. Active terazosin (HYTRIN) 10 MG capsule Take 10 mg by mouth nightly at bedtime. Active losartan (COZAAR) 50 MG tablet Take 50 mg by mouth daily. Active linaGLIPtin (TRADJENTA) 5 mg Tab Take 5 mg by mouth daily. Active fish oil/borage/flax /om3,6,9 1 (TRIPLE OMEGA 3-6-9 ORAL) Take by mouth. Act erin glucosamine-cho ndroitin 500-400 mg Cap Take 1 capsule by mouth 3 (three) times a day. Active ascorbic acid (VITAMIN C ORAL) Take by mouth. Activ e multivitamin-mi nerals-lutein (CENTRUM SILVER) Tab Take 1 tablet by mouth daily. Active blood sugar diagnostic (ONETOUCH ULTRA BLUE TEST STRIP) Strp strips OneTouch Ultra Blue Test Strip Active blood-glucose (ONETOUCH ULTRA2 METER) Misc meter OneTouch Ultra2 Meter Active lancets (TRUEPLUS LANCETS) 30 gauge Misc TRUEplus Lancets 30 gauge Active cimetidine (TAGAMET) 400 MG tablet TAKE 1 TABLET BY ORAL ROUTE 2 TIMES EVERY DAY IN THE MORNING AND AT BEDTIME NEEDED FOR HEARTBURN 0 Active atorvastatin (LIPITOR) 40 MG tablet Take 40 mg by mouth daily. Active ARTIFICIAL TEARS,PG-HYPM-G LYC, 1-0.2-0.2 % Drop INSTILL 1 DROP BY OPHTHALMIC ROUTE 4 TIMES EVERY DAY 1 Active glipiZIDE (GLUCOTROL) 5 MG tablet TAKE 1 TABLET BY ORAL ROUTE 1 TIME EVERY DAY BEFORE BREAKFAST 1 Active betamethasone, augmented, (DIPROLENE AF) 0.05 % cream 1 Active cholecalciferol (VITAMIN D3) 25 MCG (1,000 unit) tablet Take 1,000 Units by mouth daily. Active Active Problems Problem Noted Date Diagnosed Date HTN (hypertension) Family History Medical History Relation Comments Diabetes Unspecified mostly paternal side Glaucoma Neg Hx Macular degeneration Neg Hx Relation Status Comments Unspecified Social History Tobacco Use Types Packs/Day Years Used Date Smoking Tobacco: Former Smokeless Tobacco: Never Alcohol Use Standard Drinks/Week Comments Yes 0 (1 standard drink = 0.6 oz pur e alcohol) Education Answer Date Recorded Are you interested in more education? Not on marbin e 12/22/2022 Are you concerned about learning? Not on file 12/22/2022 No 12/22/2022 No 12/22/2022 Digital Access Answer Date Recorded No 01/20/2023 No 01/20/2023 Reliable internet access at home? Not on file 01/20/2023 Device with a working camera? Not on file Sex and Gender Information Value Date Recorded Sex Assigned at Not on file Legal Sex Male 1:49 PM EST Gender Identity Not on file Sexual Orientation Not on file Plan of Treatment Upcoming Encounters Date Type Department Care Team ([facility] st Contact Info) Description 09/22/2025 9:45 AM EST Office Visit [facility] [place] [address] [place] [address] Sam Bowden, OD [address] [place] [address] Health Maintenance Due Date Last Done Comments BLOOD PRESSURE 1955 CREATININE LEVEL 1954 POTASSIUM LEVEL 1954 DEPRESSION SCREENING 1966 SMOKING Hx and SMOKELESS TOBACCO SCREENING 1967 HEPATITIS C SCREENING 1972 COLOGUARD 1999 COLONOSCOPY 1999 COLORECTAL CANCER SCREENING 1999 FIT TEST 1999 FOBT 1999 SIGMOIDOSCOPY 1999 VIRTUAL COLONOSCOPY 1999 ABDOMINAL AORTIC ANEURYSM (AAA) SCREENING 2019 COVID-19 VACCINE (4 - 2023-2 5 season) 2024 10/29/2021, 11/11/2020, 10/14/2020 LIPID PANEL 03/25/2029 03/25/2024 RSV VACCINE (1 - 1-dose 75+ series) 2029 Adult Td,Tdap Booster 12/24/2033 12/25/2023 , 02/05/2013 HEPATITIS A VACCINES Aged Out 05/20/2019, 10/08/2018 No longer eligible based on patient's age to complete this topic ZOSTER VACCINES Completed 02/12/2020, 09/02/2019, 10/20/2016 PNEUMOCOCCAL VACCINES (50+ years) Completed 05/20/2020, 05/20/2019 HIB VACCINES Aged Out No longer eligi ble based on patient's age to complete this topic MENINGOCOCCAL VACCINES (ACWY) Aged Out No longer eligible based on patient's age to complete this topic MENINGOCOCCAL VACCINES (B) Aged Out N o longer eligible based on patient's age to complete this topic Medical Devices Not on file Insurance [facility] MEDICARE PART A & B [facility] MEDICARE REPLACEMENT [employer] Care Teams Director Of Catering Relationship Specialty Start Date End Date Ezequiel Curtis MD PCP - General Internal Medicine 09/16/24 Additional Source Comments The information contained in this document represents components of the legal health record. It is not the complete legal health record.[facility]
--- OUTSIDE RECORDS SUMMARY | 2025-04-13 09:51 | XMS_ITS | Encounter Summary ---
Author Organization [facility] Address [address] [address] Phone Care Team Providers Care Tile Burner Name Role Phone Ezequiel Curtis MD Primary Care Provider [phone] Encounter Details Date Type Department Care Team (Late st Contact Info) Description 09/29/2021 Documentation Only [facility] [address] [place] [phone] Ezequiel Curtis MD [address] [place] [address] [phone] Social History Tobacco Use Types Packs/Day Years Used Date Smoking Tobacco: Never Assessed Sex and Gender Information Value Date Recorded Sex Assigned at Not on file Legal Sex Male 1:29 PM EST Gender Identity Not on file Sexual Orientation Not on file documented as of this encounter Plan of Treatment Upcoming Encounters Date Type Department Care Team (Late st Contact Info) Description 09/21/2025 2:00 PM EST Office Visit [facility] [address] [place] [phone] David Barclay MD [address] [place] [address] [place] [phone] documented as of this encounter Visit Diagnoses Not on filedocumented in this encounter Care Teams Tile Burner Relationship Specialty Start Date End Date Ezequiel Curtis MD PCP - General Internal Medicine 09/29/21 documented as of this encounter
[2025-04-13 14:04] LABS: MANUAL DIFF FLAG NO
[2025-04-13 14:15] LABS: Hematocrit 34.3 % (42.0-52.0); Hemoglobin 11.1 g/dl (14.0-18.0); Imm Gran Abs Auto 0.03 X10*3/uL (0.00-0.03); Imm Gran Pct Auto 0.3 % (0.0-0.4); Lymphocytes Absolute Auto 1.6 X10*3/uL (1.2-4.9); Mean Corpuscular HGB Conc 32.4 g/dl (31.0-36.0); Mean Corpuscular Hemoglobin 29.9 pg (27.0-33.0); Mean Corpuscular Volume 92.5 fL (80.0-98.0); NRBC Abs Auto 0.000 X10*3/uL (0.0-0.012); NRBC Pct Auto 0.0 /100WBC (0.0-0.2); Platelet Count 223 X10*3/uL (160-400); Red Blood Count 3.71 X10*6/uL (4.60-5.80); White Blood Count 8.6 X10*3/uL (4.8-10.8)
[2025-04-13 14:24] LABS: Appearance Urine Clear; Glucose Urine UA Negative (Negative); PH 6.0 (5.0-9.0); Specific Gravity - Urine 1.015 (1.005-1.025); UMIC TRIGGER UA YES
[2025-04-13 14:29] LABS: Alanine Aminotransferase 26 U/L (0-40); Albumin Level 4.2 g/dL (3.5-5.0); Alkaline Phosphatase 67 U/L (39-117); Anion Gap 14 (12-20); Aspartate Amino Transferase 25 U/L (5-37); Blood Urea Nitrogen 37 mg/dL (9-16); Calcium 9.3 mg/dL (8.4-10.2); Carbon Dioxide 27 mmol/L (22-29); Chloride 109 mmol/L (96-108); Cholesterol 147 mg/dL (<200); Estimated Glomerular Filt Rate 35; HDL Cholesterol 41 mg/dL (>40); Potassium 5.5 mmol/L (3.3-5.1); Sodium 144 mmol/L (135-145); Total Protein 6.9 g/dL (6.5-8.0); Triglycerides 91 mg/dL (<150)
== END 2025-04-13 09:22 | disposition home or self-care (01) ==
LOC: HO.CHCLDS 09:21
PROVIDERS: Visit Provider Internal Medicine
DX: E11.22 Type 2 diabetes mellitus with diabetic chronic kidney disease (principal); N18.31 Chronic kidney disease, stage 3a; E78.2 Mixed hyperlipidemia; R35.1 Nocturia
CPT/HCPCS: 36415; 80053; 80061; 81001; 85025

== ENCOUNTER 2025-05-14 11:25 | Outpatient (REF) | payer OTHER, SELFPAY ==
--- OUTSIDE RECORDS SUMMARY | 2025-05-14 10:45 | XMS_ITS | Encounter Summary ---
Author Organization [facility] Address [address] [place] [address] [place] [address] Care Team Providers Care Electrostatic Paint Operator Name Role Phone Ezequiel Curtis MD Primary Care Provider [phone] Reason for Referral * Medications - Closed Specialty Diagnoses / Procedures Referred By Contac t Referred To Contact Diagnoses Chronic midline low back pain without sciatica Compression fracture of L1 vertebra, initial encounter ([facility]) Ezequiel Curtis MD [address] [place] [address] Phone: tel: fax: Referral ID Status Reason Start Date Expiration Date Visits Re quested Visits Authorized [id number] Closed 1 1 * Imaging (Routine) - Closed Specialty Diagnoses / Procedures Referred By Contac t Referred To Contact Radiology Diagnoses Chronic midline low back pain without sciatica Compression fracture of L1 vertebra, initial encounter ([facility]) Procedures XR bone density w SPECT lumbar Ezequiel Curtis MD [address] [place] [address] Phone: tel: fax: [facility] Referral ID Status Reason Start Date Expiration Date Visits Re quested Visits Authorized [id number] Closed 05/14/2025 05/14/2026 1 1 Reason for Visit * Reason Comments Extended office visit Encounter Details Date Type Department Care Team (Late st Contact Info) Description 05/14/2025 10:45 AM EDT Office Visit [facility] [address] [place] [address] Ezequiel Curtis MD [address] [place] [address] Type 2 diabetes mellitus with stage 3a chronic kidney disease, without long-term current use of insulin (CMS/HCC) (Primary Dx); Hyperkalemia; Stage 3b chronic kidney disease (CMS/HCC); Chronic midline low back pain without sciatica; Compression fracture of L1 vertebra, initial encounter (CMS/HCC); Essential hypertension Social History Tobacco Use Types Packs/Day [...] Sign Reading Time Taken Comments Blood Pressure 139/69 05/14/2025 10:41 AM EDT Pulse 79 05/14/2025 10:41 AM EDT Temperature 36.8 C (98.2 F) 05/14/2025 10:41 AM EDT Respiratory Rate 20 05/14/2025 10:41 AM EDT Oxygen Saturation 98% 05/14/2025 10:41 AM EDT Inhaled Oxygen Concentration - - Weight 101 kg (222 lb) 05/14/2025 10:41 AM EDT Height 164 cm (5' 4.57 ) 05/14/2025 10:41 AM EDT Body Mass Index 37.44 05/14/2025 10:41 AM EDT documented in this encounter Progress Notes * Ezequiel Curtis MD - 05/14/2025 10:45 AM EDT SUBJECTIVE Stoney Alston is a 70 y.o. male who presents for Extended office visit. Abdominal Pain Associated symptoms include arthralgias. Patient with multiple medical ailments including diabetes, chronic kidney disease, hypertension, recurrent hyperkalemia, hypogonadism, nocturia, obesity, benign prostatic hyperplasia, anxiety disorder, anemia of chronic disease is here for an extended office visit. He is complaining today of chronic low back pain that is exacerbated by bending forward, walking, and movements in general. X-ray of the lumbar spine showed degenerative changes with chronic appearing L1 and L3 compression deformities. Patient reports he is very limited in his activities of daily living because of the back pain and he feels he would greatly benefit from getting help from a CHICKEN HANGER athome. Problem List[1] Allergies[2] Medications Ordered Prior to Encounter[3] Review of Systems Constitutional: Negative for appetite change, chills, diaphoresis and fatigue. Respiratory: Negative for cough, choking and shortness of breath. Gastrointestinal: Negative for abdominal pain. Musculoskeletal: Positive for arthralgias and back pain. Psychiatric/Behavioral: Negative for confusion, decreased concentration, dysphoric mood and hallucinations. OBJECTIVE Vitals: 05/14/25 1041 BP: 139/69 BP Location: Left arm Patient Position: Sitting BP Cuff Size: Adult long Pulse: 79 Resp: 20 Temp: 98.2 ??F (36.8 ??C) TempSrc: Oral SpO2: 98% Weight: 222 lb (101 kg) Height: 5' 4.57 (1.64 m) Physical Exam Constitutional: General: He is not in acute distress. Appearance: Normal appearance. He is obese. He is not ill-appearing, toxic- appearing or diaphoretic. Cardiovascular: Rate and Rhythm: Normal rate. Heart sounds: No murmur heard. No friction rub. No gallop. Pulmonary: Effort: Pulmonary effort is normal. Abdominal: General: There is no distension. Palpations: Abdomen is soft. There is no mass. Musculoskeletal: Cervical back: Normal range of motion. Thoracic back: Tenderness present. Decreased range of motion. Neurological: Mental Status: He is alert. Assessment/Plan Assessment/Plan Diagnoses and all orders for this visit: Type 2 diabetes mellitus with stage 3a chronic kidney disease, without long-term current use of insulin (CMS/[facility]) Comments: Stable Continue with the low-carb diet and the same medication for now. Orders: - POCT Glucose - T-SPOT??.TB; Future Hyperkalemia Comments: Low potassium diet Repeat BMP Patient will be contacted with results. Orders: - Basic Metabolic Panel; Future Stage 3b chronic kidney disease (CMS/HCC) Comments: Follow-up with nephrology. Blood pressure is at goal. Chronic midline low back pain without sciatica Comments: Given patient's history of chronic low back pain and his reported limitations he would greatly benefit from getting a CHICKEN HANGER at home to assist him Orders: - XR bone density w SPECT lumbar; Future - lidocaine (Lidoderm) 5 % patch; Apply 1 patch topically Once per day. Remove & discard patch within 12 hours or as directed by MD. Compression fracture of L1 vertebra, initial encounter ([facility]) - XR bone density w SPECT lumbar; Future - lidocaine (Lidoderm) 5 % patch; Apply 1 patch topically Once per day. Remove & discard patch within 12 hours or as directed by MD. Essential hypertension Comments: Blood pressure is controlled No new medication to add today Patient is to continue with the DASH diet. [1] Patient Active Problem List Diagnosis Acute cough COVID Anemia Anxiety Benign prostatic hyperplasia Bilateral leg edema Chronic kidney disease Diabetes mellitus ([facility]) Essential hypertension Herpes simplex type 2 infection Hyperkalemia Hyperlipidemia Hypogonadism male Incomplete emptying of bladder Nocturia Obesity Proteinuria Urethra disorder Depression Compression deformity of vertebra [2] No Known Allergies [3] Current Outpatient Medications on File Prior to Visit Medication Sig Dispense Refill Acetaminophen Extra Strength 500 MG tablet TAKE ONE TABLET EVERY 6 HOURS NEEDED FOR PAIN 90 tablet 3 albuterol (Ventolin HFA) 108 (90 Base) MCG/ACT inhaler Inhale 2 puffs every 6 (six) hours if neededfor wheezing. 54 g 0 amLODIPine (Norvasc) 5 MG tablet TAKE ONE TABLET BY MOUTH EVERY MORNING 90 tablet 1 Aspirin Adult Low Strength 81 MG EC tablet TAKE ONE TABLET BY MOUTH EVERY DAY 90 tablet 3 atorvastatin (Lipitor) 40 MG tablet TAKE ONE TABLET EVERY MORNING 90 tablet 1 Blood Glucose Monitoring Suppl (FreeStyle glucose monitoring) kit To use 2 times daily 1 each 0 dextran 70-hypromellose (artificial tears) 0.1-0.3 % ophthalmic solution Administer 1 drop into affected eye(s) every 6 (six) hours. 15 mL 3 Diclofenac Sodium 1 % gel APPLY 2 [...] (Glucotrol) 5 MG tablet TAKE ONE TABLET BY MOUTH EVERY DAY BEFORE A MEAL 90 tablet [...] MG 24 hr tablet TAKE ONE TABLET BY MOUTH EVERY DAY 90 tablet3 mupirocin (Bactroban) 2 % ointment APPLY TO [...] g 0 terazosin (Hytrin) 10 MG capsule TOME 1 CAPSULA POR VIA ORAL [place] AL ACOSTARSE 90 capsule1 TRUEplus Lancets 33G misc TEST BLOOD SUGAR TWICE DAILY 100 each 11 No current facility-administered medications on file prior to visit. documented in this encounter Plan of Treatment Scheduled Orders Name Type Priority Associated Diagnoses Orde r Schedule POCT Glucose Point of Care Testing Routine Type 2 diabetes mellitus with stage 3a chronic kidney disease, without long-term current use of insulin ([facility]) Ordered: 05/14/2025 T-SPOT .TB Lab Routine Type 2 diabetes mellitus with stage 3a chronic kidney disease, without long-term current use of insulin ([facility]) Expected: 05/14/2025 (Approximate), Expires: 05/14/2026 Basic Metabolic Panel Lab Routine Hyperkalemia Expected: 05/14/2025 (Approximate), Expires: 05/14/2026 XR bone density w SPECT lumbar Imaging Routine Chronic midline low back pain without sciatica Compression fracture of L1 vertebra, initial encounter ([facility]) Expected: 05/14/2025, Expires: 05/14/2026 documented as of this encounter Visit Diagnoses Diagnosis Type 2 diabetes mellitus with stage 3a chronic kidney disease, without long-term current use of insulin ([facility])- Primary Hyperkalemia Hyperpotassemia Stage 3b chronic kidney disease ([facility]) Chronic midline low back pain without sciatica Compression fracture of L1 vertebra, initial encounter ([facility]) Essential hypertension Unspecified essential hypertension documented in this encounter Additional Health Concerns Assessment Noted Time PHQ-9 Depression Total Score: 3 10/30/19 25 9:33 AM EST documented as of this encounter Care Teams Electrostatic Paint Operator Relationship Specialty Start Date End Date Ezequiel Curtis MD [address] [place] [id number] PCP - General Internal Medicine 09/05/21 documented as of this encounter
--- OUTSIDE RECORDS SUMMARY | 2025-05-14 13:48 | XMS_ITS | Encounter Summary ---
Author Organization [facility] Address [address] [facility] [address] [place] [address] Care Team Providers Care Ups Driver Name Role Phone Joyce Aguilar MD Primary Care Provider Reason for Visit * Reason Comments Med Refill Encounter Details Date Type Department Care Team (Late st Contact Info) Description 08/26/2022 Refill [facility] [address] [place] [phone] Lesley Yao NP [address] [place] [address] Hypertensive heart disease without heart failure Social History Tobacco Use Types Packs/Day Years Used Date Smoking Tobacco: Never Assessed Sex and Gender Information Value Date Recorded Sex Assigned at Not on file Legal Sex Male 12:28 AM EST Gender Identity Not on file Sexual Orientation Not on file documented as of this encounter Miscellaneous Notes * Telephone Encounter - Sandra Michelle LPN - 08/29/2022 9:38 AM EST [facility] CALL OFFICE TO BOOK A FOLLOW UP documented in this encounter Plan of Treatment Not on file documented as of this encounter Visit Diagnoses Diagnosis Hypertensive heart disease without heart failure Unspecified hypertensive heart disease without heart failure documented in this encounter Care Teams Ups Driver Relationship Specialty Start Date End Date Joyce Aguilar MD [address] [place] [address] PCP - General 09/30/21 documented as of this encounter
--- OUTSIDE RECORDS SUMMARY | 2025-05-14 13:48 | XMS_ITS | Encounter Summary ---
Author Organization [employer] Address 75 [facility] 7 [place] [address] Care Team Providers Care Primer Inspector Name Role Phone Ezequiel Curtis MD Primary Care Provider [phone] Reason for Visit * Reason Comments Med Refill Encounter Details Date Type Department Care Team ([facility] st Contact Info) Description 05/10/2023 Refill [facility] CHC MED & PEDS [address] [place] [address] Natalie Urena MD [address] [place] [address] Social History Tobacco Use Types Packs/Day Years [...] as of this encounter Plan of Treatment Not on file documented as of this encounter Visit Diagnoses Not on filedocumented in this encounter Additional Health Concerns Assessment Noted Time PHQ-9 Depression Total Score: 5 09/18/19 23 2:31 PM EST documented as of this encounter Care Teams Primer Inspector Relationship Specialty Start Date End Date Ezequiel Curtis MD [address] [place] [address] PCP - General Internal Medicine 09/05/21 documented as of this encounter
--- OUTSIDE RECORDS SUMMARY | 2025-05-14 13:48 | XMS_ITS | Encounter Summary ---
Author Organization [employer] Address 75 [facility] 7t [place] [address] Care Team Providers Care Sheep And Wheat Farmer Name Role Phone Ezequiel Curtis MD Primary Care Provider [phone] Encounter Details Date Type Department Care Team ([facility] st Contact Info) Description 03/26/2024 Orders Only [facility] CHC MED & PEDS [address] [place], [place] [phone] Ezequiel Curtis MD [address] [place] [address] Hyperkalemia (Primary Dx) Social History Tobacco Use [...] on file documented as of this encounter Procedures Procedure Name Priority Date/Time Associated Diagnosis Comments BASIC METABOLIC PANEL Routine 04/07/2024 9:40 AM EDT Hyperkalemia documented in this encounter Results * (ABNORMAL) Basic Metabolic Panel (04/07/2024 9:40 AM EDT) Sodium 139 135 - 145 mmol/L [facility] Potassium 4.8 3.3 - 5.1 mmol/L [facility] Chloride 106 96 - 108 mmol/L [facility] Carbon Dioxide 25 22 - 29 mmol/L [facility] Anion Gap 13 12 - 20 [facility] Urea Nitrogen (BUN) 40(H) 9 - 16 mg/dL [facility] Creatinine, Serum 2.13(H) 0.5 - 1.4 mg/dL [facility] Estimated Glomerular Filt Rate 31 [facility] Comment:NOTE: For -Am erican individuals, multiply the result by 1.210.Chronic Kidney Disease: Estimated GFR < 60 mL/min/1.07m7Srapys Kidney Disease: Estimated GFR < 15 mL/min/1.73m2 Glucose 170(H) 60 - 115 mg/dL [facility] Calcium 9.3 8.4 - 10.2 mg/dL [facility] Blood Venous blood specimen / Unknown 04/07/2024 9:40 AM EDT 04/07/2024 1:54 PM EDT Ezequiel Curtis MD LAB BLOOD ORDERABLES Final Result [facility] [address] [place] [address] [phone] documented in this encounter Visit Diagnoses Diagnosis Hyperkalemia- Primary Hyperpotassemia documented in this encounter Additional Health Concerns Assessment Noted Time PHQ-9 Depression Total Score: 5 09/18/19 23 2:31 PM EST documented as of this encounter Care Teams Sheep And Wheat Farmer Relationship Specialty Start Date End Date Ezequiel Curtis MD [address] [place] [address] PCP - General Internal Medicine 09/05/21 documented as of this encounter
--- OUTSIDE RECORDS SUMMARY | 2025-05-14 13:48 | XMS_ITS | Encounter Summary ---
Author Organization [facility] Address [address] [address] Phone Care Team Providers Care Field Return Repairer Name Role Phone Ezequiel Curtis MD Primary Care Provider [phone] Encounter Details Date Type Department Care Team (Late st Contact Info) Description 09/29/2021 Documentation Only [facility] [address] [place] [phone] Ezequiel Curtis MD [address] [place] [address] [phone] Social History Tobacco Use Types Packs/Day Years [...] Visit [facility] [address] [place] [phone] David Barclay MD [address] [place] [address] [place] [phone] documented as of this encounter Visit Diagnoses Not on filedocumented in this encounter Care Teams Field Return Repairer Relationship Specialty Start Date End Date Ezequiel Curtis MD PCP - General Internal Medicine 09/29/21 documented as of this encounter
--- OUTSIDE RECORDS SUMMARY | 2025-05-14 13:48 | XMS_ITS | Encounter Summary ---
Author Organization [employer] Address [address] [place] [address] Care Team Providers Care Mohel Name Role Phone Ezequiel Curtis MD Primary Care Provider [phone] Reason for Visit * Reason Onset Date Comments Chart Prep 05/13/2025 Encounter Details Date Type Department Care Team ([facility] st Contact Info) Description 05/13/2025 Telephone [facility] CHC MED & PEDS [address] [place], [place] [phone] Ezequiel Curtis MD 505 [place] [address] Chart Prep Social History Tobacco Use Types Packs/Day Years [...] with others, in a hotel, in a alf, living outside on the street, on a [...] encounter Miscellaneous Notes * Telephone Encounter - Nancy Junior [place] - 05/13/2025 2:52 PM EDT Chart Prep Labs: not done Images: done Referrals: complete Vaccines due: due Screenings: eye exam and foot exam Overdue care gaps: Glucose documented in this encounter Plan of Treatment Not on file documented as of this encounter Visit Diagnoses Not on filedocumented in this encounter Additional Health Concerns Assessment Noted Time PHQ-9 Depression Total Score: 3 10/30/19 25 9:33 AM EST documented as of this encounter Care Teams Mohel Relationship Specialty Start Date End Date Ezequiel Curtis MD [address] [place] [address] PCP - General Internal Medicine 09/05/21 documented as of this encounter
--- OUTSIDE RECORDS SUMMARY | 2025-05-14 13:48 | XMS_ITS | Clinical Summary ---
Author Organization [facility] Address [address] [place] [address] Care Team Providers Care Marshmallow Runner Name Role Phone Shalom Lobato MD Primary Care Provider [phone] Allergies No known active allergies Medications losartan [...] glucose diagnostic (FREESTYLE FREEDOM LITE) meter FreeStyle [place] Lite w/Device Kit USE DAILY NEEDED TO [...] C, ORAL Take by mouth. Active omega 6-wva-tak-fish oil (Fish Oil) 100-160-1,000 mg capsule Fish [...] gets his lab tests done at the [facility]. I will submit an order for labs and have them sent to the [facility] in [place]. Once those results return, I will call [...] on the most recent labs obtained through [facility]. Unfortunately do not have access to these labs. If additional blood work is obtained through the [facility] system, I would request that the results be faxed to my office at [phone]. Ongoing optimization of glycemic and blood pressure [...] 01/31/2021, 02/23/2020 Hemoglobin A1C 03/18/2023 09/18/2022, 02/08/2021 Alcohol/Substance Use Screening 08/27/2024 Depression Screening and Follow-Up 08/27/2024 Health Care Proxy Review 08/27/2024 Social Drivers of Health Annual Screening 08/27/2024 COVID-19 Vaccine (3 - season) 2025 11/11/2020, 10/14/2020 Influenza Vaccine (#1) 2025 09/02/2019 RSV Vaccine (60+ years old and patients) (1 - 1-dose 75+ series) 2029 Zoster Vaccines Completed 02/12/2020, 09/02/2019 Hepatitis B Vaccines Aged Out No long er eligible based on patient's age to complete this topic Procedures * Due to [place] [employer] law, this organization might not be sharing negative HIV tests. Procedure Name Priority Date/Time Associated Diagnosis Comments MICROALBUMIN, RANDOM URINE WITH CREATININE Routine 12/31/2020 11:40 AM EDT Stage 3b chronic kidney disease RENAL FUNCTION PANEL Routine 12/31/2020 11:40 AM EDT Stage 3b chronic kidney disease from Last 3 Months or Most Recently Relevant to Health Maintenance Results * Due to [place] [employer] law, this organization might not be sharing negative HIV tests. * (ABNORMAL) Microalbumin, Random Urine with Creatinine (12/31/2020 11:40 AM EDT) Microalbumin, Urine 68.5 mg/dL 12/31/2020 12:34 PM EDT [facility] Creatinine, Urine 64 22 - 328 mg/dL 12/31/2020 12:34 PM EDT [facility] Microalb/Creat Ratio, Random Urine 1,070.3(H ) <30.0 mcg/mgCr 12/31/2020 12:34 PM EDT [facility] Comment: Microalbumin Reference Range: Normal <30 mcg/mg Creatinine Microalbuminuria 30-300 mcg/mg Creatinine Clinical Albuminuria >300 mcg/mg Creatinine Reference: ADA Guideline. Diabetes Care. 2004;27 (suppl 1) Urine Voided urine specimen / Unknown Non-Blood Collection / Unknown 12/31/2020 11:40 AM EDT 12/31/2020 11:52 AM EDT us Karsten Moe MD LAB URINE ORDERABLES Final R esult [facility] [address] [place] [address], * (ABNORMAL) Renal Function Panel (12/31/2020 11:40 AM EDT) NA 141 135 - 145 mmol/L 12/31/2020 12:27 PM EDT [facility] K 4.9 3.5 - 5.3 mmol/L 12/31/2020 12:27 PM EDT [facility] Cl 108 97 - 110 mmol/L 12/31/2020 12:27 PM EDT [facility] CO2 27 24 - 32 mmol/L 12/31/2020 12:27 PM EDT [facility] Anion Gap 6 5 - 15 12/31/2020 12:27 PM EDT [facility] Glucose 182(H) 70 - 99 mg/dL 12/31/2020 12:27 PM EDT [facility] BUN 35(H) 7 - 23 mg/dL 12/31/2020 12:27 PM EDT [facility] Creatinine 2.01(H) 0.60 - 1.30 mg/dL 12/31/2020 12:27 PM EDT [facility] eGFR Non- 34(L) >=90 mL/min/BS A 12/31/2020 12:27 PM EDT [facility] eGFR 39(L) >=90 mL/min/BS A 12/31/2020 12:27 PM EDT [facility] Comment: Units = mL/min/1.73 m2 Glomerular Filtration Rate (GFR) is estimated based on the CKD-EPI Creatinine Equation (2009). Stage Description GFR 1 Normal >=90 mL/min/BSA 2 Mildly decreased GFR 60-89 mL/min/BSA 3 Moderately decreased GFR 30-59 mL/min/BSA 4 Severely decreased GFR 15-29 mL/min/BSA 5 Kidney Failure <15 mL/min/BSA Calcium 8.9 8.7 - 10.7 mg/dL 12/31/2020 12:27 PM EDT [facility] Phosphorus 2.9 2.5 - 4.5 mg/dL 12/31/2020 12:27 PM EDT [facility] Albumin 3.9 3.5 - 4.8 g/dL 12/31/2020 12:27 PM EDT [facility] Blood Structure of peripheral vein / Unknown Venipuncture / Unknown 12/31/2020 11:40 AM EDT 12/31/2020 11:58 AM EDT us Karsten Moe MD LAB BLOOD ORDERABLES Final [email or web address] [address] [place] [address], from Last 3 Months or Most Recently Relevant to Health Maintenance Insurance [facility] Care Teams Marshmallow Runner Relationship Specialty Start Date End Date Shalom Lobato MD [address] [place] [phone] PCP - General Family Medicine 03/01/20
--- OUTSIDE RECORDS SUMMARY | 2025-05-14 13:48 | XMS_ITS | Encounter Summary ---
Author Organization [facility] Address 800 [facility] [address] [place] [address] Care Team Providers Care Junior Copywriter Name Role Phone Joyce Aguilar MD Primary Care Provider Reason for Visit * Reason Comments Med Refill Encounter Details Date Type Department Care Team (Late st Contact Info) Description 08/10/2022 [facility]ill [facility] [address] [address] Erlin Mccauley MD [address] [facility] [address] [place] [address] Mixed hyperlipidemia Social History Tobacco Use Types [...] Diagnosis Mixed hyperlipidemia documented in this encounter Care Teams Junior Copywriter Relationship Specialty Start Date End Date Joyce Aguilar MD [address] [place] [address] PCP - General 09/30/21 documented as of this encounter
--- OUTSIDE RECORDS SUMMARY | 2025-05-14 13:48 | XMS_ITS | Clinical Summary ---
Author Organization [facility] Address 399 [facility] [address] [place] [address] Phone Care Team Providers Care Proof Coins Inspector Name Role Phone Ezequiel Curtis MD [...] Upcoming Encounters Date Type Department Care Team ([facility] st Contact Info) Description 09/22/2025 9:45 AM EST Office Visit [facility] [place] [address] [facility] [address] [place] [address] Sam Bowden, OD [address] [place] [address] [email or web address] Health Maintenance Due Date Last Done Comments BLOOD PRESSURE 1954 CREATININE LEVEL 1954 POTASSIUM LEVEL 1954 DEPRESSION SCREENING 1966 SMOKING Hx and SMOKELESS TOBACCO SCREENING 1967 HEPATITIS C SCREENING 1972 COLOGUARD 1999 COLONOSCOPY 1999 COLORECTAL CANCER SCREENING 1999 FIT TEST 1999 FOBT 1999 SIGMOIDOSCOPY 1999 VIRTUAL COLONOSCOPY 1999 ABDOMINAL AORTIC ANEURYSM (AAA) SCREENING 2019 INFLUENZA VACCINE (#1) 2025 , 05/20/2020, 09/02/2019, Additional history exists COVID-19 VACCINE ( season) 2025 10/29/2021, 11/11/2020, 10/14/2020 LIPID PANEL 03/25/2029 03/25/2024 RSV VACCINE (1 - 1-dose 75+ series) 2029 Adult Td,Tdap Booster 12/24/2033 12/25/2023, 013 HEPATITIS A VACCINES Aged Out 05/20/2019, 10/08/19 19 No longer eligible based on patient's age to complete this topic ZOSTER VACCINES Completed 02/12/2020, 02/2020, 10/20/2016 PNEUMOCOCCAL VACCINES (50+ years) Completed 05/20/2020, 05/20/2019 HIB VACCINES Aged Out No longer eligi ble based on patient's age to complete this topic MENINGOCOCCAL VACCINES (ACWY) Aged Out No longer eligible based on patient's age to complete this topic MENINGOCOCCAL VACCINES (B) Aged Out N o longer eligible based on patient's age to complete this topic Medical Devices Not on file Insurance [facility] MEDICARE PART A & B [facility] MEDICARE REPLACEMENT [employer] Care Teams Proof Coins Inspector Relationship Specialty Start Date End Date Ezequiel Curtis MD PCP - General Internal Medicine 09/16/24 Additional Source Comments The information contained in this document represents components of the legal health record. It is not the complete legal health record.[facility]
--- OUTSIDE RECORDS SUMMARY | 2025-05-14 13:48 | XMS_ITS | Encounter Summary ---
Author Organization [employer] Address 75 [facility] 7t [place] [address] Care Team Providers Care Drainlayer Name Role Phone Ezequiel Curtis MD Primary Care Provider [phone] Encounter Details Date Type Department Care Team ([facility] st Contact Info) Description 12/25/2023 Orders Only [facility] CHC MED & PEDS [address] [place], [place] [phone] ProviderPamela MD Social History Tobacco Use Types [...] documented as of this encounter Care Teams Drainlayer Relationship Specialty Start Date End Date Ezequiel Curtis MD [address] [place] [address] PCP - General Internal Medicine 09/05/21 documented as of this encounter
--- OUTSIDE RECORDS SUMMARY | 2025-05-14 13:48 | XMS_ITS | Encounter Summary ---
Author Organization [employer] Address 75 [facility] 7 [place] [address] Care Team Providers Care Legal Biller Name Role Phone Ezequiel Curtis MD Primary Care Provider [phone] Reason for Visit * Reason Comments Med Refill Encounter Details Date Type Department Care Team ([facility] st Contact Info) Description 12/25/2023 Refill [facility] CHC MED & PEDS [address] [place], [place] [phone] Ezequiel Curtis MD [address] [place] [address] Type 2 diabetes mellitus with stage 3a chronic kidney disease, without long-term current use of insulin ([facility]) Social History Tobacco Use Types Packs/Day Years [...] disease, without long-term current use of insulin ([facility]) documented in this encounter Additional Health Concerns Assessment Noted Time PHQ-9 Depression Total Score: 5 09/18/19 23 2:31 PM EST documented as of this encounter Care Teams Legal Biller Relationship Specialty Start Date End Date Ezequiel Curtis MD [address] [place] [address] PCP - General Internal Medicine 09/05/21 documented as of this encounter
--- OUTSIDE RECORDS SUMMARY | 2025-05-14 13:48 | XMS_ITS | Encounter Summary ---
Author Organization [employer] Address 75 [facility] 7t [place] [address] Care Team Providers Care Box Hinge And Lock Attacher Name Role Phone Ezequiel Curtis MD Primary Care Provider [phone] Encounter Details Date Type Department Care Team (Latest Contact Info) Description 05/14/2025 Travel Social History Tobacco Use Types Packs/Day [...] documented as of this encounter Care Teams Box Hinge And Lock Attacher Relationship Specialty Start Date End Date Ezequiel Curtis MD [address] [place] [address] PCP - General Internal Medicine 09/05/21 documented as of this encounter
--- OUTSIDE RECORDS SUMMARY | 2025-05-14 13:48 | XMS_ITS | Encounter Summary ---
Author Organization [employer] Address [address] [place] [address] 7 [place] [address] Care Team Providers Care Commercial Carpenter Name Role Phone Ezequiel Curtis MD Primary Care Provider [phone] Reason for Visit * Reason Onset Date Comments rs 11/24 appt 11/05/2024 Encounter Details Date Type Department Care Team ([facility] st Contact Info) Description 11/05/2024 Telephone [facility] ADULT D[facility]AL [address] [place] [address] Dayne Hernandez [address] [place] [address] rs 11/24 appt Social History Tobacco Use [...] with others, in a hotel, in a residential, living outside on the street, on a [...] documented as of this encounter Care Teams Commercial Carpenter Relationship Specialty Start Date End Date Ezequiel Curtis MD [address] [place] [address] PCP - General Internal Medicine 09/05/21 documented as of this encounter
--- OUTSIDE RECORDS SUMMARY | 2025-05-14 13:48 | XMS_ITS | Encounter Summary ---
Author Organization [employer] Address 75 [facility] 7t [place] [address] Care Team Providers Care Licensed Nuclear Control Room Operator Name Role Phone Ezequiel Curtis MD Primary Care Provider [phone] Encounter Details Date Type Department Care Team ([facility] st Contact Info) Description 01/30/2025 Orders Only [facility] CHC MED & PEDS [address] [place], [place] [phone] ProviderPamela MD Social History Tobacco Use Types [...] with others, in a hotel, in a fdc, living outside on the street, on a [...] Procedure Name Priority Date/Time Associated Diagnosis Comments DIABETES EYE EXAM Routine 01/30/2025 1:24 PM EDT documented in this encounter Results * Hm Diabetes Eye Exam (01/30/2025 1:24 PM EDT) Historical Provider HEALTH MAINTENANCE Final Result documented in this encounter Visit Diagnoses Not on filedocumented in this encounter Additional Health Concerns Assessment Noted Time PHQ-9 Depression Total Score: 3 10/30/19 25 9:33 AM EST documented as of this encounter Care Teams Licensed Nuclear Control Room Operator Relationship Specialty Start Date End Date Ezequiel Curtis MD [address] [place] [address] PCP - General Internal Medicine 09/05/21 documented as of this encounter
--- OUTSIDE RECORDS SUMMARY | 2025-05-14 13:48 | XMS_ITS | Encounter Summary ---
Author Organization [employer] Address [address] [place] [address] 7 [place] [address] Care Team Providers Care Train Examiner Name Role Phone Ezequiel Curtis MD Primary Care Provider [phone] Reason for Visit * Reason Comments Med Refill Encounter Details Date Type Department Care Team ([facility] st Contact Info) Description 03/25/2023 Refill [facility] CHC MED & PEDS [address] [place], [place] [phone] Ezequiel Curtis MD [address] [place] [address] Essential (primary) hypertension Social History Tobacco Use [...] documented as of this encounter Care Teams Train Examiner Relationship Specialty Start Date End Date Ezequiel Curtis MD [address] [place] [address] PCP - General Internal Medicine 09/05/21 documented as of this encounter
--- OUTSIDE RECORDS SUMMARY | 2025-05-14 13:48 | XMS_ITS | Encounter Summary ---
Author Organization [employer] Address [address] [place] [address] 7 [place] [address] Care Team Providers Care Integrity Assessor Name Role Phone Ezequiel Curtis MD Primary Care Provider [phone] Reason for Visit * Reason Onset Date Comments Appointment Request 03/05/2023 Encounter Details Date Type Department Care Team ([facility] st Contact Info) Description 03/05/2023 Telephone [facility] CHC MED & PEDS [address] [place], [place] [phone] Ezequiel Curtis MD [address] [place] [address] Appointment Request Social History Tobacco Use Types [...] diabetes check up. Please contact pt at [phone] (Nicaraguan speaker) documented in this encounter Plan of Treatment Not on file documented as of this encounter Visit Diagnoses Not on filedocumented in this encounter Additional Health Concerns Assessment Noted Time PHQ-9 Depression Total Score: 5 09/18/19 23 2:31 PM EST documented as of this encounter Care Teams Integrity Assessor Relationship Specialty Start Date End Date Ezequiel Curtis MD [address] [place] [address] PCP - General Internal Medicine 09/05/21 documented as of this encounter
--- OUTSIDE RECORDS SUMMARY | 2025-05-14 13:48 | XMS_ITS | Clinical Summary ---
Author Organization [facility] Address [address] [address] Care Team Providers Care Embalmer/Funeral Director Name Role Phone Joyce Aguilar MD [...] of Treatment Not on file Care Teams Embalmer/Funeral Director Relationship Specialty Start Date End Date Joyce Aguilar MD [address] [place] [address] PCP - General 09/30/21
--- OUTSIDE RECORDS SUMMARY | 2025-05-14 13:48 | XMS_ITS | Encounter Summary ---
Author Organization [employer] Address 75 [facility] 7t [place] [address] Care Team Providers Care Foot And Ankle Surgeon Name Role Phone Ezequiel Curtis MD Primary Care Provider [phone] Reason for Visit * Reason Comments Med Refill Encounter Details Date Type Department Care Team ([facility] st Contact Info) Description 09/25/[address] [facility] ADULT DENTAL [address] [place] [address] Errol Reich, DDS [address] [place] [address] Social History Tobacco Use Types Packs/Day Years [...] documented as of this encounter Care Teams Foot And Ankle Surgeon Relationship Specialty Start Date End Date Ezequiel Curtis MD [address] [place] [address] PCP - General Internal Medicine 09/05/21 documented as of this encounter
--- OUTSIDE RECORDS SUMMARY | 2025-05-14 13:49 | XMS_ITS | Encounter Summary ---
Author Organization [employer] Address [address] [place] [address] 7[address] [place] [address] Care Team Providers Care Olericulturist Name Role Phone Ezequiel Curtis MD Primary Care Provider [phone] Reason for Visit * Reason Onset Date Comments Prior Authorization 11/21/2022 Encounter Details Date Type Department Care Team (Late st Contact Info) Description 11/21/2022 Telephone [facility] [address] [place] [address] Errol Reich, DDS [address] [place] [address] Prior Authorization Social History Tobacco Use Types [...] documented as of this encounter Care Teams Olericulturist Relationship Specialty Start Date End Date Ezeuqiel Curtis MD [address] [place] [phone] PCP - General Internal Medicine 09/05/21 documented as of this encounter
--- OUTSIDE RECORDS SUMMARY | 2025-05-14 13:49 | XMS_ITS | Encounter Summary ---
Author Organization [employer] Address [address] [place] [address] 7[address] [place] [address] Care Team Providers Care Bunch Breaker Machine Operator Name Role Phone Ezequiel Curtis MD Primary Care Provider [phone] Encounter Details Date Type Department Care Team ([facility] st Contact Info) Description 08/24/2022 Telephone [facility] [address] [place] [address] Ezequiel Curtis MD [address] [place] [address] Social History Tobacco Use Types Packs/Day Years [...] on filedocumented in this encounter Care Teams Bunch Breaker Machine Operator Relationship Specialty Start Date End Date Ezequiel Curtis MD [address] [place] [address] PCP - General Internal Medicine 09/05/21 documented as of this encounter
--- OUTSIDE RECORDS SUMMARY | 2025-05-14 13:49 | XMS_ITS | Clinical Summary ---
Author Organization [employer] Address [address] [place] [address] 7t [place] [address] Care Team Providers Care Cisco Certified Internetwork Expert Name Role Phone Ezequiel Curtis MD Primary Care Provider [phone] Allergies No known active allergies Medications * This document contains information received from the source organization and may not represent a complete record from that organization. Blood Glucose Monitoring Suppl (FreeStyle glucose monitoring) kitIndications:Ty pe 2 diabetes mellitus with stage 3a chronic kidney disease, without long-term current use of insulin (CMS/[facility]) To use 2 times daily 1 each [...] without long-term current use of insulin (CMS/HCC) 100 each by Other route 2 times daily. 100 each 11 04/05/20 23 Active TRUEplus Lancets 33G misc [...] times daily. 30 g 02/05/20 24 Active mupirocin (Bactroban) 2 % ointmentIndicatio ns:Wound of left foot APPLY TO THE AFFECTED AREA(S) THREE TIMES DAILY FOR 10 DAYS 22 g 3 05/14/20 24 Active Acetaminophen Extra Strength 500 MG tabletIndications :Chronic low back pain without sciatica, unspecified back pain laterality,Chroni c left shoulder pain TAKE ONE TABLET EVERY 6 HOURS NEEDED FOR PAIN 90 tablet 3 07/22/20 24 Active losartan (Cozaar) 50 MG tabletIndications [...] wheezing. 54 g 09/22/19 25 2025 Active amLODIPine (Norvasc) 5 MG tabletIndications :Essential (primary) hypertension TAKE ONE TABLET BY MOUTH EVERY MORNING 90 tablet 1 11/21/19 25 Active pioglitazone (Actos) 45 MG tablet TAKE ONE TABLET EVERY DAY 90 tablet 1 12/02/19 25 Active atorvastatin (Lipitor) 40 MG tabletIndications :Mixed hyperlipidemia TAKE ONE TABLET EVERY MORNING 90 tablet 1 12/02/19 25 Active terazosin (Hytrin) 10 MG capsuleIndication s:Nocturia TOME 1 CAPSULA POR VIA ORAL TODOS [place] AL ACOSTARSE 90 capsule 1 12/03/19 25 Active glipiZIDE (Glucotrol) 5 MG tabletIndications :Type 2 diabetes mellitus with stage 3a chronic kidney disease, without long-term current use of insulin ([facility]) TAKE ONE TABLET BY MOUTH EVERY DAY BEFORE A MEAL 90 tablet 1 12/12/19 25 Active Diclofenac Sodium 1 % gelIndications:Ch ronic left shoulder pain APPLY 2 GRAM'S TO AFFECTED AREA(s) THREE TIMES DAILY NEEDED 100 g 3 01/13/20 25 Active polyvinyl alcohol (Liquifilm Tears) 1.4 % ophthalmic solution PLACE ONE DROP IN EACH EYE EVERY 6 HOURS 15 mL 3 01/15/20 25 Active SITagliptin (Januvia) 100 MG tabletIndications :Type 2 diabetes mellitus with other diabetic kidney complication, without long-term current use of insulin ([facility]) TAKE ONE TABLET EVERY MORNING 90 tablet 3 01/29/20 25 Active metoprolol succinate XL (Toprol-XL) 25 MG 24 hr tabletIndications :Essential hypertension TAKE ONE TABLET BY MOUTH EVERY DAY 90 tablet 3 03/24/20 25 Active Aspirin Adult Low Strength 81 MG EC tablet TAKE ONE TABLET BY MOUTH EVERY DAY 90 tablet 3 04/01/20 25 Active loratadine (Claritin) 10 MG tabletIndications :H/O skin pruritus TAKE ONE TABLET EVERY MORNING 90 tablet 04/29/20 25 Active lidocaine (Lidoderm) 5 % patchIndications: Chronic midline low back pain without sciatica,Compress ion fracture of L1 vertebra, initial encounter ([facility]) Apply 1 patch topically Once per day. Remove & discard patch within 12 hours or as directed by MD. 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 Date Type Department Care Team Description 05/14/2025 10:45 AM EDT Office Visit [facility] [address] [place] [address] Ezequiel Curtis MD Type 2 diabetes mellitus with stage 3a chronic kidney disease, without long-term current use of insulin ([facility]) (Primary Dx); Hyperkalemia; Stage 3b chronic kidney disease ([facility]); Chronic midline low back pain without sciatica; Compression fracture of L1 vertebra, initial encounter ([facility]); Essential hypertension 05/14/2025 Travel 05/13/2025 Telephone [facility] [address] [place] [address] Ezequiel Curtis MD Chart Prep 05/07/[address] [facility] [address] [place] [address] Ezequiel Curtis MD Pre-visit Planning (SDOH screening completed on 10/22/24) 04/28/2025 Refill [facility] [address] [place] [address] Ezequiel Curtis MD H/O skin pruritus 04/20/2025 Telephone [facility] [address] [place] [address] Ezequiel Curtis MD Durable Medical Equipment 04/17/2025 Results Follow-Up [facility] [address] [place] [address] Fang Castellanos, BILL XR Lumbar Spine Complete 4+ Views 04/14/2025 Orders Only [facility] [address] [place] [address] Ezequiel Curtis MD Essential hypertension (Primary Dx); Hyperkalemia; Compression deformity of vertebra 04/13/2025 9:00 AM EDT Office Visit [facility] [address] [place] [address] Ezequiel Curtis MD Type 2 diabetes mellitus with stage 3a chronic kidney disease, without long-term current use of insulin ([facility]) (Primary Dx); Essential hypertension; Benign prostatic hyperplasia, unspecified whether lower urinary tract symptoms present; Stage 3b chronic kidney disease ([facility]); Chronic midline low back pain without sciatica; Other depression 04/13/2025 Telephone [facility] [address] [place] [address] Ezequiel Curtis MD Results; Lab Orders 04/13/[address] [facility] [address] [place] [address] Ezequiel Curtis MD 04/13/2025 Travel 04/10/2025 Telephone [facility] [address] [place] [address] Ezequiel Curtis MD chart prep 04/02/2025 Telephone [facility] [address] [place] [address] Ezequiel Curtis MD 03/31/2025 Refill [facility] [address] [place] [address] Ezequiel Curtis MD 03/24/2025 Refill [facility] [address] [place] [address] Ezequiel Curtis MD Essential hypertension 03/14/2025 Refill [facility] [address] [place] [address] Bridgette Pearson MD from Last 3 Months Immunizations Immunization Administration Dates Next Due Hep A, Adult 05/20/2019 Hep B, Unspecified 05/20/2019,01/07/2019 Hep B, adult 09/02/2019 Influenza High-dose Quadriva lent Preservative Free 06/12/2022 Influenza Quadrivalent Adjuvanted 06/16/2021 Influenza, IIV3, injectable 05/22/2024, 3 Moderna Covid-19 Vaccine 12+ 11/11/2020,10/14/19 21 Pfizer [...] with others, in a hotel, in a half-way, living outside on the street, on a [...] Mass Index 37.44 05/14/2025 10:41 AM EDT Plan of Treatment Health Maintenance Due Date Last Done Comments CT Colonography 1954 FIT DNA/Cologuard 1954 FIT 1954 FOBT 1954 Sigmoidoscopy 1954 RSV Patients and Patients Aged 60 years or older (1 - Risk 60-74 years 1-dose series) 2014 Zoster Vaccines (2 of 3) 04/08/2020 020, 09/02/2019, 10/20/2016 Dental Oral Exam 04/23/2024 10/23/2023, 12/2022, 09/18/2022 Dental Prophylaxis 11/18/2024 05/20/2024, 10/23/2023 Eye Exam 03/20/2025 01/30/2025, 08/28, 08/06/2023, Additional history exists COVID-19 Vaccine ( season) 2025 06/25/2024, 11/11/2020, 10/14/2020 Influenza Vaccine (#1) 2025 , 04/23/2023, 06/12/2022, Additional history exists Dental X-Ray: Full Mouth 09/19/2025 09/18/2022, 08/28 Diabetes: Hemoglobin A1C 10/14/2025 025, 10/29/2024, 03/25/2024, Additional history exists SDOH Screening 10/22/2025 10/22/2024 Alcohol/Substance Use Screening 10/29/2025 10/29/2024 Depression Screening 10/29/2025 10/29/2024, 10/30/19 Dental X-Ray: Bitewings 12/09/2025 12/09/19 25, 09/18/2024, 12/04/2023, Additional history exists Lipid Panel 04/13/2026 04/13/2025, 02/26, 08/15/2023, Additional history exists Diabetes: Foot Exam 05/14/2026 05/14/2025, 03/25/2024, 03/25/2024, Additional history exists Tobacco Screening 05/14/2026 05/14/2025 Colonoscopy 09/27/2032 09/27/2022 Colorectal Cancer Screening 09/27/2032 DTaP/Tdap/Td Vaccines (3 - Td or Tdap) 12/24/2033 12/25/2023, 02/05/2013 Hepatitis A Vaccines Aged Out 05/20/2019 No long er eligible based on patient's age to complete this topic Hepatitis B Vaccines Completed 09/02/2019, 05/20/2019, 01/07/2019 Pneumococcal Vaccine: 50+ Years Completed 05/20/2020, 05/20/2019, 02/05/2013 Hepatitis C Screening Completed 03/25/2024 RSV under 20 months Aged Out 06/25/2024 [...] patient's age to complete this topic Meningococcal B Vaccine Aged Out No l onger eligible based on patient's age to complete this topic Meningococcal Vaccine Aged Out No diana aron eligible based on patient's age to complete this topic Rotavirus Vaccines Aged Out No longer eligible based on patient's age to complete this topic Procedures Procedure Name Priority Date/Time Associated Diagnosis Comments POCT GLUCOSE Routine 04/13/2025 3:52 PM EDT Type 2 diabetes mellitus with stage 3a chronic kidney disease, without long-term current use of insulin ([facility]) POCT GLYCATED HEMOGLOBIN, TOTAL Routine 04/13/2025 3:51 PM EDT Type 2 diabetes mellitus with stage 3a chronic kidney disease, without long-term current use of insulin ([facility]) URINALYSIS, COMPLETE Routine 04/13/2025 9:30 AM EDT Nocturia COMPREHENSIVE METABOLIC PANEL Routine 04/13/2025 9:23 AM EDT Type 2 diabetes mellitus with stage 3a chronic kidney disease, without long-term current use of insulin ([facility]) CBC WITH AUTO DIFFERENTIAL Routine 04/13/2025 9:23 AM EDT Type 2 diabetes mellitus with stage 3a chronic kidney disease, without long-term current use of insulin ([facility]) LIPID PANEL, STANDARD Routine 04/13/2025 9:23 AM EDT Mixed hyperlipidemia POCT GLUCOSE Routine 04/13/2025 9:22 AM EDT Type 2 diabetes mellitus with stage 3a chronic kidney disease, without long-term current use of insulin ([facility]) XR LUMBAR SPINE COMPLETE 4+ VIEWS Routine 04/13/2025 Chronic midline low back pain without sciatica HM DIABETES EYE EXAM Routine 01/30/2025 1:24 PM EDT BITEWING - SINGLE RADIOGRAPHIC IMAGE Routine 12/08/2024 8:15 AM EDT PROPHYLAXIS - ADULT Routine 05/20/2024 1 0:45 AM EDT HEPATITIS C AB W/REFL TO HCV RNA, QN, PCR Routine 03/25/2024 10:01 AM EDT Type 2 diabetes mellitus with stage 3a chronic kidney disease, without long-term current use of insulin ([facility]) PERIODIC ORAL EVALUATION - ESTABLISHED PATIENT Routine 10/23/2023 9:00 AM EST HP LINK DIABETIC FOOT EXAM Routine 04/05/2023 COLONOSCOPY Routine 09/27/2022 INTRAORAL - COMPLETE SERIES OF RADIOGRAPHIC IMAGES Routine 09/18/2022 10:00 AM EST from Last 3 Months or Most Recently Relevant to Health Maintenance Results * POCT Glucose (04/13/2025 3:52 PM EDT) Only the most recent of2 resultswithin the time period is included. Glucose Blood, POC 173 60 - 200 mg/dL QC Media Lot # [id number] Lot# Expiration Date Comment:random Blood Capillary blood specimen / Unknown 04/13/2025 3:52 PM EDT Ezequiel Curtis MD POINT OF CARE TEST ENTER/ED IT ORDERABLES Final Result * (ABNORMAL) POCT HGB A1C (04/13/2025 3:51 PM EDT) Hemoglobin A1C 6.4(A) 4.0 - 5.7 % QC Media Lot # [id number] Lot# Expiration Date Blood 04/13/2025 3:51 PM EDT Ezequiel Curtis MD POINT OF CARE TEST ENTER/ED IT ORDERABLES Final Result * (ABNORMAL) Urinalysis Complete (04/13/2025 9:30 AM EDT) Color Urine Yellow [facility] Appearance Urine Clear [facility] PH 6.0 5.0 - 9.0 [facility] Glucose Urine UA Negative Negative mg/dL [facility] Urine Blood Negative Negative [facility] Specific [place] - Urine 1.015 1.005 - 1.025 [facility] Urine Protein 100 (2+)(A) Neg-Trace mg/dL [facility] Urine Ketones Negative Negative mg/dL [facility] Nitrite Urine Negative Negative [facility] Leukocyte Esterase Urine Trace(A) Negative [facility] RBC Urine 0-2 0 - 2 /HPF [facility] Urine WBC 6-10(A) 0 - 5 /HPF [facility] Urine Squamous Epithelial Cell 0-2 0 - 2 /HPF [facility] Urine Bacteria None Seen None Seen [facility] Hyaline Casts, Urine 3-5 0 - 2 /LPF [facility] Urine (Urine, Random) 04/13/2025 9:30 AM EDT 04/13/2025 2:06 PM EDT us Ezequiel Curtis MD LAB URINE ORDERABLES Final Result [facility] [address] [place] [phone] * (ABNORMAL) CBC auto differential (04/13/2025 9:23 AM EDT) White Blood Count 8.6 4.8 - 10.8 X10*3/uL [facility] Red Blood Count 3.71(L) 4.60 - 5.80 X10*6/uL [facility] Hemoglobin 11.1(L) 14.0 - 18.0 g/dl [facility] Hematocrit 34.3(L) 42.0 - 52.0 % [facility] Mean Corpuscular Volume 92.5 80.0 - 98.0 fL [facility] Mean Corpuscular Hemoglobin 29.9 27.0 - 33.0 pg [facility] Mean Corpuscular HGB Conc 32.4 31.0 - 36.0 g/dl [facility] Red Cell Distribution Width 15.1 11.0 - 16.0 % [facility] Platelet Count 223 160 - 400 X10*3/uL [facility] Mean Platelet Volume 10.6 9.4 - 12.4 fL [facility] Neutrophils Percent Auto 60.1 45 - 73 % [facility] Imm Gran Pct Auto 0.3 0.0 - 0.4 % [facility] Lymphocytes Percent Auto 18.4(L) 20 - 40 % [facility] Monocytes Percent Auto 10.9 2 - 11 % [facility] Eosinophils Percent Auto 9.3(H) 0 - 4 % [facility] Basophils Percent Auto 1.0 0 - 2 % [facility] NRBC Pct Auto 0.0 0.0 - 0.2 /100WBC [facility] Neutrophils Absolute Auto 5.2 2.0 - 8.3 x10*3/uL [facility] Imm Gran Abs Auto 0.03 0.00 - 0.03 X10*3/uL [facility] Lymphocytes Absolute Auto 1.6 1.2 - 4.9 X10*3/uL [facility] Monocytes Absolute Auto 0.9 0.1 - 1.2 X10*3/uL [facility] Eosinophils Absolute Auto 0.8(H) 0.0 - 0.4 X10*3/uL [facility] Basophils Absolute Auto 0.1 0.0 - 0.2 X10*3/uL [facility] NRBC Abs Auto 0.000 0.0 - 0.012 X10*3/uL [facility] Blood Venous blood specimen / Unknown 04/13/2025 9:23 AM EDT 04/13/2025 1:59 PM EDT us Ezequiel Curtis MD LAB BLOOD ORDERABLES Final Result [facility] [address], [place] [phone] * Lipid Panel, Standard (04/13/2025 9:23 AM EDT) Triglycerides 91 <150 mg/dL [facility] Comment:Desirable Triglyceri de: less than 150 mg/dLBorderline High Triglyceride 150-199 mg/dLHigh Triglyceride: 200-499 mg/dLVery High Triglyceride: greater than or equal to 5OO mg/dL Cholesterol 147 <200 mg/dL [facility] Comment:Desirable Cholestero l: less than 200 mg/dLBorderline High Cholesterol: 200-239 mg/dLHigh Cholesterol: greater than 239 mg/dL LDL Cholesterol Calculated 88 <100 mg/dL [facility] Comment:Desirable LDL: less than 100 mg/dLNear Optimal/Above Optimal LDL: 110- 129 mg/dLBorderline High LDL: 130-159 mg/dLHigh LDL: 160-189 mg/dLVery High LDL: greater than or equal to 190 mg/dL HDL Cholesterol 41 >40 mg/dL [facility] Comment:Desirable HDL: great er than 40 mg/dL Note: This HDL assay may give artificially low results in patients with liver disease. Blood Venous blood specimen / Unknown 04/13/2025 9:23 AM EDT 04/13/2025 1:59 PM EDT us Ezequiel Curtis MD LAB BLOOD ORDERABLES Final Result [facility] [address] [place] [phone] * (ABNORMAL) Comprehensive Metabolic Panel (04/13/2025 9:23 AM EDT) Sodium 144 135 - 145 mmol/L [facility] Potassium 5.5(H) 3.3 - 5.1 mmol/L [facility] Chloride 109(H) 96 - 108 mmol/L [facility] Carbon Dioxide 27 22 - 29 mmol/L [facility] Anion Gap 14 12 - 20 [facility] Urea Nitrogen (BUN) 37(H) 9 - 16 mg/dL [facility] Creatinine, Serum 1.90(H) 0.5 - 1.4 mg/dL [facility] Estimated Glomerular Filt Rate 35 [facility] Comment:Chronic Kidney Disea se: Estimated GFR < 60 mL/min/1.79v6Knbnim Kidney Disease: Estimated GFR < 15 mL/min/1.73m2 Glucose 143(H) 60 - 115 mg/dL [facility] Calcium 9.3 8.4 - 10.2 mg/dL [facility] Bilirubin, Total 0.3 0.0 - 1.0 mg/dL [facility] Aspartate Amino Transferase 25 5 - 37 U/L [facility] Alanine Aminotransferase 26 0 - 40 U/L [facility] Total Protein 6.9 6.5 - 8.0 g/dL [facility] Albumin Level 4.2 3.5 - 5.0 g/dL [facility] Alkaline Phosphatase 67 39 - 117 U/L [facility] Blood Venous blood specimen / Unknown 04/13/2025 9:23 AM EDT 04/13/2025 1:59 PM EDT Ezequiel Curtis MD LAB BLOOD ORDERABLES Final Result Performing Organization Address City/State/[facility] Co de Phone Number [facility] [address] [place] [phone] * XR Lumbar Spine Complete 4+ Views (04/13/2025) Anatomical Region Laterality Modality Spine, L-spine Radiographic Tessie ging Ezequiel Curtis MD IMG XR PROCEDURES Final Res ult * Hm Diabetes Eye Exam (01/30/2025 1:24 PM EDT) us Historical Provider HEALTH MAINTENANCE Final Result * Hepatitis C Antibody with Reflex to HCV, RNA, Quantitative, Real-Time PCR (03/25/2024 10:01 AM EDT) Hepatitis C Antibody Nonreactive Nonreactive [facility] Comment:Antibodies to HCV no t detected; does not exclude early acuteHCV infection. Blood Venous blood specimen / Unknown 03/25/2024 10:01 AM EDT 03/25/2024 4:15 PM EDT us Ezequiel Curtis MD LAB BLOOD ORDERABLES Final Result [facility] [address] [place] [phone] * HP Diabetic Foot Exam (04/05/2023) us Ezequiel Curtis MD HEALTH MAINTENANCE Final Re sult * (ABNORMAL) Colonoscopy (09/27/2022) Anatomical Region Laterality Modality Endoscopy Narrative 09/27/2022 Internal hemorrhoids. No specimen collected. Repeat colonoscopy in 10 years for screening purposes. Recommended to use fiber, for example Citrucel, Fibercon, Konsyl or metamucil. Colonoscopy done at [facility] by Dr Scooter Hood us Historical Provider ENDOSCOPY PROCEDURE ORDER ELY Final Result from Last 3 Months or Most Recently Relevant to Health Maintenance Insurance [facility] INTERMEDIATE OPTIONS (HMO D-SNP) [place] [employer]AN [id number] [facility] * Guarantor: Stoney Rivers Account Type Relation to Patient Date of Phone Billing Address Personal/Family Self [address] [phone] Care Teams [employer] Certified Internetwork Expert Relationship Specialty Start Date End Date Ezequiel Curtis MD [address] [place] [phone] PCP - General Internal Medicine 09/05/21
--- OUTSIDE RECORDS SUMMARY | 2025-05-14 13:49 | XMS_ITS | Encounter Summary ---
Author Organization [facility] Address [address] [address] Phone Care Team Providers Care Pellet Preparation Operator Name Role Phone Ezequiel Curtis MD Primary Care Provider [phone] Encounter Details Date Type Department Care Team (Late st Contact Info) Description 12/01/2024 Documentation Only [facility] [address] [place] [phone] [place] [address] [place] [phone] Social History Tobacco Use Types [...] Visit [facility] [address] [place] [phone] David Barclay MD [address] [place] [address] [place] [phone] documented as of this encounter Visit Diagnoses Not on filedocumented in this encounter Care Teams Pellet Preparation Operator Relationship Specialty Start Date End Date Ezequiel Curtis MD PCP - General Internal Medicine 09/29/21 documented as of this encounter
--- OUTSIDE RECORDS SUMMARY | 2025-05-14 13:49 | XMS_ITS | Encounter Summary ---
Author Organization [employer] Address [address] [place] [address] 7t [place] [address] Care Team Providers Care Supervisor Contact Lens Name Role Phone Ezequiel Curtis MD Primary Care Provider [phone] Encounter Details Date Type Department Care Team ([facility] st Contact Info) Description 04/14/2025 Orders Only [facility] CHC MED & PEDS [address] [place], [place] [phone] Ezequiel Curtis MD [address] [place] [address] Essential hypertension (Primary Dx); Hyperkalemia; Compression deformity of vertebra Social History Tobacco Use Types Packs/Day Years [...] with others, in a hotel, in a mcc, living outside on the street, on a [...] as of this encounter Plan of Treatment Scheduled Orders Name Type Priority Associated Diagnoses Orde r Schedule Basic Metabolic Panel Lab Routine Essential hypertension Hyperkalemia Expected: 04/14/2025 (Approximate), Expires: 04/14/2026 documented as of this encounter Visit Diagnoses Diagnosis Essential hypertension- Primary Unspecified essential hypertension Hyperkalemia Hyperpotassemia Compression deformity of vertebra documented in this encounter Additional Health Concerns Assessment Noted Time PHQ-9 Depression Total Score: 3 10/30/19 25 9:33 AM EST documented as of this encounter Care Teams Supervisor Contact Lens Relationship Specialty Start Date End Date Ezequiel Curtis MD [address] [place] [address] PCP - General Internal Medicine 09/05/21 documented as of this encounter
--- OUTSIDE RECORDS SUMMARY | 2025-05-14 13:49 | XMS_ITS | Clinical Summary ---
Author Organization [facility], Address [address] [place] [address] [place] [address] Phone Care Team Providers Care Proposal Engineer Name Role Phone Ezequiel Curtis MD Primary Care Provider [phone] Allergies No known active allergies Medications amLODIPine [...] Encounters Date Type Department Care Team Description 02/25/2025 2:30 PM EDT Office Visit [facility], [address] [place] [address] David Barclay MD Stage 3b chronic kidney disease (HCC) (Primary Dx); Persistent proteinuria; Hypertension; Type 2 diabetes mellitus with diabetic chronic kidney disease (HCC) 02/16/2025 Orders Only [facility], [address] [place] [phone] Jody Luther [place] Stage 3b chronic kidney disease (HCC) (Primary Dx); Persistent proteinuria; Hypertension; Other iron deficiency anemia; Type 2 diabetes mellitus with diabetic chronic kidney disease (HCC); Stage 3 chronic kidney disease, not otherwise specified (HCC) from Last 3 Months Immunizations Immunization Administration Dates Next Due Hep B, Unspecified [...] Reading Time Taken Comments Blood Pressure 110/60 02/25/2025 2:30 PM EDT Pulse - - Temperature - - Respiratory Rate - - Oxygen Saturation - - Inhaled Oxygen Concentration - - Weight - - Height - - Body Mass Index - - Plan of Treatment Upcoming Encounters Date Type Department Care Team (Late st Contact Info) Description 09/21/2025 2:00 PM EST Office Visit [facility], [address] [place] [address] David Barclay MD [address] [facility] [place] [phone] Health Maintenance Due Date Last Done Comments Colorectal Cancer Screening: Annual FOBT 2003 Colorectal Cancer Screening: Colonoscopy 2003 Colorectal Cancer Screening: Sigmoidoscopy 2003 Diabetes: Pedal Pulse Checked 11/23/2021 Diabetes: Sensory Foot Exam 11/23/2021 Diabetes: Visual Foot Exam 11/23/2021 Diabetes: Hemoglobin A1C 01/29/2025 10/29/2024, 02/26 Influenza Vaccine (#1) 2025 06/12/2022, 2020 Diabetes: Ophthalmology Exam 09/16/2025, 08/06/2023, 08/04/2022, Additional history exists Hepatitis B Vaccine Aged Out 09/02/2019, 05/20/2019, 01/07/2019 No longer eligible based on patient's age to complete this topic Pneumococcal Vaccine: 50+ Years Completed 05/20/2020, 05/20/2019, 02/05/2013 Insurance Medicaid [place] [facility] Dual SNP ([id number]) Care Teams Proposal Engineer Relationship Specialty Start Date End Date Ezequiel Curtis MD [facility] - General Internal Medicine 09/29/21
--- OUTSIDE RECORDS SUMMARY | 2025-05-14 13:49 | XMS_ITS | Encounter Summary ---
Author Organization [employer] Address [address] [facility] 7t [place] [address] Care Team Providers Care Psychiatric Aide Name Role Phone Ezequiel Curtis MD Primary Care Provider [phone] Reason for Visit * Reason Comments Med Refill Encounter Details Date Type Department Care Team ([facility] st Contact Info) Description 06/16/[address] [facility] CHC MED & PEDS [address] [place], [place] [phone] Ezequiel Curtis MD [address] [place] [address] Essential (primary) hypertension Social History Tobacco Use [...] documented as of this encounter Care Teams Psychiatric Aide Relationship Specialty Start Date End Date Ezequiel Curtis MD [address] [place] [address] PCP - General Internal Medicine 09/05/21 documented as of this encounter
--- OUTSIDE RECORDS SUMMARY | 2025-05-14 13:49 | XMS_ITS | Encounter Summary ---
Author Organization [employer] Address [address] [facility] 7t [place] [address] Care Team Providers Care Spray Painting Machine Operator Name Role Phone Ezequiel Curtis MD Primary Care Provider [phone] Reason for Visit * Reason Comments Med Refill Encounter Details Date Type Department Care Team ([facility] st Contact Info) Description 07/08/2024 Refill [facility] CHC MED & PEDS [address] [place], [place] [phone] Ezequiel Curtis MD 505 [place] [address] Wound of left foot Social History Tobacco [...] documented as of this encounter Care Teams Spray Painting Machine Operator Relationship Specialty Start Date End Date Ezequiel Curtis MD [address] [place] [address] PCP - General Internal Medicine 09/05/21 documented as of this encounter
--- OUTSIDE RECORDS SUMMARY | 2025-05-14 13:49 | XMS_ITS | Encounter Summary ---
Author Organization [employer] Address [address] [place] [address] 7 [place] [address] Care Team Providers Care Smog Technician Name Role Phone Ezequiel Curtis MD Primary Care Provider [phone] Reason for Visit * Reason Comments Med Refill Encounter Details Date Type Department Care Team ([facility] st Contact Info) Description 02/04/2023 Refill [facility] CHC MED & PEDS [address] [place], [place] [phone] Ezequiel Curtis MD [address] [place] [address] H/O skin pruritus Social History Tobacco Use [...] documented as of this encounter Care Teams Smog Technician Relationship Specialty Start Date End Date Ezequiel Curtis MD [address] [place] [address] PCP - General Internal Medicine 09/05/21 documented as of this encounter
--- OUTSIDE RECORDS SUMMARY | 2025-05-14 13:49 | XMS_ITS | Encounter Summary ---
Author Organization [facility] Address [address] [address] Phone Care Team Providers Care Enterprise Cloud Architect Name Role Phone Ezequiel Curtis MD Primary Care Provider [phone] Encounter Details Date Type Department Care Team (Late st Contact Info) Description 10/18/2023 Documentation Only [facility] [address] [place] [phone] Jody [place], [place] [address] [place] [address] Social History Tobacco Use Types [...] Visit [facility] [address] [place] [phone] David Barclay MD [address] [place] [address] [place] [place] [phone] documented as of this encounter Visit Diagnoses Not on filedocumented in this encounter Care Teams Enterprise Cloud Architect Relationship Specialty Start Date End Date Ezequiel Curtis MD PCP - General Internal Medicine 09/29/21 documented as of this encounter
--- OUTSIDE RECORDS SUMMARY | 2025-05-14 13:49 | XMS_ITS | Encounter Summary ---
Author Organization [employer] Address [address] [place] [address] 7t [place] [address] Care Team Providers Care Balancer Name Role Phone Ezequiel Curtis MD Primary Care Provider [phone] Reason for Visit * Reason Comments Med Refill Encounter Details Date Type Department Care Team ([facility] st Contact Info) Description 11/15/2022 Refill [facility] CHC MED & PEDS [address] [place], [place] [phone] Ezequiel Curtis MD [address] [place] [address] Social History Tobacco Use Types Packs/Day Years [...] documented as of this encounter Care Teams Balancer Relationship Specialty Start Date End Date Ezequiel Curtis MD [address] [place] [address] PCP - General Internal Medicine 09/05/21 documented as of this encounter
--- OUTSIDE RECORDS SUMMARY | 2025-05-14 13:49 | XMS_ITS | Encounter Summary ---
Author Organization [employer] Address [address] [facility] 7t [place] [address] Care Team Providers Care Sales Record Clerk Name Role Phone Ezequiel Curtis MD Primary Care Provider [phone] Reason for Visit * Reason Comments Med Refill Encounter Details Date Type Department Care Team ([facility] st Contact Info) Description 02/14/2023 Refill [facility] CHC MED & PEDS [address] [place] [address] Natalie Urena MD 505 [place] [address] Social History Tobacco Use Types Packs/Day Years [...] documented as of this encounter Care Teams Sales Record Clerk Relationship Specialty Start Date End Date Ezequiel Curtis MD [address] [place] [address] PCP - General Internal Medicine 09/05/21 documented as of this encounter
--- OUTSIDE RECORDS SUMMARY | 2025-05-14 13:49 | XMS_ITS | Encounter Summary ---
Author Organization [facility] Address [address] [place] [address] 7 [place] [address] Care Team Providers Care Market Garden Worker Name Role Phone Ezequiel Curtis MD Primary Care Provider [phone] Reason for Visit * Reason Comments Med Refill Encounter Details Date Type Department Care Team (Late st Contact Info) Description 09/14/2022 Refill [facility] [address] [place], [place] [phone] Ezequiel Curtis MD [address] [place] [address] Benign prostatic hyperplasia with weak urinary stream [...] stream documented in this encounter Care Teams Market Garden Worker Relationship Specialty Start Date End Date Ezequiel Curtis MD [address] [place] [address] PCP - General Internal Medicine 09/05/21 documented as of this encounter
[2025-05-14 15:03] LABS: Anion Gap 10 (12-20); Blood Urea Nitrogen 37 mg/dL (9-16); Calcium 8.9 mg/dL (8.4-10.2); Carbon Dioxide 26 mmol/L (22-29); Chloride 109 mmol/L (96-108); Estimated Glomerular Filt Rate 30; Potassium 5.6 mmol/L (3.3-5.1); Sodium 139 mmol/L (135-145)
[2025-05-19 03:08] LABS: TS Negative Control Passed; TS Panel A 0; TS Panel B 0; TS Positive Control Passed; TSpotTB Negative (Negative)
== END 2025-05-14 11:26 | disposition home or self-care (01) ==
LOC: HO.CHCLDS 11:25
PROVIDERS: Visit Provider Internal Medicine
DX: E11.22 Type 2 diabetes mellitus with diabetic chronic kidney disease (principal); N18.31 Chronic kidney disease, stage 3a; E87.5 Hyperkalemia
CPT/HCPCS: 36415; 80048; 86481

== ENCOUNTER 2025-06-09 11:28 | Outpatient (REF) | payer OTHER, SELFPAY ==
--- NOTE | ~2025-06-09 | XR_ITS ---
EXAMINATION: XR CHEST CLINICAL INFORMATION: cough x 10 days COMPARISON: None available. TECHNIQUE: 2 views of the chest were obtained. FINDINGS: The cardiac, hilar, and mediastinal contours are normal. The lungs are mildly hyperaerated, however clear bilaterally. Calcified granuloma in the left upper lobe. There is no pneumothorax or pleural effusion. There is no focal osseous or soft tissue abnormality. XR/XR chest 2V IMPRESSION: No active pulmonary disease. Electronically signed by: Andrea Carrera MD 06/09/2025 12:06 PM EDT
== END 2025-06-09 11:29 | disposition home or self-care (01) ==
LOC: HO.HHCL 11:28
PROVIDERS: PCP Internal Medicine; Visit Provider Family Medicine
DX: R05.1 Acute cough (principal)
CPT/HCPCS: 71046

== ENCOUNTER → 2025-06-09 11:36 | Outpatient (BNV) | payer OTHER, SELFPAY | PROVIDERS: PCP Internal Medicine; Visit Provider Radiology Diagnostic Radiology | DX: R05.9 Cough, unspecified (principal) | CPT/HCPCS: 71046 ==